=== PATIENT | female | born 1955 | race Caucasian/White ===

== ENCOUNTER 2020-08-22 15:54 | Outpatient (CLI) | payer MEDICARE, OTHER, SELFPAY ==
--- NOTE | ~2020-08-22 | XR_ITS ---
EXAMINATION: XR cervical spine 4-5V DATE: 08/22/2020 16:26 INDICATION: Cervical disc disorder, unspecified. TECHNIQUE: 4 views of cervical spine were obtained. COMPARISON: Cervical spine radiograph 01/28/14 FINDINGS: There is 5 degrees levocurvature of cervical spine. Vertebral body heights are normal. Ther e are disc replacement at C4-C5, C5-C6, and C6-C7. Intervertebral disc heights are normal. There is s evere uncovertebral joint osteoarthritis at C5-C6. There is severe facet joint osteoarthritis at C7-T 1. No central canal stenosis or prevertebral soft tissue swelling. IMPRESSION: 1. Mild cervical spondylosis. 2. Disc replacements from C4-C5 through C6-C7. Reviewed, dictated and finalized at location A. 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
--- NOTE | ~2020-08-22 | XR_ITS ---
XR chest 2V DATE: 08/22/2020 16:26 INDICATION: Right chest and back pain TECHNIQUE: PA and lateral views COMPARISON: 12/12/2015 PA and lateral chest FINDINGS: Stable left mid-upper lung calcified pulmonary granuloma. No pulmonary infiltrate or consol idation, pleural effusion or pulmonary vascular congestion or pneumothorax is evident. Borderline hea rt size with left ventricular prominence. No hilar or mediastinal enlargement. Surgical clips, right upper quadrant, consistent with cholecystectomy. Status post anterior cervical spine surgical fusion. There is mild dextroscoliosis and degenerative spurring of the thoracic spine. Diffuse osteopenia. IMPRESSION: Interval anterior cervical spine surgical fusion since 12/12/2015 Borderline heart size, left ventricular prominence No active pulmonary disease Reviewed, dictated and finalized at location A. RDS MANAGEMENT DIRECTOR
--- NOTE | ~2020-08-22 | XR_ITS ---
EXAMINATION: XR shoulder RT min 2V DATE: 08/22/2020 16:26 INDICATION: Right shoulder pain. TECHNIQUE: 4 views of right shoulder were obtained. COMPARISON: None. FINDINGS: Bone alignment is normal. No fracture. There is moderate osteoarthritis of glenohumeral jessica nt and acromioclavicular joint. There is instrumentation in cervical spine. IMPRESSION: 1. Polyarticular osteoarthritis. Reviewed, dictated and finalized at location A. TCHER TENDER
== END 2020-08-22 15:55 | disposition home or self-care (01) ==
LOC: ANHIMG 15:58
PROVIDERS: PCP Family Medicine; Visit Provider Family Medicine
DX: R07.81 Pleurodynia (principal); M50.90 Cervical disc disorder, unspecified, unspecified cervical region
CPT/HCPCS: 71046; 72050; 73030

== ENCOUNTER 2021-06-03 10:03 | Outpatient (CLI) | payer MEDICARE, OTHER, SELFPAY ==
--- NOTE | ~2021-06-03 | MM_ITS ---
EXAMINATION: MM screening radha BI w jose guadalupe HISTORY: Screening TECHNIQUE: Craniocaudal and mediolateral oblique 3-D tomosynthesis images were obtained and synthetic 2-D images were generated. CAD analysis was submitted and interpreted. COMPARISON: No prior mammogram is available for comparison at this institution. BREAST PARENCHYMAL COMPOSITION: There are scattered areas of fibroglandular density. FINDINGS: There is no evidence of suspicious mass, calcification, or architectural distortion to sugg est malignancy in either breast. There has been no suspicious interval change. IMPRESSION: 1. No mammographic evidence of malignancy. 2. Recommend routine screening mammography in one year. BI-RADS Category 1: Negative Reviewed, dictated and finalized at location A. G[employer] DAT[employer]
== END 2021-06-03 10:04 | disposition home or self-care (01) ==
LOC: ANHIMG 10:05
PROVIDERS: PCP Family Medicine; Visit Provider Family Medicine
DX: Z12.31 Encounter for screening mammogram for malignant neoplasm of breast (principal)
CPT/HCPCS: 77063; 77067

== ENCOUNTER 2021-12-09 12:46 | Outpatient (CLI) | payer MEDICARE, OTHER, SELFPAY ==
--- NOTE | ~2021-12-09 | CT_ITS ---
EXAMINATION: CT lumbar spine wo con DATE: 12/09/2021 13:08 INDICATION: Low back pain. Sciatica. TECHNIQUE: Computed tomography (CT) of the lumbar spine was performed without intravenous contrast. A utomated exposure control and iterative reconstruction technique were employed. The dose-length produ ct was 1012.96 mGy-cm. COMPARISON: None FINDINGS: There is 8 degrees levocurvature of lumbar spine. Vertebral body heights are normal. There is mildly decreased disc height at L2-L3, L3-L4, and L4-L5. The following disc levels are specificall y discussed: L1-L2: The disc is bulging. There is mild bilateral facet joint osteoarthritis. There is no neural fo raminal stenosis. There is mild central canal stenosis. L2-L3: The disc is bulging. There is moderate right and mild left facet joint osteoarthritis. There i s mild bilateral neural foraminal stenosis. There is mild central canal stenosis. L3-L4: The disc is bulging. There is severe bilateral facet joint osteoarthritis. There is mild bilat eral neural foraminal stenosis. There is mild central canal stenosis. L4-L5: The disc is bulging. There is severe bilateral facet joint osteoarthritis. There is mild right and moderate left neural foraminal stenosis. There is mild central canal stenosis. L5-S1: The disc is bulging. There is severe bilateral facet joint osteoarthritis. There is mild bilat eral neural foraminal stenosis. There is mild central canal stenosis. IMPRESSION: 1. Mild lumbar spondylosis. Reviewed, dictated and finalized at location B. IMPRESSION: 1. Mild lumbar spondylosis.
== END 2021-12-09 12:47 | disposition home or self-care (01) ==
PROVIDERS: PCP Family Medicine; Visit Provider Physician Assistant Medical
DX: M47.896 Other spondylosis, lumbar region (principal); Z98.890 Other specified postprocedural states
CPT/HCPCS: 72131

== ENCOUNTER 2022-08-19 15:11 | Outpatient (CLI) | payer MEDICARE, OTHER, SELFPAY ==
--- NOTE | ~2022-08-19 | MM_ITS ---
EXAMINATION: MM screening radha BI w jose guadalupe HISTORY: Screening mammogram TECHNIQUE: Craniocaudal and mediolateral oblique 3-D tomosynthesis images were obtained and synthetic 2-D images were generated. CAD analysis was submitted and interpreted. COMPARISON: 06/03/2021, 01/06/2010 bilateral screening mammogram examinations BREAST PARENCHYMAL COMPOSITION: There are scattered areas of fibroglandular density. FINDINGS: Chronic stable bilateral axillary tail and intramammary nodes since 2009. There is no evide nce of suspicious mass, calcification, or architectural distortion to suggest malignancy in either br east. There has been no suspicious interval change. IMPRESSION: 1. No mammographic evidence of malignancy. 2. Recommend routine screening mammography in one year. BI-RADS Category 2: Benign finding(s). Reviewed, dictated and finalized at location A. 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
== END 2022-08-19 15:12 | disposition home or self-care (01) ==
PROVIDERS: PCP Family Medicine; Visit Provider Physician Assistant
DX: Z12.31 Encounter for screening mammogram for malignant neoplasm of breast (principal)
CPT/HCPCS: 77063; 77067

== ENCOUNTER 2023-10-01 09:28 | Outpatient (CLI) | payer MEDICARE, OTHER, SELFPAY ==
--- NOTE | ~2023-10-01 | MM_ITS ---
EXAMINATION: MM screening radha BI w jose guadalupe HISTORY: Screening mammogram TECHNIQUE: Craniocaudal and mediolateral oblique 3-D tomosynthesis images were obtained and synthetic 2-D images were generated. CAD analysis was submitted and interpreted. COMPARISON: August 19, 2022, June 03, 2021 bilateral screening mammogram examinations BREAST PARENCHYMAL COMPOSITION: There are scattered areas of fibroglandular density. FINDINGS: Stable bilateral axillary tail intramammary lymph nodes. There is no evidence of suspicious mass, calcification, or architectural distortion to suggest malignancy in either breast. There has b een no suspicious interval change. IMPRESSION: 1. No mammographic evidence of malignancy. 2. Recommend routine screening mammography in one year. BI-RADS Category 2: Benign finding(s). Reviewed, dictated and finalized at location B.
== END 2023-10-01 09:29 | disposition home or self-care (01) ==
PROVIDERS: PCP Family Medicine; Visit Provider Family Medicine
DX: Z12.31 Encounter for screening mammogram for malignant neoplasm of breast (principal)
CPT/HCPCS: 77063; 77067

== ENCOUNTER 2023-12-09 08:05 | Outpatient (CLI) | payer MEDICARE, OTHER, SELFPAY ==
--- NOTE | ~2023-12-09 | CT_ITS ---
CT of the Abdomen: Indication: Disorder of adrenal gland Technique: 2.5 mm axial scans were obtained through the abdomen prior to and following intravenous a dministration of 100 cc of Omnipaque 350. Dose reduction technique was used on this scan by utilizing automated exposure control and iterative reconstruction technique. The dose-length product (DLP) was 2802.26 mGy-cm. Findings: Scans through the lung bases are unremarkable. The liver, spleen, pancreas, left adrenal gland, and kidneys are within normal limits. Cholecystectom y clips are present. No evidence of aortic aneurysm. No lymphadenopathy. 9 mm right adrenal nodule is present. There are precontrast Hounsfield units of 33, portal venous N[place]field units of 89, and 15 minute delayed Hounsfield units of 43. Visualized bowel loops are unremarkable. No ascites. Impression: 9 mm right adrenal nodule, with washout characteristics compatible with benign adenoma. Reviewed, dictated and finalized at [facility]. Impression: 9 mm right adrenal nodule, with washout characteristics compatible with benign adenoma.
[2023-12-09 08:33] LABS: Estimated Glomerular Filt Rate > 60
== END 2023-12-09 08:06 | disposition home or self-care (01) ==
PROVIDERS: PCP Family Medicine; Visit Provider Internal Medicine Endocrinology, Diabetes & Metabolism
DX: E27.9 Disorder of adrenal gland, unspecified (principal)
CPT/HCPCS: 74170; Q9967

== ENCOUNTER 2024-09-21 15:14 | Outpatient (CLI) | payer MEDICARE, OTHER, SELFPAY ==
--- NOTE | ~2024-09-21 | XR_ITS ---
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 No fracture or traumatic malalignment. There is a n ew lytic lesion of the distal ulnar metadiaphysis with cortical thinning. Impression: 1: New lytic lesion distal aspect of the ulna. Consider myeloma and metastatic disease. Reviewed, dictated and finalized at location A. Impression: 1: New lytic lesion distal aspect of the ulna. Consider myeloma and metastatic disease.
--- OUTSIDE RECORDS SUMMARY | 2024-09-21 15:19 | XMS_ITS | Clinical Summary ---
Author Organization [facility] Rajesh Augustin Address [address] [facility] [address] [place] [address] Care Team Providers Care Database Development Project Manager Name Role Phone Unavailable Primary Care Provider Unavailabl e Allergies Active Allergy Reactions Criticality Noted Date Comments Adhesive Itching Low 08/22/2024 Amoxicillin-Pot Clavulanate Unknown 08/22/19 Codeine Unknown 08/22/2024 Latex Dizziness Low 08/22/2024 Levofloxacin Unknown 08/22/2024 Morphine Dizziness Low 08/22/2024 Oxycodone-Acetaminophen Dizziness Low 08/22/2024 Medications ALBUTEROL SULFATE INHALATION Take by inhalation. Active cyclobenzaprine HCl (CYCLOBENZAPRIN E ORAL) Take by mouth. Activ e fluticasone propion-salmete roL (ADVAIR HFA) 45-21 mcg/actuation HFA Aerosol Inhaler Take 2 Puffs by inhalation every 12 hours. Active levothyroxine 100 mcg tablet Take 100 mcg by mouth daily in the morning. Active liothyronine sodium (LIOTHYRONINE ORAL) Take by mouth. Activ e metFORMIN (GLUCOPHAGE) 500 mg tablet Take 500 mg by mouth 2 times daily with meals. Active tramadol HCl (TRAMADOL ORAL) Take by mouth. Active trandolapriL (MAVIK) 2 mg Tablet Take 2 mg by mouth daily. Active ergocalciferol (VITAMIN D2) 50,000 unit capsule Take 50,000 Units by mouth twice weekly. Active Active Problems No known active problems Encounters Date Type Department Care Team Description 09/12/2024 External Device Data STL ABSTRACTION Provider, Abstract 09/07/2024 Orders Only [facility] Surgical Oncology [place] [address] [facility] [address] [place] [address] Jorge Zavala MD Palmyra's syndrome (Primary Dx) 09/06/2024 1:30 PM CDT Office Visit [facility] [place] [address] [place] [address] Jorge Zavala MD Adrenal mass (Primary Dx) 09/05/2024 External Device Data STL ABSTRACTION Provider, Abstract 09/05/2024 Telephone [facility] [place] [address] [facility] [address] [place] [address] Jorge Zavala MD Appointment Verification 09/04/2024 External Device Data STL ABSTRACTION Provider, Abstract 09/01/2024 External Device Data STL ABSTRACTION Provider, Abstract 08/31/2024 External Device Data STL ABSTRACTION Provider, Abstract 08/29/2024 External Device Data STL ABSTRACTION Provider, Abstract 08/29/2024 External Device Data STL ABSTRACTION Provider, Abstract 08/28/2024 External Device Data STL ABSTRACTION Provider, Abstract 08/27/2024 Telephone [facility] [place] [address] [facility] [address] [place] [address] Jorge Zavala MD Appointment Notification 08/22/2024 Telephone [facility] [id number] [place] [address] [place] [address] Dangelo Sandoval Medical info request 08/22/2024 Orders Only [facility] [id number] [place] [address] [address] [place] [address] Dangelo Sandoval 08/22/2024 Telephone [facility] [id number] [place] [address] [address] [place] [address] Dangelo Sandoval Imaging information 08/22/2024 Orders Only [facility] [id number] [place] [address] [place] [address] Jorge Zavala MD Adrenal adenoma, left (Primary Dx) 08/20/2024 11:40 AM DIAMOND FINISHING SUPERVISOR - 08/20/2024 11:59 PM DIAMOND FINISHING SUPERVISOR Hospital Encounter [facility] [place] [address] [place] [address] [facility], External Provider Discharge Disposition: Home or Self Care from Last 3 Months Social History Tobacco Use Types Packs/Day Years Used Date Smoking Tobacco: Never Assessed Comments Unknown Sex and Gender Information Value Date Recorded Sex Assigned at Not on file Legal Sex Female 11:51 AM DIAMOND FINISHING SUPERVISOR Gender Identity Not on file Sexual Orientation Not on file Last Filed Vital Signs Vital Sign Reading Time Taken Comments Blood Pressure 138/92 09/06/2024 1:28 PM CDT Pulse 96 09/06/2024 1:28 PM CDT Temperature 36.8 C (98.2 F) 09/06/2024 1:28 PM CDT Respiratory Rate - - Oxygen Saturation 97% 09/06/2024 1:28 PM CDT Inhaled Oxygen Concentration - - Weight 90 kg (198 lb 6.4 oz) 09/06/2024 1:28 PM CDT Height 152.4 cm (5') 09/06/2024 1:28 PM CDT Body Mass Index 38.75 09/06/2024 1:28 PM CDT Plan of Treatment Upcoming Encounters Date Type Department Care Team (Late st Contact Info) Description 11/28/2024 1:00 PM CDT Office Visit [facility] Endocrinology [address] [facility] [address] [place] [phone] Russell Rasmussen MD [address] [facility] [address] [place] [address] Health Maintenance Due Date Last Done Comments DIABETES ANNUAL RETINAL EXAM 12/03/1973 DIABETES MICROALBUMIN ANNUAL SCREEN 12/03/1973 LDL CHOLESTEROL ANNUAL 12/03/1973 DTAP/TDAP/TD VACCINES (1 - Tdap) 12/03/1974 PNEUMOCOCCAL VACCINE 50+ YEARS (1 of 2 - PCV) 12/03/18 75 Traditional Medicare (ACO) Annual Wellness Visit 12/03 BREAST CANCER SCREENING 1995 COLORECTAL SCREENING 12/03/2000 Colorectal Cancer Screening 12/03/2000 FIT-DNA Q 3 years 12/03/2000 FIT/FOBT Q 1 year 12/03/2000 Flex Sig/CT Colonography Q 5 years 12/03/2000 ZOSTER VACCINE (1 of 2) 12/03/2005 RSV VACCINE (60+ or ) (1 - Risk 60-74 years 1-dose series) 2015 DIABETES HBA1C Q 6 MONTHS 03/03/2019 08/31/2018 DIABETES ANNUAL FOOT EXAM 10/13/2019 10/12/2018 OSTEOPOROSIS SCREENING 12/03/2020 INFLUENZA VACCINE (#1) 2024 Procedures Procedure Name Priority Date/Time Associated Diagnosis Comments METANEPHRINES FRACTIONATED, PLASMA Routine 08/27/2024 1:55 PM DIAMOND FINISHING SUPERVISOR Adrenal adenoma, left CT PRIOR STUDY Routine 08/20/2024 11:40 AM DIAMOND FINISHING SUPERVISOR Encounter for administrative examinations, unspecified from Last 3 Months Results * METANEPHRINES FRACTIONATED, PLASMA (08/27/2024 1:55 PM DIAMOND FINISHING SUPERVISOR) METANEPHRINES FREE, PLASMA <25 <=57 pg/mL [facility] Comment: This test was developed and its analytical performance characteristics have been determined by [employer] [place], [place]. It has not been cleared or approved by the U.S. Food and Drug Administration. This assay has been validated pursuant to the CLIA regulations and is used for clinical purposes. NORMETANEPHRINE, FREE, PLASMA 106 <=148 pg/mL [facility] Comment: This test was developed and its analytical performance characteristics have been determined by [employer] [place], [place]. It has not been cleared or approved by the U.S. Food and Drug Administration. This assay has been validated pursuant to the CLIA regulations and is used for clinical purposes. METANEPHRINES, TOTAL, PLASMA 106 <=205 pg/mL [facility] Comment: For additional information, please refer to http://education.Constant Therapy.DataArt/faq/MetFractFree (This link is being provided for informational/educatio informational/educational purposes only.) Elevations >4-fold upper reference range: strongly suggestive of a pheochromocytoma(1). Elevations >1- 4-fold upper reference range: significant but not diagnostic, may be due to medications or stress. Suggest running 24 hr urine fractionated metanephrines and/or serum Chromagranin A for confirmation. Reference: (1)José Miguel Soler et al, Plasma Chromogranin A or Urine Fractionated Metanephrines Follow-Up Testing Improves the Diagnostic Accuracy of Plasma Fractionated Metanephrines for Pheochromocytoma. The Journal of Clinical Endocrinology # Metabolism 93(1), 91-95, 2008. This test was developed and its analytical performance characteristics have been determined by [facility] [place], [place]. It has not been cleared or approved by the U.S. Food and Drug Administration. This assay has been validated pursuant to the CLIA regulations and is used for clinical purposes. Test Performed at: [facility] [address] [facility] [place], [place] Connor Tai M.D.,PhD Blood 08/27/2024 1:55 PM DIAMOND FINISHING SUPERVISOR 08/27/2024 1:56 PM DIAMOND FINISHING SUPERVISOR Jorge Zavala MD CHEMISTRY ORDERABLES Fin al Result [facility] [phone] [facility] [address] [facility] [place], [place] * CT PRIOR STUDY (08/20/2024 11:40 AM DIAMOND FINISHING SUPERVISOR) Narrative 08/22/2024 11:40 AM DIAMOND FINISHING SUPERVISOR This exam was auto finalized to allow images to be scanned to PACS. us External Provider [facility] CT ORDERABLES Final Res ult from Last 3 Months Insurance MEDICARE PART A AND B [facility] [address]
--- OUTSIDE RECORDS SUMMARY | 2024-09-21 15:20 | XMS_ITS | CONTINUITY OF CARE DOCUMENT ---
Author Name nico walsh Address Unknown Organization [facility] Address [address] [place] [address] Phone [phone] Care Team Providers Care Wire Stitcher Machine Name Role Phone Amanda MARTINI, Marlon Unavailable BRITT FUENTES MD Unavailable [phone] BRITT FUENTES MD Unavailable PROBLEMS Condition Status Date Provider Notes Cardiology examination active Yusef Gentile i MANAGER USER INTERFACE Dizziness active Yusef Whitlockri MANAGER USER INTERFACE Hypertension active Yusef Whitlockri MANAGER USER INTERFACE Hypothyroidism active Yusef Whitlockri MANAGER USER INTERFACE Prediabetes active Vertari Avila MANAGER USER INTERFACE Anemia active Yusef Whitlockri MANAGER USER INTERFACE Sharee's syndrome active Yusef Whitlockri MANAGER USER INTERFACE Adrenal adenoma active Yusef Whitlockri MANAGER USER INTERFACE Family Hx heart disease active Vertari Whitlock ri MANAGER USER INTERFACE Cristina's thyroiditis active Vertari Whitlock ri MANAGER USER INTERFACE Hx of mitral valve prolapse active Yusef julian MANAGER USER INTERFACE ENCOUNTERS Date Type Provider Location Encounter Diag nosis - In-person encounter Office Visit Marlon Patel MD [facility] - In-person encounter Office Visit Marlon Patel MD [facility] Cardiology examinationDizzinessHyp ertensionHypothyroidism PrediabetesAnemiaCushin g's syndromeAdrenal adenomaFamily Hx heart diseaseHashimoto's thyroiditisHx of mitral valve prolapse VITAL SIGNS Date Observation Value Provider Body Mass Index (Ratio) 37.51 kg/m2 Yaron Patel MD blood pressure, cuff size large Ke mathewi Dary blood pressure, diastolic 84 mm[Hg] Ke rrkade Dary blood pressure, systolic 134 mm[Hg] Edwin lieberman Dary oxygen saturation, oximetry 98 % Odalis Dary respiratory rate E&M 14 /min Odalis schmidt pulse rate 74 /min Odalis Courtney [facility] weight E&M 254 [lb_av] Odalis Sherwin [facility] height E&M 69 [in_i] Odalis Sherwin [facility] Body Mass Index (Ratio) 37.80 kg/m2 Yaron Patel MD blood pressure, diastolic 84 mm[Hg] Carine nkLogadarsh blood pressure, systolic 144 mm[Hg] Kimberly kLogadarsh pulse rate 80 /min Amy Ann oxygen saturation, oximetry 98 % Amy Ann blood pressure, cuff size regular Luis Enrique Ann blood pressure, diastolic 84 mm[Hg] Luis Enrique Ann blood pressure, systolic 144 mm[Hg] Marcel Ann weight E&M 256 [lb_av] Amy Ann height E&M 69 [in_i] Amy Ann respiratory rate E&M 12 /min Amy Ann ALLERGIES Allergy Name Onset Date Reaction Criticality Status MORPHINE High Criticality active CODEINE High Criticality active LEVAQUIN High Criticality active AUGMENTIN High Criticality active HISTORY OF MEDICATION USE Medication Status Instructions Dates Provider Indications Com ments Ozempic 1 mg/dose (4 mg/3 mL) pen injector active Amy Ann cyanocobalamin (vitamin B-12) 1,000 mcg lozenge active TAKE 1 TABLET/LOZENGE BY MOUTH ONCE DAILY Amy Ann Linzess 72 mcg capsule active take 1 pill a day Odalis Foote escitalopram oxalate 20 mg tablet active take 1 pill a day Odalis Foote Korlym 300 mg tablet active take 600mg twice a day Odalis Foote levothyroxine 88 mcg tablet active take 1 pill a day Odalis Foote alprazolam 0.5 mg tablet active take as needed Odalis Foote metformin (Glucophage XR) 500 mg tablet extended release 24 hr active take 2 pills once a day Odalis Foote spironolactone 50 mg tablet active take 2 pill twice a day Odalis Foote gabapentin 300 mg capsule active take 1 pill a day Odalis Foote amlodipine 5 mg tablet active TAKE 1 TABLET BY MOUTH DAILY Odalis Foote SOCIAL HISTORY Date Observation Value Provider personal history of marijuana use no Marlon Patel MD drug use no Marlon Loaiza alcohol use, average drinks per day socia l Marlon Patel MD alcohol use yes Marlon Loaiza smoking status Never smoker Marlon Patel MD personal history of marijuana use no Yusef Avila NP drug use no Yusef Avila NP alcohol use, average drinks per day socia l Yusef Avila NP alcohol use yes Yusef Avila NP smoking status Never smoker Yusef Gentile i, NP FAMILY HISTORY Family Member Condition Maternal Grandmother Sudden Cardiac Deat h INSURANCE PROVIDERS Payer name Policy type / Coverage type [place] [employer] [facility] CYP Design [id number] [place] Medicare [id number] ADVANCE DIRECTIVES Name Date DISCUSSED - NO DECISION MADE TREATMENT PLAN Date Name Performer Cardiology Marlon Patel MD Cardiology Marlon Patel MD Cardiology Marlon Patel MD Cardiology Marlon Patel MD Cardiology Marlon Patel MD Cardiology: M anaged per Endocrinology. O n Spironolactone and Korlym. Yusef Avila NP Cardiology: Cande mcdowell with Endocrinology Yusef Avila NP Cardiology: M anaged per Endocrinology H er updated medication list for this problem includes: Levothyroxine 112 Mcg Tablet (Levothyroxine) Yusef Avila NP Cardiology: B P today: 144/84 S he checks her BP at home and is well controlled at home Her updated medication list for this problem includes: Spironolactone 50 Mg Tablet (Spironolactone) Amlodipine 5 Mg Tablet (Amlodipine) Yusef Avila NP Cardiology: S he had a 48 hour holter 01/09-01/12/24 that showed SR, SVEs, VEs. Max HR 203, Avg 73, Min 47. S he seems to be tachy-kenneth but no indication for a PPM at this time. W ill get an echo Yusef Avila NP Date Name Complete Echo HISTORY OF PROCEDURES Procedure Date Procedure Name Provider Procedure Notes S tatus EKG Marlon Patel MD complete d
--- OUTSIDE RECORDS SUMMARY | 2024-09-21 15:20 | XMS_ITS | Clinical Summary ---
Author Organization [facility] Address [address] [place] [address] Care Team Providers Care Calender Supervisor Name Role Phone Doreen Marte MD Primary Care Provider [phone] Efe Bhat MD Unavailable [phone] Source Comments [facility],non-owned Affiliates and Associated Physician Practices is amultiple site organization consisting of ambulatory clinics and hospital sitesin [place], [place], [place] and [place]. This disclosure is being madepursuant to the Care Everywhere program and may not contain all information available regarding this patient. Last updated 18.[facility] Allergies Active Allergy Reactions Criticality Noted Date Comments Adhesive Sensitivity 10/12/2013 Augmentin 10/12/2013 Codeine 10/12/2013 Latex 10/12/2013 Levofloxacin 06/11/2017 Morphine 10/12/2013 Oxycodone-Acetaminophen 10/12/2013 Medications * Be aware that medications may not be up to date on this document. Alwaysverify current medications with the patient. Medication Sig Dispensed Refills Start Date End Date Status vitamin D, ergocalciferol, (DRISDOL) 58008 UNITS capsule Take 1 (one) capsule by mouth Two times a week Active ALBUTEROL IN Active Ozempic, 1 MG/DOSE, 4 MG/3ML pen INJECT 1 MG (0.75 ML) SUBCUTANEOUSLY WEEKLY Active Linzess 72 MCG capsule Take 1 (one) capsule by mouth once daily Active oxyBUTYnin CR 24hr (Ditropan-XL) 5 MG tablet Take 1 (one) tablet by mouth once daily Active spironolactone (Aldactone) 50 MG tablet TAKE UP TO 2 TABLETS BY MOUTH ONCE DAILY Active amLODIPine (Norvasc) 5 MG tablet Take 1 (one) tablet by mouth once daily 03/13/2024 Active ondansetron (Zofran) 4 MG tablet 1 TAB(S) ORALLY TWICE DAILY NEEDED FOR NAUSEA 30 DAYS 06/24/2024 Active escitalopram (Lexapro) 20 MG tablet Take 1 (one) tablet by mouth once daily 03/13/2024 Active omeprazole (PriLOSEC) 20 MG capsule 1 CAPSULE 1/2 TO 1 HOUR BEFORE MORNING MEAL ORALLY ONCE A DAY 90 DAYS 05/14/2024 Active gabapentin (Neurontin) 300 MG capsule Take 1 (one) capsule by mouth 3 times daily 03/13/2024 Active ALPRAZolam (Xanax) 0.5 MG tablet Take 1 (one) tablet by mouth 2 times daily as needed 03/13/2024 Active propranolol (Inderal) 10 MG tablet TAKE 1 TABLET BY MOUTH TWICE A DAY FOR 90 DAYS 04/18/2024 Active levothyroxine (Synthroid) 112 MCG tablet Take 1 (one) tablet by mouth daily before breakfast Active Cyanocobalamin (B-12) 1000 MCG TAKE 1 TABLET/LOZENGE BY MOUTH ONCE DAILY Active dexAMETHasone (Decadron) 1 MG tablet Take 1 (one) tablet by mouth once for 1 dose Take at 11pm day prior to your cortisol test. Please obtain your lab value between 8-9am the next morning 1 tablet 07/04/2024 Active Active Problems Problem Noted Date Diagnosed Date Essential hypertension 10/12/2013 Overview (03/27/2015): Type II or unspecified type diabetes mellitus without mention of complication, not stated as uncontrolled 10/12/2013 Osteoarthrosis involving lower leg 10/12/2013 Overview (09/20/2015): 2015 IMO Updt Encounters Date Type Department Care Team Description 08/28/2024 Telephone [facility] - Urology [address] [place] [address] Pam Kyle LPN Imaging 08/20/2024 1:57 PM FINAL ARMATURE TESTER - 08/20/2024 11:59 PM FINAL ARMATURE TESTER Hospital Encounter [facility] [address] [place] [address] Blu Martinez MD Discharge Disposition: Home or Self Care 08/20/2024 Travel 08/16/2024 Travel 08/07/2024 Telephone [facility] [address] [place] [phone] Blu Martinez MD Results 08/06/2024 Orders Only [facility] - [facility] [address] [place] [id number] Blu Martinez MD 07/04/2024 4:00 PM FINAL ARMATURE TESTER Office Visit [facility] [address] [place] [phone] Blu Martinez MD Adrenal nodule (Primary Dx) 07/04/2024 Orders Only [facility] - [facility] [address] [place] [phone] Blu Martinez MD Adrenal nodule from Last 3 Months Social History Tobacco Use Types Packs/Day Years Used Date Smoking Tobacco: Never Smokeless Tobacco: Never Tobacco Cessation:Counseling Given: Not Answered Alcohol Use Standard Drinks/Week Comments Not Asked 0 (1 standard drink = 0.6 oz pur e alcohol) Sex and Gender Information Value Date Recorded Sex Assigned at Not on file Gender Identity Not on file Sexual Orientation Not on file Last Filed Vital Signs Vital Sign Reading Time Taken Comments Blood Pressure 126/87 07/04/2024 3:46 PM FINAL ARMATURE TESTER Pulse 98 07/04/2024 3:46 PM FINAL ARMATURE TESTER Temperature 36.1 C (97 F) 07/04/2024 3:46 PM FINAL ARMATURE TESTER Respiratory Rate 16 06/11/2017 10:54 AM FINAL ARMATURE TESTER Oxygen Saturation 94% 07/04/2024 3:46 PM FINAL ARMATURE TESTER Inhaled Oxygen Concentration - - Weight 93.4 kg (206 lb) 07/04/2024 3:46 PM FINAL ARMATURE TESTER Height 175.3 cm (5' 9 ) 07/04/2024 3:46 PM FINAL ARMATURE TESTER Body Mass Index 30.42 07/04/2024 3:46 PM FINAL ARMATURE TESTER Plan of Treatment Upcoming Encounters Date Type Department Care Team (Late st Contact Info) Description 11/06/2024 3:00 PM CDT Office Visit [facility] - Endocrinology [facility] [facility] [address] [facility] [place] [address] Yunier Juárez MD [facility] [facility] [address] [place] [address] Health Maintenance Due Date Last Done Comments BONE DENSITY TESTING 1955 COLOGUARD (AGES 45-75) - COL ON CA SCREENING 1955 COLON MONITORING 1955 COLONOSCOPY - COLON CA SCREENING 1955 CT COLONOGRAPHY - COLON CA SCREENING 1955 Colorectal Cancer Screening 1955 FIT - COLON CA SCREENING 1955 FLEX SIG - COLON CA SCREENING 1955 MAMMOGRAM 1955 MEDICARE AWV 12 MONTHS 1955 HEPATITIS C SCREENING 11/29/1973 DIABETES-SERUM CREATININE 12/03/1973 DTAP/TDAP/TD VACCINES (1 - Tdap) 12/03/1974 PNEUMOCOCCAL VACCINE 50+ (1 of 2 - PCV) 12/03/1974 DIABETES-STATIN 1995 ZOSTER VACCINE (1 of 2) 12/03/2005 COVID-19 VACCINE ( - 2023-2 5 season) 2024 INFLUENZA VACCINE (#1) 2024 DEPRESSION SCREENING 06/27/2024 DIABETES - URINE PROTEIN SCREENING 06/27/2024 DIABETES RETINOPATHY SCREENING 07/04/2024 DIABETES-FOOT EXAM WITH MONOFILAMENT 07/04/2024 DIABETES-HGB A1C 07/04/2024 08/31/2018 Respiratory Syncytial Virus (RSV) Vaccine Pt: or over 60 yrs (1 - 1-dose 75+ series) 12/03/2030 HEPATITIS B VACCINE Aged Out No longe r eligible based on patient's age to complete this topic HIB VACCINE Aged Out No longer eligi ble based on patient's age to complete this topic HPV VACCINE Aged Out No longer eligi ble based on patient's age to complete this topic MENINGOCOCCAL (Group B) VACC INE SHARED DECISION-MAKING Aged Out No longer eligibl e based on patient's age to complete this topic MENINGOCOCCAL GROUPS A/C/Y/W VACCINE Aged Out No longer eligible b ased on patient's age to complete this topic Procedures Procedure Name Priority Date/Time Associated Diagnosis Comments CT ABDOMEN WO CONTRAST Routine 08/20/2024 2:04 PM FINAL ARMATURE TESTER Adrenal nodule CORTISOL BLOOD AM 08/06/2024 7:4 0 AM FINAL ARMATURE TESTER from Last 3 Months Results * CT Abdomen Wo Contrast (08/20/2024 2:04 PM FINAL ARMATURE TESTER) Anatomical Region Laterality Modality Abdomen Computed Tomogra phy 08/20/2024 2:22 PM FINAL ARMATURE TESTER Impressions 08/20/2024 2:26 PM FINAL ARMATURE TESTER IMPRESSION: Nodular thickening of the left adrenal gland measuring up to 9 mm without discrete nodules. Right adrenal gland is normal. A nonobstructing 3 mm stone is noted in the upper pole calyx of the right kidney. No hydronephrosis. > Interpreting Provider: Ellie Gonzalez MD on 08/20/2024 2:26 PM Narrative 08/20/2024 2:26 PM FINAL ARMATURE TESTER PROCEDURE: CT ABDOMEN WO CONTRAST DATE/TIME OF EXAM: 08/20/2024 2:04 PM CLINICAL INFORMATION: None relevant/not provided if blank. Indication: E27.9: Adrenal nodule (HCC) Additional History: COMPARISON: None. TECHNIQUE: CT of the abdomen was performed without IV contrast. CT dose reduction technique was used, including Automated Exposure Control. FINDINGS: Lung bases: Normal. Hepatobiliary system: Normal. Gallbladder: Post cholecystectomy status. Spleen: Normal. Pancreas: Normal. Kidneys: A 3 mm nonobstructing stone in the upper pole of right kidney. No stones are seen in the left side. Small exophytic cyst noted from the left kidney. No hydronephrosis. No stones identified in the upper ureters. Adrenal Glands: Nodular thickening of the left adrenal glands without a discrete nodule, maximum thickness measures 9 mm. Right adrenal gland is unremarkable. Gastrointestinal: Stomach and visualized bowel loops are unremarkable. Peritoneal cavity: Normal. Vascular: Normal. Bones: Normal. Procedure Note Ellie Gonzalez MD - 08/20/2024 PROCEDURE: CT ABDOMEN WO CONTRAST DATE/TIME OF EXAM: 08/20/2024 2:04 PM CLINICAL INFORMATION: None relevant/not provided if blank. Indication: E27.9: Adrenal nodule (HCC) Additional History: COMPARISON: None. TECHNIQUE: CT of the abdomen was performed without IV contrast. CT dose reduction technique was used, including Automated ExposureControl. FINDINGS: Lung bases: Normal. Hepatobiliary system: Normal. Gallbladder: Post cholecystectomy status. Spleen: Normal. Pancreas: Normal. Kidneys: A 3 mm nonobstructing stone in the upper pole of right kidney.No stones are seen in the left side. Small exophytic cyst noted from theleft kidney. No hydronephrosis. No stones identified in the upper ureters. Adrenal Glands: Nodular thickening of the left adrenal glands without a discrete nodule, maximum thickness measures 9 mm. Right adrenal gland is unremarkable. Gastrointestinal: Stomach and visualized bowel loops are unremarkable. Peritoneal cavity: Normal. Vascular: Normal. Bones: Normal. IMPRESSION: Nodular thickening of the left adrenal gland measuring up to 9 mmwithout discrete nodules. Right adrenal gland is normal. A nonobstructing 3 mm stone is noted in the upper pole calyx of theright kidney. No hydronephrosis. > Interpreting Provider: Ellie Gonzalez MD on 52:26 PM Blu Martinez MD CT ORDERABLES * CORTISOL BLOOD AM (08/06/2024 7:40 AM FINAL ARMATURE TESTER) Cortisol AM 4.4 mcg/dL [facility] Comment: Reference Range 8 a.m. (7-9 a.m.) Specimen: 4.0-22.0 REPORT COMMENT: FASTING:YES Test Performed at: [facility] [address] [place] [address] LATIA TORRES MD 08/06/2024 7:40 AM FINAL ARMATURE TESTER 08/06/2024 7:40 AM FINAL ARMATURE TESTER Blu Martinez MD LAB - CHEMISTRY OR DERABLES [place] [address] [place] [address] from Last 3 Months Care Teams Calender Supervisor Relationship Specialty Start Date End Date Doreen Marte MD [address] [place] [address] PCP - General Family Medicine 10/12/13 [place] [address] [place] [id number] Orthopedic Surgery 10/12/13
--- OUTSIDE RECORDS SUMMARY | 2024-09-21 15:20 | XMS_ITS ---
Author Organization [facility] Care Team Providers Care Track Repairer Helper Name Role Phone Hussein Altman Unavailable Unavailable Care Team Name Role Address Phone Organization Dates Hussein Altman PCP [address], [place], [place], [id number], [place] (Office): [phone] [facility] 12/31/2015 - 01/01/2016 Reason for Referral No Reasons for Referral Entered Social History Social History Observation Description Start Date End Date Code Code System Current Smoking Status Tobacco smoking consumption unknown [id number] SNOMED CT Sex Assigned At Female 1955 [address] [facility]
--- OUTSIDE RECORDS SUMMARY | 2024-09-21 15:20 | XMS_ITS | Referral Summary ---
Author Organization [facility] 8 [facility] Address [address] [place] [address] Care Team Providers Care Labor Relations Or Personnel Negotiator Name Role Phone Doreen Marte MD Primary Care Provider Allergies Active Allergy Reactions Criticality Noted Date Comments Amoxicillin-Pot Clavulanate Rash Medium 01/24/20 18 Codeine Levofloxacin Hives Medium 08/14/2018 Morphine Other Rash,Blisters High 01/23/2018 TAPE/ ADHESIVE Oxycodone Oxycodone-Acetaminophen Hypotension High 09/22/2018 Medications blood glucose diagnostic (HealthHiwayTOUCH ULTRA TEST) strip Test sugars daily and as directed 100 3 8 Active trandolapril (MAVIK) 2 mg tablet take 1 tablet (2MG) by oral route every day 0 2 Active Additional Information Patient taking differently:2 mgoral Daily, Indications: hypertension, Reported on 08/31/2018 cyclobenzaprine (FLEXERIL) 10 mg tablet take 1 tablet by oral route every day 0 0 7 Active Additional Information Patient taking differently:10 mgoral 3 times daily PRN, muscle spasms, Reported on 08/31/2018 amLODIPine (NORVASC) 5 mg tabletIndication s:hypertension Take 5 mg by mouth nightly Indications: high blood pressure. 4 8 Active desonide (DESOWEN) 0.05 % creamIndications :Skin Inflammation Apply topically daily as needed Indications: Skin Inflammation. 0 8 Active ALPRAZolam (XANAX) 0.5 mg tablet TK 1 T PO TID prn anxiety 0 8 Active escitalopram (LEXAPRO) 20 mg tablet TK 1 T PO QD 3 8 Active celecoxib (CeleBREX) 100 mg capsule TAKE 2 CAPSULES BY MOUTH WITH BREAKFAST THE DAY BEFORE SURGERY, THEN 1 CAPSULE TWICE DAILY AFTER DISCHARGE 10 capsule 9 Active ergocalciferol (VITAMIN D) 50,000 unit capsule Take 1 capsule (50,000 Units total) by mouth 2 (two) times a week. 30 capsule 1 9 Active Additional Information Patient taking differently:50,000 Units oral 2 times weekly,Indications: Vitamin D Deficiency, Reported on 08/31/2018 albuterol sulfate 90 mcg/actuation aerosol powdr breath activatedIndicat ions:Acute Asthma Attack Inhale 180 mcg 2 (two) times a day as needed Indications: Asthma Attack. Active senna-docusate (PERICOLACE) 8.6-50 mgIndications:co nstipation Take 2 tablets by mouth 2 (two) times a day 60 tablet 1 9 Active aspirin 325 mg enteric coated tabletIndication s:Deep Vein Thrombosis Prevention Take 1 tablet (325 mg total) by mouth 2 (two) times a day 84 tablet 9 Active hydrOXYzine (ATARAX) 25 mg tablet Take 1 tablet (25 mg total) by mouth every 4 (four) hours as needed (2nd line pain) 30 tablet 1 9 Active cyclobenzaprine (FLEXERIL) 10 mg tablet Take 1 tablet (10 mg total) by mouth 3 (three) times a day as needed for muscle spasms 40 tablet 1 9 Active gabapentin (NEURONTIN) 300 mg capsuleIndicatio ns:Aftercare following left knee joint replacement surgery Take 1 capsule (300 mg total) by mouth 3 (three) times a day 90 capsule 2 9 Active levothyroxine (SYNTHROID) 100 mcg tablet Take 1 tablet (100 mcg total) by mouth daily 90 tablet 3 9 Active liothyronine (CYTOMEL) 5 mcg tablet Take 1 tablet (5 mcg total) by mouth 2 (two) times a day 180 tablet 3 9 Active atorvastatin (LIPITOR) 20 mg tablet TAKE 1 TABLET(20 MG) BY MOUTH DAILY 90 tablet 9 Active metFORMIN XR (GLUCOPHAGE XR) 500 mg 24 hr tablet TAKE 1 TABLET(500 MG) BY MOUTH TWICE DAILY 180 tablet 0 Active Active Problems Problem Noted Date Diagnosed Date Hyperlipidemia associated with type 2 diabetes lorraine astudillo 10/12/2018 Assessment & Plan (10/12/2018 3:49 PM CDT): Goal of treatment , LDL cholesterol less than 100 ( less than 70 in patients with history of heart attacks and / or strokes ) NonHDL cholesterol ( total cholesterol minus HDL cholesterol ) goal less than 130 ( less than 100 in patients with history of heart attacks and / or strokes ) Low cholesterol, low fat diet was discussed and advised. Daily exercise On statin therapy Asthma 09/18/2018 Anemia 09/18/2018 GERD (gastroesophageal reflux disease) 9 Primary osteoarthritis of left knee 08/14/2018 Overview (08/14/2018): Added automatically from request for surgery [id number] Chronic fatigue 04/25/2018 Hypercholesterolemia 08/23/2017 Assessment & Plan (08/23/2017 2:10 PM VP CARDIOVASCULAR): Goal of treatment , LDL cholesterol less than 100 ( less than 70 in patients with history of heart attacks and / or strokes ) NonHDL cholesterol ( total cholesterol minus HDL cholesterol ) goal less than 130 ( less than 100 in patients with history of heart attacks and / or strokes ) Low cholesterol, low fat diet was discussed and advised. Daily exercise Start Lipitor BMI 40.0-44.9, adult 08/23/2017 Morbid obesity 08/23/2017 Overview (08/23/2017): Diet and exercise were discussed. 1200 Calorie diet advised 45-60 min aerobic / resistance exercise most days of the week recommended. Bariatric surgery medically indicated Lymphocytic thyroiditis 11/10/2013 Overview (09/29/2016): CHR LYMPHOCYT THYROIDIT Hypothyroidism 11/10/2013 Overview (09/29/2016): HYPOTHYROIDISM NOS Assessment & Plan (10/12/2018 3:49 PM CDT): Will check TSH and free T4 Will adjust dose of Levothyroxine accordingly . If there is a need to make changes, will recheck levels in 2-3 months. Instructions to patient on taking medication properly : in the morning, on an empty stomach , 1 h part from food and/or other meds. If any doses are missed, can take 2-3 tab together ,to make up for the missed dose; make sure at the end to the week, 7 tabs have been taken. Assessment & Plan (04/25/2018 12:39 PM CDT): Will check TSH and free T4 Will adjust dose of Levothyroxine accordingly . If there is a need to make changes, will recheck levels in 2-3 months. Instructions to patient on taking medication properly : in the morning, on an empty stomach , 1 h part from food and/or other meds. If any doses are missed, can take 2-3 tab together ,to make up for the missed dose; make sure at the end to the week, 7 tabs have been taken. Assessment & Plan (08/23/2017 2:01 PM VP CARDIOVASCULAR): Continue current dose of Levothyroxine and Cytomel Type 2 diabetes mellitus 11/10/2013 Overview (09/29/2016): DMII WO CMP UNCNTRLD Assessment & Plan (10/12/2018 3:49 PM CDT): Hba1c was Lab Results Component Value Date HGBA1C 5.8 04/25/2018 today, indicating DM control 1800 calorie, consistent carb diet recommended 25-45 min daily aerobic and resistance exercise recommended Prevention and treatment of hyypoglcyemia discussed. Blood glucose monitoring with fingers sticks 1-2 x day . Oral medications: continue Metformin Assessment & Plan (04/25/2018 12:39 PM CDT): Hba1c was Lab Results Component Value Date HGBA1C 6.0 08/23/2017 today, indicating adequate DM control 1800 calorie, consistent carb diet recommended 30 min daily aerobic and resistance exercise recommended Prevention and treatment of hyypoglcyemia discussed. Blood glucose monitoring with fingers sticks 1-2 x day . Assessment & Plan (08/23/2017 2:00 PM VP CARDIOVASCULAR): Hba1c was 6.0 today, indicating DM control 1800 calorie, consistent carb diet recommended 30 min daily aerobic and resistance exercise recommended Prevention and treatment of hyypoglcyemia discussed. Blood glucose monitoring with fingers sticks 1-2 x day . Vitamin D deficiency 02/28/2013 Overview (09/30/2016): Vitamin D deficiency Assessment & Plan (10/12/2018 3:49 PM CDT): Check 25 OH vit D Adjust dose of Ergocalciferol accordingly Assessment & Plan (08/23/2017 2:04 PM VP CARDIOVASCULAR): [place] [address] IU twice a week Social History Tobacco Use Types Packs/Day Years Used Date Smoking Tobacco: Never Smokeless Tobacco: Never Alcohol Use Standard Drinks/Week Comments Yes 0 (1 standard drink = 0.6 oz pur e alcohol) rare PHQ-2 Answer Date Recorded PHQ-2 Score 0 02/15/2019 Comments No Sex and Gender Information Value Date Recorded Sex Assigned at Not on file Legal Sex Female 12:34 PM VP CARDIOVASCULAR Gender Identity Not on file Sexual Orientation Not on file 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 Not on file Not on file Last Filed Vital Signs Vital Sign Reading Time Taken Comments Blood Pressure 124/88 01/10/2024 10:15 AM CDT Pulse 96 01/10/2024 10:15 AM CDT Temperature 36.8 C (98.2 F) 09/22/2018 2:30 PM CDT Respiratory Rate 12 10/12/2018 3:32 PM CDT Oxygen Saturation 97% 01/10/2024 10:15 AM CDT Inhaled Oxygen Concentration - - Weight 118.8 kg (262 lb) 10/12/2018 3:32 PM CDT Height 172.7 cm (5' 7.99 ) 10/12/2018 3:32 PM CD T Body Mass Index 39.85 10/12/2018 3:32 PM CDT Plan of Treatment Not on file Medical Devices Implanted Type Area Silhouette Artist Device Identifier Shelf Expiration Date Model / Serial / Lot [employer] 3122-040 Smartset Medium Viscosity Cement 40gm Bone Sterile - [id number] Implanted:Qty: 1 on 09/22/2018 by Jordan Jones MD at [facility] [employer] 03/26/2020 [id number] / / [employer] [id number] Smartset Medium Viscosity Cement 40gm Bone Gentamicin - [id number] Implanted:Qty: 1 on 09/22/2018 by Jordan Jones MD at [facility] [employer] 08/19/2019 [id number] / / [employer] [id number] Attune Cemented Cruciate Retaining Knee Left 7 Component Femoral - [id number] Implanted:Qty: 1 on 09/22/2018 by Jordan Jones MD at [facility] [employer] [id number] 03/26/2028 [id number] / / [employer] [id number] Attune 14mm 50mm Cemented Revision Knee Stem Femoral Sterile - [id number] Implanted:Qty: 1 on 09/22/2018 by Jordan Jones MD at [facility] [employer] [id number] 01/25/2028 [id number] / / [employer] [id number] Attune Cement Revision Fix Bearing Knee 7 Baseplate Tibial - [id number] Implanted:Qty: 1 on 09/22/2018 by Jordan Jones MD at [facility] [employer] [id number] 12/25/2027 [id number] / / [employer] [id number] Attune 7mm Cruciate Retaining Fix Bearing Knee 7 Insert Tibial - [id number] Implanted:Qty: 1 on 09/22/2018 by Jordan Jones MD at [facility] [employer] [id number] 04/26/2022 [id number] / / Procedures Procedure Name Priority Date/Time Associated Diagnosis Comments POCT HEMOGLOBIN A1C Routine Gen Lab 08/31/2018 1:15 PM VP CARDIOVASCULAR LIPID PANEL Routine 08/15/2017 1:25 PM VP CARDIOVASCULAR Type 2 diabetes mellitus with hyperglycemia, without long-term current use of insulin (HCC) from Last 3 Months or Most Recently Relevant to Health Maintenance Results * POCT hemoglobin A1c (08/31/2018 1:15 PM VP CARDIOVASCULAR) Pathologist [facility] Hgb A1C, POC 6.0 4.0 - 6.0 % [facility] Est Average Gluc POC 126 mg/dL [facility] Comment: The ADA recommends reporting an estimated Average Glucose (eAG) with all Hemoglobin A1c results using the equation derived from a study of 507 normal and diabetic adults. Minority populations were underrepresented and children were not included. (Diabetes Care 31:9555-1782, 2008). The eAG is not equivalent to a fasting glucose. Blood specimen (specimen) 08/31/2018 1:15 PM VP CARDIOVASCULAR 08/31/2018 1:15 PM VP CARDIOVASCULAR Narrative [facility] - 08/31/2018 1:33 PM VP CARDIOVASCULAR us Jordan Jones MD POINT OF CARE TEST ORDERA BLES Final Result [facility] One [facility] Department [place] [address] * (ABNORMAL) Lipid panel (08/15/2017 1:25 PM VP CARDIOVASCULAR) [facility] Cholesterol 247(H) 100 - 199 mg/dL [facility] - 01 Triglycerides 188(H) 0 - 149 mg/dL [facility] - 01 HDL Cholesterol 64 >39 mg/dL [facility] - 01 VLDL 38 5 - 40 mg/dL [facility] - 01 LDL, calculated 145(H) 0 - 99 mg/dL [facility] - 01 Blood specimen (specimen) 08/15/2017 1:25 PM VP CARDIOVASCULAR 08/15/2017 Narrative [facility] - 08/16/2017 6:14 AM VP CARDIOVASCULAR Performed at: 01 - [address] [id number] Cardiovascular Technologist: David Díaz PhD, Phone: [phone] us Naty Norton NP LAB BLOOD ORDERABLES [facility] Organization Address City/State/ZIP Co de Phone Number [facility] 01 from Last 3 Months or Most Recently Relevant to Health Maintenance Insurance [facility] MEDICARE [facility] Advance Directives For more information, please contact: [phone] * Full Code (Latest Code Status on File) Date Activated Date Inactivated Comments 09/22/2018 11:29 AM 09/22/2018 10:23 PM Care Teams Labor Relations Or Personnel Negotiator Relationship Specialty Start Date End Date Doreen Marte MD PCP - General 04/29/14
--- OUTSIDE RECORDS SUMMARY | 2024-09-21 15:20 | XMS_ITS | Clinical Summary ---
Author Organization [facility] 8 [facility] Address [address] [place] [address] Care Team Providers Care [facility] Name Role Phone Doreen Marte MD Primary Care Provider [phone] Allergies Active Allergy Reactions Criticality Noted Date Comments Amoxicillin-Pot Clavulanate Rash Medium 01/24/20 18 Codeine Levofloxacin Hives Medium 08/14/2018 Morphine Other Rash,Blisters High 01/23/2018 TAPE/ ADHESIVE Oxycodone Oxycodone-Acetaminophen Hypotension High 09/22/2018 Medications blood glucose diagnostic (VoddlerTOUCH ULTRA TEST) strip Test sugars daily and [...] (08/14/2018): Added automatically from request for surgery [id number] Chronic fatigue 04/25/2018 Hypercholesterolemia 08/23/2017 Assessment & Plan (08/23/2017 2:10 PM OCCUPATIONAL THERAPY PROFESSOR): Goal of treatment , LDL cholesterol less [...] taken. Assessment & Plan (08/23/2017 2:01 PM OCCUPATIONAL THERAPY PROFESSOR): Continue current dose of Levothyroxine and Cytomel [...] . Assessment & Plan (08/23/2017 2:00 PM OCCUPATIONAL THERAPY PROFESSOR): Hba1c was 6.0 today, indicating DM control [...] accordingly Assessment & Plan (08/23/2017 2:04 PM OCCUPATIONAL THERAPY PROFESSOR): [place] [address] IU twice a week Surgical History Surgery Date Site/Laterality Comments CHOLECYSTECTOMY 06/27/2005 - 06/26/2006 Cholecystectomy POSTERIOR LAMINECTOMY / DECOMPRESSION LUMBAR SPINE 07/19/2017 L4-L5-S1 ANTERIOR FUSION CERVICAL SPINE COLONOSCOPY HYSTERECTOMY 06/27/1995 - 06/26/1996 Left salpingo-oophorectom y SALPINGOOPHORECTOMY Right Medical History Medical History Date Comments Disorder of thyroid Thyroid dise ase Diabetes mellitus (HCC) Diabetes Hx Other Medical Claustrophobic; Comments: [facility] 04/29/2014 - PONV (postoperative nausea and vomiting) Family History Medical History Relation Name Comments Heart attack Maternal Grandmother Coronary artery disease Mother Heart attack Mother Breast cancer Other 1 Family history of Cancer -breast; Diabetes type II Other 2 Family hist ory of Diabetes -Type II; Hypertension Other 3 Family history of Hypertension; Other Other 4 No family histo ry of Renal disease; Relation Name Status Comments Maternal Grandmother Mother Other 1 Other 2 Other 3 Other 4 Social History Tobacco Use Types Packs/Day Years Used Date Smoking Tobacco: Never Smokeless Tobacco: Never Alcohol Use Standard Drinks/Week Comments Yes 0 (1 standard drink = 0.6 oz pur e alcohol) rare PHQ-2 Answer Date Recorded PHQ-2 Score 0 02/15/2019 Comments No Sex and Gender Information Value Date Recorded Sex Assigned at Not on file Legal Sex Female 12:34 PM OCCUPATIONAL THERAPY PROFESSOR Gender Identity Not on file Sexual Orientation Not on file 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 on file Not on file Not on file Obstetrics History Last Filed Vital Signs Vital Sign Reading [...] 10/12/2018 3:32 PM CDT Plan of Treatment Health Maintenance Due Date Last Done Comments Albumin Creatinine Ratio, Urine 1955 Breast Cancer Screening-Mammogram 1955 Colon Cancer Screening-Colonoscopy 1955 Fall Risk Assessment 1955 Hepatitis C Screening 1955 Osteoporosis Screening-Bone Density Scan 1955 eGFR 1955 Dilated Eye Exam 1955 DTaP/Tdap/Td Vaccine (1 - Tdap) 12/03/1966 Hepatitis B Screening 12/03/1973 Pneumococcal vaccine 65+ (1 of 2 - PCV) 12/03/1974 Zoster Vaccine (1 of 2) 12/03/2005 Lipid Panel 08/15/2018 08/15/2017, 02/26, 09/13/2012 Hemoglobin A1C 03/03/2019 08/31/2018, 03/29, 08/23/2017 Depression Screening 10/13/2019 10/12/2018, 04/25/2018, 08/23/2017 Foot Exam 10/13/2019 10/12/2018, 04/25/2018 Well Visit 65+ 12/03/2020 Covid-19 Vaccine ( season) 2024 06/15/2021, 08/30/2020, 08/09/2020 Influenza Vaccine (#1) 2024 04/29/2018 Medical Devices Implanted Type Area Director Of Cardiac Rehabilitation Device Identifier Shelf Expiration Date Model / Serial / Lot [employer] 3122-040 Smartset Medium Viscosity Cement 40gm Bone Sterile - [id number] Implanted:Qty: 1 on 09/22/2018 by Jordan Jones MD at [facility] [employer] 03/26/2020 [id number] / / [employer] [id number] Smartset Medium Viscosity Cement 40gm Bone Gentamicin - [id number] Implanted:Qty: 1 on 09/22/2018 by Jordan Jones MD at [facility] [employer] 08/19/2019 [id number] / / [employer] [id number] Attune Cemented Cruciate Retaining Knee Left 7 Component Femoral - [id number] Implanted:Qty: 1 on 09/22/2018 by Jordan Jones MD at [facility] [employer] [id number] 03/26/2028 [id number] / / [employer] [id number] Attune 14mm 50mm Cemented Revision Knee Stem Femoral Sterile - [id number] Implanted:Qty: 1 on 09/22/2018 by Jordan Jones MD at [facility] [employer] [id number] 01/25/2028 [id number] / / [employer] [id number] Attune Cement Revision Fix Bearing Knee 7 Baseplate Tibial - [id number] Implanted:Qty: 1 on 09/22/2018 by Jordan Jones MD at [facility] [employer] [id number] 12/25/2027 [id number] / / [employer] [id number] Attune 7mm Cruciate Retaining Fix Bearing Knee 7 Insert Tibial - [id number] Implanted:Qty: 1 on 09/22/2018 by Jordan Jones MD at [facility] [employer] [id number] 04/26/2022 [id number] / / Procedures Procedure Name Priority Date/Time Associated Diagnosis Comments POCT HEMOGLOBIN A1C Routine Gen Lab 08/31/2018 1:15 PM OCCUPATIONAL THERAPY PROFESSOR LIPID PANEL Routine 08/15/2017 1:25 PM OCCUPATIONAL THERAPY PROFESSOR Type 2 diabetes mellitus with hyperglycemia, without long-term current use of insulin (HCC) from Last 3 Months or Most Recently Relevant to Health Maintenance Results * POCT hemoglobin A1c (08/31/2018 1:15 PM OCCUPATIONAL THERAPY PROFESSOR) Pathologist [facility] Hgb A1C, POC 6.0 4.0 - 6.0 % [facility] Est Average Gluc POC 126 mg/dL [facility] Comment: The ADA recommends reporting an estimated Average Glucose (eAG) with all Hemoglobin A1c results using the equation derived from a study of 507 normal and diabetic adults. Minority populations were underrepresented and children were not included. (Diabetes Care 31:3576-1827, 2008). The eAG is not equivalent to a fasting glucose. Blood specimen (specimen) 08/31/2018 1:15 PM OCCUPATIONAL THERAPY PROFESSOR 08/31/2018 1:15 PM OCCUPATIONAL THERAPY PROFESSOR Narrative [facility] - 08/31/2018 1:33 PM OCCUPATIONAL THERAPY PROFESSOR us Jordan Jones MD POINT OF CARE TEST ORDERA BLES Final Result [facility] [place] [address] * (ABNORMAL) Lipid panel (08/15/2017 1:25 PM OCCUPATIONAL THERAPY PROFESSOR) [facility] Cholesterol 247(H) 100 - 199 mg/dL [facility] - 01 Triglycerides 188(H) 0 - 149 mg/dL [facility] - 01 HDL Cholesterol 64 >39 mg/dL [facility] - 01 VLDL 38 5 - 40 mg/dL [facility] - 01 LDL, calculated 145(H) 0 - 99 mg/dL [facility] - 01 Blood specimen (specimen) 08/15/2017 1:25 PM OCCUPATIONAL THERAPY PROFESSOR 08/15/2017 Narrative [facility] - 08/16/2017 6:14 AM OCCUPATIONAL THERAPY PROFESSOR Performed at: 01 - [address] [id number] Scaler Packer: David Díaz PhD, Phone: [phone] us Naty Norton NP LAB BLOOD ORDERABLES [facility] Organization Address City/State/ZIP Co de Phone Number [facility] - 01 from Last 3 Months or Most Recently Relevant to Health Maintenance Insurance ON LICENSE OF [facility] MEDICARE [facility] Advance Directives For more information, please contact: [phone] * Full Code (Latest Code Status on File) Date Activated Date Inactivated Comments 09/22/2018 11:29 AM 09/22/2018 10:23 PM Care Teams [facility] Relationship Specialty Start Date End Date Doreen Marte MD PCP - General 04/29/14
== END 2024-09-21 15:15 | disposition home or self-care (01) ==
PROVIDERS: PCP Family Medicine; Visit Provider Family Medicine
DX: M25.532 Pain in left wrist (principal)
CPT/HCPCS: 73110

== ENCOUNTER 2024-09-25 12:14 | Outpatient (CLI) | payer MEDICARE, OTHER, SELFPAY ==
--- OUTSIDE RECORDS SUMMARY | 2024-09-25 13:15 | XMS_ITS ---
Author Organization [email or web address] [place] Address [address] [address] Care Team Providers Care Tailor Apprentice Name Role Phone Mamta Harper Primary Care Provider REASON FOR VISIT 2 month f/u faraz Encounters Encounter Location Date Provider Diagnosis [facility] - Mamta Harper [address] [place] [address] 08/13/2024 Mamta Harper Plan Of Treatment No Information Progress Notes * Lorraine SAUCEDODOB:1955 (68 yo F)Acc No.[id number]:08/13/2024 Progress Notes Patient: Lorraine MUKHERJEE Provider: Viktoriya Harper MD :1955 A ge:68 Y S ex:Female Date:08/13/2024 Address:[address] [place], [place] [address]KG [id number] Subjective: * Chief Complaints: * 1 . 2 month f/u faraz. * Medical History: Objective: * Vitals: Assessment: Plan: * Treatment: * Billing Information: * Visit Code: * Procedure Codes: * Electronic signature of Meño Harper MD on 09/25/2024 at 01:15 PM CDT Sign off status: Pending * Provider: Viktoriya Harper MD Date: 08/13/2024 Generated for Printi ng/Faxing/eTransmitting on: 0 09/25/2024 01:15 PM CDT
--- OUTSIDE RECORDS SUMMARY | 2024-09-25 13:15 | XMS_ITS | Data Portability ---
Author Organization [facility] Address [address] [place] [address] Care Team Providers Care Digester Capper Name Role Phone BRITT FUENTES Primary Care Provider [phone] Assessment Encounter Date Assessment Date Assessment LastModified by Organization Details LastModified Time 03/18/2023 03/18/2023 45 minutes spent on patient care, >50% face to face Not available 03/18/2023 14:56:49 Plan of Treatment Reminders Order Date Submit Date Provider Last Modified By Organization Details Last Modified Time Details Appointments None recorded. Lab None recorded. Referral None recorded. Procedures None recorded. Surgeries None recorded. Imaging None recorded. Medication Orders estradiol 0.0375 mg/24 hr weekly transdermal patch 2022 023 6 [id number], [address] , [place], [address], 14:42:55 Patient TargetsNo targets recorded. Patient InstructionsNo instructions recorded. Reason for Referral None Reported. Procedures Surgical History Date Name Laterality Status Provider Name and Address Organization Details Recorded Time 08/23/19 23 Date of Last Mammogram completed Gabriella Moscoso [facility] 03/18/2023 12:53:21 08/13/19 23 completed Gabriella Moscoso [facility] 03/18/2023 12:53:21 02/10/19 91 Caesarean Section completed Gabriella Moscoso [facility] 03/18/2023 12:53:33 04/27/19 85 Caesarean Section completed [facility] 03/18/2023 12:53:33 Orthopedic Surgery completed [facility] 03/18/2023 12:53:33 Endometrial Ablation completed [facility] 03/18/2023 12:53:33 Oophorectomy completed [facility] 03/18/2023 12:53:33 Endometrial Biopsy completed [facility] 03/18/2023 12:53:33 Total Hysterectomy completed [facility] 03/18/2023 12:53:33 Colonoscopy completed [facility] 03/18/2023 12:53:33 Imaging Results None recorded. Procedure Notes None recorded. Medical Equipment None Reported. Allergies Allergen ID Allergen Name Allergen Category Reaction Reaction Severity Criticality Documentation Date Start Date Code Code System Note Provider Name and Address Organization Details Recorded Time morphine medicatio n itching Not available Not available 03/18/2023 7052 RxNorm Gabriella Schroedte r [facility], [facility] 3 12:53:14 56593 Augmentin medicatio n hives Not available Not available 03/18/2023 68500 2 RxNorm Gabriella Schroedte r [facility], [facility] 3 12:53:14 92633 latex environme nt,medica tion hives Not available Not available 03/18/2023 74357 91 RxNorm Gabriella Schroedte r [facility], [facility] 3 12:53:14 52940 Levaquin medicatio n nausea Not available Not available 03/18/2023 61696 2 RxNorm Gabriella Schroedte r [facility], [facility] 3 12:53:14 Medications Name Sig Start Date Stop Date Status Note LastModified by Organization Details LastModified Time nitrofurant oin macrocrysta l 50 mg capsule TAKE 1 CAPSULE BY MOUTH EVERYDAY AT BEDTIME 03/18 completed Not Available Not Available Not Available cefuroxime axetil 250 mg tablet TAKE 1 TABLET BY MOUTH EVERY 12 HOURS 03/18 completed Not Available Not Available Not Available atorvastati n 10 mg tablet TAKE 1 TABLET BY MOUTH EVERY DAY active Not Available Not Available No t Available fluconazole 150 mg tablet TAKE 1 TABLET BY MOUTH ONCE EVERY 72 HOURS active Not Available Not Available No t Available ciprofloxac in 250 mg tablet TAKE 1 TABLET BY MOUTH TWICE A DAY 03/18 completed Not Available Not Available Not Available amlodipine 5 mg tablet TAKE 1 TABLET BY MOUTH EVERY DAY active Not Available Not Available No t Available sulfamethox azole 800 mg-trimetho prim 160 mg tablet TAKE 1 TABLET BY MOUTH TWICE A DAY 03/18 completed Not Available Not Available Not Available liothyronin e 5 mcg tablet TAKE 1 TABLET BY MOUTH TWICE A DAY BEFORE MEALS 03/18 completed Not Available Not Available Not Available Unithroid 112 mcg tablet TAKE 1 TABLET BY MOUTH EVERY DAY IN THE MORNING active Not Available Not Available No t Available alprazolam 0.5 mg tablet TAKE 1 TABLET BY MOUTH TWICE A DAY NEEDED FOR ANXIETY active Not Available Not Available No t Available dexamethaso ne 1 mg tablet TAKE 1 TABLET BY MOUTH AT 10PM THE NIGHT BEFORE 8AM CORTISOL 03/18 completed Not Available Not Available Not Available phenazopyri dine 100 mg tablet TAKE 1 TABLET BY MOUTH 3 TIMES DAILY NEEDED FOR PAIN 03/18 completed Not Available Not Available Not Available oxybutynin chloride ER 5 mg tablet,exte nded release 24 hr TAKE 1 TABLET BY MOUTH EVERY DAY active Not Available Not Available No t Available gabapentin 300 mg capsule TAKE 1 CAPSULE BY MOUTH 3 TIMES A DAY active Not Available Not Available No t Available montelukast 10 mg tablet TAKE 1 TABLET BY MOUTH EVERY DAY IN THE EVENING active Not Available Not Available No t Available ergocalcife rol (vitamin D2) 1,250 mcg (50,000 unit) capsule TAKE 1 CAPSULE BY MOUTH IN THE MORNING ONCE WEEKLY active Not Available Not Available No t Available estradiol 0.01% (0.1 mg/gram) vaginal cream 1 GRAM VAGINALLY DAILY FOR 14 DAYS, THEN 1 GRAM VAGINALLY 2 TIMES A WEEK. active Not Available Not Available No t Available metformin ER 500 mg tablet,exte nded release 24 hr TAKE 1 TABLET BY MOUTH TWICE A DAY WITH MEALS FOR 90 DAYS active Not Available Not Available No t Available escitalopra m 20 mg tablet TAKE 1 TABLET BY MOUTH EVERY DAY active Not Available Not Available No t Available estradiol 0.0375 mg/24 hr weekly transdermal patch APPLY 1 PATCH BY TRANSDERM AL ROUTE EVERY WEEK 2023 active Not Available Not Available Not Avai lable nitrofurant oin monohydrate /macrocryst als 100 mg capsule TAKE 1 CAPSULE BY MOUTH ONCE DAILY, TAKE WITH A MEAL/FOOD active Not Available Not Available No t Available BD Ultra-Fine Yasmine Pen Needle 32 gauge x 5/32 USE TO INJECT MEDICATIO N DAILY active Not Available Not Available No t Available BD Insulin Syringe Ultra-Fine 1 mL 31 gauge x 5/16 active Not Available Not Available Not Available Victoza 3-Glenroy 0.6 mg/0.1 mL (18 mg/3 mL) subcutaneou s pen injector INJECT 1.2 MG EVERY DAY BY SUBCUTANE OUS ROUTE AT DINNER FOR 90 DAYS. active Not Available Not Available No t Available Trulicity 0.75 mg/0.5 mL subcutaneou s pen injector INJECT 0.75 MG SUBCUTANE OUSLY ONCE WEEKLY IN THE MORNING FOR 28 DAYS active Not Available Not Available No t Available Linzess 72 mcg capsule active Not Available Not Available Not Available TechLITE Pen Needle 31 gauge x 3/16 active Not Available Not Available Not Available BinaxNOW COVID-19 Ag Self Test kit USE DIRECTED 03/18 completed Not Available Not Available Not Available Paxlovid 300 mg (150 mg x 2)-100 mg tablets in a dose pack 03/18 completed Not Available Not Available Not Available Vitals Date Recorded Body height Body mass index (BMI) Body weight Systolic blood pressure Diastolic blood pressure Provider Name and Address Organization Details Last Updated DateTime 03/18/2023 175.26 cm 37.2 kg/m2 435211.2 8 g 143 mm[Hg] 82 mm[Hg] Gabriella Moscoso [facility] 12:53:10 Social History Question Answer Notes LastModified by Organizat ion Details LastModified Time Tobacco Smoking Status Never Smoker Gabriella Moscoso [facility], [facility] 03/18/2023 12:56:57 Do You Have An Advance Directive? Yes Information not available 03/18/2023 What Is Your Level Of Alcohol Consumption? None Information not available 03/18/2023 Are You Blind Or Do You Have Difficulty Seeing? No Information not available 03/18/2023 Are You Deaf Or Do You Have Serious Difficulty Hearing? No Information not available 03/18/2023 Are There Any Guns Present In Your Home? No Information not available 03/18/2023 Do You Have Smoke And Carbon Monoxide Detectors In Your Home? Yes Information not available 03/18/2023 Do You Feel Stressed (tense, Restless, Nervous, Or Anxious, Or Unable To Sleep At Night)? [id number] Information not available 03/18/2023 Do You Use Any Illicit Or Recreational Drugs? No Information not available 03/18/2023 Sex: Unknown Functional Status Question Answer Note LastModified by Organizat ion Details LastModified Time Do you have difficulty walking or climbing stairs? No Information not available 03/18/2023 Are you able to walk? YESWOREST Information not available 03/18/2023 Are you able to care for yourself? Yes Information not available 03/18/2023 Do you have difficulty dressing or bathing? No Information not available 03/18/2023 Mental Status None recorded. Family History Relationship Description Onset Age of this Age Resolved Age Notes LastModified by Organization Details LastModified Time Mother Diabetes mellitus 49 [email or web address] Not available 02/26 12:53:18 Mother Heart disease 78 [email or web address] Not available 02/26 12:53:18 Father Anxiety disorder 25 [email or web address] Not available 02/26 12:53:18 Father Depressive disorder 25 [email or web address] Not available 02/26 12:53:18 Maternal Aunt Malignant tumor of breast 40 Not available 03/18 14:51:06 Maternal Aunt Malignant tumor of pancreas Not available 03/18 14:51:39 Maternal Uncle Malignant tumor of colon [email or web address] Not available 03/18 14:51:21 Maternal Uncle Malignant tumor of prostate [email or web address] Not available 03/18 14:51:54 Medical History Condition Response Allergies (Food, seasonal, environmental ) Y Other N Breast Cancer N Drug/Latex Allergies/Reactions N Blood Transfusion N Lung Disease N Dermatologic Disorders N Defects or Inherited Disease N Breast Problem N Gestational Diabetes N Hematologic disorders N Anesthesia Complications N History of STI N Deep Vein Thrombosis N Polycystic ovary syndrome N Anxiety Disorder Y Autoimmune disease N Arthritis N Polyps N Infertility N History of abnormal pap N Acid Reflux (GERD) N Cancer N Varicosities N Stroke N Neurologic/Epilepsy N Endometriosis N High Cholesterol Y Fibromyalgia N Headaches N Kidney Disease N Heart Problems N Kidney or Bladder Problems N Thyroid Problems Y GI Problems N Eating Disorder N Anemia N Art (IVF or FET) N Psychiatric Illness N Ovarian Cancer N Diabetes Y Pulmonary (TB, Asthma) N Hepatitis/Liver Disease N No Past Medical History N Eczema N Urinary Tract Infection N Abuse/Domestic Violence N Asthma Y Trauma/Violence N Depression/ depression Y Heart Disease N Pre-Eclampsia N Hypertension Y Osteoporosis N Thrombophilias N Gynecological History Statement/Question Response Abnormal Pap N Date of Last Mammogram 08/23/2022 On BCP's at Conception? N N Was last menstrual period normal N STIs/STDs N HPV Vaccine N 08/13/2022 14 Current Control Method Menopause Age at First Child 28 If Post Menopausal, Age at Menopause 37 Are cycles usually normal Y Sexually Active? Y Age of first menstrual cycle 15 Date of Last Pap Smear Sexual Problems? Y LMP Unknown Obstetrics History GPAL:G 2 P 0 0 0 2 Type Value Living 2 Total 2 Past Encounters Encounter ID Performer Location Encounter Start Date Encounter Closed Date Diagnosis/Indication Diagnosis SNOMED-CT Code Diagnosis ICD10 Code Diagnosis Note [id number] BABAK DAWKINS MD [place] [address] [address] 03/18/2023 12:28:21 03/18/2023 15:03:04 Menopausal syndrome 784060948 N95.9 - hot flashes, night sweats, brain fog, sleep disturbanc es, low libido and vaginal dryness- discussed HRT vs paxil + vaginal estrogen vs expectant management - patient desires HRT, no contraindi cations- f/u in 3 months to evaluate response Health Concerns Section Related Observation LastModified by Organization Detai ls LastModified Time None Recorded Concern Status LastModified by Organization Details LastModified Time None Recorded Advance Directives Directive Y: Payers Encounter Date Sequence Insurance Name Policy Number Policy Cavanaugh Covered Member ID Cavanaugh Member ID Guarantor Name 03/18/2023 1 MEDICARE-[place] (MEDICARE) Lorraine Quintana [id number] Lorraine Quintana 03/18/2023 2 [facility] Lorraine Quintana [id number] Lorraine Quintana Notes Date Note Type Note Provider Name and Address Organization Details Recorded Time 03/18/2023 text/html Presents today t o establish care and discuss concerns of postmenopausal syndrome today. Underwent surgical menopause at 37 yo 2/2 endometrial hyperplasia. She has never been on hormone replacement therapy. She reports hot flashes, night sweats, brain fog, sleep disturbances, low libido and vaginal dryness. She also reports increased frequency of UTIs in the past few years. BABAK DAWKINS MD [address], [place], [address], [facility] 03/18/2023 14:59:43 OBGyn Episode Ob Episode Information Episode Created Date Number of Fetuses Patient Bloodtype Patient rh Status Prepregnancy Weight lbs Domestic Partner Domestic Partner Phone Father Name Abrasive Grader Helper Status 03/18/20 23 1 CLOSED Fetus Data First Name Last Name Admitted to NICU Weight (g) Sex Living Outcome Pediatric Complications Fetus ID Race Codes Race Delivery Type 3175.14 4 F Full Term [id number] Repeat Emmanuel Calculation Initial Emmanuel Date Initial Exam Date Initial Exam Provider Initial Ultrasound Date Last Menstrual Period Date Ultra Sound Weeks Gestation 0 Eighteen To Twenty Week Emmanuel Update Ultra Sound Date Fundal Height At Umbil Quickening Date Ultra Sound Latest Weeks Gestation Final Emmanuel Confirmed By Final Emmanuel Confirmed Date Final Emmanuel Date Ultra Sound Latest Days Gestation 0 0 Menstrual History Last Menstrual Date Menses Monthly On Bcp Conception Prior Menses Frequency Hcg Plus Date Menarche Onset Age Delivery Information Delivery Date Delivery Type Labor Anesthesia Weeks Gestation Incision Type Labor Labor Length Hrs Delivered By Post Complications Tubal Sterilization Discharge Date Comments 1 39 Discharge Information Feeding Method Contraceptive Method Maternal HG B and HCT Levels Ob Episode Information Episode Created Date Number of Fetuses Patient Bloodtype Patient rh Status Prepregnancy Weight lbs Domestic Partner Domestic Partner Phone Father Name Abrasive Grader Helper Status 03/18/20 23 1 CLOSED Fetus Data First Name Last Name Admitted to NICU Weight (g) Sex Living Outcome Pediatric Complications Fetus ID Race Codes Race Delivery Type 3259.96 5704 M Full Term [id number] Primary Emmanuel Calculation Initial Emmanuel Date Initial Exam Date Initial Exam Provider Initial Ultrasound Date Last Menstrual Period Date Ultra Sound Weeks Gestation 0 Eighteen To Twenty Week Emmanuel Update Ultra Sound Date Fundal Height At Umbil Quickening Date Ultra Sound Latest Weeks Gestation Final Emmanuel Confirmed By Final Emmanuel Confirmed Date Final Emmanuel Date Ultra Sound Latest Days Gestation 0 0 Menstrual History Last Menstrual Date Menses Monthly On Bcp Conception Prior Menses Frequency Hcg Plus Date Menarche Onset Age Delivery Information Delivery Date Delivery Type Labor Anesthesia Weeks Gestation Incision Type Labor Labor Length Hrs Delivered By Post Complications Tubal Sterilization Discharge Date Comments 5 37 Discharge Information Feeding Method Contraceptive Method Maternal HG B and HCT Levels
--- OUTSIDE RECORDS SUMMARY | 2024-09-25 13:15 | XMS_ITS | CONTINUITY OF CARE DOCUMENT ---
Author Name nico walsh Address Unknown Organization [facility] Address [address] [place] [address] Phone [phone] Care Team Providers Care Business Line Controller Name Role Phone Amanda MARTINI, Marlon Unavailable [phone] BRITT FUENTES MD Unavailable BRITT FUENTES MD Unavailable [phone] PROBLEMS Condition Status Date Provider Notes Cardiology examination active Yusef Gentile i CERTIFIED SUBSTANCE ABUSE COUNSELOR Dizziness active Yusef Whitlockri CERTIFIED SUBSTANCE ABUSE COUNSELOR Hypertension active Yusef Whitlockri CERTIFIED SUBSTANCE ABUSE COUNSELOR Hypothyroidism active Yusef Whitlockri CERTIFIED SUBSTANCE ABUSE COUNSELOR Prediabetes active Vertari Avila CERTIFIED SUBSTANCE ABUSE COUNSELOR Anemia active Yusef Whitlockri CERTIFIED SUBSTANCE ABUSE COUNSELOR Sharee's syndrome active Yusef Whitlockri CERTIFIED SUBSTANCE ABUSE COUNSELOR Adrenal adenoma active Yusef Whitlockri CERTIFIED SUBSTANCE ABUSE COUNSELOR Family Hx heart disease active Vertari Whitlock ri CERTIFIED SUBSTANCE ABUSE COUNSELOR Cristina's thyroiditis active Vertari Whitlock ri CERTIFIED SUBSTANCE ABUSE COUNSELOR Hx of mitral valve prolapse active Yusef julian CERTIFIED SUBSTANCE ABUSE COUNSELOR ENCOUNTERS Date Type Provider Location Encounter Diag nosis - In-person encounter Office Visit Marlon Patel MD [place] [facility] - In-person encounter Office Visit Marlon Patel MD [place] [facility] Cardiology examinationDizzinessHyp ertensionHypothyroidism PrediabetesAnemiaCushin g's syndromeAdrenal adenomaFamily Hx heart diseaseHashimoto's thyroiditisHx of mitral valve prolapse VITAL SIGNS Date Observation Value Provider Body Mass Index (Ratio) 37.51 kg/m2 Yaron Patel MD blood pressure, cuff size large Ke mathewi Dary blood pressure, diastolic 84 mm[Hg] Ke rrkade Dayr blood pressure, systolic 134 mm[Hg] Edwin lieberman Dary oxygen saturation, oximetry 98 % Odalis Dary respiratory rate E&M 14 /min Odalis schmidt pulse rate 74 /min Odalis Courtney [facility] weight E&M 254 [lb_av] Odalis Shewrin [facility] height E&M 69 [in_i] Odalis Sherwin [facility] Body Mass Index (Ratio) 37.80 kg/m2 Yaron Patle MD blood pressure, diastolic 84 mm[Hg] Carine [...] Payer name Policy type / Coverage type [place] red democrat ID [employer] [facility] [employer] [id number] [place] MED[place] Medicare [id number] ADVANCE DIRECTIVES Name Date DISCUSSED - NO [...]
--- OUTSIDE RECORDS SUMMARY | 2024-09-25 13:15 | XMS_ITS | Referral Summary ---
Author Organization [facility] [address] [facility] Address [address] [place] [address] Care Team Providers Care Sustainability Executive Director Name Role Phone Doreen Marte MD Primary Care Provider [phone] Allergies Active Allergy Reactions Criticality Noted Date Comments Amoxicillin-Pot Clavulanate Rash Medium 01/24/20 18 Codeine Levofloxacin Hives Medium 08/14/2018 Morphine Other Rash,Blisters High 01/23/2018 TAPE/ ADHESIVE Oxycodone Oxycodone-Acetaminophen Hypotension High 09/22/2018 Medications blood glucose diagnostic (Knoa SoftwareTOUCH ULTRA TEST) strip Test sugars daily and [...] (08/14/2018): Added automatically from request for surgery [id number] Chronic fatigue 04/25/2018 Hypercholesterolemia 08/23/2017 Assessment & Plan (08/23/2017 2:10 PM MEDICAL INSURANCE CODING SPECIALIST): Goal of treatment , LDL cholesterol less [...] taken. Assessment & Plan (08/23/2017 2:01 PM MEDICAL INSURANCE CODING SPECIALIST): Continue current dose of Levothyroxine and Cytomel [...] . 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 Not on file Not [...] on file Medical Devices Implanted Type Area Field Crop Grower Device Identifier Shelf Expiration Date Model / Serial / Lot [employer] 3122-040 Smartset Medium Viscosity Cement 40gm Bone Sterile - [id number] Implanted:Qty: 1 on 09/22/2018 by Jordan Jones MD at [facility] [employer] 03/26/2020 3122-040 / / [employer] [id number] Smartset Medium Viscosity Cement 40gm Bone Gentamicin - [id number] Implanted:Qty: 1 on 09/22/2018 by Jordan Jones MD at [facility] [employer] 08/19/2019 [id number] / / [employer] [id number] Attune Cemented Cruciate Retaining Knee Left 7 Component Femoral - [id number] Implanted:Qty: 1 on 09/22/2018 by Jordan Jones MD at [facility] [employer] [id number] 03/26/2028 [id number] / / [employer] [id number] Attune 14mm 50mm Cemented Revision Knee Stem Femoral Sterile - [id number] Implanted:Qty: 1 on 09/22/2018 by Jordan Jones MD at [facility] [employer] [id number] 01/25/2028 [id number] / / [employer] [id number] Attune Cement Revision Fix Bearing Knee 7 Baseplate Tibial - [id number] Implanted:Qty: 1 on 09/22/2018 by Jordan Jones MD at [facility] [employer] [id number] 12/25/2027 [id number] / / [employer] [id number] Attune 7mm Cruciate Retaining Fix Bearing Knee 7 Insert Tibial - [id number] Implanted:Qty: 1 on 09/22/2018 by Jordan Jones MD at [facility] [employer] [id number] 04/26/2022 [id number] / / Procedures Procedure Name Priority Date/Time Associated Diagnosis Comments POCT HEMOGLOBIN A1C Routine Gen Lab 08/31/2018 1:15 PM MEDICAL INSURANCE CODING SPECIALIST LIPID PANEL Routine 08/15/2017 1:25 PM MEDICAL INSURANCE CODING SPECIALIST Type 2 diabetes mellitus with hyperglycemia, without long-term current use of insulin (HCC) from Last 3 Months or Most Recently Relevant to Health Maintenance Results * POCT hemoglobin A1c (08/31/2018 1:15 PM MEDICAL INSURANCE CODING SPECIALIST) Pathologist [facility] Hgb A1C, POC 6.0 4.0 - 6.0 % [facility] Est Average Gluc POC 126 mg/dL [facility] Comment: The ADA recommends reporting an estimated Average Glucose (eAG) with all Hemoglobin A1c results using the equation derived from a study of 507 normal and diabetic adults. Minority populations were underrepresented and children were not included. (Diabetes Care 31:3340-0242, 2008). The eAG is not equivalent to a fasting glucose. Blood specimen (specimen) 08/31/2018 1:15 PM MEDICAL INSURANCE CODING SPECIALIST 08/31/2018 1:15 PM MEDICAL INSURANCE CODING SPECIALIST Narrative [facility] - 08/31/2018 1:33 PM MEDICAL INSURANCE CODING SPECIALIST us Jordan Jones MD POINT OF CARE TEST ORDERA BLES Final Result [facility] [place] [address] * (ABNORMAL) Lipid panel (08/15/2017 1:25 PM MEDICAL INSURANCE CODING SPECIALIST) [facility] Cholesterol 247(H) 100 - 199 mg/dL [facility] - 01 Triglycerides 188(H) 0 - 149 mg/dL [facility] - 01 HDL Cholesterol 64 >39 mg/dL [facility] - 01 VLDL 38 5 - 40 mg/dL [facility] - 01 LDL, calculated 145(H) 0 - 99 mg/dL [facility] - 01 Blood specimen (specimen) 08/15/2017 1:25 PM MEDICAL INSURANCE CODING SPECIALIST 08/15/2017 Narrative [facility] - 08/16/2017 6:14 AM MEDICAL INSURANCE CODING SPECIALIST Performed at: 01 - [address] [id number] Easement Worker: David Díaz PhD, Phone: [phone] us Naty Norton NP LAB BLOOD ORDERABLES [facility] Organization Address City/State/ZIP Co de Phone Number [facility] - 01 from Last 3 Months or Most Recently Relevant to Health Maintenance Insurance [facility] MEDICARE [facility] Advance Directives For more information, please contact: [phone] * Full Code (Latest Code Status on File) Date Activated Date Inactivated Comments 09/22/2018 11:29 AM 09/22/2018 10:23 PM Care Teams Sustainability Executive Director Relationship Specialty Start Date End Date Doreen Marte MD PCP - General 04/29/14
--- OUTSIDE RECORDS SUMMARY | 2024-09-25 13:15 | XMS_ITS | Clinical Summary ---
Author Organization [facility] Address [address] [place] [address] Care Team Providers Care Patient Liaison Name Role Phone Doreen Marte MD Primary Care Provider [phone] Efe Bhat MD Unavailable [phone] Source Comments [facility],non-owned Affiliates and Associated Physician Practices is amultiple site organization consisting of ambulatory clinics and hospital sitesin [place], [place], [place] and [place]. This disclosure is being madepursuant to the Care Everywhere program and may not contain all information available regarding this patient. Last updated 18.[facility] Allergies Active Allergy Reactions Criticality Noted Date Comments Adhesive Sensitivity 10/12/2013 Augmentin 10/12/2013 Codeine 10/12/2013 Latex 10/12/2013 Levofloxacin 06/11/2017 Morphine 10/12/2013 Oxycodone-Acetaminophen 10/12/2013 Medications * Be aware that medications may not be up to date on this document. Alwaysverify current medications with the patient. Medication Sig Dispensed Refills Start Date End Date Status vitamin D, ergocalciferol, (DRISDOL) 94521 UNITS capsule Take 1 (one) capsule by [...] 08/28/2024 Telephone [facility] - [facility]rology [address] [place] [address] Pam Kyle LPN Imaging 08/20/2024 1:57 PM VP DATA - 08/20/2024 11:59 PM VP DATA Hospital Encounter [facility] CAT SCAN [address] [place] [address] Blu Martinez MD Discharge Disposition: Home or Self Care 08/20/2024 Travel 08/16/2024 Travel 08/07/2024 Telephone [facility] [address] [place] [address] Blu Martinez MD Results 08/06/2024 Orders Only [facility] [address] [place] [address] Blu Martinez MD 07/04/2024 4:00 PM VP DATA Office Visit [facility] [address] [place] [phone] Blu Martinez MD Adrenal nodule (Primary Dx) 07/04/2024 Orders Only [facility] [address] [place] [phone] Blu Martinez MD Adrenal nodule from Last [...] Comments Blood Pressure 126/87 07/04/2024 3:46 PM VP DATA Pulse 98 07/04/2024 3:46 PM VP DATA Temperature 36.1 C (97 F) 07/04/2024 3:46 PM VP DATA Respiratory Rate 16 06/11/2017 10:54 AM VP DATA Oxygen Saturation 94% 07/04/2024 3:46 PM VP DATA Inhaled Oxygen Concentration - - Weight 93.4 kg (206 lb) 07/04/2024 3:46 PM VP DATA Height 175.3 cm (5' 9 ) 07/04/2024 3:46 PM VP DATA Body Mass Index 30.42 07/04/2024 3:46 PM VP DATA Plan of Treatment Upcoming Encounters Date Type Department Care Team (Late st Contact Info) Description 11/06/2024 3:00 PM CDT Office Visit [facility] - Endocrinology [facility] [place] [address] Yunier Juárez MD [facility] [facility] 2L [place] [address] Health Maintenance Due Date Last Done Comments [...] ABDOMEN WO CONTRAST Routine 08/20/2024 2:04 PM VP DATA Adrenal nodule CORTISOL BLOOD AM 08/06/2024 7:4 0 AM VP DATA from Last 3 Months Results * CT Abdomen Wo Contrast (08/20/2024 2:04 PM VP DATA) Anatomical Region Laterality Modality Abdomen Computed Tomogra phy 08/20/2024 2:22 PM VP DATA Impressions 08/20/2024 2:26 PM VP DATA IMPRESSION: Nodular thickening of the left adrenal gland measuring up to 9 mm without discrete nodules. Right adrenal gland is normal. A nonobstructing 3 mm stone is noted in the upper pole calyx of the right kidney. No hydronephrosis. > Interpreting Provider: Ellie Gonzalez MD on 08/20/2024 2:26 PM Narrative 08/20/2024 2:26 PM VP DATA PROCEDURE: CT ABDOMEN WO CONTRAST DATE/TIME OF [...] * CORTISOL BLOOD AM (08/06/2024 7:40 AM VP DATA) Cortisol AM 4.4 mcg/dL [facility] Comment: Reference Range 8 a.m. (7-9 a.m.) Specimen: 4.0-22.0 REPORT COMMENT: FASTING:YES Test Performed at: [facility] [employer] [address] [place] [address] LATIA TORRES MD 08/06/2024 7:40 AM VP DATA 08/06/2024 7:40 AM VP DATA Blu Martinez MD LAB - CHEMISTRY OR DERABLES [employer] [employer] [address] [place] [address] from Last 3 Months Care Teams Patient Liaison Relationship Specialty Start Date End Date Doreen Marte MD [address] [place] [address] PCP - General Family Medicine 10/12/13 [place] [address] [place] [address] Orthopedic Surgery 10/12/13
--- OUTSIDE RECORDS SUMMARY | 2024-09-25 13:15 | XMS_ITS | Clinical Summary ---
Author Organization [facility] Rajesh Augustin Address [address] [facility] [place] [place] [address] Care Team Providers Care Frame Stripper And Crusher Name Role Phone Unavailable Primary Care Provider [...] STL ABSTRACTION Provider, Abstract 09/07/2024 Orders Only [facility] Surgical Oncology [place] [address] [place] [address] Jorge Zavala MD Sharee's syndrome (Primary Dx) 09/06/2024 1:30 PM CDT Office Visit [facility] Surgical Oncology [place] [address] [place] [address] Jorge Zavala MD Adrenal mass (Primary Dx) 09/05/2024 External Device Data STL ABSTRACTION Provider, Abstract 09/05/2024 Telephone [facility] Surgical Oncology [place] [address] [place] [address] Jorge Zavala MD Appointment Verification 09/04/2024 External Device Data STL ABSTRACTION Provider, Abstract 09/01/2024 External Device Data STL ABSTRACTION Provider, Abstract 08/31/2024 External Device Data STL ABSTRACTION Provider, Abstract 08/29/2024 External Device Data STL ABSTRACTION Provider, Abstract 08/29/2024 External Device Data STL ABSTRACTION Provider, Abstract 08/28/2024 External Device Data STL ABSTRACTION Provider, Abstract 08/27/2024 Telephone [facility] Surgical Oncology [place] [address] [place] [address] Jorge Zavala MD Appointment Notification 08/22/2024 Telephone [facility] Surgical Specialists [facility] [id number] [place] [address] [place] [address] Dangelo Sandoval Medical info request 08/22/2024 Orders Only [facility] Surgical Specialists [facility] [id number] [place] [address] [address] [place] [address] Dangelo Sandoval 08/22/2024 Telephone [facility] Surgical Specialists [facility] [id number] [place] [address] [address] [place] [address] Dangelo Sandoval Imaging information 08/22/2024 Orders Only [facility] Surgical Specialists [facility] [id number] [place] [address] [place] [address] Jorge Zavala MD Adrenal adenoma, left (Primary Dx) 08/20/2024 11:40 AM BLASTER HELPER - 08/20/2024 11:59 PM BLASTER HELPER Hospital Encounter [facility] [place] [address] [place] [address] [facility], External Provider Discharge Disposition: Home or Self Care from Last 3 Months Social History Tobacco Use Types Packs/Day Years Used Date Smoking Tobacco: Never Assessed Comments Unknown Sex and Gender Information Value Date Recorded Sex Assigned at Not on file Legal Sex Female 11:51 AM BLASTER HELPER Gender Identity Not on file Sexual Orientation [...] Description 11/28/2024 1:00 PM CDT Office Visit [facility] Endocrinology [address] [place] [phone] Russell Rasmussen MD [address] [place] [address] Health Maintenance Due Date Last [...] METANEPHRINES FRACTIONATED, PLASMA Routine 08/27/2024 1:55 PM BLASTER HELPER Adrenal adenoma, left CT PRIOR STUDY Routine 08/20/2024 11:40 AM BLASTER HELPER Encounter for administrative examinations, unspecified from Last 3 Months Results * METANEPHRINES FRACTIONATED, PLASMA (08/27/2024 1:55 PM BLASTER HELPER) METANEPHRINES FREE, PLASMA <25 <=57 pg/mL [employer] [facility] Comment: This test was developed and its analytical performance characteristics have been determined by [employer] [place], [place]. It has not been cleared or approved by the U.S. Food and Drug Administration. This assay has been validated pursuant to the CLIA regulations and is used for clinical purposes. NORMETANEPHRINE, FREE, PLASMA 106 <=148 pg/mL [facility] Comment: This test was developed and its analytical performance characteristics have been determined by [employer] [place]. It has not been cleared or approved by the U.S. Food and Drug Administration. This assay has been validated pursuant to the CLIA regulations and is used for clinical purposes. METANEPHRINES, TOTAL, PLASMA 106 <=205 pg/mL [facility] Comment: For additional information, please refer to http://education.Comply Serve.mobiliThink/faq/MetFractFree (This link is being provided for informational/educatio [...] analytical performance characteristics have been determined by [employer] [place], [place]. It has not been cleared or approved by the U.S. Food and Drug Administration. This assay has been validated pursuant to the CLIA regulations and is used for clinical purposes. Test Performed at: [employer] [address] [facility], [place] Connor Tai M.D.,PhD Blood 08/27/2024 1:55 PM BLASTER HELPER 08/27/2024 1:56 PM BLASTER HELPER Jorge Zavala MD CHEMISTRY ORDERABLES Fin al Result [facility] [phone] [facility] [address] [facility] [place], [place] * CT PRIOR STUDY (08/20/2024 11:40 AM BLASTER HELPER) Narrative 08/22/2024 11:40 AM BLASTER HELPER This exam was auto finalized to allow images to be scanned to PACS. us External Provider [facility] CT ORDERABLES Final Res ult from Last 3 Months Insurance MEDICARE PART A AND B [facility] [place] [address]
--- OUTSIDE RECORDS SUMMARY | 2024-09-25 13:15 | XMS_ITS | Clinical Summary ---
Author Organization [facility] Address [address] [place] [address] Care Team Providers Care Vocational Horticulture Instructor Name Role Phone Doreen Marte MD Primary Care Provider [phone] Allergies Active Allergy Reactions Criticality Noted Date Comments Amoxicillin-Pot Clavulanate Rash Medium 01/24/20 18 Codeine Levofloxacin Hives Medium 08/14/2018 Morphine Other Rash,Blisters High 01/23/2018 TAPE/ ADHESIVE Oxycodone Oxycodone-Acetaminophen Hypotension High 09/22/2018 Medications blood glucose diagnostic (IssuuTOUCH ULTRA TEST) strip Test sugars daily and [...] (08/14/2018): Added automatically from request for surgery [id number] Chronic fatigue 04/25/2018 Hypercholesterolemia 08/23/2017 Assessment & Plan (08/23/2017 2:10 PM ACID CONCENTRATOR): Goal of treatment , LDL cholesterol less [...] taken. Assessment & Plan (08/23/2017 2:01 PM ACID CONCENTRATOR): Continue current dose of Levothyroxine and Cytomel [...] . Assessment & Plan (08/23/2017 2:00 PM ACID CONCENTRATOR): Hba1c was 6.0 today, indicating DM control [...] accordingly Assessment & Plan (08/23/2017 2:04 PM ACID CONCENTRATOR): [place] [address] IU twice a week Surgical History Surgery Date Site/Laterality Comments CHOLECYSTECTOMY 06/27/2005 - 06/26/2006 Cholecystectomy POSTERIOR LAMINECTOMY / DECOMPRESSION LUMBAR SPINE 07/19/2017 L4-L5-S1 ANTERIOR FUSION CERVICAL SPINE COLONOSCOPY HYSTERECTOMY 06/27/1995 - 06/26/1996 Left salpingo-oophorectom y SALPINGOOPHORECTOMY Right Medical History Medical History Date Comments Disorder of thyroid Thyroid dise ase Diabetes mellitus (HCC) Diabetes Hx Other Medical Claustrophobic; Comments: [facility] 04/29/2014 - PONV (postoperative nausea [...] on file Legal Sex Female 12:34 PM ACID CONCENTRATOR Gender Identity Not on file Sexual Orientation Not on file Occupation Industry Job Start Date Job End Date [employer] Not on file Not on file Not [...] 2024 04/29/2018 Medical Devices Implanted Type Area Police Judge Device Identifier Shelf Expiration Date Model / Serial / Lot [employer] [id number] Smartset Medium Viscosity Cement 40gm Bone Sterile - [id number] Implanted:Qty: 1 on 09/22/2018 by Jordan Jones MD at [facility] [employer] 03/26/2020 [id number] / / [employer] [id number] Smartset Medium Viscosity Cement 40gm Bone Gentamicin - [id number] Implanted:Qty: 1 on 09/22/2018 by Jordan Jones MD at [facility] [employer] 08/19/2019 [id number] / / [employer] [id number] Attune Cemented Cruciate Retaining Knee Left 7 Component Femoral - [id number] Implanted:Qty: 1 on 09/22/2018 by Jordan Jones MD at [facility] [employer] [id number] 03/26/2028 [id number] / / [employer] [id number] Attune 14mm 50mm Cemented Revision Knee Stem Femoral Sterile - [id number] Implanted:Qty: 1 on 09/22/2018 by Jordan Jones MD at [facility] [employer] [id number] 01/25/2028 [id number] / / [employer] [id number] Attune Cement Revision Fix Bearing Knee 7 Baseplate Tibial - [id number] Implanted:Qty: 1 on 09/22/2018 by Jordan Jones MD at [facility] [employer] [id number] 12/25/2027 [id number] / / [employer] [id number] Attune 7mm Cruciate Retaining Fix Bearing Knee 7 Insert Tibial - [id number] Implanted:Qty: 1 on 09/22/2018 by Jordan Jones MD at [facility] [employer] [id number] 04/26/2022 [id number] / / Procedures Procedure Name Priority Date/Time Associated Diagnosis Comments POCT HEMOGLOBIN A1C Routine Gen Lab 08/31/2018 1:15 PM ACID CONCENTRATOR LIPID PANEL Routine 08/15/2017 1:25 PM ACID CONCENTRATOR Type 2 diabetes mellitus with hyperglycemia, without long-term current use of insulin (HCC) from Last 3 Months or Most Recently Relevant to Health Maintenance Results * POCT hemoglobin A1c (08/31/2018 1:15 PM ACID CONCENTRATOR) Pathologist [facility] Hgb A1C, POC 6.0 4.0 - 6.0 % [facility] Est Average Gluc POC 126 mg/dL [facility] Comment: The ADA recommends reporting an estimated Average Glucose (eAG) with all Hemoglobin A1c results using the equation derived from a study of 507 normal and diabetic adults. Minority populations were underrepresented and children were not included. (Diabetes Care 31:8661-5120, 2008). The eAG is not equivalent to a fasting glucose. Blood specimen (specimen) 08/31/2018 1:15 PM ACID CONCENTRATOR 08/31/2018 1:15 PM ACID CONCENTRATOR Narrative [facility] - 08/31/2018 1:33 PM ACID CONCENTRATOR us Jordan Jones MD POINT OF CARE TEST ORDERA BLES Final Result [facility] [place] [address] * (ABNORMAL) Lipid panel (08/15/2017 1:25 PM ACID CONCENTRATOR) [facility] Cholesterol 247(H) 100 - 199 mg/dL [facility] - 01 Triglycerides 188(H) 0 - 149 mg/dL [facility] - 01 HDL Cholesterol 64 >39 mg/dL [facility] - 01 VLDL 38 5 - 40 mg/dL [facility] - 01 LDL, calculated 145(H) 0 - 99 mg/dL [facility] - 01 Blood specimen (specimen) 08/15/2017 1:25 PM ACID CONCENTRATOR 08/15/2017 Narrative [facility] - 08/16/2017 6:14 AM ACID CONCENTRATOR Performed at: 01 - [address] [id number] Box Loader: David Díaz PhD, Phone: [phone] us Naty Norton NP LAB BLOOD ORDERABLES [facility] Organization Address City/State/ZIP Co de Phone Number [facility] - 01 from Last 3 Months or Most Recently Relevant to Health Maintenance Insurance [facility] MEDICARE [facility] Advance Directives For more information, please contact: [phone] * Full Code (Latest Code Status on File) Date Activated Date Inactivated Comments 09/22/2018 11:29 AM 09/22/2018 10:23 PM Care Teams Vocational Horticulture Instructor Relationship Specialty Start Date End Date Doreen Marte MD PCP - General 04/29/14
--- OUTSIDE RECORDS SUMMARY | 2024-09-25 13:15 | XMS_ITS ---
Author Organization [employer] FORMERLY [facility] Address [address] [address] Care Team Providers Care Journeyman Glazier Name Role Phone Mamta Harper Primary Care Provider REASON FOR VISIT follow up Medications Medication SIG (Take, Route, Frequency, Duration) Notes Start Date End Date Status OZEMPIC 2 mg/3 mL (0.25 mg or 0.5 mg dose) inject 0.5 mg subcutaneously once a week for 90 days 10/31/2023 Unknown Macrobid 100 MG 1 capsule with food Orally every 12 hrs for 7 days 06/11/2024 Active Omeprazole 20 MG 1 capsule 1/2 to 1 h our before morning meal Orally Once a day for 90 days 05/14/2024 Active ESCITALOPRAM 20 MG TAKE 1 TABLET BY MK TH EVERY DAY for 90 Days Unknown METFORMIN (EQV-GLUCOPHAGE XR) 500 mg 1 tab(s) orally twice daily with meals for 90 days 10/31/2023 Unknown PROPRANOLOL HYDROCHLORIDE 10 mg 1 tab(s) orally 2 times a day for 90 days 04/18/2024 Active POTASSIUM CHLORIDE (BYR-ZTDI-UMX M20) 20 mEq 1 tab(s) orally 2 times a day for 30 days take 40 meq twice daily x 4 days then 40 meq daily thereafter 04/18/2024 Active Lunesta 1 MG 1 tablet immediately before bedtime Orally Once a day for 90 days 05/14/2024 Active Escitalopram Oxalate 20 MG 1 tablet Oral ly Once a day for 90 days 05/14/2024 Active SPIRONOLACTONE 100 mg 1 tab(s) orally tw ice daily for 90 days 04/18/2024 Active AMLODIPINE BESYLATE 5 mg 1 tab(s) orally once a day for 30 day(s) 10/31/2023 Active METHYLCOBALAMIN B-12 1 mg 1 tab(s) subli ngually once a day for 90 days 10/31/2023 Active UNITHROID 112 mcg (0.112 mg) TAKE 1 TABLET BY MOUTH EVERY DAY IN THE MORNING for 90 Days Active ALPRAZOLAM 0.5 mg TAKE 1 TABLET BY MK TH TWICE A DAY NEEDED FOR ANXIETY for 30 Days Active ONDANSETRON 4 mg 1 tab(s) orally twic e daily as needed for nausea for 30 days 03/01/2024 Active LIOTHYRONINE SODIUM 5 mcg 1 tab(s) orall y twice a day for 90 days 10/31/2023 Active Vital Signs Blood pressure systolic 127 mm Hg 06/11/20 24 Blood pressure diastolic 81 mm Hg 024 Heart Rate 89 /min 06/11/2024 Height 69 in 06/11/2024 Weight 228.8 lbs 06/11/2024 BMI 33.78 kg/m2 06/11/2024 Encounters Encounter Location Date Provider Diagnosis [facility], [facility] - Mamta Harper [address] [place] [address] 06/11/2024 Mamta Harper Hypothyroidism, unspecified E03.9 ; Obesity, unspecified E66.9 ; Disorder of adrenal gland, unspecified E27.9 ; Sharee's syndrome, 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 ; Insulin resistance, unspecified E88.819 ; Urinary tract infection, site not specified N39.0 and Dietary counseling and surveillance Z71.3 Assessments Encounter Date Diagnosis (ICD Code) Assessment Notes Treatment Notes Treatment Clinical Notes Section Notes 06/11/2024 Hypothyroidism, unspecified (ICD-10 - E03.9) 06/11/2024 Obesity, unspecified (ICD-10 - E66.9) 06/11/2024 Disorder of adrenal gland, unspecified (ICD-10 - E27.9) 06/11/2024 [place]ies[place]'s syndrome, 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) 06/11/2024 Insulin resistance, unspecified (ICD-10 - E88.819) 06/11/2024 Urinary tract infection, site not specified (ICD-10 - N39.0) 06/11/2024 Dietary counseling and surveillance (ICD-10 - Z71.3) 06/11/2024 Other Assessment and Plan: 1. Hypothyroidism- Thyroid levels are within normal range on the current dose of 112 mcg. No changes to the medication are needed at this time. Continue monitoring thyroid levels periodically. 2. Type 2 Diabetes- A1c is well-controlled at 5.3. Continue Ozempic at the second dose. Monitor blood glucose levels and A1c periodically. 3. Hyperlipidemia- Total cholesterol is borderline at 219, and LDL is 140. Encourage a healthy diet and continue monitoring lipid levels periodically. 4. Rheumatoid Arthritis (Family history)- Patient reports muscle and bone aches. Plan to order a rheumatoid panel in June along with a CMP. Monitor symptoms and consider referral to a cloth bleaching range tender if needed. 5. Edema- Patient reports improvement in swelling but still has some residual swelling in the feet. Continue spironolactone and monitor potassium levels. Consider Lasix if needed, with close monitoring of potassium levels. 6. Tremors- Patient is taking propranolol every other day and tolerating it well. Continue the current dose and monitor the tremors. 7. Suspected Urinary Tract Infection- Patient reports symptoms consistent with a UTI. Prescribe a 7-day course of Macrobid and monitor for symptom resolution. 8. Weight management- Patient has lost 40 pounds and is currently at 262 pounds. Encourage continued weight loss with a goal of reaching 170 pounds. Monitor progress and consider alternative weight loss medications if needed, such as Mounjaro. 9. Insurance coverage for Ozempic- Patient's insurance will change to [employer] on June 27. Ensure coverage for Ozempic and coordinate with the primary care physician for any necessary prior authorizations. 10. Upcoming appointment with Dr. Martinez on July 04- Ensure all relevant records, including CT scan, recent notes, labs, and dexamethasone suppression test, are sent to Dr. Martinez at [facility] prior to the appointment. Spent 15 minutes preventative counseling patient on dietary recommendations and changes in setting of hyperglycemia- need to restrict refined sugars and processed foods and incorporate up to 150 minutes of moderate level activity weekly. Spent 25 minutes preparing to see the patient (ex review of tests/chart), obtaining and / or reviewing separately obtained history, performing a medically appropriate examination and/or evaluation, counseling and educating the patient/family/careg iver, ordering medications, tests, or procedures, referring and communicating with other health clinical care manager, documenting clinical information in the electronic or other health record, independently interpreting results and communicating results to the patient/family/careg iver and care coordinating patient plan. Patient alert and oriented x 4 and aware of discussion noted above and in agreeance to plan in management of hypothyroidism, obesity/weight management, hypercortisolism in setting of adrenal adenoma, UTI and insulin resistance secondary to hypercortisolism. Plan Of Treatment Medication Medication Name Sig Start Date Stop Date Notes Macrobid 100 MG 1 capsule with food Orally every 12 hrs for 7 days 06/11/2024 Treatment Notes Assessment Notes Other Assessment and Plan: 1. Hypothyroidism- Thyroid levels are within normal range on the current dose of 112 mcg. No changes to the medication are needed at this time. Continue monitoring thyroid levels periodically. 2. Type 2 Diabetes- A1c is well-controlled at 5.3. Continue Ozempic at the second dose. Monitor blood glucose levels and A1c periodically. 3. Hyperlipidemia- Total cholesterol is borderline at 219, and LDL is 140. Encourage a healthy diet and continue monitoring lipid levels periodically. 4. Rheumatoid Arthritis (Family history)- Patient reports muscle and bone aches. Plan to order a rheumatoid panel in June along with a CMP. Monitor symptoms and consider referral to a cloth bleaching range tender if needed. 5. Edema- Patient reports improvement in swelling but still has some residual swelling in the feet. Continue spironolactone and monitor potassium levels. Consider Lasix if needed, with close monitoring of potassium levels. 6. Tremors- Patient is taking propranolol every other day and tolerating it well. Continue the current dose and monitor the tremors. 7. Suspected Urinary Tract Infection- Patient reports symptoms consistent with a UTI. Prescribe a 7-day course of Macrobid and monitor for symptom resolution. 8. Weight management- Patient has lost 40 pounds and is currently at 262 pounds. Encourage continued weight loss with a goal of reaching 170 pounds. Monitor progress and consider alternative weight loss medications if needed, such as Mounjaro. 9. Insurance coverage for Ozempic- Patient's insurance will change to [employer] on June 27. Ensure coverage for Ozempic and coordinate with the primary care physician for any necessary prior authorizations. 10. Upcoming appointment with Dr. Martinez on July 04- Ensure all relevant records, including CT scan, recent notes, labs, and dexamethasone suppression test, are sent to Dr. Martinez at [facility] prior to the appointment. Spent 15 minutes preventative counseling patient on dietary recommendations and changes in setting of hyperglycemia- need to restrict refined sugars and processed foods and incorporate up to 150 minutes of moderate level activity weekly. Spent 25 minutes preparing to see the patient (ex review of tests/chart), obtaining and / or reviewing separately obtained history, performing a medically appropriate examination and/or evaluation, counseling and educating the patient/family/caregiver, ordering medications, tests, or procedures, referring and communicating with other health clinical care manager, documenting clinical information in the electronic or other health record, independently interpreting results and communicating results to the patient/family/caregiver and care coordinating patient plan. Patient alert and oriented x 4 and aware of discussion noted above and in agreeance to plan in management of hypothyroidism, obesity/weight management, hypercortisolism in setting of adrenal adenoma, UTI and insulin resistance secondary to hypercortisolism. Next Appt Details Follow Up: 2 Months, Reason: labwork Progress Notes * Lorraine SAUCEDODOB:1955 (68 yo F)Acc No.[id number]:06/11/2024 Progress Notes Patient: Pamela MUKHERJEEela Provider: Viktoryia Harper MD :1955 A ge:68 Y S ex:Female Date:06/11/2024 Address:[address] [place], [place] [id number] Subjective: * Chief Complaints: * 1 . Follow up. 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 At last visit in Apr we held korlym as patient cannot tolerate due to severe LE swelling. ?She had lost 30 pounds total and a1c dropped down to 5.8% now down to 5.3%. We had patient continue ozempic and metformin. we continued LT4 112 mcg daily for hypothyroidism and TFTs in ideal range. CT adrenal gland completed and she was found to have a 9 mm adenoma. S cheduled to see adrenal surgeon / Dr. Martinez on 07/04. Pamela reports ongoing muscle and bone aches, significant knee pain, and mild swelling in her feet, with a history of knee replacement and recent hospitalization for suspected UTI and water retention. Her tremors are well-controlled with propranolol, and she has experienced significant weight loss attributed to Ozempic. Current labs show well-controlled A1c, borderline cholesterol levels, and elevated dexamethasone suppression test results. She is prescribed Macrobid for UTI symptoms and will continue her current medications, with plans for further monitoring and potential adjustments. Patient reports ongoing muscle and bone aches, with improvement in fatigue. She experiences significant knee and bone pain, with muscle aches behind the knee. There were two days when she required assistance to walk. The patient has a history of knee replacement 5 years ago due to an accident. She used an ice machine nightly for pain relief. Patient reports symptoms consistent with a urinary tract infection. She had a suspected mild UTI during a recent hospitalization but was not treated at that time. Patient notes continued mild swelling in her feet. She considered taking Lasix but was hesitant due to concerns about her potassium levels. The patient reports that during her recent hospitalization, she was told she had approximately 13 pounds of water weight in her feet. Patient reports that her tremors are well-controlled with propranolol taken every other day. If she extends the interval beyond every other day, the tremors worsen. Patient notes significant weight loss, having decreased from 282 pounds to 262 pounds. She attributes this partly to Ozempic, which has reduced her food cravings. 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) - Thalassemia - Knee replacement (5 years ago due to accident) - Hypertension - Hypercholesterolemia - Insomnia - Tremors Current and Past Medications and Supplements - Ozempic (second dose) - Thyroid medication 112 mcg - Spironolactone - Propranolol (every other day) Social History - Diet: Reports not eating Dominga cookies, avoiding processed foods and limiting red meat consumption - Family history: Mentions family members with autoimmune conditions, including rheumatoid arthritis, Celiac disease, and Sjogren's syndrome - Ethnicity: Possible [place] descent (mentioned in context of thalassemia) Review of Systems - General: Fatigue (improved), muscle and bone aches - Musculoskeletal: Knee pain, backaches - Endocrine: No sugar cravings - Genitourinary: Symptoms of urinary tract infection - Neurological: Tremors (controlled) - Cardiovascular: Feet still slightly swollen - Psychiatric: Insomnia. * ROS: A LLERGY: no r unny nose. n o s cratchy throat. n o i tchy eyes. n o e ar fullness. n o s inus congestion. n o s tuffy nose. n o w atery eyes. n o s easonal allergies. n o h ay fever. n o a llergy.?no p olyps. n o s neezing. H EMATOLOGY/LYMPH: no s wollen glands. n o f atigue. n o l oss of appetite. n o e asy bruising. n o e asy bleeding. n o a nemia. ? U ROLOGY: no d ifficulty urinating. n o b lood in urine. n o u rinary urgency. n o f requent urination. n o u rinary incontinence. n o v oiding dysfunction. n o v ulvodynia. n o d ysparaunia. n o r ecurrent UTI. n o w eak flow. n o d ribbling after urination. n o f requent bladder infections. n o k idney stone. n o k idney disease. n o u rine hesitancy.?no p ainful urination. N UTRITION: greater than body requirmemts y es. L ess than body requirements y es. a ppropriate / adequate y es, y es. C ONSTITUTIONAL: no w eight gain. n o l oss of appetite. n o?fever. w eakness y es. n o w eight loss. n o n ight sweats. n o n ausea. n o v isual changes. n o c hange in sleep patterns. h +p reviewed y es, R OS form reviewed with patient see scan for detail. n o c hange in activity capacity. D ERMATOLOGY: no r yocasta. n o c hange in color of moles. n o?lumps. d ry or sensitive skin y es. n o h misael. n o o latonya skin. n o?acne. n o m oles-irregular. n o m oles-change/new. n o b oils. n o dandruff. n o e xcessive body odor. n o p soriasis. n o f ungal infections. n o n ail problems. n o r edness/inflammation. n o a thlete's foot. n o s kin cancer. n o e czema. E NDOCRINOLOGY: fatigue y es. n o e xcessive sweating. n o e xcessive thirst. n o e xcessive urination. n o w eight loss. n o s leep disturbance. n o c old intolerance. n o h eat intolerence. t hyroid disease y es. i ncreased loss of hair y es. n o h x of borderline diabetes. n o d iabetes. n o a bdormal body hair. n o r heumatism. n o c hanges in skin texture.? N EUROLOGY: no h eadache. n o t ingling numbness. n o s eizures. n o i nsomnia. n o m kayla loss. n o d izziness. n o g ait abnormality. n o c hange in sensation anywhere on body. n o l ocalized weakness or numbness. n o b lackouts or near blackouts. n o m igraine. n o t remors.?no f ainting spells. n o h ead injury. n o s troke. O PTHALMOLOGY: no d iminished vision. n o e ye irritation. n o?drainage from eyes. n o b lurring of vision. n o s easonal eye sx. n o?dander related eye sx. n o l oss of vision. n o c ataracts. n o g lasses/contacts. n o g laucoma. n o d etached retina. n o m acular degeneration.?no e ye redness. R ESPIRATORY: no s hortness of breath. n o c hest pain. n o?wheezing. n o a sthma. n o b reathlessness when lying flat. n o p rolonged cough. n o f requent infections (bronchitis). n o e mphysema. n o c hest congestion. n o s leep apnea. E NT: no c old. n o c ough. n o c oughing blood.?no n ose bleed. n o h earing loss. n o c hange in voice. n o s ore throat. n o r inging in ears. n o s noring. n o e ar pain. n o r unny nose. n o w atery eyes. n o s inus infection. n o e ar infection. n o facial pain. n o h oarseness. n o g oiter. n o g um problems. n o?postnasal drip. n o f requent nosebleeds. C ARDIOLOGY: no c hest pain. n o p alpitations. l eg swelling y es. n o d izziness. n o s hortness of breath. n o v aricose veins.?leg cramps y es. n o c old hands or feet. h igh blood pressure y es. n o ankle swelling. n o c ardiac catheterization. n o h eart attacks. n o a ngina. n o m urmurs. n o l ow blood pressure. n o l eg pain that resolves w/rest. n o p urple fingers or lips. n o i rregular heart rate. n o c ongenital heart defects. n o d izziness when standing up quickly. n o a wakening at night short of breath. G ASTROENTEROLOGY: no n ausea. n o h eartburn. n o s tool incontinence. n o r eflux. n o a bdominal pain. n o i ndigestion. n o h emorrhoids. n o h iatal hernia. n o u lcers. n o a nal fissures. n o?hepatitis. n o g allstones. n o r ed blood after bowel movements. n o v omiting. n o b loating/belching. n o d ifficulty swallowing. n o d iarrhea.?no c onstipation. n o c hange in bowel habits. n o b lood in stool. ? M USCULOSKELETAL: no j oint swelling. j oint pain y es. n o l eg cramps. n o j oint stiffness. n o a rthritis. b ack pain y es, L OWER BACK. m uscle aches y es. n o m orning stiffness. n o t endinitis. n o?neck pain. n o b ursitis. n o b one marrow biopsy. n o g out. a ctivity intolerance w eakness. n o f racture. P SYCHOLOGY: no h igh stress level. n o d epression. n o?sleep disturbances. n o r juan carlos sx worse with stress. n o s uicidal ideation. n o e ating disorder. n o m ental or physical abuse. a nxiety y es. n o h eadaches. d isease state y es. F EMALE REPRODUCTIVE: no h eavy periods. n o d ysparaunia. n o s exually active. n o p remenstrual syndrome. n o d ysmenorrhea. n o i nfertility. n o f requent yeast infections. n o v aginal itching. n o i ntermenstrual bleeding. n o p ost coital bleeding. n o p ostmenopausal bleeding. n o p elvic pain. n o m enstral cycle. n o v aginal discharge. n o v aginal dryness. n o o varian cysts. n o f ibroids. n o d ischarge from breast. n o abn. bleeding between cycles. n o p ostmenopausal symptoms. n o l oss of sexual interest. n o p ainful sexual intercourse. n o e ndometriosis. n o v aginal warts. n o a bnormal pap. n o i rregular periods. n o a bnormal vaginal discharge. n o h ot flashes. * Medical History: H ypothyroidism, Prediabetes, Cushings syndrome, Adrenal adenoma. * Family History: N o Family History documented.. * Social History: S moking: no . R ecreational drug use: no. Alcohol: no. * Medications: T aking LIOTHYRONINE SODIUM 5 mcg tablet 1 tab(s) orally twice a day , Taking METHYLCOBALAMIN B-12 1 mg tablet, disintegrating 1 tab(s) sublingually once a day , Taking AMLODIPINE BESYLATE 5 mg tablet 1 tab(s) orally once a day , Taking ALPRAZOLAM 0.5 mg tablet TAKE 1 TABLET BY MOUTH TWICE A DAY NEEDED FOR ANXIETY , Taking UNITHROID 112 mcg (0.112 mg) tablet TAKE 1 TABLET BY MOUTH EVERY DAY IN THE MORNING , Taking ONDANSETRON 4 mg tablet 1 tab(s) orally twice daily as needed for nausea , Taking SPIRONOLACTONE 100 mg tablet 1 tab(s) orally twice daily , Taking POTASSIUM CHLORIDE (IWK-XBGT-BPR M20) 20 mEq tablet, extended release 1 tab(s) orally 2 times a day take 40 meq twice daily x 4 days then 40 meq daily thereafter, Taking PROPRANOLOL HYDROCHLORIDE 10 mg tablet 1 tab(s) orally 2 times a day , Taking Escitalopram Oxalate 20 MG Tablet 1 tablet Orally Once a day , Taking Lunesta(Eszopiclone) 1 MG Tablet 1 tablet immediately before bedtime Orally Once a day , Taking Omeprazole 20 MG Capsule Delayed Release 1 capsule 1/2 to 1 hour before morning meal Orally Once a day , Unknown OZEMPIC 2 mg/3 mL (0.25 mg or 0.5 mg dose) solution inject 0.5 mg subcutaneously once a week , Unknown METFORMIN (EQV-GLUCOPHAGE XR) 500 mg tablet, extended release 1 tab(s) orally twice daily with meals , Unknown ESCITALOPRAM 20 MG TABLET TAKE 1 TABLET BY MOUTH EVERY DAY Objective: * Vitals: H R: 89, BP: 127/81, Ht: 69, Wt: 228.8, BMI: 33.78. * P ast Orders: L ab:TSH (Order Date - 06/07/2024) (Collection Date & Time - 06/07/2024 10:28 AM) Value Reference Range TSH 1.42 0.40-4.50 - mIU/L L ab:T4, FREE (Order Date - 06/07/2024) (Collection Date & Time - 06/07/2024 10:28 AM) Value Reference Range T4, FREE 1.3 0.8-1.8 - ng/dL L ab:T3, FREE (Order Date - 06/07/2024) (Collection Date & Time - 06/07/2024 10:28 AM) Value Reference Range T3, FREE 3.2 2.3-4.2 - pg/mL L ab:LIPID PANEL (Order Date - 06/07/2024) (Collection Date & Time - 06/07/2024 10:28 AM) Value Reference Range TRIGLYCERIDES 126 <150 - mg/dL CHOLESTEROL, TOTAL 219 H <200 - mg/dL HDL CHOLESTEROL 53 > OR = 50 - mg/dL LDL-CHOLESTEROL 141 H - mg/dL (calc) CHOL/HDLC RATIO 4.1 <5.0 - (calc) NON-HDL CHOLESTEROL 166 H <130 - mg/dL (calc) L ab:HEMOGLOBIN A1c (Order Date - 06/07/2024) (Collection Date & Time - 06/07/2024 10:28 AM) Value Reference Range HEMOGLOBIN A1c 5.3 <5.7 - % of total Hg b * Examination: G eneral Examination: General n ormal, NAD, well nourished and hydrated, pleasant, obese female. Neck, thyroid : s upple. Heart: B P wnl, RSR, no murmurs. Lungs: n ormal, respirations easy with conversation and ambulation. Abdomen: n ormal, round, non-distended. Neurologic exam: u nremarkable. Extremities: u nremarkable. Peripheral pulses: n ormal (2+) bilaterally . Psych: o rientation to person, place & situation, appropriate judgment noted. Assessment: * Assessment: 1. H ypothyroidism, unspecified - E03.9 (Primary) 2 . O besity, unspecified - E66.9 3 . D isorder of adrenal gland, unspecified - E27.9 4 .?[place]'s syndrome, unspecified - E24.9 5 . I nsulin resistance, unspecified - E88.819 6 . U rinary tract infection, site not specified - N39.0 7 . D ietary counseling and surveillance - Z71.3 Plan: * Treatment: 2. O thers Notes:Assessment and Plan: 1. Hypothyroidism- Thyroid levels are within normal range on the current dose of 112 mcg. No changes to the medication are needed at this time. Continue monitoring thyroid levels periodically. 2. Type 2 Diabetes- A1c is well-controlled at 5.3. Continue Ozempic at the second dose. Monitor blood glucose levels and A1c periodically. 3. Hyperlipidemia- Total cholesterol is borderline at 219, and LDL is 140. Encourage a healthy diet and continue monitoring lipid levels periodically. 4. Rheumatoid Arthritis (Family history)- Patient reports muscle and bone aches. Plan to order a rheumatoid panel in June along with a CMP. Monitor symptoms and consider referral to a cloth bleaching range tender if needed. 5. Edema- Patient reports improvement in swelling but still has some residual swelling in the feet. Continue spironolactone and monitor potassium levels. Consider Lasix if needed, with close monitoring of potassium levels. 6. Tremors- Patient is taking propranolol every other day and tolerating it well. Continue the current dose and monitor the tremors. 7. Suspected Urinary Tract Infection- Patient reports symptoms consistent with a UTI. Prescribe a 7-day course of Macrobid and monitor for symptom resolution. 8. Weight management- Patient has lost 40 pounds and is currently at 262 pounds. Encourage continued weight loss with a goal of reaching 170 pounds. Monitor progress and consider alternative weight loss medications if needed, such as Mounjaro. 9. Insurance coverage for Ozempic- Patient's insurance will change to [employer] on June 27. Ensure coverage for Ozempic and coordinate with the primary care physician for any necessary prior authorizations. 10. Upcoming appointment with Dr. Martinez on July 04- Ensure all relevant records, including CT scan, recent notes, labs, and dexamethasone suppression test, are sent to Dr. Martinez at [facility] prior to the appointment. Spent 15 minutes preventative counseling patient on dietary recommendations and changes in setting of hyperglycemia- need to restrict refined sugars and processed foods and incorporate up to 150 minutes of moderate level activity weekly. Spent 25 minutes preparing to see the patient (ex review of tests/chart), obtaining and / or reviewing separately obtained history, performing a medically appropriate examination and/or evaluation, counseling and educating the patient/family/caregiver, ordering medications, tests, or procedures, referring and communicating with other health clinical care manager, documenting clinical information in the electronic or other health record, independently interpreting results and communicating results to the patient/family/caregiver and care coordinating patient plan. Patient alert and oriented x 4 and aware of discussion noted above and in agreeance to plan in management of hypothyroidism, obesity/weight management, hypercortisolism in setting of adrenal adenoma, UTI and insulin resistance secondary to hypercortisolism. * Procedure Codes: 9 9401 P/M ENDO TECH, INDIV 15 MIN * Follow Up: 2 Months (Reason: labwork) * Billing Information: * Visit Code: 19554 Office Visit, Est Pt., Level 4. * Procedure Codes: 64863 P/M ENDO TECH, INDIV 15 MIN. 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 At last visit in Apr we held korlym as patient cannot tolerate due to severe LE swelling. She had lost 30 pounds total and a1c dropped down to 5.8% now down to 5.3%. We had patient continue ozempic and metformin. we continued LT4 112 mcg daily for hypothyroidism and TFTs in ideal range. CT adrenal gland completed and she was found to have a 9 mm adenoma. Scheduled to see adrenal surgeon / Dr. Martinez on 07/04. Pamela reports ongoing muscle and bone aches, significant knee pain, and mild swelling in her feet, with a history of knee replacement and recent hospitalization for suspected UTI and water retention. Her tremors are well-controlled with propranolol, and she has experienced significant weight loss attributed to Ozempic. Current labs show well-controlled A1c, borderline cholesterol levels, and elevated dexamethasone suppression test results. She is prescribed Macrobid for UTI symptoms and will continue her current medications, with plans for further monitoring and potential adjustments. Patient reports ongoing muscle and bone aches, with improvement in fatigue. She experiences significant knee and bone pain, with muscle aches behind the knee. There were two days when she required assistance to walk. The patient has a history of knee replacement 5 years ago due to an accident. She used an ice machine nightly for pain relief. Patient reports symptoms consistent with a urinary tract infection. She had a suspected mild UTI during a recent hospitalization but was not treated at that time. Patient notes continued mild swelling in her feet. She considered taking Lasix but was hesitant due to concerns about her potassium levels. The patient reports that during her recent hospitalization, she was told she had approximately 13 pounds of water weight in her feet. Patient reports that her tremors are well-controlled with propranolol taken every other day. If she extends the interval beyond every other day, the tremors worsen. Patient notes significant weight loss, having decreased from 282 pounds to 262 pounds. She attributes this partly to Ozempic, which has reduced her food cravings. 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) - Thalassemia - Knee replacement (5 years ago due to accident) - Hypertension - Hypercholesterolemia - Insomnia - Tremors Current and Past Medications and Supplements - Ozempic (second dose) - Thyroid medication 112 mcg - Spironolactone - Propranolol (every other day) Social History - Diet: Reports not eating [place] cookies, avoiding processed foods and limiting red meat consumption - Family history: Mentions family members with autoimmune conditions, including rheumatoid arthritis, Celiac disease, and Sjogren's syndrome - Ethnicity: Possible [place] descent (mentioned in context of thalassemia) Review of Systems - General: Fatigue (improved), muscle and bone aches - Musculoskeletal: Knee pain, backaches - Endocrine: No sugar cravings - Genitourinary: Symptoms of urinary tract infection - Neurological: Tremors (controlled) - Cardiovascular: Feet still slightly swollen - Psychiatric: Insomnia Examination Category Sub-Category Detail Notes Category Not es General Examination Neck, thyroid : supple Heart: BP wnl, RSR, no murm urs Lungs: normal, respirations easy with conversation and ambulation Abdomen: normal, round, non-d istended Extremities: unremarkable General normal, NAD, well no urished and hydrated, pleasant, obese female Neurologic exam: unremarkable Peripheral pulses: normal (2+) bilatera lly Psych: orientation to perso n, place & situation, appropriate judgment noted
--- OUTSIDE RECORDS SUMMARY | 2024-09-25 13:15 | XMS_ITS ---
Author Organization [facility] Address [address] [place] [address] Care Team Providers Care Remarketing Rep Name Role Phone Mamta Harper Primary Care Provider [phone] REASON FOR VISIT labs Encounters Encounter Location Date Provider Diagnosis [facility] [address] [place] [address] 06/04/2024 Mamta Harper Plan Of Treatment No Information Progress Notes * Lorraine SAUCEDODOB:1955 (68 yo F)Acc No.[id number]:06/04/2024 Patient: Viktoriya GREENBALDEVPamelaLorraine :1955 A ge:68 Y S ex:Female Address:[address] [place], [place] [address] [address] * true * Date: Generated for Marci ng/Faabbeyg/eTransmitting on: 0 09/25/2024 01:15 PM CDT
[2024-09-26 07:49] LABS: Protein, Total 7.4 g/dL (6.1-8.1)
[2024-09-26 20:09] LABS: Albumin 4.2 g/dL (3.8-4.8); Alpha 1 Globulin 0.4 g/dL (0.2-0.3); Alpha 2 Globulin 0.8 g/dL (0.5-0.9); Beta 1 Globulin 0.5 g/dL (0.4-0.6); Gamma Globulin 1.1 g/dL (0.8-1.7)
[2024-09-27 01:45] LABS: Creatinine, Random Urine 225 mg/dL (20-275); Total Protein/Creatinine Ratio 120 mg/g creat (24-184)
== END 2024-09-25 12:15 | disposition home or self-care (01) ==
PROVIDERS: PCP Family Medicine; Visit Provider Family Medicine
DX: M89.8X9 Other specified disorders of bone, unspecified site (principal)
CPT/HCPCS: 36415; 82570; 84155; 84156; 84165; 84166

== ENCOUNTER 2024-10-10 15:39 | Outpatient (CLI) | payer MEDICARE, OTHER, SELFPAY ==
[2024-10-10 15:58] LABS: Basophils Percent Auto 0.1 % (0.2-1.2); Eosinophils Absolute Auto 0.3 K/mm3 (0-0.3); Hematocrit 41.8 % (37.0-47.0); Hemoglobin 13.4 g/dL (12.0-15.0); Immature Granulocyte Absolute 0.03 K/mm3 (0.00-0.031); Immature Granulocyte Percent A 0.4 % (0-0.5); Lymphocytes Absolute Auto 2.08 K/mm3 (0.9-3.2); Lymphocytes Percent Auto 25.1 % (18.3-44.2); Mean Corpuscular HGB Conc 32.1 g/dl (32-36); Mean Corpuscular Hemoglobin 26.4 pg (26-34); Mean Corpuscular Volume 82.3 fl (80-100); Mean Platelet Volume 9.7 fl (7.4-10.4); Monocytes Absolute Auto 0.8 K/mm3 (0.1-0.6); Monocytes Percent Auto 9.2 % (2.6-8.5); Neutrophils Absolute Auto 5.1 K/mm3 (1.3-6.7); Neutrophils Percent Auto 61.2 % (45.5-73.1); Platelet Count Result 279 k/mm3 (150-375); Red Blood Count 5.08 M/mm3 (4.2-5.4); Red Cell Distribution Width 15.3 % (11.5-14.5); White Blood Count 8.3 K/mm3 (4.5-10.0)
[2024-10-10 16:31] LABS: Alanine Aminotransferase 18 U/L (6-35); Albumin Level 4.3 g/dL (3.5-5.1); Alkaline Phosphatase 76 U/L (38-126); Anion Gap 10 mmol/L (4-12); Aspartate Amino Transferase 48 U/L (14-36); Bilirubin,Total 0.6 mg/dL (0.2-1.3); Blood Urea Nitrogen 25 mg/dL (7-17); Calcium 9.9 mg/dL (8.4-10.2); Carbon Dioxide 27 mmol/L (22-30); Chloride 100 mmol/L (98-107); Estimated Glomerular Filt Rate > 60; Glucose 108 mg/dL (65-110); Potassium 4.2 mmol/L (3.4-5.0); Sodium 137 mmol/L (137-145)
--- OUTSIDE RECORDS SUMMARY | 2024-10-10 16:44 | XMS_ITS | Encounter Summary ---
Author Organization [facility] CEASAR Orozco [facility] Address [address] [place] [address] Care Team Providers Care Watch Case Polisher Name Role Phone Unavailable Primary Care Provider Unavailabl e Reason for Referral * PET Scan (Routine) - Open Specialty Diagnoses / Procedures Referred By Contac t Referred To Contact Diagnoses Multiple myeloma, remission status unspecified (CMS/HCC) Procedures PET TUMOR OR INFECTION IMG W CT SKB Vicente Gifford MD [address] [place] [address] Phone: tel: fax: [place] [phone] Referral ID Status Reason Start Date Expiration Date V isits Requested Visits Authorized [id number] Open [facility] CTS 10/10/2024 11/10/2025 1 1 Encounter Details Date Type Department Care Team (Late st Contact Info) Description 10/10/2024 3:00 PM CDT Office Visit [facility] Oncology and Hematology [address] [place] [address] Vicente Conklin MD [address] [place] [address] Multiple myeloma, remission status unspecified (CMS/HCC) (Primary Dx) Social History Tobacco Use Types Packs/Day Years Used Date Smoking Tobacco: Never Smokeless Tobacco: Never Tobacco Cessation:Counseling Given: Not Answered Alcohol Use Standard Drinks/Week Comments Yes 0 (1 standard drink = 0.6 oz pur e alcohol) Socially Comments Unknown Sex and Gender Information Value Date Recorded Sex Assigned at Not on file Legal Sex Female 11:51 AM [facility] Gender Identity Not on file Sexual Orientation Not on file documented as of this encounter Last Filed Vital Signs Vital Sign Reading Time Taken Comments Blood Pressure 114/77 10/10/2024 2:37 PM CDT Pulse 70 10/10/2024 2:37 PM CDT Temperature 36.7 C (98 F) 10/10/2024 2:37 PM CDT Respiratory Rate 16 10/10/2024 2:37 PM CDT Oxygen Saturation 96% 10/10/2024 2:37 PM CDT Inhaled Oxygen Concentration - - Weight 88.2 kg (194 lb 6.4 oz) 10/10/2024 2:37 P M CDT Height 175.3 cm (5' 9 ) 10/10/2024 2:37 PM CDT Body Mass Index 28.71 10/10/2024 2:37 PM CDT documented in this encounter Plan of Treatment Upcoming Encounters Date Type Department Care Team (Late st Contact Info) Description 10/31/2024 2:30 PM CDT Office Visit [facility] Oncology and Hematology - [place] [address] [facility] [address] [place] [id number] Vicente Conklin MD [address] [place] [address] 11/28/2024 1:00 PM CDT Office Visit [facility] Endocrinology [address] [place] [address] Russell Rasmussen MD [address] [place] [address] Scheduled Orders Name Type Priority Associated Diagnoses Orde r Schedule CBC WITH DIFFERENTIAL Lab Stat Multiple myeloma, remission status unspecified (CMS/HCC) Expected: 10/10/2024, Expires: 10/10/2025 COMPREHENSIVE METABOLIC PANEL Lab Stat Multiple myeloma, remission status unspecified (CMS/HCC) Expected: 10/10/2024, Expires: 10/10/2025 IMMUNOGLOBULINS IGG IGA IGM Lab Routine Multiple myeloma, remission status unspecified (CMS/HCC) Expected: 10/10/2024, Expires: 10/10/2025 KAPPA/LAMBDA, FREE LIGHT CHAINS Lab Routine Multiple myeloma, remission status unspecified (CMS/HCC) Expected: 10/10/2024, Expires: 10/10/2025 PROTEIN ELECTROPHORESIS W/REFLEX,SERUM Lab Routine Multiple myeloma, remission status unspecified (CMS/HCC) Expected: 10/10/2024, Expires: 10/10/2025 PET TUMOR OR INFECTION IMG W CT SKB [facility] Imaging Routine Multiple myeloma, remission status unspecified (CMS/HCC) Expected: 10/11/2024, Expires: 10/10/2025 documented as of this encounter Visit Diagnoses Diagnosis Multiple myeloma, remission status unspecified (CMS/HCC)- Primary documented in this encounter
--- OUTSIDE RECORDS SUMMARY | 2024-10-10 16:44 | XMS_ITS | Patient Health Record ---
Author Organization [facility] Address [address] [address] Care Team Providers Care Glove Cleaner Name Role Phone Mamta Harper Primary Care Provider [phone] Migration, Provider Unavailable Unavailable Allergies No Known Allergies Results Component Value Reference Range Notes COMPREHENSIVE METABOLIC PANE L Reviewed date:11/04/2023 03:43:12 PM Interpretation: Performing Lab:[facility], [address], [place], [address] Karey Zamora Notes/Report: FASTING:YES FASTING: YES CYCLIC CITRULLINATED PEPTIDE (CCP) AB (IGG) Reviewed date:11/07/2023 09:16:59 AM Interpretation: Performing Lab:[facility], [address] [place], [address] Karey Zamora MD Notes/Report: FASTING:YES FASTING: YES VITAMIN D, 25-HYDROXY, LC/MS /MS Reviewed date:11/14/2023 06:52:12 PM Interpretation: Performing Lab:[facility], [address] [place], [address] Karey Zamora MD Notes/Report: FASTING:YES FASTING: YES ACTH, PLASMA Reviewed date:11/14/2023 11:38:41 AM Interpretation: Performing Lab:[facility], [address], [place], [address] Connor Tai M.D.,PhD Notes/Report: FASTING:YES FASTING: YES BROOK IFA SCREEN W/REFL TO TIT ER AND PATTERN, IFA Reviewed date:11/04/2023 03:44:13 PM Interpretation: Performing Lab:[facility], [address], [place], [place], [address] Karey Zamora MD Notes/Report: FASTING:YES FASTING: YES T3, FREE Reviewed date:11/09/2023 12:13:25 PM Interpretation: Performing Lab:[facility], [address], [place], [place], [address] Karey Zamora MD Notes/Report: FASTING:YES FASTING: YES CORTISOL, TOTAL Reviewed date:11/07/2023 09:16:47 AM Interpretation: Performing Lab:[facility], [address], [place], [address] Karey Zamora MD Notes/Report: FASTING:YES FASTING: YES DHEA SULFATE Reviewed date:11/07/2023 09:16:39 AM Interpretation: Performing Lab:[facility], [address], [place], [address] Karey Zamora MD Notes/Report: FASTING:YES FASTING: YES RHEUMATOID FACTOR Reviewed date:11/07/2023 09:17:21 AM Interpretation: Performing Lab:[facility], [address], [place], [address] Karey Zamora MD Notes/Report: FASTING:YES FASTING: YES C-REACTIVE PROTEIN Reviewed date:11/07/2023 09:17:13 AM Interpretation: Performing Lab:[facility], [address], [place], [address] Karey Zamora MD Notes/Report: FASTING:YES FASTING: YES FERRITIN Reviewed date:11/07/2023 09:16:32 AM Interpretation: Performing Lab:[facility], [address], [place], [address] Karey Zamora MD Notes/Report: FASTING:YES FASTING: YES HEMOGLOBIN A1c Reviewed date:11/04/2023 03:42:19 PM Interpretation: Performing Lab:SL, [facility], [address] [place], [address] Karey Zamora Notes/Report: FASTING:YES FASTING: YES INSULIN Reviewed date:11/07/2023 09:16:25 AM Interpretation: Performing Lab:[facility], [address], [place], [address] Karey Zamora MD Notes/Report: FASTING:YES FASTING: YES CBC (INCLUDES DIFF/PLT) Reviewed date:11/04/2023 03:44:06 PM Interpretation: Performing Lab:DAMARIS [facility], [address] , [place], [address] Karey Zamora Notes/Report: FASTING:YES FASTING: YES IRON AND TOTAL IRON BINDING CAPACITY Reviewed date:11/04/2023 03:42:58 PM Interpretation: Performing Lab:[facility], [address], [place], [place], [address] Karey Zamora MD Notes/Report: FASTING:YES FASTING: YES LIPID PANEL Reviewed date:11/04/2023 03:42:51 PM Interpretation: Performing Lab:[facility], [address] [place], [address] Karey Zamora Notes/Report: FASTING:YES FASTING: YES SED RATE BY MODIFIED WESTERG JERMAINE Reviewed date:11/04/2023 03:43:31 PM Interpretation: Performing Lab:[facility], [address] [place], [address] Karey Zamora Notes/Report: FASTING:YES FASTING: YES T4, FREE Reviewed date:11/09/2023 12:13:39 PM Interpretation: Performing Lab:[facility], [address], [place], [address] Karey Zamora MD Notes/Report: FASTING:YES FASTING: YES TSH Reviewed date:11/09/2023 12:13:13 PM Interpretation: Performing Lab:DAMARIS [facility], [address] [place], [address] Karey Zamora Notes/Report: FASTING:YES FASTING: YES VITAMIN B12 Reviewed date:11/09/2023 12:13:33 PM Interpretation: Performing Lab:[facility], [address] [place], [address] Karey Zamora MD Notes/Report: FASTING:YES FASTING: YES THYROID PEROXIDASE ANTIBODIE S Reviewed date:11/09/2023 12:13:46 PM Interpretation: Performing Lab:CB, [facility], [address] [place], [address] Prosper Harden Notes/Report: FASTING:YES FASTING: YES THYROID PEROXIDASE ANTIBODIES 96 <9 IU/mL MAGNESIUM, RBC Reviewed date:11/14/2023 06:52:24 PM Interpretation: Performing Lab:ALISON [facility], [address] , [place], [address] Dereck Strong M.D. Notes/Report: FASTING:YES FASTING: YES MAGNESIUM, RBC 4.2 4.0-6.4 mg/dL This test was developed and its analytical performance characteristics have been determined by [facility]. It has not been cleared or approved by the FDA. This assay has been validated pursuant to the CLIA regulations and is used for clinical purposes. CORTISOL, TOTAL Reviewed date:12/02/2023 01:06:14 PM Interpretation: Performing Lab:[place] [facility], [address], [address] aKrey Zamora MD Notes/Report: FASTING:YES FASTING: YES COMPREHENSIVE METABOLIC PANE L Reviewed date:02/27/2024 01:05:21 PM Interpretation: Performing Lab:DAMARIS [facility], [address] [place], [address] Karey Zamora Notes/Report: T3, FREE Reviewed date:02/27/2024 01:05:44 PM Interpretation: Performing Lab:[place] [facility], [address] [place], [address] Karey Zamora MD Notes/Report: HEMOGLOBIN A1c Reviewed date:02/27/2024 01:06:07 PM Interpretation: Performing Lab:[facility], [address] [place], [address] ClairRebekah Tara Zamora Notes/Report: VITAMIN B12/FOLATE, SERUM PA ENRIQUE Reviewed date:02/27/2024 01:05:28 PM Interpretation: Performing Lab:[place], [facility], [address], [place], [address] Karey Zamora MD Notes/Report: IRON AND TOTAL IRON BINDING CAPACITY Reviewed date:02/27/2024 01:05:35 PM Interpretation: Performing Lab:[place], [facility], [address], [place], [address] Karey Zamora MD Notes/Report: T4, FREE Reviewed date:02/27/2024 01:05:51 PM Interpretation: Performing Lab:[facility], [facility] [place], [address] Clair-Mariana Zamora Notes/Report: TSH Reviewed date:02/27/2024 01:05:58 PM Interpretation: Performing Lab:[facility], [address] [place], [address] ClairMariana Zamora Notes/Report: COMPREHENSIVE METABOLIC PANE L Reviewed date:03/29/2024 08:12:02 PM Interpretation: Performing Lab:[facility], [address] [place], [address] [facility] Zamora Notes/Report: FASTING:YES FASTING: YES T3, FREE Reviewed date:03/29/2024 08:13:29 PM Interpretation: Performing Lab:[place], [facility], [address], [place], [address] Karey Zamora MD Notes/Report: FASTING:YES FASTING: YES HEMOGLOBIN A1c Reviewed date:03/29/2024 08:10:47 PM Interpretation: Performing Lab:DAMARIS, [facility], [address] [place], [address] Karey Zamora Notes/Report: FASTING:YES FASTING: YES INSULIN Reviewed date:03/29/2024 08:11:03 PM Interpretation: Performing Lab:[place], [facility], [address], [place], [address] Karey Zamora MD Notes/Report: FASTING:YES FASTING: YES CBC (INCLUDES DIFF/PLT) Reviewed date:03/29/2024 08:13:18 PM Interpretation: Performing Lab:DAMARIS [facility], [address] [place], [address] Karey Zamora Notes/Report: FASTING:YES FASTING: YES VITAMIN B12/FOLATE, SERUM PA ENRIQUE Reviewed date:03/29/2024 08:11:13 PM Interpretation: Performing Lab:[place] [facility], [address], [place], [address] Karey Zamora MD Notes/Report: FASTING:YES FASTING: YES IRON AND TOTAL IRON BINDING CAPACITY Reviewed date:03/29/2024 08:13:00 PM Interpretation: Performing Lab:[facility], [address], [place], [address] Karey Zamora MD Notes/Report: FASTING:YES FASTING: YES LIPID PANEL Reviewed date:03/29/2024 08:12:32 PM Interpretation: Performing Lab:DAMARIS [facility], [address] [place], [address] Karey Zamora Notes/Report: FASTING:YES FASTING: YES T4, FREE Reviewed date:04/03/2024 10:47:57 PM Interpretation: Performing Lab:DAMARIS [facility], [address] [place], [address] Karey Zamora Notes/Report: FASTING:YES FASTING: YES TSH Reviewed date:03/29/2024 08:12:14 PM Interpretation: Performing Lab:DAMARIS [facility], [address] [place], [address] Karey Zamora Notes/Report: FASTING:YES FASTING: YES COMPREHENSIVE METABOLIC PANE L Reviewed date:04/19/2024 02:01:27 PM Interpretation: Performing Lab:[facility], [address], [place], [address] Karey Zamora MD Notes/Report: FASTING: YES T3, FREE Reviewed date:04/18/2024 07:54:56 PM Interpretation: Performing Lab:[facility], [address], [place], [place], [address] Karey Zamora MD Notes/Report: FASTING: YES HEMOGLOBIN A1c Reviewed date:04/18/2024 08:01:56 PM Interpretation: Performing Lab:[facility], [address], [place], [place], [address] Karey Zamora MD Notes/Report: FASTING: YES CBC (INCLUDES DIFF/PLT) Reviewed date:04/18/2024 08:01:38 PM Interpretation: Performing Lab:[facility], [address], [place], [address] Karey Zamora MD Notes/Report: FASTING: YES VITAMIN B12/FOLATE, SERUM PA ENRIQUE Reviewed date:04/18/2024 08:02:42 PM Interpretation: Performing Lab:[facility], [address], [place], [place], [address] Karey Zamora MD Notes/Report: FASTING: YES IRON AND TOTAL IRON BINDING CAPACITY Reviewed date:04/18/2024 08:02:16 PM Interpretation: Performing Lab:[facility], [address], [place], [address] Karey Zamora MD Notes/Report: FASTING: YES LIPID PANEL Reviewed date:04/18/2024 08:02:07 PM Interpretation: Performing Lab:[facility], [address], [place], [address] Karey Zamora MD Notes/Report: FASTING: YES T4, FREE Reviewed date:04/18/2024 08:02:25 PM Interpretation: Performing Lab:[facility], [address], [place], [address] Karey Zamora MD Notes/Report: FASTING: YES TSH Reviewed date:04/18/2024 08:01:48 PM Interpretation: Performing Lab:[place], [facility], [address], [place], [place], [address] Karey Zamora MD Notes/Report: FASTING: YES COMPREHENSIVE METABOLIC PANE L Reviewed date:04/29/2024 10:46:30 AM Interpretation: Performing Lab:DAMARIS, [facility], [address] [place], [address] Clair-Lieu Tara Zamora Notes/Report: COMPREHENSIVE METABOLIC PANE L Reviewed date:05/11/2024 08:25:38 AM Interpretation: Performing Lab:SL, [facility], [address] [place], [address] Clair-Lieu Thi Vo Notes/Report: T4, FREE Reviewed date:05/06/2024 09:18:11 AM Interpretation: Performing Lab:DAMARIS, [facility], [address] [place], [address] Clair-[place]ieu Tara Zamora Notes/Report: TSH Reviewed date:05/06/2024 09:17:52 AM Interpretation: Performing Lab:DAMARIS, [facility], [address] [place], [address] Clair-Lieu Tara Vo Notes/Report: T3, FREE Reviewed date:06/09/2024 10:39:13 AM Interpretation: Performing Lab:[place], [facility], [address], [place], [place], [address] Karey Zamora MD Notes/Report: HEMOGLOBIN A1c Reviewed date:06/09/2024 10:39:13 AM Interpretation: Performing Lab:DAMARIS, [facility], [address] [place], [address] Clair-Lieu Thi Vo Notes/Report: LIPID PANEL Reviewed date:06/09/2024 10:39:13 AM Interpretation: Performing Lab:DAMARIS, [facility], [address] [place], [address] Clair-Lieu Thi Vo Notes/Report: T4, FREE Reviewed date:06/09/2024 10:39:13 AM Interpretation: Performing Lab:DAMARIS, [facility], [address] [place], [address] ClairRandal Zamora Notes/Report: TSH Reviewed date:06/09/2024 10:39:13 AM Interpretation: Performing Lab:DAMARIS [facility], [address] [place], [address] [facility] Notes/Report: COMPREHENSIVE METABOLIC PANE L (Not yet reviewed by provider) Interpretation: Performing Lab:DAMARIS [facility], [address] [place], [address] [facility] Hospital[facility]ay Zamora Notes/Report: FASTING:YES FASTING: YES CYCLIC CITRULLINATED PEPTIDE (CCP) AB (IGG) (Not yet reviewed by provider) Interpretation: Performing Lab:[place] [facility], [address], [place], [address] Karey Zamora MD Notes/Report: FASTING:YES FASTING: YES T3, FREE (Not yet reviewed b y provider) Interpretation: Performing Lab:[facility], [address], [place], [address] Karey Zamora MD Notes/Report: FASTING:YES FASTING: YES RHEUMATOID FACTOR (Not yet r eviewed by provider) Interpretation: Performing Lab:[place] [facility], [address], [place], [address] Karey Zamora MD Notes/Report: FASTING:YES FASTING: YES C-REACTIVE PROTEIN (Not yet reviewed by provider) Interpretation: Performing Lab:DAMARIS [facility], [address] [place], [address] [facility] Zam[facility] Notes/Report: FASTING:YES FASTING: YES HEMOGLOBIN A1c (Not yet revi ewed by provider) Interpretation: Performing Lab:DAMARIS [facility], [address] [place], [address] [facility] Zam[facility] Notes/Report: FASTING:YES FASTING: YES CBC (INCLUDES DIFF/PLT) (Not yet reviewed by provider) Interpretation: Performing Lab:[facility], [address] [place], [address] [facility] Tara Zamora Notes/Report: FASTING:YES FASTING: YES SED RATE BY MODIFIED WESTERG JERMAINE (Not yet reviewed by provider) Interpretation: Performing Lab:[facility]IS [facility], [address] [place], [address] [facility] Notes/Report: FASTING:YES FASTING: YES T4, FREE (Not yet reviewed b y provider) Interpretation: Performing Lab:, [facility], [address] [place], [address] [facility] Notes/Report: FASTING:YES FASTING: YES TSH (Not yet reviewed by pro vider) Interpretation: Performing Lab:, [facility], [address] [place], [address] [facility] Notes/Report: FASTING:YES FASTING: YES Reason For Referral Reason essential tremor and vertigo Referral Organization [facility] Mamta Green[employer] Referring Provider First Name Mamta Referring Provider Last Name Leroy Referring Provider [facility] Referred Provider Specialty Neurology Referral Priority Routine Reason 9 mm right adrenal a denoma, 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, off korlym could not tolerate, chronic hypokalemia even on highest dose spironolactone Referral Organization [facility] Mamta Green[place] [employer] Referring Provider First Name Mamta Referring Provider Last Name Leroy [facility]erred Provider Specialty Urology Referral Priority Routine Medications Medication SIG (Take, Route, Frequency, Duration) Notes Start Date End Date Status PROPRANOLOL HYDROCHLORIDE 10 mg 1 tab(s) orally 2 times a day for 90 days 04/18/2024 Active POTASSIUM CHLORIDE (BKU-WEAZ-SPQ M20) 20 mEq 1 tab(s) orally 2 times a day for 30 days take 40 meq twice daily x 4 days then 40 meq daily thereafter 04/18/2024 Active Lunesta 1 MG 1 tablet immediately before bedtime Orally Once a day for 90 days 05/14/2024 Active Escitalopram Oxalate 20 MG 1 tablet Oral ly Once a day for 90 days 05/14/2024 Active OZEMPIC 2 mg/3 mL (0.25 mg or [...] with meals for 90 days 10/31/2023 Unknown LIOTHYRONINE SODIUM 5 mcg 1 tab(s) orall y twice a day for 90 days 10/31/2023 Active AMLODIPINE BESYLATE 5 mg 1 tab(s) [...] NEEDED FOR ANXIETY for 30 Days Active SPIRONOLACTONE 100 mg 1 tab(s) orally tw ice daily for 90 days 04/18/2024 Active ONDANSETRON 4 mg 1 tab(s) orally twic e daily as needed for nausea for 30 days 03/01/2024 Active Problems Problem Type SNOMED Code ICD Code Onset Dates Problem Status W/U Status Risk Notes Problem Hypothyroidism (76568842) Hypothyroidism, unspecified (E03.9) Active confirmed Problem Essential tremor (510400694) Essential tremor (G25.0) Active confirmed Problem Obesity (184614566) Obesity, unspecified (E66.9) Active confirmed Problem [place]'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) Sharee's syndrome, 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 Problem Disorder of adrenal gland (42706785) Disorder of adrenal gland, unspecified (E27.9) Active confirmed Problem Generalized anxiety disorder (73255482) Generalized anxiety disorder (F41.1) Active confirmed Problem SI - Stress incontinence (82329665) Stress incontinence (female) (male) (N39.3) Active confirmed Problem Menopause (369077685) Menopausal and female climacteric states (N95.1) Active confirmed Problem Functional urinary incontinence (747180922) 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) Active confirmed Vital Signs Heart Rate 89 /min 06/11/2024 Blood pressure diastolic 81 mm Hg 06/11/2024 Height 69 in 06/11/2024 Blood pressure systolic 127 mm Hg 06/11/2024 Weight 228.8 lbs 06/11/2024 BMI 33.78 kg/m2 06/11/2024 Encounters Encounter Location Date Provider Diagnosis [facility] [address] [address] 05/12/2024 Provider Migration Essential tremor G25.0 and Hypokalemia E87.6 [facility] [address] [place] [address] 08/13/2024 Mamta Wood [facility] [address] [place] [address] 10/31/2023 Mamta Wood Hypothyroidism, unspecified E03.9 ; Menopausal and female climacteric states N95.1 ; Prediabetes R73.03 ; Abnormal weight gain R63.5 ; Vitamin B12 deficiency anemia, unspecified D51.9 ; Other fatigue R53.83 and Dietary counseling and surveillance Z71.3 [facility] [address] [place] [address] 11/14/2023 Mamta Wood Hypothyroidism, unspecified E03.9 ; Prediabetes R73.03 ; Obesity, unspecified E66.9 and Dietary counseling and surveillance Z71.3 [facility] [address] [place] [address] 12/19/2023 Mamta Wood Hypothyroidism, unspecified E03.9 ; Disorder of adrenal gland, unspecified E27.9 ; Essential tremor G25.0 ; [place]'s syndrome, 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 ; Prediabetes R73.03 and Dietary counseling and surveillance Z71.3 [facility] [address] [place] [address] 03/05/2024 Mamta Wood Hypothyroidism, unspecified E03.9 ; [place]'s syndrome, 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 ; Obesity, unspecified E66.9 ; Disorder of adrenal gland, unspecified E27.9 and Prediabetes R73.03 [facility] [address] [place] [address] 04/16/2024 Mamta Harper Sharee's syndrome, 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 ; Hypothyroidism, unspecified E03.9 ; Essential tremor G25.0 and Obesity, unspecified E66.9 [facility] Mamta Harper [address] [place] [address] 05/14/2024 Mamta Harper Hypothyroidism, unspecified E03.9 ; Sharee's syndrome, 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 ; Generalized anxiety disorder F41.1 ; Benign neoplasm of right adrenal gland D35.01 and Heartburn R12 [facility] Mamta Greenland [employer] [address] [place] [address] 06/11/2024 Mamta Harper Hypothyroidism, unspecified E03.9 ; Obesity, unspecified E66.9 ; Disorder of adrenal gland, unspecified E27.9 ; [place]'s syndrome, 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 ; Insulin resistance, unspecified E88.819 ; Urinary tract infection, site not specified N39.0 and Dietary counseling and surveillance Z71.3 [facility] Mamta Harper [address] [place] [address] 11/25/2023 Mamta Harper Disorder of adrenal gland, unspecified E27.9 [facility] [address] [place] [address] 11/28/2023 Mamta Harper [facility] [id number] [place] [address] 11/30/2023 Mamta Harper Disorder of adrenal gland, unspecified E27.9 [facility] [address] [place] [address] 12/05/2023 Mamta Harper Stress incontinence (female) (male) N39.3 [facility] - Mamta Green[place] [employer] [address] [place] [address] 01/02/2024 Mamta Harper [facility] Mamta Harper [address] [place] [address] 01/02/2024 Mamta Harper [facility] Mamta Harper [address] [place] [address] 01/19/2024 Mamta Harper [facility] [address] [address] 03/01/2024 Mamta Harper Nausea R11.0 [facility] [address] [address] 03/01/2024 Mamta Harper [facility] [address] [address] 03/12/2024 Mamta Harper Hypothyroidism, unspecified E03.9 and Functional urinary incontinence R39.81 [facility] - aMmta Harper [address] [place] [address] 03/27/2024 Mamta Harper [facility] - Mamta Harper [address] [place] [address] 04/05/2024 Mamta Harper Edema, unspecified R60.9 [facility] [address] [address] 04/18/2024 Mamta Harper Hypokalemia E87.6 an d Essential tremor G25.0 [facility] - Mamta Harper [id number] [place] [address] 04/23/2024 Mamta Harper [facility] - Mamta Harper [id number] [place] [address] 04/27/2024 Mamta Harper [facility] - Mamta Harper [id number] [place] [address] 05/03/2024 Mamta Harper [facility] [address] [address] 05/16/2024 Mamta Harper [facility] [address] [address] 05/25/2024 Mamta Harper [facility] [address] [address] 06/04/2024 Mamta Harper Assessments Encounter Date Diagnosis (ICD Code) Assessment Notes Treatment Notes Treatment Clinical Notes Section Notes 05/12/2024 Essential tremor (ICD-10 - G25.0) 05/12/2024 Hypokalemia (ICD-10 - E87.6) 10/31/2023 Hypothyroidism, unspecified (ICD-10 - E03.9) Continue on unithroid 112 mcg daily along with T3 5 mcg twice daily- send for thyroid panel to assess need to modify therapy further. 10/31/2023 Menopausal and female climacteric states (ICD-10 - N95.1) Send for bone density scan-scan performed in clinic today and reviewed- normal T score of spine and mild osteopenia of right hip with T score of -1.3. Advised to take 1200 mg of calcium daily along with vitamin D 3 800 to 2000 IU daily for bone and immune health. Advised daily weight bearing exercise up to 150 minutes weekly. 11/14/2023 Hypothyroidism, unspecified (ICD-10 - E03.9) FT3 low range with cold intolerance- will uptitrate T3 to 10 mcg twice daily and send in unithroid 112 mcg daily as pharmacy provided generic/ patient doesn't feel well on generic options. She is aware to repeat levels in 2 months to continue to monitor therapy. Most of her fatigue appears covid related- she had a recent viral prodrome and her O2 sats have improved from 92% range up to 96% range- she is aware we can refer her to pulmonology if she doesn't continue to improve over time. 11/14/2023 Prediabetes (ICD-10 - R73.03) Discussed carb counting and how to read food labels. Recommended patient to utilize the diabetesVivorteb.com from the ADA website to help with food preparation as this presents ideal carb content per meal and will make carb counting easier for patient. Recommended she incorporate natural insulin sensitizers such as pears, apples, cinnamon, darnell and sweet potatoes to help mobilize her endogenous insulin. Recommended up to 150 minutes of moderate level activity /exercise per week. Continue metformin for insulin sensitization. a1c of 6%- she is tolerating ozempic well- she cannot take trulicity as she had significant nausea on this in past and did not tolerate victoza in past either- next step is ozempic and she is doing well overall- she has lost close to 5 pounds since one injection. continue on high protein/low carb diet. 12/19/2023 Hypothyroidism, unspecified (ICD-10 - E03.9) Continue euthyrox 112 mcg daily along with liothyronine 10 mcg twice daily as patient tolerating well. 12/19/2023 Disorder of adrenal gland, unspecified (ICD-10 - E27.9) Found to have adrenal adenoma, likely bilateral disease. 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 03/05/2024 Hypothyroidism, unspecified (ICD-10 - E03.9) drop unithroid down to 88 cg daily as FT4 up to 1.8 ng/dL due to 15 pound weight loss- patient has lost over 30 pounds since October with combination of ozempic and korlym (found to have adrenal adenoma and high DST/abnormal). 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 She is aware to obtain CMP prior to her return visit- repeat K on twice daily korlym at 3.9 mmol/L- patient tolerating therapy overall well- having nausea (has zofran to combat this)-encourgaged patient she is experiencing normal glucocorticoid withdrawal symptoms with nausea, headaches and dizziness- her BP is not low and she has no evidence of adrenal insufficiency/seconda ry to treatment at this time. She has hx of hysterectomy so will not have endometrial hyperplasia concerns as SE. 04/16/2024 [place]'s syndrome, 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) 05/14/2024 Hypothyroidism, unspecified (ICD-10 - E03.9) 05/14/2024 [place]'s syndrome, 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) 06/11/2024 Hypothyroidism, unspecified (ICD-10 - E03.9) 06/11/2024 Obesity, unspecified (ICD-10 - E66.9) 11/25/2023 Disorder of adrenal gland, unspecified (ICD-10 - E27.9) 11/30/2023 Disorder of adrenal gland, unspecified (ICD-10 - E27.9) 12/05/2023 Stress incontinence (female) (male) (ICD-10 - N39.3) 03/01/2024 Nausea (ICD-10 - R11.0) 03/12/2024 Hypothyroidism, unspecified (ICD-10 - E03.9) 03/12/2024 Functional urinary incontinence (ICD-10 - R39.81) 04/05/2024 Edema, unspecified (ICD-10 - R60.9) 04/18/2024 Essential tremor (ICD-10 - G25.0) 04/18/2024 Hypokalemia (ICD-10 - E87.6) 10/31/2023 Prediabetes (ICD-10 - R73.03) Continue on metformin for insulin sensitization. Recommended GLP1 agonist therapy as she/he is having trouble at times with cravings of sweets and portion control. 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 She has no history of pancreatitis or medullary thyroid cancer and is willing to trial on a GLP1 agonist therapy. She was advised to contact clinic if she experiences any nausea, vomiting or significant thyroid pain/swelling or abdominal pain so we can discuss and discontinue and potentiually look into other therapy. Discussed carb counting and how to read food labels. Recommended patient to utilize the diabetesVivorteb.com from the ADA website to help with food preparation as this presents ideal carb content per meal and will make carb counting easier for patient. Recommended she incorporate natural insulin sensitizers such as pears, apples, cinnamon, darnell and sweet potatoes to help mobilize her endogenous insulin. Recommended up to 150 minutes of moderate level activity /exercise per week. 11/14/2023 Obesity, unspecified (ICD-10 - E66.9) Continue with cornerstone low calorie diet/ high protein/low carb in conjunction with GLP1 agonist therapy. Advised to walk, cycle or swim at least 40 minutes 4-5 days a week to optimize weight loss goals. 12/19/2023 Essential tremor (ICD-10 - G25.0) refer to neurology for essential tremors and vertigo. 03/05/2024 Obesity, unspecified (ICD-10 - E66.9) Continue on ozempic 1 mg weekly and metformin once daily- a1c down to 5.9% improvement due to cortisol blockade therapy as this is her main trigger for insulin resistance and reduction of GLUT4 transport for insulin resistance. She is doing overall well on therapy and aware to reach out if she has any low blood pressure, vomiting diarrhea or significant decline in health as there are rare occasions that patients on korlym would require IV fluids and dexa treatment. She voiced understanding. 04/16/2024 Hypothyroidism, unspecified (ICD-10 - E03.9) 05/14/2024 Generalized anxiety disorder (ICD-10 - F41.1) 06/11/2024 Disorder of adrenal gland, unspecified (ICD-10 - E27.9) 10/31/2023 Abnormal weight gain (ICD-10 - R63.5) Send for DST to screen for hypercortisolism. 11/14/2023 Dietary counseling and surveillance (ICD-10 - Z71.3) discussed dietary measures in regards to weight loss- importance to restrict calories to 1200 per day if sedentary vs 9551-3245 calories depending on caloric expenditure. She was provided information on [facility] as this program manages metabolic syndrome and products include insulin sensitizers along with thyroid support/supplementati on to help tailor weight loss in individuals who struggle with underlying autoimmune thyroid conditions and hyperglycemia (fasting glucose of 97 mg/dL). Spent up to 20 minutes discussing alternative weight loss options. 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 She is aware to obtain CMP 10 days following start of therapy and we will need to use adjunctive spironolactone therapy to help with hypokalemia and blood pressure control. She is aware we will need to monitor and adjust therapy as needed. She has hx of hysterectomy so will not have endometrial hyperplasia concerns as SE. 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 12/19/2023 Prediabetes (ICD-10 - R73.03) Continue ozempic 0.5 mg weekly as patient has lost 13 pounds and tolerating well overall. WIll continue lower dose due to mild nausea noted on day 2-3 post injection. She is aware to reach out if significant nausea or vomiting and to hold medication at that point. Discussed carb counting and how to read food labels. Recommended patient to utilize the [employer] from the [employer] website to help with food preparation as this presents ideal carb content per meal and will make carb counting easier for patient. Recommended she incorporate natural insulin sensitizers such as pears, apples, cinnamon, darnell and sweet potatoes to help mobilize her endogenous insulin. Recommended up to 150 minutes of moderate level activity /exercise per week. 03/05/2024 Prediabetes (ICD-10 - R73.03) Discussed carb counting and how to read food labels. Recommended patient to utilize the [employer] from the [employer] website to help with food preparation as this presents ideal carb content per meal and will make carb counting easier for patient. Recommended he/she incorporate natural insulin sensitizers such as pears, apples, cinnamon, darnell and sweet potatoes to help mobilize his/her endogenous insulin. Recommended up to 150 minutes of moderate level activity /exercise per week. Continue metformin and ozempic 1 mg weekly. 04/16/2024 Obesity, unspecified (ICD-10 - E66.9) 05/14/2024 Heartburn (ICD-10 - R12) 06/11/2024 Insulin resistance, unspecified (ICD-10 - E88.819) 10/31/2023 Other fatigue (ICD-10 - R53.83) Send for BROOK/RF/CCP to screen for secondary causes of fatigue. 12/19/2023 Dietary counseling and surveillance (ICD-10 - Z71.3) discussed dietary measures in regards to weight loss- importance to restrict calories to 1200 per day if sedentary vs 6786-7870 calories depending on caloric expenditure. She was provided information on [facility] as this program manages metabolic syndrome and products include insulin sensitizers along with thyroid support/supplementati on to help tailor weight loss in individuals who struggle with underlying autoimmune thyroid conditions and hyperglycemia (fasting glucose of 97 mg/dL). Spent up to 20 minutes discussing alternative weight loss options. 06/11/2024 Urinary tract infection, site not specified (ICD-10 - N39.0) 10/31/2023 Dietary counseling and surveillance (ICD-10 - Z71.3) discussed dietary measures in regards to weight loss- importance to restrict calories to 1200 per day if sedentary vs 4675-3272 calories depending on caloric expenditure. She was provided information on [facility] as this program manages metabolic syndrome and products include insulin sensitizers along with thyroid support/supplementati on to help tailor weight loss in individuals who struggle with underlying autoimmune thyroid conditions and hyperglycemia (fasting glucose of 101 mg/dL). Spent up to 20 minutes discussing alternative weight loss options. 06/11/2024 Dietary counseling and surveillance (ICD-10 - Z71.3) 10/31/2023 Other Spent 45 minutes preparing to see the patient (ex review of tests/chart), obtaining and / or reviewing separately obtained history, performing a medically appropriate examination and/or evaluation, counseling and educating the patient/family/caregi laura, ordering medications, tests, or procedures, referring and communicating with other health animal care technician, documenting clinical information in the electronic or other health record, independently interpreting results and communicating results to the patient/family/caregi laura and care coordinating patient plan. Patient alert and oriented x 4 and aware of discussion noted above and in agreeance to plan in management of prediabetes, weight gain, hypothyroidism and fatigue. 11/14/2023 Other Spent 25 minute s preparing to see the patient (ex review of tests/chart), obtaining and / or reviewing separately obtained history, performing a medically appropriate examination and/or evaluation, counseling and educating the patient/family/caregi laura, ordering medications, tests, or procedures, referring and communicating with other health animal care technician, documenting clinical information in the electronic or other health record, independently interpreting results and communicating results to the patient/family/caregi laura and care coordinating patient plan. Patient alert and oriented x 4 and aware of discussion noted above and in agreeance to plan in management of hypothyroidism, weight management, prediabetes. 12/19/2023 Other Spent 25 minute s preparing to see the patient (ex review of tests/chart), obtaining and / or reviewing separately obtained history, performing a medically appropriate examination and/or evaluation, counseling and educating the patient/family/caregi laura, ordering medications, tests, or procedures, referring and communicating with other health animal care technician, documenting clinical information in the electronic or other health record, independently interpreting results and communicating results to the patient/family/caregi laura and care coordinating patient plan. Patient alert and oriented x 4 and aware of discussion noted above and in agreeance to plan in management of prediabetes, hypothyroidism, obesity and new finding of hypercortisolism in setting of adrenal ds. 03/05/2024 Other Spent 45 minute s preparing to see the patient (ex review of tests/chart), obtaining and / or reviewing separately obtained history, performing a medically appropriate examination and/or evaluation, counseling and educating the patient/family/caregi laura, ordering medications, tests, or procedures, referring and communicating with other health animal care technician, documenting clinical information in the electronic or other health record, independently interpreting results and communicating results to the patient/family/caregi laura and care coordinating patient plan. Patient alert and oriented x 4 and aware of discussion noted above and in agreeance to plan in management of cushings syndrome, hypothyroidism, prediabetes, weight management and nausea/headche management. 04/16/2024 Other Assessment and Plan: 1. Sharee's syndrome:- Continue Korlym 300 mg twice a day- Monitor for cortisol withdrawal symptoms- Reevaluate treatment in 6 to [address] scan to assess for possible adrenalectomy 2. Hypothyroidism:- Continue Levothyroxine 112 mcg daily- Obtain thyroid function tests (TSH, T4) to assess current dose- Adjust dose if T4 is not within 1.2 to 1.4 range 3. Edema:- Continue Lasix as prescribed- Continue Spironolactone 150 mg daily (100 mg three times a day)- Monitor potassium levels with CMP next week 4. Insomnia:- Continue Xanax 0.5 mg at bedtime as needed- Monitor sleep patterns and adjust treatment if necessary 5. Essential tremors:- Consider starting low-dose propranolol after consulting with [facility] and assistant golf professional- Monitor tremor severity and adjust treatment if necessary 6. Weight gain:- Encourage continued weight loss efforts- Reassess weight status in 4 weeks 7. Follow-up:- Schedule follow-up appointment in 4 weeks- Obtain labs today, including thyroid function tests and CMP- Keep patient on a 4 to 8-week follow-up schedule Spent 25 minutes preparing to see the patient (ex review of tests/chart), obtaining and / or reviewing separately obtained history, performing a medically appropriate examination and/or evaluation, counseling and educating the patient/family/caregi laura, ordering medications, tests, or procedures, referring and communicating with other health animal care technician, documenting clinical information in the electronic or other health record, independently interpreting results and communicating results to the patient/family/caregi laura and care coordinating patient plan. Patient alert and oriented x 4 and aware of discussion noted above and in agreeance to plan in management of cushings syndrome, hypothyroidism, prediabetes, essential tremor and obesity. 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 Martinez at [facility] for evaluation of adrenal adenoma and potential surgical intervention. Perform 24-hour urine cortisol and salivary cortisol tests after Thanksgiving. 2. Hypokalemia:- Patient is currently taking potassium chloride 40 mg twice daily.- Plan: Check potassium levels today with a CMP. Monitor and adjust potassium supplementation as needed. 3. Gastrointestinal issues (heartburn, nausea, vomiting):- Patient reports severe heartburn and difficulty keeping food down.- Plan: Prescribe omeprazole for heartburn. Continue Zofran for nausea and vomiting. Consider referral to a package delivery room service runner if symptoms persist. 4. Insomnia:- Patient reports difficulty sleeping due to high cortisol levels.- Plan: Prescribe Lunesta for sleep. 5. Anxiety:- Patient reports high anxiety levels.- Plan: Restart Lexapro (escitalopram) now that the patient is off Korlym. 6. Hypertension:- Patient is currently taking amlodipine 5 mg and spironolactone 100 mg twice daily.- Plan: Continue current medications and monitor blood pressure. 7. Pain management:- Patient reports severe back and leg pain.- Plan: Encourage the use of Tylenol for pain relief. Avoid long-term use of pain medications. Consider referral to physical therapy if pain persists. 8. Referral to surgeon:- Plan: Refer the patient to Dr. Candelario at [place] or Dr. Martinez at [facility] for evaluation of adrenal adenoma and potential surgical intervention. 9. Follow-up:- Schedule a follow-up appointment after the patient has seen the surgeon and completed the cortisol tests. Monitor the patient's symptoms and adjust the treatment plan as needed. Spent 45 minutes preparing to see the patient (ex review of tests/chart), obtaining and / or reviewing separately obtained history, performing a medically appropriate examination and/or evaluation, counseling and educating the patient/family/caregi laura, ordering medications, tests, or procedures, referring and communicating with other health animal care technician, documenting clinical information in the electronic or other health record, independently interpreting results and communicating results to the patient/family/caregi laura and care coordinating patient plan. Patient alert and oriented x 4 and aware of discussion noted above and in agreeance to plan in management of cushings syndrome, hypothyroidism, prediabetes, obesity/weight management, insomnia, anxiety all likely related to high cortisol but patient unable to tolerate medical management. 06/11/2024 Other Assessment and Plan: 1. Hypothyroidism- [...] Monitor symptoms and consider referral to a tire center supervisor if needed. 5. Edema- Patient reports improvement [...] for Ozempic- Patient's insurance will change to [employer] on June 27. Ensure coverage for Ozempic and coordinate with the primary care physician for any necessary prior authorizations. 10. Upcoming appointment with Dr. Martinez on July 04- Ensure all relevant records, including CT scan, recent notes, labs, and dexamethasone suppression test, are sent to Dr. Martinez at [facility] prior to the appointment. Spent 15 minutes [...] examination and/or evaluation, counseling and educating the patient/family/caregi laura, ordering medications, tests, or procedures, referring and communicating with other health animal care technician, documenting clinical information in the electronic or other health record, independently interpreting results and communicating results to the patient/family/caregi laura and care coordinating patient plan. Patient alert and oriented x 4 and aware of discussion noted above and in agreeance to plan in management of hypothyroidism, obesity/weight management, hypercortisolism in setting of adrenal adenoma, UTI and insulin resistance secondary to hypercortisolism. Plan Of Treatment Pending Test Test Name Order Date COMPREHENSIVE METABOLIC PANEL 08/06/2024 CYCLIC CITRULLINATED PEPTIDE (CCP) AB (I GG) 08/06/2024 T3, FREE 08/06/2024 RHEUMATOID FACTOR 08/06/2024 C-REACTIVE PROTEIN 08/06/2024 HEMOGLOBIN A1c 08/06/2024 CBC (INCLUDES DIFF/PLT) 08/06/2024 SED RATE BY MODIFIED WESTERGREN 08/06/19 25 T4, FREE 08/06/2024 TSH 08/06/2024 CT adrenal gland W/WO 11/25/2023 CT adrenal gland W/WO 11/30/2023 Insurance Providers Payer Name Payer Address Payer Phone Subscriber Number Group Number Insured Name Patient Relationship to Insured Coverage Start Date Coverage End Date Medicare [address] [address] [place] [phone] [id number] Lorraine Boateng Self - patient is the insured [employer] [address] [place] [phone] [id number] Lorraine Boateng Self - patient is the insured Medical (General) History Medical History History ICD Code hypothyroidism prediabetes cushings syndrome adrenal adenoma
--- OUTSIDE RECORDS SUMMARY | 2024-10-10 16:45 | XMS_ITS | Data Portability ---
Author Organization [facility] Address [address] [place] [address] Care Team Providers Care Heavy Line Technician Name Role Phone BRITT FUENTES Primary Care Provider [phone] Assessment Encounter Date Assessment Date Assessment LastModified by Organization Details LastModified Time 03/18/2023 03/18/2023 45 minutes spent on patient care, >50% face to face [email or web address] Not available 03/18/2023 14:56:49 Plan of Treatment Reminders Order Date Submit Date Provider Last Modified By Organization Details Last Modified Time Details Appointments None recorded. Lab None recorded. Referral None recorded. Procedures None recorded. Surgeries None recorded. Imaging None recorded. Medication Orders estradiol 0.0375 mg/24 hr weekly transdermal patch 2022 023 [id number] [facility]/Pharmacy #[id number], [address] , [place], [address], 14:42:55 Patient TargetsNo targets recorded. Patient InstructionsNo instructions recorded. Reason for Referral None Reported. Procedures Surgical History Date Name Laterality Status Provider Name and Address Organization Details Recorded Time 08/23/19 23 Date of Last Mammogram completed Gabriella Moscoso [facility] 03/18/2023 12:53:21 08/13/19 23 completed Gabriella Moscoso [facility] 03/18/2023 12:53:21 02/10/19 91 Caesarean Section completed Gabriella Moscoso [facility] 03/18/2023 12:53:33 04/27/19 85 Caesarean Section completed [facility] 03/18/2023 12:53:33 Orthopedic Surgery completed [facility] 03/18/2023 12:53:33 Endometrial Ablation completed [facility] 03/18/2023 12:53:33 Oophorectomy completed [facility] 03/18/2023 12:53:33 Endometrial Biopsy completed [facility] 03/18/2023 12:53:33 Total Hysterectomy completed [facility] 03/18/2023 12:53:33 Colonoscopy completed [facility] 03/18/2023 12:53:33 Imaging Results None recorded. Procedure Notes None recorded. Medical Equipment None Reported. Allergies Allergen ID Allergen Name Allergen Category Reaction Reaction Severity Criticality Documentation Date Start Date Code Code System Note Provider Name and Address Organization Details Recorded Time morphine medicatio n itching Not available Not available 03/18/2023 7052 RxNorm Gabriella Schroedte r [facility], [facility] 3 12:53:14 80648 Augmentin medicatio n hives Not available Not available 03/18/2023 46569 2 RxNorm Gabriella Schroedte r [facility], [facility] 3 12:53:14 18353 latex environme nt,medica tion hives Not available Not available 03/18/2023 89815 91 RxNorm Gabriella Schroedte r [facility], [facility] 3 12:53:14 26108 Levaquin medicatio n nausea Not available Not available 03/18/2023 02509 2 RxNorm Gabriella Schroedte r [facility], [facility] 3 12:53:14 Medications Name Sig Start [...] Updated DateTime 03/18/2023 175.26 cm 37.2 kg/m2 705460.2 8 g 143 mm[Hg] 82 mm[Hg] Gabriella Moscoso [facility] 12:53:10 Social History Question Answer Notes LastModified by Organizat ion Details LastModified Time Tobacco Smoking Status Never Smoker Gabriella Moscoso [facility], [facility] 03/18/2023 12:56:57 Do You Have An [...] Anxious, Or Unable To Sleep At Night)? [id number] Information not available 03/18/2023 Do You Use [...] Maternal Aunt Malignant tumor of breast 40 [id number] Not available 03/18 14:51:06 Maternal Aunt Malignant tumor of pancreas [id number] Not available 03/18 14:51:39 Maternal Uncle Malignant tumor of colon [id number] Not available 03/18 14:51:21 Maternal Uncle Malignant tumor of prostate [id number] Not available 03/18 14:51:54 Medical History Condition Response Allergies (Food, seasonal, environmental ) Y Other N Breast Cancer N Drug/Latex Allergies/Reactions N Blood Transfusion N Dermatologic Disorders N Lung Disease N Defects or Inherited Disease N Breast Problem N Gestational Diabetes N Hematologic disorders N Anesthesia Complications N History of STI N Deep Vein Thrombosis N Polycystic ovary syndrome N Anxiety Disorder Y Autoimmune disease N Arthritis N Infertility N Polyps N Acid Reflux (GERD) N History of abnormal pap N Cancer N Stroke N Varicosities N Neurologic/Epilepsy N Endometriosis N High Cholesterol Y Headaches N Fibromyalgia N Kidney Disease N Heart Problems N [...] SNOMED-CT Code Diagnosis ICD10 Code Diagnosis Note [id number] BABAK DAWKINS MD [facility] [address] [address] 03/18/2023 12:28:21 03/18/2023 15:03:04 Menopausal syndrome 538162099 N95.9 - hot flashes, night sweats, brain [...] Cavanaugh Member ID Guarantor Name 03/18/2023 1 [place] Lorraine Quintana [id number] Lorraine Quintana 03/18/2023 2 [facility] Lorraine Quintana [id number] Lorraine Quintana Notes Date Note Type Note [...] years. BABAK DAWKINS MD [address], [place], [address], [facility] 03/18/2023 14:59:43 OBGyn Episode Ob Episode Information Episode Created Date Number of Fetuses Patient Bloodtype Patient rh Status Prepregnancy Weight lbs Domestic Partner Domestic Partner Phone Father Name Patrol Commander Status 03/18/20 23 1 CLOSED Fetus Data First Name Last Name Admitted to NICU Weight (g) Sex Living Outcome Pediatric Complications Fetus ID Race Codes Race Delivery Type 3175.14 4 F Full Term [id number] Repeat Emmanuel Calculation Initial Emmanuel Date Initial [...] Domestic Partner Domestic Partner Phone Father Name Patrol Commander Status 03/18/20 23 1 CLOSED Fetus Data First Name Last Name Admitted to NICU Weight (g) Sex Living Outcome Pediatric Complications Fetus ID Race Codes Race Delivery Type 3259.96 5704 M Full Term [id number] Primary Emmanuel Calculation Initial Emmanuel Date Initial [...]
--- OUTSIDE RECORDS SUMMARY | 2024-10-10 16:45 | XMS_ITS | Referral Summary ---
Author Organization [facility] Address [address] [place] [address] Care Team Providers Care Channel Development Director Name Role Phone Doreen Marte MD Primary Care Provider [phone] Allergies Active Allergy Reactions Criticality Noted Date Comments Amoxicillin-Pot Clavulanate Rash Medium 01/24/20 18 Codeine Levofloxacin Hives Medium 08/14/2018 Morphine Other Rash,Blisters High 01/23/2018 TAPE/ ADHESIVE Oxycodone Oxycodone-Acetaminophen Hypotension High 09/22/2018 Medications blood glucose diagnostic (Mission ResearchTOUCH ULTRA TEST) strip Test sugars daily and [...] (08/14/2018): Added automatically from request for surgery [id number] Chronic fatigue 04/25/2018 Hypercholesterolemia 08/23/2017 Assessment & Plan (08/23/2017 2:10 PM TANK INSULATOR RUBBER): Goal of treatment , LDL cholesterol less [...] taken. Assessment & Plan (08/23/2017 2:01 PM TANK INSULATOR RUBBER): Continue current dose of Levothyroxine and Cytomel [...] . 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 Device Identifier Shelf Expiration Date Model / Serial / Lot [employer] 3122-040 Smartset Medium Viscosity Cement 40gm Bone Sterile - [id number] Implanted:Qty: 1 on 09/22/2018 by Jordan Jones MD at [facility] [employer] 03/26/2020 [id number] / / [employer] [id number] Smartset Medium Viscosity Cement 40gm Bone Gentamicin - [id number] Implanted:Qty: 1 on 09/22/2018 by Jordan Jones MD at [facility] [employer] 08/19/2019 [id number] / / [employer] [id number] Attune Cemented Cruciate Retaining Knee Left 7 Component Femoral - [id number] Implanted:Qty: 1 on 09/22/2018 by Jordan Jones MD at [facility] [employer] [id number] 03/26/2028 [id number] / / [employer] [id number] Attune 14mm 50mm Cemented Revision Knee Stem Femoral Sterile - [id number] Implanted:Qty: 1 on 09/22/2018 by Jordan Jones MD at [facility] [employer] [id number] 01/25/2028 [id number] / / [employer] [id number] Attune Cement Revision Fix Bearing Knee 7 Baseplate Tibial - [id number] Implanted:Qty: 1 on 09/22/2018 by Jordan Jones MD at [facility] [employer] [id number] 12/25/2027 [id number] / / [employer] [id number] Attune 7mm Cruciate Retaining Fix Bearing Knee 7 Insert Tibial - [id number] Implanted:Qty: 1 on 09/22/2018 by Jordan Jones MD at [facility] [employer] [id number] 04/26/2022 [id number] / / Procedures Procedure Name Priority Date/Time Associated Diagnosis Comments POCT HEMOGLOBIN A1C Routine Gen Lab 08/31/2018 1:15 PM TANK INSULATOR RUBBER LIPID PANEL Routine 08/15/2017 1:25 PM TANK INSULATOR RUBBER Type 2 diabetes mellitus with hyperglycemia, without long-term current use of insulin (HCC) from Last 3 Months or Most Recently Relevant to Health Maintenance Results * POCT hemoglobin A1c (08/31/2018 1:15 PM TANK INSULATOR RUBBER) Pathologist [facility] Hgb A1C, POC 6.0 4.0 - 6.0 % [facility] Est Average Gluc POC 126 mg/dL [facility] Comment: The ADA recommends reporting an estimated Average Glucose (eAG) with all Hemoglobin A1c results using the equation derived from a study of 507 normal and diabetic adults. Minority populations were underrepresented and children were not included. (Diabetes Care 31:2429-6726, 2008). The eAG is not equivalent to a fasting glucose. Blood specimen (specimen) 08/31/2018 1:15 PM TANK INSULATOR RUBBER 08/31/2018 1:15 PM TANK INSULATOR RUBBER Narrative [facility] - 08/31/2018 1:33 PM TANK INSULATOR RUBBER us Jordan Jones MD POINT OF CARE TEST ORDERA BLES Final Result [facility] [place] [address] * (ABNORMAL) Lipid panel (08/15/2017 1:25 PM TANK INSULATOR RUBBER) [facility] Cholesterol 247(H) 100 - 199 mg/dL [facility] - 01 Triglycerides 188(H) 0 - 149 mg/dL [facility] - 01 HDL Cholesterol 64 >39 mg/dL [facility] - 01 VLDL 38 5 - 40 mg/dL [facility] - 01 LDL, calculated 145(H) 0 - 99 mg/dL [facility] - 01 Blood specimen (specimen) 08/15/2017 1:25 PM TANK INSULATOR RUBBER 08/15/2017 Narrative [facility] - 08/16/2017 6:14 AM TANK INSULATOR RUBBER Performed at: 01 - [facility] [id number] Bulb Inspector: David Díaz PhD, Phone: [phone] us Naty Norton NP LAB BLOOD ORDERABLES [facility] Organization Address City/State/ZIP Co de Phone Number [facility] - [facility] from Last 3 Months or Most Recently Relevant to Health Maintenance Insurance [facility] MEDICARE [facility] Advance Directives For more information, please contact: [phone] * Full Code (Latest Code Status on File) Date Activated Date Inactivated Comments 09/22/2018 11:29 AM 09/22/2018 10:23 PM Care Teams Channel Development Director Relationship Specialty Start Date End Date Doreen Marte MD PCP - General 04/29/14
--- OUTSIDE RECORDS SUMMARY | 2024-10-10 16:45 | XMS_ITS | Data Portability ---
Author Organization [facility], Main Office Address [address] [place] [address] Assessment No assessment recorded. Plan of Treatment Reminders Order Date Submit Date Provider Last Modified By Organization Details Last Modified Time Details Appointments None recorded. Lab cortisol, am, serum 2022 023 [facility], [address] [facility] [address], [place], [address], 11:16:46 dexamethaso ne, serum 2022 023 [facility], [address] [place] [address] 2, [place], [address], 3 11:16:46 rf (rheumatoid factor), serum 2022 023 [facility], [address] [place] [address], [facility] 2, [place], [address], 3 11:31:13 C reactive protein, QN, serum or plasma 2022 023 [facility], [address] [facility] 2, [place], [address], 3 11:31:14 ESR (erythrocyt e sedimentati on rate), blood 2022 023 [facility], [address] [facility], [facility] 2, [place], [address], 3 11:31:13 BROOK (antinuclea r antibodies) screen, serum 2022 023 [facility], [address], [place], [address], 11:31:13 lipid panel, serum 2022 023 [facility], [address], [place], [address], 12:45:30 HbA1c (hemoglobin A1c), blood 2022 023 [facility], [address], [place], [address], 11:16:46 CMP, serum or plasma 2022 023 [facility], [address], [place], [address], 08:38:56 TSH + free T4, serum 2022 023 [facility], [address], [place], [address], 08:38:55 T3, free, serum or plasma 2022 023 [facility], [address], [place], [address], 11:20:03 Referral None recorded. Procedures None recorded. Surgeries None recorded. Imaging None recorded. Medication Orders cyanocobala min (vit B-12) 1,000 mcg/mL injection solution 2022 023 [id number], [address] , [place], [address], 11:23:01 Victoza 3-Glenroy 0.6 mg/0.1 mL (18 mg/3 mL) subcutaneou s pen injector 2022 023 [email or web address] [facility] #[id number], [address], [place], [address], 3 11:27:46 metformin ER 500 mg tablet,exte nded release 24 hr 2022 023 [id number], [address], [place], [address], 3 11:21:14 Unithroid 112 mcg tablet 2022 023 [id number], [address], [place], [address], 3 11:20:21 liothyronin e 5 mcg tablet 2022 023 [id number] [address] [place], [address], 3 08:13:22 dexamethaso ne 1 mg tablet 2022 023 [id number], [address], [place], [address], 3 11:16:38 Victoza 3-Glenroy 0.6 mg/0.1 mL (18 mg/3 mL) subcutaneou s pen injector 2022 023 [id number], [address], [place], [address], 3 11:19:53 Unithroid 112 mcg tablet 2022 023 [id number] [address] [place], [address], 3 11:19:53 liothyronin e 5 mcg tablet 2022 023 [id number] [address] [place], [address], 3 11:20:18 Patient TargetsNo targets recorded. Patient InstructionsNo instructions recorded. Reason for Referral None Reported. 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 FINDIN GS: Right thyroi d lobe: The right lobe of the thyroi d gland measur es 4.9 x 1.4 x 1.7 cm. The thyroi d parenc hyma is hetero geneou s demons tratin g no eviden ce of a solid or cystic mass. No abnorm al color Dopple r blood flow or suspic ious calcif icatio ns. 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 The thyroi d parenc hyma is hetero geneou s demons tratin g a 1.8 x 1.0 x 1.8 cm solid hypoec hoic nodule stable in size dating back 2018. This patien t hand this nodule biopsi ed on 2019 with report ed benign result s. No abnorm al color Dopple r blood flow or suspic ious calcif icatio ns. Isthmu s: The thyroi d isthmu s measur es mm in width. The thyroi d parenc hyma is homoge neous withou t solid nodule s or cystic lesion s. No abnorm al color Dopple r blood flow or suspic ious calcif icatio ns. IMPRES KARLIE: Stable left thyroi d lobe nodule , previo usly biopsi ed with benign result s. Create d and electr onical ly signed by: Tani ramirez MD Signed Date: 2020 1:07 PM (CT) Dictat ed by: Tani ramirez MD DD: 2020 1:07 PM (CT) DT: 2020 1:07 PM (CT) Page 2 of 2 [id number] [facility] (Imaging) [address] [place], [address], 08/25/2022 06:09:49 04/16/20 21 04/16/2021 US, thyro id No observ ation record ed. [id number] [facility] [address] [place], [address], 08/25/2022 06:09:49 12/09/19 24 12/09/2023 CT, abdom en, w/wo contr ast No observ ation record ed. [email or web address] [address], [place], [address], 12/26/2023 09:52:11 Result Notes None recorded. Problems Name Problem SNOMED Code Status Onset Date Resolution Date Notes Provider Name and Address Organization Details Recorded Time Prediabetes 672129204 Active 2021 Not Available [facility] 3 06:02:54 Fatigue 89840251 Active 2018 Not Available [facility] 3 06:02:54 Weight gain 5891134 Active 2022 Toña Dinh MD [address], [address], [place], [address] , [facility] 3 11:15:29 Dyslipidemia 623884801 Active 2022 Toña Dinh MD [address], [address], [place], [address] , [facility] 3 11:15:52 Obesity 660012771 Active 2022 Toña Dinh MD [address], [address], [place], [address] , [facility] 3 11:16:49 Hypothyroidis m 41058540 Active 2022 Toña Dinh MD [address], [address], [place], [address] , [facility] 3 11:19:05 Arthritis 5988902 Active 2022 Toña Dinh MD [address], [address], [place], [address] , [facility] 3 11:25:36 Vitamin B12 deficiency (non anemic) 39959366 Active 2022 Toña Dinh MD [address], [place] [address], [place], [address] , [facility] 3 11:22:21 Problem Notes None recorded. Procedures Surgical History Date Name Laterality Status Provider Name and Address Organization Details Recorded Time 02/10/19 91 delivery completed Not Available [facility] 08/25/2022 05:56:33 10/21/18 85 delivery completed Not Available [facility] 08/25/2022 05:56:33 Neck completed Not Available [facility] 08/25/2022 05:56:33 fallopian tube excision completed Not Available [facility] 08/25/2022 05:56:33 Lumbar Spine Surgery completed Not Available [facility] 08/25/2022 05:56:33 laparoscopy completed Not Available [facility] 08/25/2022 05:56:33 Removal of ovary(s) completed Not Available [facility] 08/25/2022 05:56:33 cholecystectomy completed Not Available [facility] 08/25/2022 05:56:33 Imaging Results Imaging Date Name Status LastModified by Organiz ation Details LastModified Time 04/16/2021 US, head + neck, soft tissue completed [id number] [facility] (Im[facility]) [address] [place], [address], 08/25/2022 06:09:49 04/16/2021 US, thyroid completed [id number] [facility] [address] [place], [address], 08/25/2022 06:09:49 12/09/2023 CT, abdomen, w/wo contrast completed [email or web address], [place], [address], 12/26/2023 09:52:11 Procedure Notes None recorded. Medical Equipment None Reported. Allergies Allergen ID Allergen Name Allergen Category Reaction Reaction Severity Criticality Documentation Date Start Date Code Code System Note Provider Name and Address Organization Details Recorded Time 28782 acetamino phen / oxycodone medicatio n decreased blood pressure severe Not available 08/25/2022 24114 3 RxNorm Not Available [facility] 3 06:09:32 18017 morphine medicatio n itching moderate Not available 08/25/2022 7052 RxNorm Not Available [facility] 3 06:09:32 73654 Levaquin medicatio n headache severe Not available 08/25/2022 96523 2 RxNorm Not Available [facility] 3 06:09:32 41678 latex environme nt,medica tion other severe Not available 08/25/2022 41614 91 RxNorm cause s blist ers Not Available [facility] 3 06:09:32 77040 Demerol medicatio n nausea severe Not available 08/25/2022 82452 1 RxNorm Not Available [facility] 3 06:09:32 29181 codeine medicatio n nausea moderate Not available 08/25/2022 2670 RxNorm Not Available [facility] 3 06:09:32 03534 Augmentin medicatio n rash mild Not available 08/25/2022 00482 2 RxNorm Not Available [facility] 3 06:09:32 Medications Name Sig Start Date Stop Date Status Note LastModified by Organization Details LastModified Time cyclobenzap rine 10 mg tablet TAKE 1 TABLET BY MOUTH THREE TIMES A DAY NEEDED FOR MUSCLE SPASMS active Not Available Not Available No t Available desonide 0.05 % topical cream 09/28 completed Not Available Not Available Not Available prednisone 10 mg tablet TAKE 5 TABS DAILY X 2 DAYS, 4 DAILY X 2 DAYS, 3 DAILY X 2 DAYS 2 DAILY X 2 DAYS, 1 DAILY X 2 DAYS 03/23 completed Not Available Not Available Not Available nitrofurant oin macrocrysta l 50 mg capsule TAKE 1 CAPSULE BY MOUTH EVERYDAY AT BEDTIME active Not Available Not Available No t Available doxycycline hyclate 100 mg capsule 12/06 completed Not Available Not Available Not Available cefuroxime axetil 250 mg tablet TAKE 1 TABLET BY MOUTH EVERY 12 HOURS active Not Available Not Available No t Available atorvastati n 20 mg tablet 07/11 completed Not Available Not Available Not Available trandolapri l 2 mg tablet TK 1 T PO QD 07/11 completed Not Available Not Available Not Available atorvastati n 10 mg tablet TAKE 1 TABLET BY MOUTH EVERY DAY active Not Available Not Available No t Available fluconazole 150 mg tablet TAKE 1 TABLET BY MOUTH ONCE EVERY 72 HOURS active Not Available Not Available No t Available hydrocodone 5 mg-acetamin ophen 325 mg tablet 12/06 completed Not Available Not Available Not Available meloxicam 15 mg tablet TAKE 1 TABLET BY MOUTH EVERY DAY 09/28 completed Not Available Not Available Not Available ciprofloxac in 250 mg tablet TAKE 1 TABLET BY MOUTH TWICE A DAY active Not Available Not Available No t Available amlodipine 5 mg tablet TAKE 1 TABLET BY MOUTH EVERY DAY active Not Available Not Available No t Available sulfamethox azole 800 mg-trimetho prim 160 mg tablet TAKE 1 TABLET BY MOUTH TWICE A DAY active Not Available Not Available No t Available liothyronin e 5 mcg tablet TAKE 2 TABLET BY MOUTH TWICE A DAY BEFORE MEALS 2022 active Not Available Not Available Not Avai lable Unithroid 112 mcg tablet TAKE 1 TABLET BY MOUTH EVERY DAY IN THE MORNING active Not Available Not Available No t Available levothyroxi ne 100 mcg tablet 09/05 completed Not Available Not Available Not Available levothyroxi ne 88 mcg tablet 09/05 completed Not Available Not Available Not Available alprazolam 0.5 mg tablet TAKE 1 TABLET BY MOUTH TWICE A DAY NEEDED FOR ANXIETY active Not Available Not Available No t Available dexamethaso ne 1 mg tablet TAKE 1 TABLET BY MOUTH AT 10PM THE NIGHT BEFORE 8AM CORTISOL active Not Available Not Available No t Available phenazopyri dine 100 mg tablet TAKE 1 TABLET BY MOUTH 3 TIMES DAILY NEEDED FOR PAIN active Not Available Not Available No t Available cyanocobala min (vit B-12) 1,000 mcg/mL injection solution INJECT 1 ML ONCE WEEKLY BY SUBCUTANE OUS ROUTE IN THE MORNING 2022 active Not Available Not Available Not Avai lable levothyroxi ne 125 mcg tablet Take 1 tablet every day by oral route in the morning for 30 days. 12/06 completed Not Available Not Available Not Available nitrofurant oin macrocrysta l 100 mg capsule TAKE 1 CAPSULE BY MOUTH EVERY 12 HOURS WITH A MEAL/FOOD active Not Available Not Available No t Available BD Luer-Reji Syringe 3 mL 25 gauge x 1 USE DIRECTED. INJECT B12 ONCE WEEKLY X 4 WEEKS THEN INCREASE TO EVERY OTHER WEEK THEREAFTE R active Not Available Not Available No t Available oxybutynin chloride ER 5 mg tablet,exte nded release 24 hr TAKE 1 TABLET BY MOUTH EVERY DAY active Not Available Not Available No t Available gabapentin 300 mg capsule TAKE 1 CAPSULE BY MOUTH 3 TIMES A DAY active Not Available Not Available No t Available folic acid 1 mg tablet TAKE 1 TABLET BY MOUTH EVERY DAY IN THE MORNING 09/28 completed Not Available Not Available Not Available montelukast 10 mg tablet TAKE 1 TABLET BY MOUTH EVERY DAY IN THE EVENING active Not Available Not Available No t Available hydroxyzine HCl 25 mg tablet 12/06 completed Not Available Not Available Not Available mupirocin 2 % topical ointment 03/23 completed Not Available Not Available Not Available ergocalcife rol (vitamin D2) 1,250 mcg (50,000 unit) capsule TAKE 1 CAPSULE BY MOUTH IN THE MORNING ONCE WEEKLY active Not Available Not Available No t Available estradiol 0.01% (0.1 mg/gram) vaginal cream 1 GRAM VAGINALLY DAILY FOR 14 DAYS, THEN 1 GRAM VAGINALLY 2 TIMES A WEEK. active Not Available Not Available No t Available celecoxib 100 mg capsule 03/23 completed Not Available Not Available Not Available metformin ER 500 mg tablet,exte nded release 24 hr TAKE 1 TABLET BY MOUTH TWICE A DAY WITH MEALS FOR 90 DAYS 2022 active Not Available Not Available Not Avai lable escitalopra m 10 mg tablet 12/06 completed Not Available Not Available Not Available escitalopra m 20 mg tablet TAKE 1 TABLET BY MOUTH EVERY DAY active Not Available Not Available No t Available nitrofurant oin monohydrate /macrocryst als 100 mg capsule TAKE 1 CAPSULE BY MOUTH ONCE DAILY, TAKE WITH A MEAL/FOOD active Not Available Not Available No t Available solifenacin 5 mg tablet TAKE 1 TABLET BY MOUTH EVERY DAY active Not Available Not Available No t Available ProAir HFA 90 mcg/actuati on aerosol inhaler active Not Available Not Available Not Available hydrochloro thiazide 12.5 mg tablet TAKE 1 TABLET BY MOUTH EVERY DAY 09/28 completed Not Available Not Available Not Available Tirosint 125 mcg capsule Take 1 capsule(s ) every day by oral route in the morning for 30 days. active Not Available Not Available No t Available Tirosint 112 mcg capsule TK 1 C PO QD IN THE MORNING 03/23 completed Not Available Not Available Not Available BD Ultra-Fine Yasmine Pen Needle 32 gauge x 5/32 USE TO INJECT MEDICATIO N DAILY active Not Available Not Available No t Available BD Insulin Syringe Ultra-Fine 1 mL 31 gauge x 5/16 USE TO INJECT B-12 UNDER THE SKIN ONCE WEEKLY active Not Available Not Available No t Available Victoza 3-Glenroy 0.6 mg/0.1 mL (18 mg/3 mL) subcutaneou s pen injector INJECT 1.8 MG UNDER THE SKIN ONCE DAILY AT DINNER 2022 active Not Available Not Available Not Avai lable Trulicity 0.75 mg/0.5 mL subcutaneou s pen injector Inject 0.75 mg every week by subcutane ous route in the morning for 28 days. 09/28 completed Not Available Not Available Not Available TechLITE Pen Needle 31 gauge x 3/16 active Not Available Not Available Not Available Bysumanth BCise 2 mg/0.85 mL subcutaneou s auto-inject or Inject 2 mg every week by subcutane ous route in the morning for 30 days. 07/11 completed Not Available Not Available Not Available Ozempic 0.25 mg or 0.5 mg (2 mg/1.5 mL) subcutaneou s pen injector Inject 0.5 mg every week by subcutane ous route at dinner for 90 days. 09/28 completed Not Available Not Available Not Available Rybelsus 7 mg tablet TK 1 T PO QD B MEALS 12/06 completed Not Available Not Available Not Available BinaxNOW COVID-19 Ag Self Test kit USE DIRECTED active Not Available Not Available No t Available Paxlovid 300 mg (150 mg x 2)-100 mg tablets in a dose pack active Not Available Not Available Not Available Vitals Date Recorded Body mass index (BMI) Body height Oxygen saturation Oxygen saturation in Arterial blood by Pulse oximetry Heart rate Body temperature Body weight Systolic blood pressure Diastolic blood pressure Provider Name and Address Organization Details Last Updated DateTime 1 31.3 kg/m2 175.26 cm 96 % 96 % 75 /min 98 [degF] 82526.5 8 g 118 mm[Hg] 74 mm[Hg] Not Available [facility] 3 05:59:28 Date Recorded Body mass index (BMI) Body height Oxygen saturation Oxygen saturation in Arterial blood by Pulse oximetry Heart rate Body temperature Body weight Systolic blood pressure Diastolic blood pressure Provider Name and Address Organization Details Last Updated DateTime 2 31.7 kg/m2 175.26 cm 95 % 95 % 81 /min 98 [degF] 60441.9 2 g 105 mm[Hg] 75 mm[Hg] Not Available [facility] 3 05:59:28 Date Recorded Body height Body mass index (BMI) Body weight Body temperature Heart rate Systolic blood pressure Diastolic blood pressure Provider Name and Address Organization Details Last Updated DateTime 3 175.26 cm 37.4 kg/m2 780007. 87 g 97.3 [degF] 74 /min 142 mm[Hg] 85 mm[Hg] RONNA Gregorio RI Nykaa [facility] 3 10:55:11 Date Recorded Body height Body mass index (BMI) Body weight Heart rate Body temperature Systolic blood pressure Diastolic blood pressure Provider Name and Address Organization Details Last Updated DateTime 3 175.26 cm 37.2 kg/m2 895450. 28 g 86 /min 96.5 [degF] 159 mm[Hg] 93 mm[Hg] Tamica Moore MA [facility] 3 10:51:20 Social History Question Answer Notes LastModified by Organizat ion Details LastModified Time Tobacco Smoking Status Never Smoker Cuca nunes, [place] Nykaa [facility] 02/21/2023 10:43:52 What Is Your Level Of Alcohol Consumption? Occasional [id number] Information not available 08/25/2022 What Is Your Level Of Caffeine Consumption? Heavy [id number] Information not available 08/25/2022 What Is Your Relationship Status? [id number] Information not available 08/25/2022 Do You Use Your Seat Belt Or Car Seat Routinely? Yes Information not available 02/21/2023 Do You Feel Stressed (tense, Restless, Nervous, Or Anxious, Or Unable To Sleep At Night)? [id number] Stress With Family Member Information not available 02/21/2023 Do You Use Any Illicit Or Recreational Drugs? No Information not available 02/21/2023 Has Tobacco Cessation Counseling Been Provided? No Information not available 02/21/2023 Do You Or Have You Ever Used Any Other Forms Of Tobacco Or Nicotine? No Information not available 02/21/2023 Sex: Unknown Functional Status None recorded. Mental Status None recorded. Family History Relationship Description Onset Age of this Age Resolved Age Notes LastModified by Organization Details LastModified Time Mother Diabetes mellitus [id number] Not available 08/25/2022 05:56:37 Mother Thalassemia akovach Not availab le 02/21/2023 10:43:52 Maternal Aunt Diabetes mellitus [id number] Not available 08/25/2022 05:56:37 Maternal Aunt Malignant tumor of breast akovach Not available 2022 10:43:52 Medical History Condition Response OBESITY Y HYPOTHYROIDISM Y SKIN PROBLEMS Y DIABETES, TYPE HYPERTENSION Y HIGH CHOLESTEROL / HYPERLIPIDEMIA Y Gynecological HistoryNo gynecological history recorded. Obstetrics History GPAL:G 0 P 0 0 0 0 Past Encounters Encounter ID Performer Location Encounter Start Date Encounter Closed Date Diagnosis/Indication Diagnosis SNOMED-CT Code Diagnosis ICD10 Code Diagnosis Note [id number] [facility] [address] [place] [address] 03/23/2021 00:00:00 03/23/2021 18:42:31 [id number] [facility] [address] [place] [address] 01/11/2022 00:00:00 01/11/2022 14:05:28 [id number] Toña Dinh MD [facility] [address] [place] [address] 09/30/2022 10:44:20 09/30/2022 11:35:39 Weight gain 7857979 R63.5 Will send for low dose dexa suppressio n testing to screen for hypercorti solic state. Prediabetes 803842003 R7 3.03 A1C 5.9%- continue metformin for insulin sensitizat ion. Discussed carb counting and how to read food labels. Recommende d patient to utilize the diabetesfo SIZESEEKER.Capricor from the ADA website to help with food preparatio n as this presents ideal carb content per meal so this will make carb counting much easier for patient. Recommende d she incorporat e natural insulin typing bookkeeper s such as pears, apples, cinnamon, darnell and sweet potatoes to help mobilize her endogenous insulin. Recommende d up to 150 minutes of moderate level activity/e xercise weekly. Dyslipidemia 828019798 E 78.5 Continue atorvastat in as LDL in range. Obesity 114943776 E66.9 Recommende d GLP1 agonist therapy as she is having trouble at times with cravings of sweets and portion control. 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 She has no hx of pancreatit is or medullary thyroid cancer and is willing to trial on a GLP1 agonist therapy. She was advised to contact clinic if she experience s any nausea, vomiting or significan t thyroid pain / swelling or abdominal pain so we can discuss and discontinu e and potentiall y look to other therapy. Will trial on victoza 0.6 mg SQ once daily x 1 week with large meal then increase to 1.2 mg SQ once daily with largest meal of that day as tolerated. Hypothyroidism 84078249 E03.9 She has fatigue on generic LT4 - would recommend we get patient either on synthroid or unithroid for better consistenc y- transition to unithroid 112 mcg daily along with LT3 5 mcg twice daily. She was reminded to take her unithroid on empty stomach with glass of water and wait one hour to eat or have her coffee in morning and up to 4 hours if ever taking any heartburn or reflux medication s to help optimize absorption . Discussed paleo like diet with restrictio n of GMOs to help with energy and to optimize absorption of vitamins and minerals and reduce inflammati on. Arthritis 5999356 M19.90 Will send for repeat BROOK with specific antibodies along with rheumatoid screening to assess for any evidence of autoimmune disease. Spent up to 28 minutes preparing to see the patient (eg, review of tests), obtaining and/or reviewing separately obtained history, performing a medically appropriat e examinatio n and evaluation , counseling and educating the patient, ordering medication s, tests, along with documentin g clinical informatio n in the electronic health record, independen tly interpreti ng results and communicat ing results to the patient. RTC in 5-6 months. Patient was provided a handwritte n lab order which contains our fax number. If she chooses to go outside of the [facility] system to obtain labwork she was advised to provide our fax number and my informatio n to the lab she will be obtaining labwork from in order to have her labs properly forwarded over for me to review so there is no loss of follow up due to use of outside network. She was also advised to contact our clinic informing us that she has completed her labwork so we are aware we will need to reach out to the appropriat e laboratory to request her results be forwarded to us so I might have the ability to review and make further medical decision making in her case. She voiced understand ing. [id number] Toña Dinh MD [facility] Sanchez [address] [place] [address] 02/21/2023 10:42:56 02/21/2023 11:40:44 Hypothyroidism [id number] E03.9 FT4 in ideal range - continue on unithroid 112 mcg daily along with uptitratio n of LT3 to 10 mcg twice daily as her levels are low and she does have afternoon fatigue. She was reminded to take her unithroid on empty stomach with glass of water and wait one hour to eat or have her coffee in morning and up to 4 hours if ever taking any heartburn or reflux medication s to help optimize absorption . Discussed paleo like diet with restrictio n of GMOs to help with energy and to optimize absorption of vitamins and minerals and reduce inflammati on. Prediabetes [id number] R7 3.03 A1C 5.6% down from 5.9%- continue metformin for insulin sensitizat ion. Recommende d she incorporat e natural insulin typing bookkeeper s such as pears, apples, cinnamon, darnell and sweet potatoes to help mobilize her endogenous insulin. Recommende d up to 150 minutes of moderate level activity/e xercise weekly. Obesity [id number] E66.9 She just started victoza one month ago so patient encouraged to continue on slow titration up to 1.8 mg daily of victoza but focus on increasing her protein intake daily and restrictin g to nonstarchy carbs to fulfill her caloric demands. She has no hx of pancreatit is or medullary thyroid cancer and is willing to trial on a GLP1 agonist therapy. She was advised to contact clinic if she experience s any nausea, vomiting or significan t thyroid pain / swelling or abdominal pain so we can discuss and discontinu e and potentiall y look to other therapy. Vitamin B1 2 deficiency (non anemic) [id number] E53.8 Continue on B12 injections weekly for energy and focus. Spent up to 25 minutes preparing to see the patient (eg, review of tests), obtaining and/or reviewing separately obtained history, performing a medically appropriat e examinatio n and evaluation , counseling and educating the patient, ordering medication s, tests, along with documentin g clinical informatio n in the electronic health record, independen tly interpreti ng results and communicat ing results to the patient. Patient can be followed by PCP - she/he is aware of my resignatio n and last day of April 08. If needed his/her PCP can refer patient to another endocrinol ogist in the area. All questions /concerns answered and refills necessary at visit today. Health Concerns Section Related Observation LastModified by Organization Detai ls LastModified Time None Recorded Concern Status LastModified by Organization Details LastModified Time None Recorded Advance Directives Directive None Recorded Payers Encounter Date Sequence Insurance Name Policy Number Policy Cavanaugh Covered Member ID Cavanaugh Member ID Guarantor Name 09/30/2022 1 [place] Lorraine Quintana [id number] Lorraine Quintana 09/30/2022 2 [employer] (MEDICARE SUPPLEMENT) Lorraine Quintana [id number] Lorraine Quintana 02/21/2023 1 [place] Lorraine Quintana [id number] Lorraine Quintana 02/21/2023 2 [employer] (MEDICARE SUPPLEMENT) Lorraine Quintana [id number] Lorraine Quintana Notes Date Note Type Note Provider Name and Address Organization Details Recorded Time 09/30/2022 text/html 66 yo female com es in for follow up in management of prediabetes (A1C of 5.9%), hypothyroidism, dyslipidemia. last seen in December at that time we continued ozempic 0.5 mg once weekly. She did the ozempic and this caused nausea- then switched to trulicity and the pharmacy was on backorder multiple times. We continued LT4 112 mcg daily along with liothyronine 5 mcg twice daily. we continued atorvastatin 10 mg daily at bedtime. She has gained over 35 pounds since summer 2021. She has had so many stressors and losses of loved ones. she is really working on caloric restriction- eats yogurt, salads and chicken, and veggies. She had covid and E coli in her urine from Apr until recently. She was on 6 antibiotics and now on macrobid for 3 months. She is on a lot of probiotics now and has had more fatigue. She is tired by 3 in the afternoon. labs from 07/20/22:216/61/92/ 113a1c of 5.9%TSH of 0.179 uIU/mlFT4 of 1.23 ng/dLglucose 90 mg/dLvit D 35.7 ng/mlLFT normalCr normal Toña Dinh MD [address], [place] [address], [place], [address], [facility] 09/30/2022 11:39:48 02/21/2023 text/html 67 yo female com es in for follow up in management of hypothyroidism, prediabetes, dyslipidemia and weight management. last seen in September at that time we continued unithroid 112 mcg daily along with LT3 5 mcg twice daily. we added victoza for weight management and sent for DST. She has struggled for the past few months- she has to take melatonin to go to sleep and she wakes up tired. She feels her stress level is high. Some days she will wake up at 11 and by 3 pm she is taking a nap. She hasn't been taking the B12 shots as frequent as she should. She has been on victoza for the past month. She stopped taking gluten for the past month and this has helped with the achiness. She has only lost 4 pounds but just started this a week ago. labs from 02/11/23:TSH of 0.125 uIU/mlFT4 of 1.22 ng/dLglucose 88 mg/dLCr normalLFT /84/67/10 1a1c 5.6%FT3 of 2.5 pg/mL DST normal from October- cortisol of 1.0 ug/mL Toña Dinh MD [address], [facility] [address], [place], [address], [facility] 02/21/2023 13:55:39 OBGyn Episode No OBEpisode recorded.
--- OUTSIDE RECORDS SUMMARY | 2024-10-10 16:45 | XMS_ITS ---
Author Organization [employer] Address [address] [address] Care Team Providers Care Engineering Aide Name Role Phone Mamta Harper Primary Care Provider [phone] REASON FOR VISIT 2 month f/u faraz Encounters Encounter Location Date Provider Diagnosis [facility] - Mamta Harper [address] [place] [address] 08/13/2024 Mamta Harper Plan Of Treatment No Information Progress Notes * Lorraine SAUECDODOB:1955 (68 yo F)Acc No.[id number]:08/13/2024 Progress Notes Patient: Lorraine MUKHERJEE Provider: Viktoriya Harper MD :1955 A ge:68 Y S ex:Female Date:08/13/2024 Address:[facility] Subjective: * Chief Complaints: * 1 . 2 month f/u faraz. * Medical History: Objective: * Vitals: Assessment: Plan: * Treatment: * Billing Information: * Visit Code: * Procedure Codes: * Electronic signature of Meño Harper MD on 10/10/2024 at 09:09 AM CDT Sign off status: Pending * Provider: Viktoriya Harper MD Date: 08/13/2024 Generated for Printi ng/Faxing/eTransmitting on: 0 10/10/2024 09:09 AM CDT
--- OUTSIDE RECORDS SUMMARY | 2024-10-10 16:45 | XMS_ITS ---
Author Organization [employer] [facility] Address [address] [address] Care Team Providers Care Director Digital Marketing Name Role Phone Mamta Harper Primary Care Provider [phone] REASON FOR VISIT follow up Medications Medication [...] for 90 days 04/18/2024 Active POTASSIUM CHLORIDE (KSY-DIOJ-NUI M20) 20 mEq 1 tab(s) orally 2 [...] 06/11/2024 Encounters Encounter Location Date Provider Diagnosis [facility], [facility] - Mamta Harper [address] [place] [address] 06/11/2024 Mamta Harper Hypothyroidism, unspecified E03.9 ; [...] adrenal gland, unspecified (ICD-10 - E27.9) 06/11/2024 Sharee's syndrome, 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 5. Edema- Patient reports improvement [...] for Ozempic- Patient's insurance will change to [employer] on June 27. Ensure coverage for Ozempic and coordinate with the primary care physician for any necessary prior authorizations. 10. Upcoming appointment with Dr. Martinez on July 04- Ensure all relevant records, including CT scan, recent notes, labs, and dexamethasone suppression test, are sent to Dr. Martinez at [facility] prior to the appointment. Spent 15 minutes [...] procedures, referring and communicating with other health complex care nurse practitioner, documenting clinical information in the electronic or [...] Monitor symptoms and consider referral to a veneer sheet repairer if needed. 5. Edema- Patient reports improvement [...] for Ozempic- Patient's insurance will change to [employer] on June 27. Ensure coverage for Ozempic and coordinate with the primary care physician for any necessary prior authorizations. 10. Upcoming appointment with Dr. Martinez on July 04- Ensure all relevant records, including CT scan, recent notes, labs, and dexamethasone suppression test, are sent to Dr. Martinez at [facility] prior to the appointment. Spent 15 minutes [...] procedures, referring and communicating with other health complex care nurse practitioner, documenting clinical information in the electronic or [...] Notes * Lorraine SAUCEDODOB:1955 (68 yo F)Acc No.[id number]:06/11/2024 Progress Notes Patient: Pamela MUKHERJEEela Provider: Viktoriya Harper MD :1955 A ge:68 Y S ex:Female Date:06/11/2024 Address:[address] [place], [place] [id number] Subjective: * Chief Complaints: * 1 . [...] Social History - Diet: Reports not eating Mayo cookies, avoiding processed foods and limiting red [...] orally twice daily , Taking POTASSIUM CHLORIDE (TID-SXAK-ILN M20) 20 mEq tablet, extended release 1 [...] of adrenal gland, unspecified - E27.9 4 .?[place]'s syndrome, unspecified - E24.9 5 . I [...] Monitor symptoms and consider referral to a veneer sheet repairer if needed. 5. Edema- Patient reports improvement [...] for Ozempic- Patient's insurance will change to [employer] on June 27. Ensure coverage for Ozempic and coordinate with the primary care physician for any necessary prior authorizations. 10. Upcoming appointment with Dr. Martinez on July 04- Ensure all relevant records, including CT scan, recent notes, labs, and dexamethasone suppression test, are sent to Dr. Martinez at [facility] prior to the appointment. Spent 15 minutes [...] procedures, referring and communicating with other health complex care nurse practitioner, documenting clinical information in the electronic or [...] hypercortisolism. * Procedure Codes: 9 9401 P/M THUMB SEWER, INDIV 15 MIN * Follow Up: 2 Months (Reason: labwork) * Billing Information: * Visit Code: 52940 Office Visit, Est Pt., Level 4. * Procedure Codes: 53532 P/M THUMB SEWER, INDIV 15 MIN. * INE PLUG SHAPER Sign off status: Completed true * Provider: Viktoriya Harper MD Date: 08/12/2023 Generated for Gisselle renner/Amanda/Santiago on: 0 10/10/2024 04:44 PM CDT History and Physical Notes * [...] reduced her food cravings. 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
--- OUTSIDE RECORDS SUMMARY | 2024-10-10 16:45 | XMS_ITS | Clinical Summary ---
Author Organization [facility] Address [address] [place] [address] Care Team Providers Care Pharmacy Picking Technician Name Role Phone Doreen Marte MD Primary Care Provider [phone] Allergies Active Allergy Reactions Criticality Noted Date Comments Amoxicillin-Pot Clavulanate Rash Medium 01/24/20 18 Codeine Levofloxacin Hives Medium 08/14/2018 Morphine Other Rash,Blisters High 01/23/2018 TAPE/ ADHESIVE Oxycodone Oxycodone-Acetaminophen Hypotension High 09/22/2018 Medications blood glucose diagnostic (ZebitTOUCH ULTRA TEST) strip Test sugars daily and [...] (08/14/2018): Added automatically from request for surgery [id number] Chronic fatigue 04/25/2018 Hypercholesterolemia 08/23/2017 Assessment & Plan (08/23/2017 2:10 PM CHIEF PRIVACY OFFICER): Goal of treatment , LDL cholesterol less [...] taken. Assessment & Plan (08/23/2017 2:01 PM CHIEF PRIVACY OFFICER): Continue current dose of Levothyroxine and Cytomel [...] . Assessment & Plan (08/23/2017 2:00 PM CHIEF PRIVACY OFFICER): Hba1c was 6.0 today, indicating DM control [...] accordingly Assessment & Plan (08/23/2017 2:04 PM CHIEF PRIVACY OFFICER): [place] [address] IU twice a week Surgical History Surgery Date Site/Laterality Comments CHOLECYSTECTOMY 06/27/2005 - 06/26/2006 Cholecystectomy POSTERIOR LAMINECTOMY / DECOMPRESSION LUMBAR SPINE 07/19/2017 L4-L5-S1 ANTERIOR FUSION CERVICAL SPINE COLONOSCOPY HYSTERECTOMY 06/27/1995 - 06/26/1996 Left salpingo-oophorectom y SALPINGOOPHORECTOMY Right Medical History Medical History Date Comments Disorder of thyroid Thyroid dise ase Diabetes mellitus (HCC) Diabetes Hx Other Medical Claustrophobic; Comments: [facility] 04/29/2014 - PONV (postoperative nausea [...] on file Legal Sex Female 12:34 PM CHIEF PRIVACY OFFICER Gender Identity Not on file Sexual Orientation Not on file 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 Not on file Not on file Not [...] season) 2024 06/15/2021, 08/30/2020, 08/09/2020 Influenza Vaccine (Season Ended) 2025 04/29/20 Medical Devices Implanted Type Area Flight Service Specialist Device Identifier Shelf Expiration Date Model / Serial / Lot [employer] 3122-040 Smartset Medium Viscosity Cement 40gm Bone Sterile - [id number] Implanted:Qty: 1 on 09/22/2018 by Jordan Jones MD at [facility] [employer] 03/26/2020 [id number] / / [employer] [id number] Smartset Medium Viscosity Cement 40gm Bone Gentamicin - [id number] Implanted:Qty: 1 on 09/22/2018 by Jordan Jones MD at [facility] [employer] 08/19/2019 [id number] / / [employer] [id number] Attune Cemented Cruciate Retaining Knee Left 7 Component Femoral - [id number] Implanted:Qty: 1 on 09/22/2018 by Jordan Jones MD at [facility] [employer] [id number] 03/26/2028 [id number] / / [employer] [id number] Attune 14mm 50mm Cemented Revision Knee Stem Femoral Sterile - [id number] Implanted:Qty: 1 on 09/22/2018 by Jordan Jones MD at [facility] [employer] [id number] 01/25/2028 [id number] / / [employer] [id number] Attune Cement Revision Fix Bearing Knee 7 Baseplate Tibial - [id number] Implanted:Qty: 1 on 09/22/2018 by Jordan Jones MD at [facility] [employer] [id number] 12/25/2027 [id number] / / [employer] [id number] Attune 7mm Cruciate Retaining Fix Bearing Knee 7 Insert Tibial - [id number] Implanted:Qty: 1 on 09/22/2018 by Jordan Jones MD at [facility] [employer] [id number] 04/26/2022 [id number] / / Procedures Procedure Name Priority Date/Time Associated Diagnosis Comments POCT HEMOGLOBIN A1C Routine Gen Lab 08/31/2018 1:15 PM CHIEF PRIVACY OFFICER LIPID PANEL Routine 08/15/2017 1:25 PM CHIEF PRIVACY OFFICER Type 2 diabetes mellitus with hyperglycemia, without long-term current use of insulin (HCC) from Last 3 Months or Most Recently Relevant to Health Maintenance Results * POCT hemoglobin A1c (08/31/2018 1:15 PM CHIEF PRIVACY OFFICER) Hgb A1C, POC 6.0 4.0 - 6.0 % [facility] Est Average Gluc POC 126 mg/dL [facility] Comment: The ADA recommends reporting an estimated Average Glucose (eAG) with all Hemoglobin A1c results using the equation derived from a study of 507 normal and diabetic adults. Minority populations were underrepresented and children were not included. (Diabetes Care 31:1997-6152, 2008). The eAG is not equivalent to a fasting glucose. Blood specimen (specimen) 08/31/2018 1:15 PM CHIEF PRIVACY OFFICER 08/31/2018 1:15 PM CHIEF PRIVACY OFFICER Narrative [facility] - 08/31/2018 1:33 PM CHIEF PRIVACY OFFICER us Jordan Jones MD POINT OF CARE TEST ORDERA BLES Final Result [facility] Department [place] [address] * (ABNORMAL) Lipid panel (08/15/2017 1:25 PM CHIEF PRIVACY OFFICER) Pathologist [facility] Cholesterol 247(H) 100 - 199 mg/dL [facility] - 01 Triglycerides 188(H) 0 - 149 mg/dL [facility] - 01 HDL Cholesterol 64 >39 mg/dL [facility] - 01 VLDL 38 5 - 40 mg/dL [facility] - 01 LDL, calculated 145(H) 0 - 99 mg/dL [facility] - 01 Blood specimen (specimen) 08/15/2017 1:25 PM CHIEF PRIVACY OFFICER 08/15/2017 Narrative [facility] - 08/16/2017 6:14 AM CHIEF PRIVACY OFFICER Performed at: 01 - [address] [id number] International First Officer: David Díaz PhD, Phone: [phone] us Naty Norton DIVISION SUPERINTENDENT LAB BLOOD ORDERABLES Final R esult [facility] Organization Address City/State/ZIP Co de Phone Number [facility] - 01 from Last 3 Months or Most Recently Relevant to Health Maintenance Insurance [facility] MEDICARE [facility] Advance Directives For more information, please contact: [phone] * Full Code (Latest Code Status on File) Date Activated Date Inactivated Comments 09/22/2018 11:29 AM 09/22/2018 10:23 PM Care Teams Pharmacy Picking Technician Relationship Specialty Start Date End Date Doreen Marte MD PCP - General 04/29/14
--- OUTSIDE RECORDS SUMMARY | 2024-10-10 16:45 | XMS_ITS | Clinical Summary ---
Author Organization [facility] Address [address] [place] [address] Care Team Providers Care Punch Machine Operator Name Role Phone Doreen Marte MD Primary Care Provider [phone] Efe Bhat MD Unavailable [phone] Source Comments [facility],non-owned Affiliates and Associated Physician Practices is amultiple site organization consisting of ambulatory clinics and hospital sitesin [place], [place], [place] and [place]. This disclosure is being madepursuant to the Care Everywhere program and may not contain all information available regarding this patient. Last updated 18.[facility] Allergies Active Allergy Reactions Criticality Noted Date Comments Adhesive Sensitivity 10/12/2013 Augmentin 10/12/2013 Codeine 10/12/2013 Latex 10/12/2013 Levofloxacin 06/11/2017 Morphine 10/12/2013 Oxycodone-Acetaminophen 10/12/2013 Medications * Be aware that medications may not be up to date on this document. Alwaysverify current medications with the patient. vitamin D, ergocalciferol , (DRISDOL) 04069 UNITS capsule Take 1 (one) capsule by [...] 1 (one) tablet by mouth once daily 4 Active ondansetron (Zofran) 4 MG tablet 1 TAB(S) ORALLY TWICE DAILY NEEDED FOR NAUSEA 30 DAYS 4 Active escitalopram (Lexapro) 20 MG tablet Take 1 (one) tablet by mouth once daily 4 Active omeprazole (PriLOSEC) 20 MG capsule 1 CAPSULE 1/2 TO 1 HOUR BEFORE MORNING MEAL ORALLY ONCE A DAY 90 DAYS 4 Active gabapentin (Neurontin) 300 MG capsule Take 1 (one) capsule by mouth 3 times daily 4 Active ALPRAZolam (Xanax) 0.5 MG tablet Take 1 (one) tablet by mouth 2 times daily as needed 4 Active propranolol (Inderal) 10 MG tablet TAKE 1 TABLET BY MOUTH TWICE A DAY FOR 90 DAYS 4 Active levothyroxine (Synthroid) 112 MCG tablet Take [...] between 8-9am the next morning 1 tablet 5 Active Active Problems Problem Noted Date Diagnosed Date Essential hypertension 10/12/2013 Overview (03/27/2015): Type II or unspecified type diabetes mellitus without mention of complication, not stated as uncontrolled 10/12/2013 Osteoarthrosis involving lower leg 10/12/2013 Overview (09/20/2015): 2015 IMO Updt Encounters Date Type Department Care Team Description 08/28/2024 Telephone [facility] - Urology [address] [facility] [place] [address] Pam Kyle LPN Imaging 08/20/2024 1:57 PM DRY DRUG WORKER - 08/20/2024 11:59 PM DRY DRUG WORKER Hospital Encounter [facility] CAT SCAN [address] [place] [address] Blu Martinez MD Discharge Disposition: Home or Self Care 08/20/2024 Travel 08/16/2024 Travel 08/07/2024 Telephone [facility] - Urology [address] [place] [address] Blu Martinez MD Results 08/06/2024 Orders Only [facility] - Urology [address] [place] [address] Blu Martinez MD from Last 3 Months Social History Tobacco Use Types Packs/Day Years Used Date Smoking Tobacco: Never Smokeless Tobacco: Never Tobacco Cessation:Counseling Given: Not Answered Alcohol Use Standard Drinks/Week Comments Not Asked 0 (1 standard drink = 0.6 oz pur e alcohol) Comments No Sex and Gender Information Value Date Recorded Sex Assigned at Not on file Legal Sex Female 2:08 PM CDT Gender Identity Not on file Sexual Orientation Not on file Last Filed Vital Signs Vital Sign Reading Time Taken Comments Blood Pressure 126/87 07/04/2024 3:46 PM DRY DRUG WORKER Pulse 98 07/04/2024 3:46 PM DRY DRUG WORKER Temperature 36.1 C (97 F) 07/04/2024 3:46 PM DRY DRUG WORKER Respiratory Rate 16 06/11/2017 10:54 AM DRY DRUG WORKER Oxygen Saturation 94% 07/04/2024 3:46 PM DRY DRUG WORKER Inhaled Oxygen Concentration - - Weight 93.4 kg (206 lb) 07/04/2024 3:46 PM DRY DRUG WORKER Height 175.3 cm (5' 9 ) 07/04/2024 3:46 PM DRY DRUG WORKER Body Mass Index 30.42 07/04/2024 3:46 PM DRY DRUG WORKER Plan of Treatment Upcoming Encounters Date Type Department Care Team (Late st Contact Info) Description 11/06/2024 3:00 PM CDT Office Visit [facility] - Endocrinology [address] [place] [address], [place] [address] Yunier Juárez MD [address] [place] [address] 2L [place] [address] Health Maintenance Due Date Last Done Comments [...] VACCINE (1 of 2) 12/03/2005 COVID-19 VACCINE (1 - 2023-2 5 season) 2024 DEPRESSION SCREENING 06/27/2024 DIABETES - URINE PROTEIN SCREENING 06/27/2024 DIABETES RETINOPATHY SCREENING 07/04/2024 DIABETES-FOOT EXAM WITH MONOFILAMENT 07/04/2024 DIABETES-HGB A1C 07/04/2024 08/31/2018 INFLUENZA VACCINE (Season Ended) 2025 Respiratory Syncytial Virus (RSV) Vaccine Pt: or [...] ABDOMEN WO CONTRAST Routine 08/20/2024 2:04 PM DRY DRUG WORKER Adrenal nodule CORTISOL BLOOD AM 08/06/2024 7: 40 AM DRY DRUG WORKER from Last 3 Months Results * CT Abdomen Wo Contrast (08/20/2024 2:04 PM DRY DRUG WORKER) Anatomical Region Laterality Modality Abdomen Computed Tomogra phy 08/20/2024 2:22 PM DRY DRUG WORKER Impressions 08/20/2024 2:26 PM DRY DRUG WORKER IMPRESSION: Nodular thickening of the left adrenal gland measuring up to 9 mm without discrete nodules. Right adrenal gland is normal. A nonobstructing 3 mm stone is noted in the upper pole calyx of the right kidney. No hydronephrosis. > Interpreting Provider: Ellie Gonzalez MD on 08/20/2024 2:26 PM Narrative 08/20/2024 2:26 PM DRY DRUG WORKER PROCEDURE: CT ABDOMEN WO CONTRAST DATE/TIME OF [...] 52:26 PM Blu [address] MD [address] ORDERABLES Final Resu lt * CORTISOL BLOOD AM (08/06/2024 7:40 AM DRY DRUG WORKER) [facility] Cortisol AM 4.4 mcg/dL [facility] Comment: Reference Range 8 a.m. (7-9 a.m.) Specimen: 4.0-22.0 REPORT COMMENT: FASTING:YES Test Performed at: [email or web address] [address] [place] [address] LATIA TORRES MD 08/06/2024 7:40 AM DRY DRUG WORKER 08/06/2024 7:40 AM DRY DRUG WORKER lBu Martinez MD LAB - CHEMISTRY ORDERABLES Final Result [facility] [id number] [place] [address] from Last 3 Months Insurance MEDICARE [facility] Care Teams Punch Machine Operator Relationship Specialty Start Date End Date Doreen Marte MD [address] [place] [address] PCP - General Family Medicine 10/12/13 [place] [address] [place] [id number] Orthopedic Surgery 10/12/13
--- OUTSIDE RECORDS SUMMARY | 2024-10-10 16:45 | XMS_ITS | Clinical Summary ---
Author Organization [facility] Physici carlene Augustin Address [address] [facility] [place] [address] Care Team Providers Care Field Artillery Basic Name Role Phone Unavailable Primary Care Provider [...] Encounters Date Type Department Care Team Description 10/10/2024 3:00 PM CDT Office Visit [facility] Oncology and Hematology - Kevin [address] Vonda Alcantara [address] [place] [phone] Vicente Conklin MD Multiple myeloma, remission status unspecified (CMS/HCC) (Primary Dx) 09/12/2024 External Device Data STL ABSTRACTION Provider, Abstract 09/07/2024 Orders Only [facility] Surgical Oncology [place] [address] [place] [address] Jorge Zavala MD Sharee's syndrome (Primary Dx) 09/06/2024 1:30 PM CDT Office Visit [facility] Surgical Oncology [place] [address] [place] [address] Jorge Zavala MD Adrenal mass (Primary Dx) 09/05/2024 External Device Data STL ABSTRACTION Provider, Abstract 09/05/2024 Telephone [facility] Surgical Oncology [place] [address] [facility] [address] [place] [address] Jorge Zavala MD Appointment Verification 09/04/2024 External Device Data STL ABSTRACTION Provider, Abstract 09/01/2024 External Device Data STL ABSTRACTION Provider, Abstract 08/31/2024 External Device Data STL ABSTRACTION Provider, Abstract 08/29/2024 External Device Data STL ABSTRACTION Provider, Abstract 08/29/2024 External Device Data STL ABSTRACTION Provider, Abstract 08/28/2024 External Device Data STL ABSTRACTION Provider, Abstract 08/27/2024 Telephone [facility] Surgical Oncology [place] [address] [place] [address] Jorge Zavala MD Appointment Notification 08/22/2024 Telephone [facility] Surgical Specialists [address] [place] [phone] Dangelo Sandoval Medical info request 08/22/2024 Orders Only [facility] [address] [place] [phone] Dangelo Sandoval 08/22/2024 Telephone [facility] [address] [place] [phone] Dangelo Sandoval Imaging information 08/22/2024 Orders Only [facility] Surgical Specialists [facility] [address] [facility] [address] [place] [address] Jorge Zavala MD Adrenal adenoma, left (Primary Dx) 08/20/2024 11:40 AM IGNITION MECHANIC - 08/20/2024 11:59 PM IGNITION MECHANIC Hospital En[facility] [place] [address] [place] [address] [facility], External Provider Discharge Disposition: Home or Self Care from Last 3 Months Family History Medical History Relation Name Comments No Known Problems Brother No Known Problems Child 1 No Known Problems Child 2 No Known Problems Father Diabetes Mother Heart Disease Mother Relation Name Status Comments Brother Alive Child 1 Alive Child 2 Alive Father Mother Social History Tobacco Use Types Packs/Day Years Used Date Smoking Tobacco: Never Smokeless Tobacco: Never Tobacco Cessation:Counseling Given: Not Answered Alcohol Use Standard Drinks/Week Comments Yes 0 (1 standard drink = 0.6 oz pur e alcohol) Socially Comments Unknown Sex and Gender Information Value Date Recorded Sex Assigned at Not on file Legal Sex Female 11:51 AM IGNITION MECHANIC Gender Identity Not on file Sexual Orientation [...] Mass Index 28.71 10/10/2024 2:37 PM CDT Plan of Treatment Upcoming Encounters Date Type Department Care Team (Late st Contact Info) Description 10/31/2024 2:30 PM CDT Office Visit [facility] Oncology and Hematology - Kevin 6 Vonda Alcantara [address] [place] [phone] Vicente Conklin MD [address] [facility] [address] [place] [address] 11/28/2024 1:00 PM CDT Office Visit [facility] Endocrinology [address] [place] [address] Russell Rasmussen MD [address] [place] [address] Health Maintenance Due Date Last [...] METANEPHRINES FRACTIONATED, PLASMA Routine 08/27/2024 1:55 PM IGNITION MECHANIC Adrenal adenoma, left CT PRIOR STUDY Routine 08/20/2024 11:40 AM IGNITION MECHANIC Encounter for administrative examinations, unspecified from Last 3 Months Results * METANEPHRINES FRACTIONATED, PLASMA (08/27/2024 1:55 PM IGNITION MECHANIC) METANEPHRINES FREE, PLASMA <25 <=57 pg/mL [facility] Comment: This test was developed and its analytical performance characteristics have been determined by [facility] [place] [place]. It has not been cleared or approved by the U.S. Food and Drug Administration. This assay has been validated pursuant to the CLIA regulations and is used for clinical purposes. NORMETANEPHRINE, FREE, PLASMA 106 <=148 pg/mL [facility] Comment: This test was developed and its analytical performance characteristics have been determined by [facility] [place] [place]. It has not been cleared or approved by the U.S. Food and Drug Administration. This assay has been validated pursuant to the CLIA regulations and is used for clinical purposes. METANEPHRINES, TOTAL, PLASMA 106 <=205 pg/mL [facility] Comment: For additional information, please refer to http://education.Kamicat/faq/MetFractFree (This link is being provided for informational/educatio [...] analytical performance characteristics have been determined by [facility] [place] [place]. It has not been cleared or approved by the U.S. Food and Drug Administration. This assay has been validated pursuant to the CLIA regulations and is used for clinical purposes. Test Performed at: [facility] [address] [place] [address] Connor Tai M.D.,PhD Blood 08/27/2024 1:55 PM IGNITION MECHANIC 08/27/2024 1:56 PM IGNITION MECHANIC us Jorge Zavala MD CHEMISTRY ORDERABLES Fin al Result [facility] [phone] [facility] [address] [address] * CT PRIOR STUDY (08/20/2024 11:40 AM IGNITION MECHANIC) Narrative 08/22/2024 11:40 AM IGNITION MECHANIC This exam was auto finalized to allow images to be scanned to PACS. us External Provider [facility] CT ORDERABLES Final Res ult from Last 3 Months Insurance MEDICARE PART [facility] AND B [facility] MEDICARE PART A AND B [facility]
--- OUTSIDE RECORDS SUMMARY | 2024-10-10 16:45 | XMS_ITS | CONTINUITY OF CARE DOCUMENT ---
Author Name nico walsh Address Unknown Organization [facility] Address [address] [place] [address] Phone [phone] Care Team Providers Care Plate Slitter And Inspector Name Role Phone Amanda MARTINI, Marlon Unavailable BRITT FUENTES MD Unavailable [phone] BRITT FUENTES MD Unavailable PROBLEMS Condition Status Date Provider Notes Hx of mitral valve prolapse active Yusef julian RESEARCH LABORATORY MANAGER Cristina's thyroiditis active Yusef Whitlock ri RESEARCH LABORATORY MANAGER Family Hx heart disease active Yusef Whitlock ri RESEARCH LABORATORY MANAGER Adrenal adenoma active Yusef Avila RESEARCH LABORATORY MANAGER Sharee's syndrome active Yusef Avila RESEARCH LABORATORY MANAGER Anemia active Yusef Avila RESEARCH LABORATORY MANAGER Prediabetes active Yusef Avila RESEARCH LABORATORY MANAGER Hypothyroidism active Yusef Avila RESEARCH LABORATORY MANAGER Hypertension active Yusef Whitlockri RESEARCH LABORATORY MANAGER Dizziness active Yusef Avila RESEARCH LABORATORY MANAGER Cardiology examination active Yusef Gentile i RESEARCH LABORATORY MANAGER ENCOUNTERS Date Type Provider Location Encounter Diag nosis - In-person encounter Office Visit Marlon Patel MD [facility] - In-person encounter Office Visit Marlon Patel MD [facility] Cardiology examinationDizzinessHyp ertensionHypothyroidism PrediabetesAnemiaCushin g's syndromeAdrenal [...] schmidt pulse rate 74 /min Odalis Court[facility] weight E&M 254 [lb_av] Odalis Sherwin [facility] height E&M 69 [in_i] Odalis Sher[facility] Body Mass Index (Ratio) 37.80 [...] Payer name Policy type / Coverage type [place] [email or web address] Commercial [facility] [employer] [id number] [place] MEDIC[place] Medicare [id number] ADVANCE DIRECTIVES Name Date DISCUSSED - NO [...]
--- OUTSIDE RECORDS SUMMARY | 2024-10-10 16:45 | XMS_ITS ---
Author Organization [employer] [facility] Address [address] [place] [address] Care Team Providers Care Carbide Powder Processor Name Role Phone Mamta Harper Primary Care Provider REASON FOR VISIT labs Encounters Encounter Location Date Provider Diagnosis [facility] [address] [place] [address] 06/04/2024 Mamta Harper Plan Of Treatment No Information Progress Notes * Lorraine SAUCEDODOB:1955 (68 yo F)Acc No.[id number]:06/04/2024 Patient: Viktoriya GREENBALDEVPamelaLorraine :1955 A ge:68 Y S ex:Female Address:[address] [place], [place] [address] [address] * true * Date: Generated for Printi ng/Faabbeyg/eTransmitting on: 0 10/10/2024 09:09 AM CDT
[2024-10-10 17:25] LABS: Immunoglobulin A 150 mg/dL (70-400); Immunoglobulin G 1122 mg/dL (700-1600); Immunoglobulin M 112 mg/dL (40-230)
[2024-10-11 10:14] LABS: Protein, Total 6.7 g/dL (6.1-8.1)
[2024-10-11 21:24] LABS: Albumin 3.9 g/dL (3.8-4.8); Alpha 1 Globulin 0.3 g/dL (0.2-0.3); Alpha 2 Globulin 0.8 g/dL (0.5-0.9); Beta 1 Globulin 0.4 g/dL (0.4-0.6)
[2024-10-12 11:28] LABS: Kappa\\Lambda Light Chains 1.37 (0.26-1.65); Lambda Light Chain 16.3 mg/L (5.7-26.3)
== END 2024-10-10 15:40 | disposition home or self-care (01) ==
LOC: ANHLAB 15:41
PROVIDERS: PCP Family Medicine; Visit Provider Internal Medicine Hematology & Oncology
DX: C90.00 Multiple myeloma not having achieved remission (principal)
CPT/HCPCS: 36415; 80053; 82784; 83883; 84155; 84165; 85025

== ENCOUNTER 2024-10-25 12:14 | Outpatient (CLI) | payer MEDICARE, OTHER, SELFPAY ==
--- NOTE | ~2024-10-25 | PE_ITS ---
EXAMINATION: PET skull to mid thigh DATE: 10/25/2024 14:23 INDICATION: Multiple myeloma. TECHNIQUE: Blood glucose level was 94 mg/dL. 9.293 mCi of 18-fluorodeoxyglucose (18-FDG) was administ ered i.v. Low dose computed tomography (CT) images were acquired from the base of the brain to the pr oximal thighs for attenuation correction and anatomic localization. Positron emission tomography (PET ) images were acquired in the same distribution beginning 50 minutes after injection. Images includin g fused PET/CT images were reconstructed in axial, coronal, and sagittal planes. Automated exposure c ontrol technique was employed. The dose-length product was 1149.51mGy-cm. COMPARISON: CT abdomen dated 12/09/2023 FINDINGS: Head/neck: There is symmetric increased activity in the oral cavity, palatine tonsils, laryngeal muscles and ocu lar muscles without CT correlate, likely physiologic. There is increased FDG uptake with maximal SUV of 7.8 associated with a 7 mm soft tissue density nodule within the left parotid. There is suggestion of an approximately 1.6 cm nodule at the deep left thyroid lobe with increased FDG uptake with maxim al SUV of 7.5. No pathologically enlarged cervical lymphadenopathy or suspicious foci of increased FD G uptake in the visualized head or neck. Chest: No suspicious pulmonary nodules, pneumonia, pulmonary edema or pleural effusion. Cardiomegaly. Athero sclerotic coronary artery calcification. No pericardial effusion. Thoracic aorta is normal in caliber . No pathologically enlarged or FDG avid thoracic lymphadenopathy. Abdomen/pelvis/proximal thighs: Physiologic renal accumulation and excretion of FDG activity in the kidneys, bladder and along portio ns of ureters. Cholecystectomy clips the gallbladder fossa. Normal degree and heterogenous pattern of increased uptake throughout the liver without radiologic correlate or dominant FDG avid lesion. The pancreas, spleen and bilateral adrenal glands are normal. Mild uptake scattered throughout the bowels without radiologic correlate, also likely physiologic. Normal appendix. No other abnormal foci of in creased FDG uptake or pathologically enlarged lymphadenopathy in the abdomen, pelvis or proximal thig hs. Musculoskeletal: Instrumented C4-C5, C5-C6 and C6-C7 anterior spinal fusion. There is symmetric diffuse mild likely ph ysiologic muscular uptake without radiologic correlate throughout the bilateral upper arms and should ers. Additional mild likely physiologic uptake without radiologic correlate at the right subscapulari s muscle. There is mild uptake associated with severe facet osteoarthritis at L5-S1, left greater ambrosio n right. IMPRESSION: 1. No suspicious lytic, blastic or abnormally FDG avid bone lesions to suggest multiple myeloma. Of n ote the region of the lytic lesion at the distal left ulna seen on the prior radiographs is not inclu ded within the field of view of the CT imaging. 2. Mild uptake associated with a 7 mm left parotid nodule which could represent reactive versus metas tatic lymph node or parotid neoplasm either benign or malignant. Consider ultrasound-guided fine-need le aspiration. 3. Increased uptake associated with approximately 1.5 cm nodule at the deep left thyroid lobe. Recomm end thyroid ultrasound for risk stratification. Reviewed, dictated and finalized at location A. IMPRESSION: 1. No suspicious lytic, blastic or abnormally FDG avid bone lesions to suggest multiple myeloma. Of note the region of the lytic lesion at the distal left uln a seen on the prior radiographs is not included within the field of view of the CT imaging. 2. Mild uptake associated with a 7 mm left parotid nodule which could represent reactive versus metastatic lymph node or parotid neoplasm either benign or mal ignant. Consider ultrasound-guided fine-needle aspiration. 3. Increased uptake associated with approximately 1.5 cm nodule at the deep lef t thyroid lobe. Recommend thyroid ultrasound for risk stratification.
[2024-10-25 12:47] LABS: Glucose Point of Care 94 mg/dl (65-105)
== END 2024-10-25 12:15 | disposition home or self-care (01) ==
PROVIDERS: PCP Family Medicine; Visit Provider Internal Medicine Hematology & Oncology
DX: C90.00 Multiple myeloma not having achieved remission (principal)
CPT/HCPCS: 78815; A9552

== ENCOUNTER 2024-12-20 14:17 | Outpatient (CLI) | payer MEDICARE, OTHER, SELFPAY ==
--- NOTE | ~2024-12-20 | XR_ITS ---
EXAM/ PROCEDURE: XR ankle LT 2V - 12/20/2024 15:00 CDT HISTORY: 69 years old Female with MULTIPLE JOINT PAIN COMPARISON: None available TECHNIQUE: Two view(s) FINDINGS/ IMPRESSION: There are no fractures or dislocations.Joint space narrowing, subchondral sclerosis, subchondral cyst formation and osteophyte formation, compatible with mild osteoarthritis. Calcaneal enthesopathy. Reviewed, dictated and finalized at location A.
--- NOTE | ~2024-12-20 | XR_ITS ---
EXAM/ PROCEDURE: XR ankle RT 2V - 12/20/2024 15:00 CDT HISTORY: 69 years old Female with MULTIPLE JOINT PAIN COMPARISON: None available TECHNIQUE: Two view(s) FINDINGS/ IMPRESSION: There are no fractures or dislocations.Joint space narrowing, subchondral sclerosis, subchondral cyst formation and osteophyte formation, compatible with mild osteoarthritis. Calcaneal enthesopathy. Reviewed, dictated and finalized at location A.
--- NOTE | ~2024-12-20 | XR_ITS ---
EXAM/ PROCEDURE: XR wrist RT 2V - 12/20/2024 15:00 CDT HISTORY: 69 years old Female with MULTIPLE JOINT PAIN COMPARISON: None available TECHNIQUE: Three view(s) FINDINGS/ IMPRESSION: There are no fractures or dislocations.Joint spaces are within normal limits. Reviewed, dictated and finalized at location A.
--- NOTE | ~2024-12-20 | XR_ITS ---
EXAM/ PROCEDURE: XR sacroiliac joints min 3V - 12/20/2024 15:00 CDT HISTORY: 69 years old Female with MULTIPLE JOINT PAIN COMPARISON: None available TECHNIQUE: Three view(s) FINDINGS/ IMPRESSION: There are no fractures or dislocations.Joint space narrowing, subchondral sclerosis, subchondral cyst formation and osteophyte formation, compatible with mild osteoarthritis. Reviewed, dictated and finalized at location A.
--- NOTE | ~2024-12-20 | XR_ITS ---
EXAM/ PROCEDURE: XR hand BI arthritis min 3V - 12/20/2024 15:00 CDT HISTORY: 69 years old Female with MULTIPLE JOINT PAIN COMPARISON: None available TECHNIQUE: 7 view(s) FINDINGS/ IMPRESSION: There are no fractures or dislocations.Joint space narrowing, subchondral sclerosis, subchondral cyst formation and osteophyte formation, compatible with mild osteoarthritis. Reviewed, dictated and finalized at location A.
--- NOTE | ~2024-12-20 | XR_ITS ---
EXAM/ PROCEDURE: XR foot RT 2V - 12/20/2024 15:00 CDT HISTORY: 69 years old Female with MULTIPLE JOINT PAIN COMPARISON: None available TECHNIQUE: Three view(s) FINDINGS/ IMPRESSION: There are no fractures or dislocations.Joint space narrowing, subchondral sclerosis, subchondral cyst formation and osteophyte formation, compatible with mild osteoarthritis. Reviewed, dictated and finalized at location A.
--- NOTE | ~2024-12-20 | XR_ITS ---
EXAM/ PROCEDURE: XR foot LT 2V - 12/20/2024 15:00 CDT HISTORY: 69 years old Female with MULTIPLE JOINT PAIN COMPARISON: None available TECHNIQUE: Two view(s) FINDINGS/ IMPRESSION: There are no fractures or dislocations.Joint space narrowing, subchondral sclerosis, subchondral cyst formation and osteophyte formation, compatible with mild osteoarthritis. Calcaneal enthesopathy. Reviewed, dictated and finalized at location A.
--- NOTE | ~2024-12-20 | XR_ITS ---
EXAM/ PROCEDURE: XR wrist LT 2V - 12/20/2024 15:00 CDT HISTORY: 69 years old Female with MULTIPLE JOINT PAIN COMPARISON: None available TECHNIQUE: Three view(s) FINDINGS/ IMPRESSION: There are no fractures or dislocations.Joint space narrowing, subchondral sclerosis, subchondral cyst formation and osteophyte formation, compatible with mild osteoarthritis. Reviewed, dictated and finalized at location A.
== END 2024-12-20 14:18 | disposition home or self-care (01) ==
PROVIDERS: PCP Family Medicine; Visit Provider Nurse Practitioner
DX: M25.50 Pain in unspecified joint (principal); M79.10 Myalgia, unspecified site; R53.81 Other malaise
CPT/HCPCS: 72202; 73100; 73130; 73600; 73620

== ENCOUNTER 2025-01-17 15:49 | Outpatient (CLI) | payer MEDICARE, OTHER, SELFPAY ==
--- NOTE | ~2025-01-17 | MM_ITS ---
EXAMINATION: screening [facility] BI w jose guadalupe INDICATION: Asymptomatic, referred for screening mammogram COMPARISON: 10/01/2023 through 09/22/2007 TECHNIQUE: Digital Breast Tomosynthesis CC, MLO views of Both breasts were obtained with computer-ai ded detection to assist in interpretation of the study. FINDINGS: There are scattered areas of fibroglandular density. There is an asymmetry seen on the cc view in the Medial right breast at anterior to middle depth. Elsewhere, there are no mammographic features of malignancy. IMPRESSION: 1. Right breast Asymmetry. 2. No evidence of malignancy in the Left breast. RECOMMENDATION: Right breast Diagnostic mammogram with true lateral, appropriate spot compression views and an ultras ound if needed. BI-RADS Category 0: Incomplete: Needs additional imaging evaluation. Reviewed, dictated and finalized at location B. IMPRESSION: 1. Right breast Asymmetry. 2. No evidence of malignancy in the Left breast. RECOMMENDATION: Right breast Diagnostic mammogram with true lateral, appropriate spot compressi on views and an ultrasound if needed. BI-RADS Category 0: Incomplete: Needs additional imaging evaluation.
--- OUTSIDE RECORDS SUMMARY | 2025-01-17 15:54 | XMS_ITS | Data Portability ---
Author Organization [place] [facility] [employer], Main Office Address [address] [place] [address] Assessment No assessment recorded. Plan of Treatment Reminders Order Date Submit Date Provider Last Modified By Organization Details Last Modified Time Details Appointments None recorded. Lab cortisol, am, serum 2022 023 [facility], [address] [facility] [address], [place], [address], 3 11:16:46 dexamethaso ne, serum 2022 023 [facility], [address] [facility], [facility] [address], [place], [address], 3 11:16:46 rf (rheumatoid factor), serum 2022 023 [facility], [address] [facility] [address], [place], [address], 3 11:31:13 C reactive protein, QN, serum or plasma 2022 023 [facility], [address] [facility] [address], [place], [address], 3 11:31:14 ESR (erythrocyt e sedimentati on rate), blood 2022 023 [facility], [address] [facility], [address], [place], [address], 3 11:31:13 BROOK (antinuclea r antibodies) screen, serum 2022 023 [facility], [address] [place], [place], [address], 11:31:13 lipid panel, serum 2022 023 [facility], [address], [place], [address], 12:45:30 HbA1c (hemoglobin A1c), blood 2022 023 [facility], [address], [place], [address], 11:16:46 CMP, serum or plasma 2022 023 [facility], [address] [facility], [address], [place], [address], 08:38:56 TSH + free T4, serum 2022 023 [facility], [address] [facility], [address], [place], [address], 08:38:55 T3, free, serum or plasma 2022 023 [facility], [address] [facility], [address], [place], [address], 11:20:03 Referral None recorded. Procedures None recorded. Surgeries None recorded. Imaging None recorded. Medication Orders cyanocobala min (vit B-12) 1,000 mcg/mL injection solution 2022 023 [facility]/Pharmacy #[id number], [address] [place], [address], 11:23:01 Victoza 3-Glenroy 0.6 mg/0.1 mL (18 mg/3 mL) subcutaneou s pen injector 2022 023 [email or web address] [facility]/Pharmacy #[id number], [address], [place], [address], 3 11:27:46 metformin ER 500 mg tablet,exte nded release [address] [id number], [address], [place], [address], 3 11:21:14 Unithroid 112 [address] [id number], [address] [place], [address], 3 11:20:21 liothyronin e 5 mcg tablet 2022 023 [id number] [address] [place], [address], 3 08:13:22 dexamethaso ne [address] [id number] [address] [place], [address], 3 11:16:38 Victoza 3-Glenroy 0.6 mg/0.1 mL (18 mg/3 mL) subcutaneou s pen injector [address] [id number] [address] [place], [address], 3 11:19:53 Unithroid 112 mcg tablet [address] [id number] [address] [place], [address], 3 11:19:53 liothyronin e 5 mcg tablet [address] [id number] [address] [place], [address], 3 11:20:18 Patient TargetsNo targets recorded. Patient InstructionsNo instructions recorded. Reason for Referral None Reported. Results Created Date Observation Date Name Description Value Unit Range Abnormal Flag Note LastModifiedBy Organization Detail LastModifiedTime 04/16/2004/16/2021 US, head + neck, soft tissu e [facility] [address], [place] [address] Pati t Name: LORRAINE CARTER Access ion #: [id number] Sex: F : 1955 7 Locati [...] 2 x 1.6 Page 1 of 2 [facility] Name[facility] LORRAINE CARTER Access ion #: [id number] Sex: F : 1955 7 Exam Date: 2020 12:37 PM Exam Name: US NECK HEAD SOFT TISSUE Admitt ing Diagno sis(es ): cm. The thyroi d parenc hyma is hetero geneou s demons faith g a 1.8 x 1.0 x 1.8 [...] 1:07 PM (CT) Page 2 of 2 [id number] [facility] (Imaging) [address] [place], [address], 08/25/2022 06:09:49 04/16/20 21 04/16/2021 US, thyro id No observ ation record ed. [id number] [facility]- [facility] [address] [place], [address], 08/25/2022 06:09:49 12/09/19 24 12/09/2023 CT, abdom en, w/wo contr ast No observ ation record ed. [email or web address], [place], [address], 12/26/2023 09:52:11 Result Notes None recorded. Problems Name Problem SNOMED Code Status Onset Date Resolution Date Notes Provider Name and Address Organization Details Recorded Time Fatigue 69683643 Active 2018 Not Available [employer] 06:02:54 Prediabetes 489990944 Active 2021 Not Available [facility] 3 06:02:54 Weight gain 7570104 Active 2022 Toña Dinh MD [address], [place], [address] , [employer] 3 11:15:29 Dyslipidemia 450167046 Active 2022 Toña Dinh MD [address], [address], [place], [address] , [employer] 3 11:15:52 Obesity 203875743 Active 2022 Toña Dinh MD [address], [address], [place], [address] , [employer] 3 11:16:49 Hypothyroidis m 67620054 Active 2022 Toña Dinh MD [address], [place] [address], [place], [address] , [employer] 3 11:19:05 Arthritis 9892423 Active 2022 Toña Dinh MD [address], [address], [place], [address] , [employer] 3 11:25:36 Vitamin B12 deficiency (non anemic) 98181599 Active 2022 Toña Dinh MD [address], [place] [address], [place], [address] , [employer] 3 11:22:21 Problem Notes None recorded. Procedures Surgical History Date Name Laterality Status Provider Name and Address Organization Details Recorded Time 02/10/19 91 delivery completed Not Available [facility] 08/25/2022 05:56:33 10/21/18 85 delivery completed Not Available [facility] 08/25/2022 05:56:33 Neck completed Not Available [facility] 08/25/2022 05:56:33 fallopian tube excision completed Not Available [facility] 08/25/2022 05:56:33 Lumbar Spine Surgery completed Not Available [facility] 08/25/2022 05:56:33 laparoscopy completed Not Available [employer] 08/25/2022 05:56:33 Removal of ovary(s) completed Not Available [facility] includes the [facility] 08/25/2022 05:56:33 cholecystectomy completed Not Available [facility] includes the [facility] 08/25/2022 05:56:33 Imaging Results None recorded. Procedure Notes None recorded. Medical Equipment None Reported. Allergies Allergen ID Allergen Name Allergen Category Reaction Reaction Severity Criticality Documentation Date Start Date Code Code System Note Provider Name and Address Organization Details Recorded Time 25550 acetamino phen / oxycodone medicatio n decreased blood pressure severe Not available 08/25/2022 94854 3 RxNorm Not Available [facility] includes the [facility] 3 06:09:32 87590 morphine medicatio n itching moderate Not available 08/25/2022 7052 RxNorm Not Available Count includes the [facility] 3 06:09:32 53298 Levaquin medicatio n headache severe Not available 08/25/2022 25624 2 RxNorm Not Available Count includes the [facility] 3 06:09:32 36362 latex environme nt,medica tion other severe Not available 08/25/2022 03610 91 RxNorm cause s blist ers Not Available Count includes the [facility] 3 06:09:32 82937 Demerol medicatio n nausea severe Not available 08/25/2022 92589 1 RxNorm Not Available Count includes the [facility] 3 06:09:32 53715 codeine medicatio n nausea moderate Not available 08/25/2022 2670 RxNorm Not Available Count includes the [facility] 3 06:09:32 78476 Augmentin medicatio n rash mild Not available 08/25/2022 71625 2 RxNorm Not Available Count includes the [facility] 3 06:09:32 Medications Name Sig Start Date [...] active Not Available Not Available Not Available Bydureon BCise 2 mg/0.85 mL subcutaneou s auto-inject [...] Body weight Body temperature Heart rate Systolic And Diastolic Provider Name and Address Organization Details Last Updated DateTime 3 175.26 cm 37.4 kg/m2 422264. 87 g 97.3 [degF] 74 /min 142/85 mm[Hg] RONNA Gregorio [facility] [employer] [facility] 3 10:55:11 Date Recorded Body mass index (BMI) Body height Oxygen saturation Oxygen saturation in Arterial blood by Pulse oximetry Heart rate Body temperature Body weight Systolic And Diastolic Provider Name and Address Organization Details Last Updated DateTime 2 31.7 kg/m2 175.26 cm 95 % 95 % 81 /min 98 [degF] 05405.9 2 g 105/75 mm[Hg] Not Available [facility] 3 05:59:28 Date Recorded Body height Body mass index (BMI) Body weight Heart rate Body temperature Systolic And Diastolic Provider Name and Address Organization Details Last Updated DateTime 3 175.26 cm 37.2 kg/m2 103300. 28 g 86 /min 96.5 [degF] 159/93 mm[Hg] Tamica Moore MA [facility] [employer] [facility] 3 10:51:20 Date Recorded Body mass index (BMI) Body height Oxygen saturation Oxygen saturation in Arterial blood by Pulse oximetry Heart rate Body temperature Body weight Systolic And Diastolic Provider Name and Address Organization Details Last Updated DateTime 1 31.3 kg/m2 175.26 cm 96 % 96 % 75 /min 98 [degF] 17104.5 8 g 118/74 mm[Hg] Not Available [facility] 3 05:59:28 Social History Question Answer Notes LastModified by Organizat ion Details LastModified Time Tobacco Smoking Status Never Smoker Cuca nunes, [facility] [employer] [facility] 02/21/2023 10:43:52 What Is Your Level Of Caffeine Consumption? Heavy [id number] Information not available 08/25/2022 What Is Your Relationship Status? [id number] Information not available 08/25/2022 Do You Use Your Seat Belt Or Car Seat Routinely? Yes Information not available 02/21/2023 Has Tobacco Cessation Counseling Been Provided? No Information not available 02/21/2023 Sex: Unknown Functional Status Question Answer Note LastModified by Organizat [employer] Details LastModified Time Do you use any illicit or recreational drugs? No Information not available 02/21/2023 Do you or have you ever used any other forms of tobacco or nicotine? No Information not available 02/21/2023 What is your level of alcohol consumption? Occasional [id number] Information not available 08/25/2022 Mental Status Question Answer Note LastModified by Organizat ion Details LastModified Time Do you feel stressed (tense, restless, nervous, or anxious, or unable to sleep at night)? [id number] stress with family member Information not available 02/21/2023 Family History Relationship Description Onset Age of this Age Resolved Age Notes LastModified by Organization Details LastModified Time Mother Diabetes mellitus [id number] Not available 08/25/2022 05:56:37 Mother Thalassemia akovach Not availab le 02/21/2023 10:43:52 Maternal Aunt Diabetes mellitus [id number] Not available 08/25/2022 05:56:37 Maternal Aunt Malignant [...] SNOMED-CT Code Diagnosis ICD10 Code Diagnosis Note [id number] Toña Dinh MD [facility] [place] [address] [place] [address] 03/23/2021 00:00:00 03/23/2021 18:42:31 [id number] Toña Dinh MD [facility] [place] [address] [place] [address] 01/11/2022 00:00:00 01/11/2022 14:05:28 [id number] Toña Dinh MD [facility] [address] [place] [address] 09/30/2022 10:44:20 09/30/2022 11:35:39 Weight gain 4087638 R63.5 Will send for low dose dexa suppressio n testing to screen for hypercorti solic state. Prediabetes 115118009 R7 3.03 A1C 5.9%- continue metformin for insulin sensitizat ion. Discussed carb counting and how to read food labels. Recommende d patient to utilize the diabetesfo [employer]Plasmon from the ADA website to help with food preparatio n as this presents ideal carb content per meal so this will make carb counting much easier for patient. Recommende d she incorporat e natural insulin territory account executive s such as pears, apples, cinnamon, darnell and sweet potatoes to help mobilize her endogenous insulin. Recommende d up to 150 minutes of moderate level activity/e xercise weekly. Dyslipidemia 849868219 E 78.5 Continue atorvastat in as LDL in range. Obesity 080140914 E66.9 Recommende d GLP1 agonist therapy as she is having trouble at times with cravings of sweets and portion control. 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 She has no hx of [...] meal of that day as tolerated. Hypothyroidism 10018651 E03.9 She has fatigue on generic LT4 [...] and minerals and reduce inflammati on. Arthritis 6278770 M19.90 Will send for repeat BROOK with [...] she chooses to go outside of the [facility] system to obtain labwork she was [...] in her case. She voiced understand ing. [id number] Toña Dinh MD [facility] [address] [place] [address] 02/21/2023 10:42:56 02/21/2023 11:40:44 Hypothyroidism 08571053 E03.9 FT4 in ideal range - continue [...] and minerals and reduce inflammati on. Prediabetes 860985611 R7 3.03 A1C 5.6% down from 5.9%- continue metformin for insulin sensitizat ion. Recommende d she incorporat e natural insulin territory account executive s such as pears, apples, cinnamon, darnell and sweet potatoes to help mobilize her endogenous insulin. Recommende d up to 150 minutes of moderate level activity/e xercise weekly. Obesity 758326272 E66.9 She just started victoza one month [...] therapy. Vitamin B1 2 deficiency (non anemic) 59143167 E53.8 Continue on B12 injections weekly for [...] Recorded Advance Directives Directive None Recorded Payers Insurance Date Sequence Insurance Name Policy Number Policy Cavanaugh Covered Member ID Cavanaugh Member ID Guarantor Name 07/25/2024 1 [place] Lorraine Quintana [id number] Lorraine Quintana 08/01/2024 2 [employer] (MEDICARE SUPPLEMENT) Lorraine Quintana [id number] Lorraine Quintana 08/01/2024 2 [facility] (MEDICARE SUPPLEMENT) Lorraine Quintana [id number] Lorraine Quintana Notes Date Note Type Note [...] ng/mlLFT normalCr normal Toña Dinh MD [address] [facility], [facility] [address], [place], [address], [facility] [employer] 09/30/2022 11:39:48 02/21/2023 text/html 67 yo female [...] uIU/mlFT4 of 1.22 ng/dLglucose 88 mg/dLCr normalLFT [id number]/84/67/10 1a1c 5.6%FT3 of 2.5 pg/mL DST normal from October- cortisol of 1.0 ug/mL Toña Dinh MD [address] [facility], [facility] [address], [place], [address], [place] [facility] 02/21/2023 13:55:39 OBGyn Episode No OBEpisode recorded.
--- OUTSIDE RECORDS SUMMARY | 2025-01-17 15:54 | XMS_ITS | Patient Health Record ---
Author Organization [facility] Address [address] [place] [address] Care Team Providers Care Custodian Blood Bank Name Role Phone Mamta Harper Unavailable [phone] Migration, Provider Unavailable Unavailable Allergies No Known Allergies Results Component Value Reference Range Flag Notes COMPREHENSIVE METABOLIC PANE L Reviewed date:02/27/2024 01:05:21 PM Interpretation: Performing Lab:, [facility], [facility] [address], [place], [address] [facility] Notes/Report: Fasting reference interval For someone without known diabetes, a glucose value between 100 and 125 mg/dL is consistent with prediabetes and should be confirmed with a follow-up test. Not Reported: BUN and Creatinine are within reference range. GLUCOSE 116 65-99 mg/dL H UREA NITROGEN (BUN) 12 7-25 mg/dL N CREATININE 0.74 0.50-1.05 mg/dL N EGFR 88 > OR = 60 mL/min/1.73m2 N BUN/CREATININE RATIO SEE NOTE: 6-22 (calc) SODIUM 139 135-146 mmol/L N POTASSIUM 3.9 3.5-5.3 mmol/L N CHLORIDE 104 98-110 mmol/L N CARBON DIOXIDE 23 20-32 mmol/L N CALCIUM 9.5 8.6-10.4 mg/dL N PROTEIN, TOTAL 6.8 6.1-8.1 g/dL N ALBUMIN 4.0 3.6-5.1 g/dL N GLOBULIN 2.8 1.9-3.7 g/dL (calc) N ALBUMIN/GLOBULIN RATIO 1.4 1.0-2.5 (calc) N BILIRUBIN, TOTAL 0.7 0.2-1.2 mg/dL N ALKALINE PHOSPHATASE 81 37-153 U/L N AST 15 10-35 U/L N ALT 13 6-29 U/L N T3, FREE Reviewed date:02/27/2024 01:05:44 PM Interpretation: Performing Lab:JACKIE authorGENArcenio, [address] [place], [address] Karey Zamora MD Notes/Report: T3, FREE 4.0 2.3-4.2 pg/mL N HEMOGLOBIN A1c Reviewed date:02/27/2024 01:06:07 PM Interpretation: Performing Lab: [facility], [address], [place], [address] Karey Zamora Notes/Report: For someone without known diabetes, a hemoglobin A1c value between 5.7% and 6.4% is consistent with prediabetes and should be confirmed with a follow-up test. For someone with known diabetes, a value <7% indicates that their diabetes is well controlled. A1c targets should be individualized based on duration of diabetes, age, comorbid conditions, and other considerations. This assay result is consistent with an increased risk of diabetes. Currently, no consensus exists regarding use of hemoglobin A1c for diagnosis of diabetes for children. This test was performed on the Willy cayetano c503 platform. Effective 09/12/23, a change in test platforms from the La [employer] to the Willy cayetano c503 may have shifted HbA1c results compared to historical results. Based on laboratory validation testing conducted at [facility], the Willy platform relative to the La platform had an average increase in HbA1c value of < or = 0.3%. This difference is within accepted variability established by the National Glycohemoglobin Standardization Program. Note that not all individuals will have had a shift in their results and direct comparisons between historical and current results for testing conducted on different platforms is not recommended. HEMOGLOBIN A1c 5.9 <5.7 % of total Hgb H VITAMIN B12/FOLATE, SERUM PA ENRIQUE Reviewed date:02/27/2024 01:05:28 PM Interpretation: Performing Lab:JACKIE authorGENArcenio, [address] [place], [address] Karey Zamora MD Notes/Report: Reference Range Low: <3.4 Borderline: 3.4-5.4 Normal: >5.4 VITAMIN B12 6004 749-0282 pg/mL N FOLATE, SERUM 11.5 N IRON AND TOTAL IRON BINDING CAPACITY Reviewed date:02/27/2024 01:05:35 PM Interpretation: Performing Lab:[place], [address] [place], [address] ClairMariana Zamora MD Notes/Report: IRON, TOTAL 105 45-160 mcg/dL N IRON BINDING CAPACITY 377 250-450 mc g/dL (calc) N % SATURATION 28 16-45 % (calc) N T4, FREE Reviewed date:02/27/2024 01:05:51 PM Interpretation: Performing Lab:[facility]IS [facility], [address] [place], [address] [facility] Notes/Report: T4, FREE 1.8 0.8-1.8 ng/dL N TSH Reviewed date:02/27/2024 01:05:58 PM Interpretation: Performing Lab:DAMARIS [facility], [address] [place], [address] [facility] Notes/Report: TSH 0.01 0.40-4.50 mIU/L L COMPREHENSIVE METABOLIC PANE L Reviewed date:03/29/2024 08:12:02 PM Interpretation: Performing Lab:DAMARIS [facility], [address] [place], [address] [facility] Notes/Report: FASTING:YES FASTING: YES Fasting reference interval Not Reported: BUN and Creatinine are within reference range. GLUCOSE 98 65-99 mg/dL N UREA NITROGEN (BUN) 11 7-25 mg/dL N CREATININE 0.86 0.50-1.05 mg/dL N EGFR 74 > OR = 60 mL/min/1.73m2 N BUN/CREATININE RATIO SEE NOTE: 6-22 (calc) SODIUM 141 135-146 mmol/L N POTASSIUM 3.5 3.5-5.3 mmol/L N CHLORIDE 102 98-110 mmol/L N CARBON DIOXIDE 28 20-32 mmol/L N CALCIUM 9.9 8.6-10.4 mg/dL N PROTEIN, TOTAL 6.4 6.1-8.1 g/dL N ALBUMIN 3.7 3.6-5.1 g/dL N GLOBULIN 2.7 1.9-3.7 g/dL (calc) N ALBUMIN/GLOBULIN RATIO 1.4 1.0-2.5 (calc) N BILIRUBIN, TOTAL 0.7 0.2-1.2 mg/dL N ALKALINE PHOSPHATASE 64 37-153 U/L N AST 20 10-35 U/L N ALT 14 6-29 U/L N T3, FREE Reviewed date:03/29/2024 08:13:29 PM Interpretation: Performing Lab:JACKIE authorGENArcenio, [address] [place], [address] Karey Zamora MD Notes/Report: FASTING:YES FASTING: YES T3, FREE 2.8 2.3-4.2 pg/mL N HEMOGLOBIN A1c Reviewed date:03/29/2024 08:10:47 PM Interpretation: Performing Lab:[facility]IS [facility], [address] , [place], [address] Karey Zamora Notes/Report: FASTING:YES FASTING: YES For someone without known diabetes, a hemoglobin A1c value between 5.7% and 6.4% is consistent with prediabetes and should be confirmed with a follow-up test. For someone with known diabetes, a value <7% indicates that their diabetes is well controlled. A1c targets should be individualized based on duration of diabetes, age, comorbid conditions, and other considerations. This assay result is consistent with an increased risk of diabetes. Currently, no consensus exists regarding use of hemoglobin A1c for diagnosis of diabetes for children. HEMOGLOBIN A1c 5.8 <5.7 % of total Hgb H INSULIN Reviewed date:03/29/2024 08:11:03 PM Interpretation: Performing Lab:JACKIE authorGENArcenio, [address], [place], [address] Karey Zamora MD Notes/Report: FASTING:YES FASTING: YES Reference Range < or = 18.4 Risk: Optimal < or = 18.4 Moderate NA High >18.4 Adult cardiovascular event risk category cut points (optimal, moderate, high) are based on Insulin Reference Interval studies performed at [facility] in 2021. INSULIN 5.4 N CBC (INCLUDES DIFF/PLT) Reviewed date:03/29/2024 08:13:18 PM Interpretation: Performing Lab:DAMARIS [facility], [address] [place], [address] Karey Zamora Notes/Report: FASTING:YES FASTING: YES For adults, a slight decrease in the calculated MCHC value (in the range of 30 to 32 g/dL) is most likely not clinically significant; however, it should be interpreted with caution in correlation with other red cell parameters and the patient's clinical condition. WHITE BLOOD CELL COUNT 7.2 3.8-10.8 Thousand/uL N RED BLOOD CELL COUNT 4.89 3.80-5.10 Million/uL N HEMOGLOBIN 12.2 11.7-15.5 g/dL N HEMATOCRIT 40.3 35.0-45.0 % N MCV 82.4 80.0-100.0 fL N MCH 24.9 27.0-33.0 pg L MCHC 30.3 32.0-36.0 g/dL L RDW 16.3 11.0-15.0 % H PLATELET COUNT 259 140-400 Thousand/uL N MPV 10.9 7.5-12.5 fL N ABSOLUTE NEUTROPHILS 5450 9666-7202 cells/uL N ABSOLUTE LYMPHOCYTES 008 885-9861 cells/uL N ABSOLUTE MONOCYTES 576 200-950 cells/uL N ABSOLUTE EOSINOPHILS 180 15-500 cells/uL N ABSOLUTE BASOPHILS 7 0-200 cells/uL N NEUTROPHILS 75.7 N LYMPHOCYTES 13.7 N MONOCYTES 8.0 N EOSINOPHILS 2.5 N BASOPHILS 0.1 N VITAMIN B12/FOLATE, SERUM PA ENRIQUE Reviewed date:03/29/2024 08:11:13 PM Interpretation: Performing Lab:Amilcar [facility], [address] [place], [address] Karey Zamora MD Notes/Report: FASTING:YES FASTING: YES Reference Range Low: <3.4 Borderline: 3.4-5.4 Normal: >5.4 VITAMIN B12 7861 667-5985 pg/mL H FOLATE, SERUM 8.7 N IRON AND TOTAL IRON BINDING CAPACITY Reviewed date:03/29/2024 08:13:00 PM Interpretation: Performing Lab:[facility]car [facility], [address] [place], [address] Karey Zamora MD Notes/Report: FASTING:YES FASTING: YES IRON, TOTAL 106 45-160 mcg/dL N IRON BINDING CAPACITY 418 250-450 mc g/dL (calc) N % SATURATION 25 16-45 % (calc) N LIPID PANEL Reviewed date:03/29/2024 08:12:32 PM Interpretation: Performing Lab:[facility]IS [facility], [address] [place], [address] ClairMariana Zamora Notes/Report: FASTING:YES FASTING: YES Reference range: <100 Desirable range <100 mg/dL for primary prevention; <70 mg/dL for patients with CHD or diabetic patients with > or = 2 CHD risk factors. LDL-C is now calculated using the Chace calculation, which is a validated novel method providing better accuracy than the Friedewald equation in the estimation of LDL-C. Ricky LAKE et al. ROSALINO. 2013;310(19): 9773-0372 (http://education.ZoomSystems/faq/DQC666) For patients with diabetes plus 1 major ASCVD risk factor, treating to a non-HDL-C goal of <100 mg/dL (LDL-C of <70 mg/dL) is considered a therapeutic option. CHOLESTEROL, TOTAL 180 <200 mg/dL N HDL CHOLESTEROL 42 > OR = 50 mg/dL L TRIGLYCERIDES 138 <150 mg/dL N LDL-CHOLESTEROL 112 H CHOL/HDLC RATIO 4.3 <5.0 (calc) N NON HDL CHOLESTEROL 138 <130 mg/dL (calc) H T4, FREE Reviewed date:04/03/2024 10:47:57 PM Interpretation: Performing Lab:[facility]IS [facility], [address] [place], [address] Clair-Mariana Zamora Notes/Report: FASTING:YES FASTING: YES T4, FREE 0.9 0.8-1.8 ng/dL N TSH Reviewed date:03/29/2024 08:12:14 PM Interpretation: Performing Lab:[facility]AM[facility]IS [facility], [address] [place], [address] ClairMariana Zamora Notes/Report: FASTING:YES FASTING: YES TSH 6.84 0.40-4.50 mIU/L H COMPREHENSIVE METABOLIC PANE L Reviewed date:04/19/2024 02:01:27 PM Interpretation: Performing Lab:JACKIE authorGENGayle, [address], [address] Karey Zamora MD Notes/Report: FASTING: YES Fasting reference interval For someone without known diabetes, a glucose value between 100 and 125 mg/dL is consistent with prediabetes and should be confirmed with a follow-up test. Not Reported: BUN and Creatinine are within reference range. GLUCOSE 117 65-99 mg/dL H UREA NITROGEN (BUN) 8 7-25 mg/dL N CREATININE 0.83 0.50-1.05 mg/dL N EGFR 77 > OR = 60 mL/min/1.73m2 N BUN/CREATININE RATIO SEE NOTE: 6-22 (calc) SODIUM 141 135-146 mmol/L N POTASSIUM 2.8 3.5-5.3 mmol/L L CHLORIDE 99 98-110 mmol/L N CARBON DIOXIDE 33 20-32 mmol/L H CALCIUM 9.3 8.6-10.4 mg/dL N PROTEIN, TOTAL 6.3 6.1-8.1 g/dL N ALBUMIN 3.6 3.6-5.1 g/dL N GLOBULIN 2.7 1.9-3.7 g/dL (calc) N ALBUMIN/GLOBULIN RATIO 1.3 1.0-2.5 (calc) N BILIRUBIN, TOTAL 0.8 0.2-1.2 mg/dL N ALKALINE PHOSPHATASE 64 37-153 U/L N AST 28 10-35 U/L N ALT 16 6-29 U/L N T3, FREE Reviewed date:04/18/2024 07:54:56 PM Interpretation: Performing Lab:JACKIE authorGENGayle, [address] [place], [address] Karey Zamora MD Notes/Report: FASTING: YES T3, FREE 3.4 2.3-4.2 pg/mL N HEMOGLOBIN A1c Reviewed date:04/18/2024 08:01:56 PM Interpretation: Performing Lab:JACKIE authorGENGay[facility], [address] [place], [address] Karey Zamora MD Notes/Report: FASTING: YES For the purpose of screening for the presence of diabetes: <5.7% Consistent with the absence of diabetes 5.7-6.4% Consistent with increased risk for diabetes (prediabetes) > or =6.5% Consistent with diabetes This assay result is consistent with a decreased risk of diabetes. Currently, no consensus exists regarding use of hemoglobin A1c for diagnosis of diabetes in children. According to [place] Diabetes Association (ADA) guidelines, hemoglobin A1c <7.0% represents optimal control in non- diabetic patients. Different metrics may apply to specific patient populations. Standards of Medical Care in Diabetes(ADA). HEMOGLOBIN A1c 5.4 <5.7 % of total Hgb N CBC (INCLUDES DIFF/PLT) Reviewed date:04/18/2024 08:01:38 PM Interpretation: Performing Lab:JACKIE author[facility], [address] [place], [address] Karey Zamora MD Notes/Report: FASTING: YES For adults, a slight decrease in the calculated MCHC value (in the range of 30 to 32 g/dL) is most likely not clinically significant; however, it should be interpreted with caution in correlation with other red cell parameters and the patient's clinical condition. WHITE BLOOD CELL COUNT 9.5 3.8-10.8 Thousand/uL N RED BLOOD CELL COUNT 4.91 3.80-5.10 Million/uL N HEMOGLOBIN 12.5 11.7-15.5 g/dL N HEMATOCRIT 41.1 35.0-45.0 % N MCV 83.7 80.0-100.0 fL N MCH 25.5 27.0-33.0 pg L MCHC 30.4 32.0-36.0 g/dL L RDW 16.3 11.0-15.0 % H PLATELET COUNT 296 140-400 Thousand/uL N MPV 10.7 7.5-12.5 fL N ABSOLUTE NEUTROPHILS 7154 2206-7401 cells/uL N ABSOLUTE LYMPHOCYTES 1840 480-2381 cells/uL N ABSOLUTE MONOCYTES 1093 200-950 cells/uL H ABSOLUTE EOSINOPHILS 114 15-500 cells/uL N ABSOLUTE BASOPHILS 10 0-200 cells/uL N NEUTROPHILS 75.3 N LYMPHOCYTES 11.9 N MONOCYTES 11.5 N EOSINOPHILS 1.2 N BASOPHILS 0.1 N VITAMIN B12/FOLATE, SERUM PA ENRIQUE Reviewed date:04/18/2024 08:02:42 PM Interpretation: Performing Lab:JACKIE authorGENArcenio, [address] [place], [address] Karey Zamora MD Notes/Report: FASTING: YES Reference Range Low: <3.4 Borderline: 3.4-5.4 Normal: >5.4 VITAMIN B12 667 490-1684 pg/mL N FOLATE, SERUM 8.4 N IRON AND TOTAL IRON BINDING CAPACITY Reviewed date:04/18/2024 08:02:16 PM Interpretation: Performing Lab:JACKIE authorGENArcenio, [address] [place], [address] Karey Zamora MD Notes/Report: FASTING: YES IRON, TOTAL 83 45-160 mcg/dL N IRON BINDING CAPACITY 416 250-450 mc g/dL (calc) N % SATURATION 20 16-45 % (calc) N LIPID PANEL Reviewed date:04/18/2024 08:02:07 PM Interpretation: Performing Lab:JACKIE authorGENArcenio, [address] [place], [address] Karey Zamora MD Notes/Report: FASTING: YES Reference range: <100 Desirable range <100 mg/dL for primary prevention; <70 mg/dL for patients with CHD or diabetic patients with > or = 2 CHD risk factors. LDL-C is now calculated using the Ricky-Adrianna calculation, which is a validated novel method providing better accuracy than the Friedewald equation in the estimation of LDL-C. Ricky SS et al. ROSALINO. 2013;310(19): 3878-4669 (http://education.iThera [employer].Thubrikar Aortic Valve/faq/CEG575) For patients with diabetes plus 1 major ASCVD risk factor, treating to a non-HDL-C goal of <100 mg/dL (LDL-C of <70 mg/dL) is considered a therapeutic option. CHOLESTEROL, TOTAL 160 <200 mg/dL N HDL CHOLESTEROL 40 > OR = 50 mg/dL L TRIGLYCERIDES 166 <150 mg/dL H LDL-CHOLESTEROL 94 N CHOL/HDLC RATIO 4.0 <5.0 (calc) N NON HDL CHOLESTEROL 120 <130 mg/dL (calc) N T4, FREE Reviewed date:04/18/2024 08:02:25 PM Interpretation: Performing Lab:JACKIE authorGENArcenio, [address] [place], [address] Karey Zamora MD Notes/Report: FASTING: YES T4, FREE 1.1 0.8-1.8 ng/dL N TSH Reviewed date:04/18/2024 08:01:48 PM Interpretation: Performing Lab:JACKIE, authorGENArcenio, [address] [place], [address] Karey Zamora MD Notes/Report: FASTING: YES TSH 1.70 0.40-4.50 mIU/L N COMPREHENSIVE METABOLIC PANE L Reviewed date:04/29/2024 10:46:30 AM Interpretation: Performing Lab:[facility]IS [facility], [address] [place], [address] [facility] Notes/Report: Fasting reference interval GLUCOSE 97 65-99 mg/dL N UREA NITROGEN (BUN) 5 7-25 mg/dL L CREATININE 0.76 0.50-1.05 mg/dL N EGFR 85 > OR = 60 mL/min/1.73m2 N BUN/CREATININE RATIO 7 6-22 (calc) N SODIUM 142 135-146 mmol/L N POTASSIUM 3.0 3.5-5.3 mmol/L L CHLORIDE 103 98-110 mmol/L N CARBON DIOXIDE 29 20-32 mmol/L N CALCIUM 9.5 8.6-10.4 mg/dL N PROTEIN, TOTAL 6.4 6.1-8.1 g/dL N ALBUMIN 3.6 3.6-5.1 g/dL N GLOBULIN 2.8 1.9-3.7 g/dL (calc) N ALBUMIN/GLOBULIN RATIO 1.3 1.0-2.5 (calc) N BILIRUBIN, TOTAL 0.8 0.2-1.2 mg/dL N ALKALINE PHOSPHATASE 63 37-153 U/L N AST 16 10-35 U/L N ALT 13 6-29 U/L N COMPREHENSIVE METABOLIC PANE L Reviewed date:05/11/2024 08:25:38 AM Interpretation: Performing Lab:[facility], [address] [place], [address] [facility] Notes/Report: Fasting reference interval For someone without known diabetes, a glucose value between 100 and 125 mg/dL is consistent with prediabetes and should be confirmed with a follow-up test. Not Reported: BUN and Creatinine are within reference range. Verified by repeat analysis. GLUCOSE 117 65-99 mg/dL H UREA NITROGEN (BUN) 7 7-25 mg/dL N CREATININE 0.72 0.50-1.05 mg/dL N EGFR 91 > OR = 60 mL/min/1.73m2 N BUN/CREATININE RATIO SEE NOTE: 6-22 (calc) SODIUM 142 135-146 mmol/L N POTASSIUM 2.5 3.5-5.3 mmol/L LL CHLORIDE 98 98-110 mmol/L N CARBON DIOXIDE 35 20-32 mmol/L H CALCIUM 9.6 8.6-10.4 mg/dL N PROTEIN, TOTAL 6.1 6.1-8.1 g/dL N ALBUMIN 3.5 3.6-5.1 g/dL L GLOBULIN 2.6 1.9-3.7 g/dL (calc) N ALBUMIN/GLOBULIN RATIO 1.3 1.0-2.5 (calc) N BILIRUBIN, TOTAL 0.8 0.2-1.2 mg/dL N ALKALINE PHOSPHATASE 55 37-153 U/L N AST 14 10-35 U/L N ALT 8 6-29 U/L N T4, FREE Reviewed date:05/06/2024 09:18:11 AM Interpretation: Performing Lab:DAMARIS, [facility], [address] [place], [address] [facility] Vo Notes/Report: T4, FREE 1.2 0.8-1.8 ng/dL N TSH Reviewed date:05/06/2024 09:17:52 AM Interpretation: Performing Lab:DAMARIS, [facility], [address] [place], [address] [facility] Notes/Report: TSH 9.49 0.40-4.50 mIU/L H COMP. METABOLIC Reviewed date:08/11/2024 04:07:00 PM Interpretation: Performing Lab: Notes/Report: SODIUM 140 135-146 mmol/L POTASSIUM 4.0 3.5-5.3 mmol/L CHLORIDE 101 98-110 mmol/L CO2 32 20-32 mmol/L GLUCOSE 100 65-139 mg/dL BUN 6 7-25 mg/dL L CREATININE 0.80 0.50-1.05 mg/dL eGFR 80.0 >60 mL/min CALCIUM 9.2 8.6-10.4 mg/dL TOTAL PROTEIN 6.1 6.1-8.1 g/dL ALBUMIN 3.5 3.6-5.1 g/dL L AST 12 10-35 IU/L ALK PHOSPHATASE 68 37-153 IU/L TOTAL BILIRUBIN 0.8 0.2-1.2 mg/dL ALT 7 6-29 IU/L BUN/CREA RATIO 7.5 9-28 Ratio L GLOBULIN 2.60 2.0-5.0 g/dL A/G RATIO 1.3 1.1-2.5 Ratio T3, FREE Reviewed date:06/09/2024 10:39:13 AM Interpretation: Performing Lab:[facility], [address] [place], [address] Karey Zamora MD Notes/Report: T3, FREE 3.2 2.3-4.2 pg/mL N HEMOGLOBIN A1c Reviewed date:06/09/2024 10:39:13 AM Interpretation: Performing Lab:[facility]ARIS [facility], [address] [place], [address] Karey Zamora Notes/Report: For the purpose of screening for the presence of diabetes: <5.7% Consistent with the absence of diabetes 5.7-6.4% Consistent with increased risk for diabetes (prediabetes) > or =6.5% Consistent with diabetes This assay result is consistent with a decreased risk of diabetes. Currently, no consensus exists regarding use of hemoglobin A1c for diagnosis of diabetes in children. According to [place] Diabetes Association (ADA) guidelines, hemoglobin A1c <7.0% represents optimal control in non- diabetic patients. Different metrics may apply to specific patient populations. Standards of Medical Care in Diabetes(ADA). HEMOGLOBIN A1c 5.3 <5.7 % of total Hgb N LIPID PANEL Reviewed date:06/09/2024 10:39:13 AM Interpretation: Performing Lab:DAMARIS [facility], [address] [place], [address] Karey Zamora Notes/Report: Reference range: <100 Desirable range <100 mg/dL for primary prevention; <70 mg/dL for patients with CHD or diabetic patients with > or = 2 CHD risk factors. LDL-C is now calculated using the Chace calculation, which is a validated novel method providing better accuracy than the Friedewald equation in the estimation of LDL-C. Ricky LAKE et al. ROSALINO. 2013;310(19): 2809-3785 (http://education.ZoomSystems/faq/XZA593) For patients with diabetes plus 1 major ASCVD risk factor, treating to a non-HDL-C goal of <100 mg/dL (LDL-C of <70 mg/dL) is considered a therapeutic option. CHOLESTEROL, TOTAL 219 <200 mg/dL H HDL CHOLESTEROL 53 > OR = 50 mg/dL N TRIGLYCERIDES 126 <150 mg/dL N LDL-CHOLESTEROL 141 H CHOL/HDLC RATIO 4.1 <5.0 (calc) N NON HDL CHOLESTEROL 166 <130 mg/dL (calc) H T4, FREE Reviewed date:06/09/2024 10:39:13 AM Interpretation: Performing Lab:[facility]IS [facility], [facility] [place], [address] [facility] Notes/Report: T4, FREE 1.3 0.8-1.8 ng/dL N TSH Reviewed date:06/09/2024 10:39:13 AM Interpretation: Performing Lab:[facility]IS [facility], [address] [place], [address] [facility] Notes/Report: TSH 1.42 0.40-4.50 mIU/L N .COMPREHENSIVE METABOLIC DURAN (31998) [facility] Reviewed date:08/06/2024 08:52:44 PM Interpretation: Performing Lab:DAMARIS authorGENN[place] [address] [facility] [facility] Notes/Report: FASTING: YES FASTING:YES GLUCOSE 110 65-99 mg/dL H prediabetes and should be confirmed with a Fasting reference interval between 100 and 125 mg/dL is consistent with follow-up test. For someone without known diabetes, a glucose value UREA NITROGEN (BUN) 28 7-25 mg/dL H CREATININE 1.07 0.50-1.05 mg/dL H EGFR 57 > OR = 60 mL/min/1.73m2 L BUN/CREATININE RATIO 26 6-22 (calc) H SODIUM 135 135-146 mmol/L N POTASSIUM 4.6 3.5-5.3 mmol/L N CHLORIDE 99 98-110 mmol/L N CARBON DIOXIDE 24 20-32 mmol/L N CALCIUM 10.3 8.6-10.4 mg/dL N PROTEIN, TOTAL 7.7 6.1-8.1 g/dL N ALBUMIN 4.5 3.6-5.1 g/dL N GLOBULIN 3.2 1.9-3.7 g/dL (calc) N ALBUMIN/GLOBULIN RATIO 1.4 1.0-2.5 (calc) N BILIRUBIN, TOTAL 0.6 0.2-1.2 mg/dL N ALKALINE PHOSPHATASE 95 37-153 U/L N AST 11 10-35 U/L N ALT 10 6-29 U/L N .CBC (INCLUDES DIFF/PLT) (63 99) Reviewed date:08/06/2024 08:52:44 PM Interpretation: Performing Lab:DAMARIS, [facility] [id number] [place] [address] [facility] Notes/Report: FASTING:YES FASTING: YES WHITE BLOOD CELL COUNT 8.0 3.8-10.8 Thousand/uL N RED BLOOD CELL COUNT 5.51 3.80-5.10 Million/uL H HEMOGLOBIN 14.2 11.7-15.5 g/dL N HEMATOCRIT 45.1 35.0-45.0 % H MCV 81.9 80.0-100.0 fL N MCH 25.8 27.0-33.0 pg L MCHC 31.5 32.0-36.0 g/dL L not clinically significant; however, it should be red cell parameters and the patient's clinical interpreted with caution in correlation with other For adults, a slight decrease in the calculated MCHC condition. value (in the range of 30 to 32 g/dL) is most likely RDW 12.7 11.0-15.0 % N PLATELET COUNT 284 140-400 Thousand/uL N MPV 11.4 7.5-12.5 fL N ABSOLUTE NEUTROPHILS 6824 0000-8948 cells/uL N ABSOLUTE LYMPHOCYTES 983 100-4044 cells/uL L ABSOLUTE MONOCYTES 368 200-950 cells/uL N ABSOLUTE EOSINOPHILS 88 15-500 cells/uL N ABSOLUTE BASOPHILS 0 0-200 cells/uL N NEUTROPHILS 85.3 N LYMPHOCYTES 9.0 N MONOCYTES 4.6 N EOSINOPHILS 1.1 N BASOPHILS 0.0 N SED RATE BY MODIFIED ISAIAH DEAN (809) Reviewed date:08/06/2024 08:52:44 PM Interpretation: Performing Lab:[facility] [place] [id number] Administration Brynn Remy [address] Notes/Report: FASTING:YES FASTING: YES SED RATE BY MODIFIED LYNETTE 19 < OR = 30 mm/h N C-REACTIVE PROTEIN (4420) Reviewed date:08/07/2024 09:50:35 PM Interpretation: Performing Lab:[facility] [place] [address] Administration Brynn Remy [address] Notes/Report: FASTING:YES FASTING: YES C-REACTIVE PROTEIN 7.7 <8.0 mg/L N RHEUMATOID FACTOR (4418) Reviewed date:08/07/2024 09:50:35 PM Interpretation: Performing Lab:[id number], [id number] Karey Zamora MD Notes/Report: FASTING:YES FASTING: YES RHEUMATOID FACTOR <10 <14 IU/mL N CYCLIC CITRULLINATED PEPTIDE (CCP) AB (IGG) (72875) Reviewed date:08/11/2024 08:43:09 PM Interpretation: Performing Lab:Amilcar MEJIA-[id number] Villa, CiftpbFM[address] Karey Zamora MD Notes/Report: FASTING:YES FASTING: YES CYCLIC CITRULLINATED PEPTIDE (CCP) AB (IGG) <16 N Moderate Positive: 40-59 Reference Range Strong Positive: >59 Weak Positive: 20-39 Negative: <20 .HEMOGLOBIN A1c (496) Reviewed date:08/07/2024 09:50:35 PM Interpretation: Performing Lab:DAMARIS authorGENNathan Ville [address] Administration Brynn Remy [address] Notes/Report: FASTING:YES FASTING: YES HEMOGLOBIN A1c 5.8 <5.7 % of total Hgb H This assay result is consistent with an increased risk diabetes, age, comorbid conditions, and other For someone with known diabetes, a value <7% prediabetes and should be confirmed with a A1c value between 5.7% and 6.4% is consistent with For someone without known diabetes, a hemoglobin targets should be individualized based on duration of Currently, no consensus exists regarding use of indicates that their diabetes is well controlled. A1c follow-up test. of diabetes. hemoglobin A1c for diagnosis of diabetes for children. considerations. T4, FREE (866) Reviewed date:08/06/2024 08:52:44 PM Interpretation: Performing Lab:DAMARIS authorGENNathan [place] [address] Administration Brynn Remy [address] Notes/Report: FASTING:YES FASTING: YES T4, FREE 1.6 0.8-1.8 ng/dL N TSH (899) Reviewed date:08/06/2024 08:52:44 PM Interpretation: Performing Lab:DAM[place]IS authorGENN[place] [address] Administration Brynn Remy [address] Notes/Report: FASTING:YES FASTING: YES TSH 0.04 0.40-4.50 mIU/L L T3, FREE (36611) Reviewed date:08/07/2024 09:50:35 PM Interpretation: Performing Lab:JACKIE authorGEN-[id number] Awilda Villa, PglnujUF[address] [facility] Nicanor Zamora MD Notes/Report: FASTING:YES FASTING: YES T3, FREE 3.1 2.3-4.2 pg/mL N .COMPREHENSIVE METABOLIC DURAN (70603) [facility] Reviewed date:11/03/2024 06:17:40 PM Interpretation: Performing Lab:DAMARIS authorGENN[place] [address] Administration Brynn Rmey [address] Notes/Report: GLUCOSE 92 65-99 mg/dL N Fasting refer ence interval UREA NITROGEN (BUN) 21 7-25 mg/dL N CREATININE 1.04 0.50-1.05 mg/dL N EGFR 59 > OR = 60 mL/min/1.73m2 L BUN/CREATININE RATIO SEE NOTE: 6-22 (calc) Not Reported: BUN and Creatinine are within reference range. SODIUM 138 135-146 mmol/L N POTASSIUM 4.5 3.5-5.3 mmol/L N CHLORIDE 102 98-110 mmol/L N CARBON DIOXIDE 28 20-32 mmol/L N CALCIUM 10.1 8.6-10.4 mg/dL N PROTEIN, TOTAL 6.9 6.1-8.1 g/dL N ALBUMIN 4.3 3.6-5.1 g/dL N GLOBULIN 2.6 1.9-3.7 g/dL (calc) N ALBUMIN/GLOBULIN RATIO 1.7 1.0-2.5 (calc) N BILIRUBIN, TOTAL 0.7 0.2-1.2 mg/dL N ALKALINE PHOSPHATASE 78 37-153 U/L N AST 14 10-35 U/L N ALT 11 6-29 U/L N .LIPID PANEL, STANDARD (7600 ) Reviewed date:11/03/2024 06:17:40 PM Interpretation: Performing Lab:DAMARIS authorGENN[place] [address] Administration Brynn Remy [id number] Karey Zamora Notes/Report: CHOLESTEROL, TOTAL 215 <200 mg/dL H HDL CHOLESTEROL 66 > OR = 50 mg/dL N TRIGLYCERIDES 78 <150 mg/dL N LDL-CHOLESTEROL 132 H <70 mg/dL for patients with CHD or diabetic patients with > or = 2 CHD risk factors. calculation, which is a validated novel method providing Ricky LAKE et al. ROSALINO. 2013;310(19): 9209-0379 Desirable range <100 mg/dL for primary prevention; estimation of LDL-C. LDL-C is now calculated using the [facility] (http://education.[employer]/faq/FAQ16 4) Reference range: <100 better accuracy than the Friedewald equation in the CHOL/HDLC RATIO 3.3 <5.0 (calc) N NON HDL CHOLESTEROL 149 <130 mg/dL (calc) H For patients with diabetes plus 1 major ASCVD risk (LDL-C of <70 mg/dL) is considered a therapeutic factor, treating to a non-HDL-C goal of <100 mg/dL option. .CBC (INCLUDES DIFF/PLT) (63 99) Reviewed date:11/03/2024 06:17:40 PM Interpretation: Performing Lab:DAMARIS authorGENFamily Nation [place] [address] Administration Brynn Remy TaulexyLP[address] Karey Pacheco Notes/Report: WHITE BLOOD CELL COUNT 7.2 3.8-10.8 Thousand/uL N RED BLOOD CELL COUNT 5.01 3.80-5.10 Million/uL N HEMOGLOBIN 13.3 11.7-15.5 g/dL N HEMATOCRIT 43.5 35.0-45.0 % N MCV 86.8 80.0-100.0 fL N MCH 26.5 27.0-33.0 pg L MCHC 30.6 32.0-36.0 g/dL L red cell parameters and the patient's clinical condition. For adults, a slight decrease in the calculated MCHC value (in the range of 30 to 32 g/dL) is most likely not clinically significant; however, it should be interpreted with caution in correlation with other RDW 14.0 11.0-15.0 % N PLATELET COUNT 316 140-400 Thousand/uL N MPV 10.6 7.5-12.5 fL N ABSOLUTE NEUTROPHILS [phone] cells/uL N ABSOLUTE LYMPHOCYTES [phone] cells/uL N ABSOLUTE MONOCYTES 612 200-950 cells/uL N ABSOLUTE EOSINOPHILS 432 15-500 cells/uL N ABSOLUTE BASOPHILS 7 0-200 cells/uL N NEUTROPHILS 58.4 N LYMPHOCYTES 27.0 N MONOCYTES 8.5 N EOSINOPHILS 6.0 N BASOPHILS 0.1 N .HEMOGLOBIN A1c (496) Reviewed date:11/03/2024 06:17:40 PM Interpretation: Performing Lab:DAMARIS [id number] Administration Brynn Remy [id number] [facility] Notes/Report: HEMOGLOBIN A1c 5.6 <5.7 % of total Hgb N Standards of Medical Care in Diabetes(ADA). Currently, no consensus exists regarding use of For the purpose of screening for the presence of > or =6.5% Consistent with diabetes According to [place] Diabetes Association (ADA) hemoglobin A1c for diagnosis of diabetes in children. <5.7% Consistent with the absence of diabetes metrics may apply to specific patient populations. 5.7-6.4% Consistent with increased risk for diabetes control in non- diabetic patients. Different of diabetes. guidelines, hemoglobin A1c <7.0% represents optimal (prediabetes) This assay result is consistent with a decreased risk diabetes: T4, FREE (866) Reviewed date:11/03/2024 06:17:40 PM Interpretation: Performing Lab:DAMARIS Crocs11636 Administration Brynn Remy NkjjwmbKB[address] [facility] Notes/Report: T4, FREE 1.2 0.8-1.8 ng/dL N TSH (899) Reviewed date:11/03/2024 06:17:40 PM Interpretation: Performing Lab:Amilcar OCAMPONathan [place] [address] Administration Brynn Remy [place] [address] Karey Zamora Notes/Report: TSH 0.94 0.40-4.50 mIU/L N T3, FREE (28092) Reviewed date:11/03/2024 06:17:40 PM Interpretation: Performing Lab:Amilcar MEJIA-[id number] Awilda Villa, NkpcbdMH[address] Karey Zamora MD Notes/Report: T3, FREE 2.5 2.3-4.2 pg/mL N CORTISOL, TOTAL (367) Reviewed date:11/27/2024 07:57:09 PM Interpretation: Performing Lab:Amilcar MEJIA-Ehnrtr46527David Baltazar[address] Karey Zamora MD Notes/Report: CORTISOL, TOTAL 5.6 N * Please interpret above results accordingly * Reference Range: For 4 p.m.(3-5 p.m.) Specimen: 3.0-17.0 Reference Range: For 8 a.m.(7-9 a.m.) Specimen: 4.0-22.0 DEXAMETHASONE (43678) Reviewed date:12/12/2024 08:39:23 PM Interpretation: Performing Lab:Amilcar ASH/Radha [facility],[address] [facility] HospitalsCA[address] Lizeth Davis MD,PhD,ANA Notes/Report: DEXAMETHASONE 644 characteristics have been determined by [facility]. Baseline: Less than 20 ng/dL 1 mg dexamethasone overnight: 180-550 ng/dL (8:00-10:00 AM) used for clinical purposes. has been validated pursuant to the CLIA regulations and is This test was developed and its analytical performance It has not been cleared or approved by the FDA. 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 Harper Referring Provider First Name Mamta Referring Provider Last Name Leroy Referring Provider [facility] Endocrinmartin gonzalez Referred Provider Specialty Urology General Notes Insurance :Medicare; Referral Priority Routine Reason Left adrenal adenoma /hyperplasia. DST was 3.8ug/dL and 4.4ug/dL so two positive DST tests consistent with [place]'s Syndrome. Failed Korlym therapy due to severe side effects. Diagnosis 1 [place]'s syndrome, unspecified (E24.9) Diagnosis 2 Adrenal adenoma, uns pecified laterality (D35.00) Referral Organization [facility] Dr. Harper Referring Provider First Name Mamta Referring Provider Last Name Leroy Referring Provider [facility] Endocrinmartin gonzalez Referred Provider Specialty Surgical Onc ology Referral Priority Routine Reason family hx of lupus, sjogrens, has dry mouth, fatigue, arthritis, and paratid enlargement on PET, concern for lupus or autoimmune Diagnosis 1 Polyarthritis (M13.0 ) Diagnosis 2 Chronic fatigue (R53 .82) Diagnosis 3 Dry mouth (R68.2) Referral Organization [facility] Harper Referring Provider First Name Mamta Referring Provider Last Name Leroy Referring Provider [facility] Yordan gonzalez Referred Provider Specialty Rheumatology Referral Priority Routine Reason This patient needs a rheumatology consult. Thank you! Diagnosis 1 Raised antibody tite r (R76.0) Referral Organization [facility] Harper Referring Provider First Name Mamta Referring Provider Last Name Leroy Referring Provider [facility] Endocrinmartin gonzalez Referred Provider Specialty Rheumatology Referral Priority Routine Medications Medication SIG (Take, Route, Frequency, Duration) Notes Start Date End Date Status Unithroid 112 mcg (0.112 mg) tablet TAKE 1 TABLET BY MOUTH EVERY DAY IN THE MORNING; Duration: 90 Days *Pick strength-form from [facility] for eRX* Active ALPRAZolam 0.5 mg tablet TAKE 1 TABLET BY MOUTH TWICE A DAY NEEDED FOR ANXIETY; Duration: 30 Days Active Escitalopram Oxalate 20 MG Tablet 1 tablet Orally Once a day; Duration: 90 days 01/07/2025 Active METHYLCOBALAMIN B-12 1 mg tablet, disintegrating 1 tab(s) sublingually once a day; Duration: 90 days *Reorder from [facility] for eRx and Interaction Alerts* 10/31/2023 Active dexAMETHasone 1 MG Tablet 1 tablet Orally at 10 pm night before 8 am cortiosl; Duration: 1 days 11/05/2024 Active Liothyronine Sodium 5 mcg tablet 1 tab(s) orally twice a day; Duration: 90 days 10/31/2023 Active Omeprazole 20 MG Capsule Delayed Release 1 capsule 1/2 to 1 hour before morning meal Orally Once a day; Duration: 90 days 05/14/2024 Active Lunesta 1 MG Tablet 1 tablet immediately before bedtime Orally Once a day; Duration: 90 days 05/14/2024 Active Escitalopram Oxalate 20 MG Tablet 1 tablet Orally Once a day; Duration: 90 days 05/14/2024 Active Propranolol HCl 10 mg tablet 1 tab(s) orally 2 times a day; Duration: 90 days 04/18/2024 Active Klor-Con M20 20 mEq tablet, extended release 1 tab(s) orally 2 times a day; Duration: 30 days *Pick strength-form from [facility] for eRX* 04/18/2024 Active Spironolactone 100 mg tablet 1 tab(s) orally twice daily; Duration: 90 days 04/18/2024 Active Ondansetron 4 mg tablet 1 tab(s) orally twice daily as needed for nausea; Duration: 30 days *Pick strength-form from [facility] for eRX* 03/01/2024 Active amLODIPine Besylate 5 mg tablet 1 tab(s) orally once a day; Duration: 30 day(s) 10/31/2023 Active Ozempic (0.25 or 0.5 MG/DOSE) 2 MG/3ML Solution Pen-injector 0.5 mg Subcutaneous once a week; Duration: 90 days 01/07/2025 Active Social History Social History Additional Details Category Social Info Options Details Migrated Social History Migrated Social History (Alcohol:):no (Recreational drug use:):no (Smoking:):no Problems Problem Type SNOMED Code ICD Code Onset Dates Problem Status W/U Status Risk Notes Problem Hypothyroidism (25634103) Hypothyroidism, unspecified (E03.9) Active confirmed 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, 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 Problem Disorder of adrenal gland (58477492) Disorder of adrenal gland, unspecified (E27.9) Active confirmed Problem Overweight (396786190) Overweight (E66.3) Active confirmed Problem Obesity (787142505) Obesity, unspecified (E66.9) Active confirmed Problem Hypercalcemia (64154340) Hypercalcemia (E83.52) Active confirmed Problem Generalized anxiety disorder (99996189) Generalized anxiety disorder (F41.1) Active confirmed Problem Essential tremor (512669287) Essential tremor (G25.0) Active confirmed Problem SI - Stress incontinence (12126877) Stress incontinence (female) (male) (N39.3) Active confirmed Problem Menopause (044377895) Menopausal and female climacteric states (N95.1) Active confirmed Problem Functional urinary incontinence (421237817) 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) Active confirmed Problem Polyarthritis (508089770) Polyarthritis (M13.0) Active confirmed Problem Type II diabetes mellitus without complication (033689913) Controlled type 2 diabetes mellitus without complication, without long-term current use of insulin (E11.9) Active confirmed Problem Chronic fatigue syndrome (48971341) Chronic fatigue (R53.82) Active confirmed Problem Type II diabetes mellitus without complication (519910054) Type 2 diabetes mellitus without complication, without long-term current use of insulin (E11.9) Active confirmed Vital Signs Heart Rate 70 /min 01/07/2025 Height-cm 175.26 cm 01/07/2025 Oximetry 96 % 01/07/2025 Blood pressure diastolic 76 mm Hg 01/07/2025 Weight-kg 81.65 kg 01/07/2025 Height 69 in 01/07/2025 Blood pressure systolic 139 mm Hg 01/07/2025 Weight 180.0 lbs 01/07/2025 BMI 26.58 kg/m2 01/07/2025 Encounters Encounter Location Date Provider Diagnosis [place] [id number] [place], [place] [id number] 05/12/2024 Provider Migration Hypokalemia E87.6 and Essential tremor G25.[address] Harper [id number] [place] [phone] 03/05/2024 Mamta Harper Hypothyroidism, unspecified E03.9 ; [place]'s syndrome, 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 ; Obesity, unspecified E66.9 ; Disorder of adrenal gland, unspecified E27.9 and Prediabetes R73.[address] Harper [address] [place] [phone] 04/16/2024 Mamta Harper Sharee's syndrome, 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 ; Hypothyroidism, unspecified E03.9 ; Essential tremor G25.0 and Obesity, unspecified E66.[address] Harper [address] [place] [phone] 05/14/2024 Mamta Harper Hypothyroidism, unspecified E03.9 ; Sharee's syndrome, 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 ; Generalized anxiety disorder F41.1 ; Benign neoplasm of right adrenal gland D35.01 and Heartburn R12 [address] Harper [address] [place] [phone] 06/11/2024 Mamta Harper Hypothyroidism, unspecified E03.9 ; Obesity, unspecified E66.9 ; Disorder of adrenal gland, unspecified E27.9 ; Sharee's syndrome, 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 ; Insulin resistance, unspecified E88.819 ; Urinary tract infection, site not specified N39.0 and Dietary counseling and surveillance Z71.[address] Harper [address] [place] [phone] 08/13/2024 Mamta Harper Hypothyroidism, unspecified E03.9 ; Obesity, unspecified E66.9 ; Generalized anxiety disorder F41.1 ; Sharee's syndrome, 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 ; Adrenal adenoma, unspecified laterality D35.00 and Dietary counseling and surveillance Z71.[address] Harper [address] [place] [phone] 11/05/2024 Mamta Harper Hypothyroidism, unspecified E03.9 ; Obesity, unspecified E66.9 ; Hypercalcemia E83.52 ; Controlled type 2 diabetes mellitus without complication, without long-term current use of insulin E11.9 ; Polyarthritis M13.0 ; Chronic fatigue R53.82 and Dietary counseling and surveillance Z71.[address] Harper [address] [place] [phone] 01/07/2025 Mamta Harper Dietary counseling a nd surveillance Z71.3 ; Hypercortisolism E24.9 ; Hypothyroidism, unspecified E03.9 ; Chronic fatigue R53.82 ; Type 2 diabetes mellitus without complication, without long-term current use of insulin E11.9 ; Hypercalcemia E83.52 and Overweight E66.[address] Harper [address] [place] [phone] 01/19/2024 Mamta Harper AMMO [facility] [address] [place] [phone] 03/01/2024 Mamta Harper Nausea R11.0 AMMO [facility] [address] [place] [phone] 03/01/2024 Mamta Harper AMMO [facility] [address] [place] [phone] 03/12/2024 Mamta Harper Hypothyroidism, unspecified E03.9 and Functional urinary incontinence R39.[address] Harper [address] [place] [phone] 03/27/[address] Harper [address] [place] [phone] 04/05/2024 Mamta Harper Edema, unspecified R60.9 AMMO [facility] [address] [place] [phone] 04/18/2024 Mamta Harper Hypokalemia E87.6 an d Essential tremor G25.[address] Harper [address] [place] [phone] 04/23/[address] Harper [address] [place] [phone] 04/27/2024 Mamta Harper [address] [place] [phone] 05/03/2024 Mamta Harper AMMO [facility] [address] [place] [phone] 05/16/2024 Mamta Harper AMMO [facility] [address] [place] [phone] 05/25/2024 Mamta Harper AMMO [facility] [address] [place] [phone] 06/04/2024 Mamta Harper AMMO [facility] [address] [place] [phone] 08/21/2024 Mamta Harper AMMO [facility] [address] [place] [phone] 09/22/2024 Mamta Harper [address] [place] [phone] 09/24/2024 Mamta Harper [facility] [address] [place] [address] 09/25/2024 Mamta Harper [address] [phone] 11/12/2024 Mamta Harper Assessments Encounter Date Diagnosis (ICD Code) Assessment Notes Treatment Notes Treatment Clinical Notes Section Notes 03/01/2024 Nausea (ICD-10 - R11.0) 03/05/2024 Hypothyroidism, unspecified (ICD-10 - E03.9) drop [...] not have endometrial hyperplasia concerns as SE. 03/12/2024 Hypothyroidism, unspecified (ICD-10 - E03.9) 03/12/2024 Functional urinary incontinence (ICD-10 - R39.81) 04/05/2024 Edema, unspecified (ICD-10 - R60.9) 04/16/2024 Sharee's syndrome, 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) 04/18/2024 Hypokalemia (ICD-10 - E87.6) 04/18/2024 Essential tremor (ICD-10 - G25.0) 05/12/2024 Hypokalemia (ICD-10 - E87.6) 05/12/2024 Essential tremor (ICD-10 - G25.0) 05/14/2024 Hypothyroidism, unspecified (ICD-10 - E03.9) 05/14/2024 Sharee's syndrome, 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) 06/11/2024 Hypothyroidism, unspecified (ICD-10 - E03.9) 06/11/2024 Obesity, unspecified (ICD-10 - E66.9) 08/13/2024 Hypothyroidism, unspecified (ICD-10 - E03.9) 11/05/2024 Hypothyroidism, unspecified (ICD-10 - E03.9) 11/05/2024 Obesity, unspecified (ICD-10 - E66.9) 08/13/2024 Obesity, unspecified (ICD-10 - E66.9) 01/07/2025 Dietary counseling and surveillance (ICD-10 - Z71.3) Spent 15 minutes preventative counseling patient on dietary recommendations and changes in setting of hyperglycemia- need to restrict refined sugars and processed foods and incorporate up to 150 minutes of moderate level activity weekly. 01/07/2025 Hypercortisolism (ICD-10 - E24.9) 08/13/2024 Generalized anxiety disorder (ICD-10 - F41.1) 01/07/2025 Hypothyroidism, unspecified (ICD-10 - E03.9) 11/05/2024 Hypercalcemia (ICD-10 - E83.52) 06/11/2024 Disorder of adrenal gland, unspecified (ICD-10 - E27.9) 05/14/2024 Generalized anxiety disorder (ICD-10 - F41.1) 04/16/2024 Hypothyroidism, unspecified (ICD-10 - E03.9) 03/05/2024 Obesity, unspecified (ICD-10 - E66.9) Continue [...] fluids and dexa treatment. She voiced understanding. 03/05/2024 Disorder of adrenal gland, unspecified (ICD-10 - E27.9) 05/14/2024 Benign neoplasm of right adrenal gland (ICD-10 - D35.01) 04/16/2024 Essential tremor (ICD-10 - G25.0) 06/11/2024 Sharee's syndrome, 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) 08/13/2024 Sharee's syndrome, 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) 11/05/2024 Controlled type 2 diabetes mellitus without complication, without long-term current use of insulin (ICD-10 - E11.9) 01/07/2025 Chronic fatigue (ICD-10 - R53.82) 01/07/2025 Type 2 diabetes mellitus without complication, without long-term current use of insulin (ICD-10 - E11.9) 08/13/2024 Adrenal adenoma, unspecified laterality (ICD-10 - D35.00) 11/05/2024 Polyarthritis (ICD-10 - M13.0) 06/11/2024 Insulin resistance, unspecified (ICD-10 - E88.819) 05/14/2024 Heartburn (ICD-10 - R12) 04/16/2024 Obesity, unspecified (ICD-10 - E66.9) 03/05/2024 Prediabetes (ICD-10 - R73.03) Discussed carb counting and how to read food labels. Recommended patient to utilize the diabetesfoSensorLogicb.com from the ADA website to help with [...] Continue metformin and ozempic 1 mg weekly. 06/11/2024 Urinary tract infection, site not specified (ICD-10 - N39.0) 11/05/2024 Chronic fatigue (ICD-10 - R53.82) 01/07/2025 Hypercalcemia (ICD-10 - E83.52) 01/07/2025 Overweight (ICD-10 - E66.3) 08/13/2024 Dietary counseling and surveillance (ICD-10 - Z71.3) Spent 15 minutes preventative counseling patient on dietary recommendations and changes in setting of hyperglycemia- need to restrict refined sugars and processed foods and incorporate up to 150 minutes of moderate level activity weekly. 06/11/2024 Dietary counseling and surveillance (ICD-10 - Z71.3) 11/05/2024 Dietary counseling and surveillance (ICD-10 - Z71.3) Spent 15 minutes preventative counseling patient on dietary recommendations and changes in setting of hyperglycemia- need to restrict refined sugars and processed foods and incorporate up to 150 minutes of moderate level activity weekly. 03/05/2024 Other Spent 45 minute s preparing to see the patient (ex review of tests/chart), obtaining and / or reviewing separately obtained history, performing a medically appropriate examination and/or evaluation, counseling and educating the patient/family/caregi laura, ordering medications, tests, or procedures, referring and communicating with other health healthcare manager, documenting clinical information in the electronic [...] Consider starting low-dose propranolol after consulting with [facility] and oracle bpm consultant- Monitor tremor severity and adjust treatment if [...] procedures, referring and communicating with other health healthcare manager, documenting clinical information in the electronic [...] Refer the patient to Dr. Martinez at [facility] for evaluation of adrenal adenoma and [...] nausea and vomiting. Consider referral to a senior design engineer if symptoms persist. 4. Insomnia:- Patient reports [...] Refer the patient to Dr. Candelario at [place] or Dr. Martinez at [facility] for evaluation of adrenal adenoma and [...] procedures, referring and communicating with other health healthcare manager, documenting clinical information in the electronic [...] Monitor symptoms and consider referral to a automatic pinsetter adjuster if needed. 5. Edema- Patient reports improvement [...] for Ozempic- Patient's insurance will change to [employer] on June 27. Ensure coverage for Ozempic and coordinate with the primary care physician for any necessary prior authorizations. 10. Upcoming appointment with Dr. Martinez on July 04- Ensure all relevant records, including CT scan, recent notes, labs, and dexamethasone suppression test, are sent to Dr. Martinez at [facility] prior to the appointment. Spent 15 [...] procedures, referring and communicating with other health healthcare manager, documenting clinical information in the electronic or other health record, independently interpreting results and communicating results to the patient/family/caregi laura and care coordinating patient plan. Patient alert and oriented x 4 and aware of discussion noted above and in agreeance to plan in management of hypothyroidism, obesity/weight management, hypercortisolism in setting of adrenal adenoma, UTI and insulin resistance secondary to hypercortisolism. 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 Martinez noted that the patient does not present with typical [place]'s appearance- Obtain second opinion from specialist due to autoimmune issues and inconclusive test results- Perform special CAT scan on Tuesday- Consider adrenalectomy pending further evaluation-patient did not tolerate korlym therapy 2. Hypothyroidism- Patient reports TSH levels as terrible- Currently on levothyroxine 112 mcg- Decrease levothyroxine dose to 88 mcg due to recent weight loss- Monitor TSH levels 3. Obesity, improving- Patient has lost significant weight, from 282 lbs to 190 lbs (53 lbs total)- Height is 5'9- Goal weight is 170 lbs- Currently on Ozempic, second dose- Continue Ozempic, consider increasing to third dose as recommended- Monitor weight loss progress- Encourage protein intake through soups 4. Insomnia- Patient reports significant sleep disturbances, sleeping only from 7 to 10 PM and then remaining awake- Reports high catecholamine levels and inability to shut down brain- Monitor sleep patterns- Reassess after potential treatment for suspected [place]'s syndrome 5. Dizziness and falls- Patient reports episodes of dizziness leading to falls- Has resulted in sprained wrist and bruised ribs- Monitor symptoms- Assess for underlying causes (e.g., medication side effects, orthostatic hypotension) 6. Vitiligo- Patient reports increased spread of vitiligo over the past year- Monitor progression 7. Abnormal lab values- Patient reports abnormal creatinine, blood counts, and lymphocyte levels- A1c is 5.8- Hematocrit abnormality potentially related to cortisol levels- Monitor lab values- Reassess after potential treatment for suspected [place]'s syndrome Follow-up:- Schedule follow-up appointment after special CAT scan and specialist consultation to review results and adjust treatment plan as needed- Encourage patient to contact the clinic if any new or worsening symptoms occur Spent 25 minutes preparing to see the patient (ex review of tests/chart), obtaining and / or reviewing separately obtained history, performing a medically appropriate examination and/or evaluation, counseling and educating the patient/family/caregi laura, ordering medications, tests, or procedures, referring and communicating with other health healthcare manager, documenting clinical information in the electronic or other health record, independently interpreting results and communicating results to the patient/family/caregi laura and care coordinating patient plan. 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 11/05/2024 Other Assessment and Plan: 1. 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 Fatigue and Joint Pain- Recommend rest and pacing of activities- Consider [id number] pain relievers for joint pain as needed- Encourage patient to keep a symptom diary to track fatigue and joint pain patterns- Reassess symptoms at follow-up appointment 3. Dizziness- Advise patient to change positions slowly and use support when standing up- Monitor blood pressure readings- Consider orthostatic blood pressure measurements at next visit- Evaluate current medications for potential side effects causing dizziness 4. Weight Loss- Continue ozempic injections at current dose, with option to reduce to half or quarter dose if needed- Encourage protein intake as recommended by oncologist- Monitor weight at follow-up appointments - Assess nutritional status and consider referral to dietitian if needed 5. Medication Management- Continue current medications: - Liothyronine twice daily - Amlodipine 5 mg daily - Alprazolam as needed - Unithroid daily at 112 mcg daily - Zofran as needed for nausea- Review and clarify medication list with patient's pharmacy- Assess efficacy and side effects of current medications at follow-up Spent 25 minutes preparing to see the patient (ex review of tests/chart), obtaining and / or reviewing separately obtained history, performing a medically appropriate examination and/or evaluation, counseling and educating the patient/family/caregi laura, ordering medications, tests, or procedures, referring and communicating with other health healthcare manager, documenting clinical information in the electronic or other health record, independently interpreting results and communicating results to the patient/family/caregi laura and care coordinating patient plan. Patient alert and oriented x 4 and aware of discussion noted above and in agreeance to plan in management of hypothyroidism, obesity/now overweight, controlled type 2 DM, hypercalcemia, fatigue and concern for underlying lupus/autoimmune d/o. 01/07/2025 Other Assessment and Plan: 1. Suspected [place]'s Syndrome- Patient has had multiple abnormal dexamethasone suppression tests (DST) with persistently elevated cortisol levels, most recently 5.6- Previous imaging studies, including PET scan and CT scan, showed no adrenal abnormalities- Despite multiple physicians stating the patient does not have [place]'s, the persistent symptoms and abnormal test results warrant further investigation- Symptoms consistent with hypercortisolism include weight changes, insomnia, anxiety, and palpitations- Order parathyroid test- Consider trial of Recorlev (levoketoconazole) pending further evaluation- Continue monitoring cortisol levels 2. Weight Loss- Patient has achieved significant weight loss, dropping from 263 pounds one year ago to current weight, for a total loss of over 100 pounds- Currently on Ozempic (semaglutide) for weight management- Decrease Ozempic dose from 3 mg to 0.5 mg weekly- Continue weight monitoring 3. Cardiovascular Symptoms- Patient reports episodes of both bradycardia and tachycardia, as well as orthostatic dizziness- Recent cardiology evaluation, including echocardiogram and monitor, showed no indication for pacemaker- Blood pressure was previously low, leading to consideration of discontinuing antihypertensive medication- Decrease spironolactone to once daily (from twice daily) due to its diuretic effect- Continue propranolol as prescribed- Follow up with [facility] bpm consultant in February as scheduled 4. Anxiety and Insomnia- Patient reports significant anxiety and ongoing sleep disturbances, despite some improvement- No sleep apnea noted- Currently on escitalopram for management- Continue escitalopram 20 mg daily- Consider referral to mental health professional for additional anxiety management strategies 5. 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- Recent thyroid antibody level was 41- Continue current thyroid management- Monitor thyroid function and antibody levels Spent 25 minutes preparing to see the patient (ex review of tests/chart), obtaining and / or reviewing separately obtained history, performing a medically appropriate examination and/or evaluation, counseling and educating the patient/family/caregi laura, ordering medications, tests, or procedures, referring and communicating with other health healthcare manager, documenting clinical information in the electronic or other health record, independently interpreting results and communicating results to the patient/family/caregi laura and care coordinating patient plan. Patient alert and oriented x 4 and aware of discussion noted above and in agreeance to plan in management of hypercortisolism, well controlled type 2 DM, hypothyroidism, hypercalcemia and fatigue. Plan Of Treatment Pending Test Test Name Order Date CT adrenal gland W/WO 11/25/2023 CT adrenal gland W/WO 11/30/2023 Next Appt Details Provider Name:Mamta Harper, 11:00:00 AM, [address] [place] [address], [phone], Insurance Providers Payer Name Payer Address Payer Phone Subscriber Number Group Number Insured Name Patient Relationship to Insured Coverage Start Date Coverage End Date [employer] Medicare part B [address] [address] [place] [address] [id number] Lorraine Boateng Self - patient is the insured Medical (General) History Medical History History ICD Code hypothyroidism prediabetes cushings syndrome adrenal adenoma
--- OUTSIDE RECORDS SUMMARY | 2025-01-17 15:54 | XMS_ITS | Clinical Summary ---
Author Organization [facility] Physic carlene Marfa Address [address] [facility] [place] [address] Care Team Providers Care Crystal Lapper Name Role Phone Unavailable Primary Care Provider Unavailabl e Allergies Active Allergy Reactions Criticality Noted Date Comments Adhesive Itching Low 08/22/2024 Amoxicillin-Pot Clavulanate Unknown 08/22/19 25 Codeine Unknown 08/22/2024 Latex Dizziness Low 08/22/2024 Levofloxacin Unknown 08/22/2024 Meperidine Nausea and Vomiting High 11/28/2024 Morphine Dizziness Low 08/22/2024 Oxycodone-Acetaminophen Dizziness Low 08/22/2024 Medications ALBUTEROL SULFATE INHALATION Take by inhalation. Active cyclobenzaprin e HCl (CYCLOBENZAPRI NE ORAL) Take by mouth. Activ e fluticasone propion-salmet Rose (ADVAIR HFA) 45-21 mcg/actuation HFA Aerosol Inhaler Take 2 Puffs by inhalation every 12 hours. Active liothyronine sodium (LIOTHYRONINE ORAL) Take by mouth. Activ e ALPRAZolam (Xanax) 0.25 mg tablet 5 Active amLODIPine (NORVASC) 5 mg tablet Take 5 mg by mouth daily. Active atorvastatin (LIPITOR) 10 mg tablet Take 1 Tablet by mouth daily. Active [id number] ahydrofolate-B 6 1,000mcg-680mc g DFE-1.5 mg Tablet, Chewable 5 Active escitalopram oxalate (LEXAPRO) 20 mg tablet take 1 tablet by mouth every day for 90 days Active estradioL (ESTRACE) 0.01% (0.1 mg/g) vaginal cream 1 GRAM VAGINALLY DAILY FOR 14 DAYS, THEN 1 GRAM VAGINALLY 2 TIMES A WEEK. Active eszopiclone (Lunesta) 1 mg Tablet 1 tablet immediately before bedtime Orally Once a day for 90 days 4 Active fluconazole (DIFLUCAN) 150 mg tablet TAKE 1 TABLET BY MOUTH ONCE EVERY 72 HOURS Active gabapentin (NEURONTIN) 300 mg capsule TAKE 1 CAPSULE BY MOUTH 3 TIMES A DAY 4 Active levothyroxine 88 mcg tablet levothyroxine 88 mcg tablet 5 Active montelukast (SINGULAIR) 10 mg tablet TAKE 1 TABLET BY MOUTH EVERY DAY IN THE EVENING Active omeprazole (PriLOSEC) 20 mg Capsule, Delayed Release(E.C.) 1 CAPSULE 1/2 TO 1 HOUR BEFORE MORNING MEAL ORALLY ONCE A DAY 90 DAYS 4 Active ondansetron (ZOFRAN) 4 mg Tablet 1 TAB(S) ORALLY TWICE DAILY NEEDED FOR NAUSEA 30 DAYS 4 Active Ozempic 2 mg/dose (8 mg/3 mL) Pen Injector Inject 2 mg by subcutaneous injection every 7 days. 5 Active Active Problems No known active problems Encounters Date Type Department Care Team Description 01/09/2025 External Device Data STL ABSTRACTION Provider, Abstract 01/08/2025 External Device Data STL ABSTRACTION Provider, Abstract 12/18/2024 External Device Data STL ABSTRACTION Provider, Abstract 11/28/2024 1:00 PM CDT Office Visit [facility] Endocrinology [address] [facility] [address] [place] [address] Russell Rasmussen MD Elevated cortisol level (Primary Dx); Hypotension due to drugs 11/14/2024 External Device Data STL ABSTRACTION Provider, Abstract 11/13/2024 External Device Data STL ABSTRACTION Provider, Abstract 11/05/2024 Abstract [facility] Oncology and Hematology [address] [place] [id number] Vicente Conklin MD 10/31/2024 2:30 PM CDT Office Visit [facility] Oncology and Hematology [address] [place] [phone] Vicente Conklin MD Parotid nodule (Primary Dx); Plasma cell disorder 10/25/2024 Orders Only [facility] Oncology and Hematology - Kevin [address] [place] [address] Vicente Conklin MD from Last 3 Months Family History Medical [...] 0.6 oz pur e alcohol) Socially Comments No Sex and Gender Information Value Date Recorded Sex Assigned at Not on file Legal Sex Female 11:51 AM SAND SLINGER Gender Identity Not on file Sexual Orientation Not on file Last Filed Vital Signs Vital Sign Reading Time Taken Comments Blood Pressure 97/65 11/28/2024 12:52 PM CDT Pulse 86 11/28/2024 12:52 PM CDT Temperature 40 C (104 F) 11/28/2024 12:52 PM CDT Respiratory Rate 16 10/31/2024 2:20 PM CDT Oxygen Saturation 99% 11/28/2024 12:52 PM CDT Inhaled Oxygen Concentration - - Weight 85.4 kg (188 lb 4.8 oz) 11/28/2024 12:52 PM CDT Height 175.3 cm (5' 9) 11/28/2024 12:52 PM CDT Body Mass Index 27.81 11/28/2024 12:52 PM CDT Plan of Treatment Upcoming Encounters Date Type Department Care Team (Late st Contact Info) Description 05/06/2025 11:30 AM SAND SLINGER Office Visit [facility] Oncology and Hematology - [address] [place] [address] Vicente Conklin MD [address] [facility] [address] [place] [address] Health Maintenance Due Date Last Done Comments DIABETES ANNUAL RETINAL EXAM 12/03/1973 DIABETES MICROALBUMIN ANNUAL SCREEN 12/03/1973 LDL CHOLESTEROL ANNUAL 12/03/1973 DTAP/TDAP/TD VACCINES (1 - Tdap) 12/03/1974 PNEUMOCOCCAL VACCINE 50+ YEARS (1 of 2 - PCV) 12/03/18 75 ZOSTER VACCINE (1 of 2) 12/03/1974 BREAST CANCER SCREENING 1995 COLORECTAL SCREENING 12/03/2000 Colorectal Cancer Screening 12/03/2000 FIT-DNA Q 3 years 12/03/2000 FIT/FOBT Q 1 year 12/03/2000 Flex Sig/CT Colonography Q 5 years 12/03/2000 RSV VACCINE (60+ or ) (1 - Risk 60-74 years 1-dose series) 2015 DIABETES HBA1C Q 6 MONTHS 03/03/2019 08/31/2018 DIABETES ANNUAL FOOT EXAM 10/13/2019 10/12/2018 OSTEOPOROSIS SCREENING 12/03/2020 INFLUENZA VACCINE (#1) 2025 Procedures Procedure Name Priority Date/Time Associated Diagnosis Comments GLUCOSE LEVEL Routine 10/25/2024 4:23 PM CDT from Last 3 Months Results * GLUCOSE LEVEL (10/25/2024 4:23 PM CDT) Blood Vicente Conklin MD CHEMISTRY ORDERABLES Final Resu lt from Last 3 Months Insurance MEDICARE PART A AND B [facility] AND B [facility] WITH [facility]
--- OUTSIDE RECORDS SUMMARY | 2025-01-17 15:54 | XMS_ITS | Data Portability ---
Author Organization [facility] Address [address] [place] [address] Care Team Providers Care Senior Logistics Manager Name Role Phone BRITT FUENTES Primary Care Provider [phone] Assessment Encounter Date Assessment Date Assessment LastModified by Organization Details LastModified Time 03/18/2023 03/18/2023 45 minutes spent on patient care, >50% face to face [email or web address] Not available 03/18/2023 14:56:49 Plan of Treatment Reminders Order Date Submit Date Provider Last Modified By Organization Details Last Modified Time Details Appointments None recorded. Lab None recorded. Referral None recorded. Procedures None recorded. Surgeries None recorded. Imaging None recorded. Medication Orders estradiol 0.0375 mg/24 hr weekly transdermal patch 2022 023 [id number] [facility] #[id number], [address], [place], [address], 14:42:55 Patient TargetsNo targets recorded. Patient InstructionsNo instructions recorded. Reason for Referral None Reported. Procedures Surgical History Date Name Laterality Status Provider Name and Address Organization Details Recorded Time 08/23/19 23 Date of Last Mammogram completed Gabriella Moscoso [facility] 03/18/2023 12:53:21 08/13/19 23 completed Gabriella Moscoso [facility] 03/18/2023 12:53:21 02/10/19 91 [facility]/18/2023 12:53:33 10/21/18 85 Caesarean Section completed [facility] 03/18/2023 12:53:33 Orthopedic Surgery completed [facility] 03/18/2023 12:53:33 Endometrial Ablation completed [facility] 03/18/2023 12:53:33 Oophorectomy completed [facility] 03/18/2023 12:53:33 Endometrial Biopsy completed [facility] 03/18/2023 12:53:33 Total Hysterectomy completed [facility] 03/18/2023 12:53:33 Colonoscopy completed [facility] 03/18/2023 12:53:33 Imaging Results None recorded. Procedure Notes None recorded. Medical Equipment None Reported. Allergies Allergen ID Allergen Name Allergen Category Reaction Reaction Severity Criticality Documentation Date Start Date Code Code System Note Provider Name and Address Organization Details Recorded Time morphine medicatio n itching Not available Not available 03/18/2023 7052 RxNorm Gabriella Schroedte r null, [facility] 3 12:53:14 65931 Augmentin medicatio n hives Not available Not available 03/18/2023 73146 2 RxNorm Gabriella Schroedte r null, [facility] 3 12:53:14 82120 latex environme nt,medica tion hives Not available Not available 03/18/2023 49667 91 RxNorm Gabriella Schroedte r null, [facility] 3 12:53:14 25470 Levaquin medicatio n nausea Not available Not available 03/18/2023 84049 2 RxNorm Gabriella Schroedte r null, [facility] 3 12:53:14 Medications Name Sig [...] Body mass index (BMI) Body weight Systolic And Diastolic Provider Name and Address Organization Details Last Updated DateTime 03/18/2023 175.26 cm 37.2 kg/m2 855931.28 g 143/82 mm[Hg] Gabriella Moscoso [place] - [facility] 03/18/2023 12:53:10 Social History Question Answer Notes LastModified by Organizat ion Details LastModified Time Tobacco Smoking Status Never Smoker Gabriella Moscoso [facility] 03/18/2023 12:56:57 Do You Have An Advance Directive? Yes Information not available 03/18/2023 Are You Blind [...] Yes Information not available 03/18/2023 Do You Have Difficulty Walking Or Climbing Stairs? No Information not available 03/18/2023 Sex: Unknown Functional Status Question Answer Note LastModified by Organizat ion Details LastModified Time Do you use any illicit or recreational drugs? No Information not available 03/18/2023 What is your level of alcohol consumption? None Information not available 03/18/2023 Are you able to walk? YESWOREST Information not available 03/18/2023 Are you able to care for yourself? Yes Information n ot available 03/18/2023 Do you have difficulty dressing or bathing? No Information not available 03/18/2023 Mental Status Question Answer Note LastModified by Organization D etails LastModified Time Do you feel stressed (tense, restless, nervous, or anxious, or unable to sleep at night)? [id number] Information not available 03/18/2023 Family History Relationship Description Onset Age of this Age Resolved Age Notes LastModified by Organization Details LastModified Time Mother Diabetes mellitus 49 [email or web address] Not available 02/26 12:53:18 Mother Heart disease 78 [email or web address] Not available 02/26 12:53:18 Father Anxiety disorder 25 [email or web address] Not available 02/26 12:53:18 Father Depressive disorder 25 [email or web address] Not available 02/26 12:53:18 Maternal Aunt Malignant tumor of breast 40 [id number] Not available 03/18 14:51:06 Maternal Aunt Malignant tumor of pancreas Not available 03/18 14:51:39 Maternal Uncle Malignant tumor of colon [id number] Not available 03/18 14:51:21 Maternal Uncle Malignant neoplasm of prostate [id number] Not available 03/18 14:51:54 Medical History Condition Response Allergies (Food, seasonal, environmental ) Y Other N Blood Transfusion N Drug/Latex Allergies/Reactions N Breast Cancer N Dermatologic Disorders N Lung Disease N [...] SNOMED-CT Code Diagnosis ICD10 Code Diagnosis Note [id number] BABAK DAWKINS MD [place] [address] [address] 03/18/2023 12:28:21 03/18/2023 15:03:04 Menopausal syndrome [id number] N95.9 - hot flashes, night sweats, brain [...] None Recorded Advance Directives Directive Y: Payers Insurance Date Sequence Insurance Name Policy Number Policy Cavanaugh Covered Member ID Cavanaugh Member ID Guarantor Name 07/15/2023 1 [place] Lorraine Quintana [id number] Lorraine Quintana 07/15/2023 2 [facility] (MEDICARE SUPPLEMENT) Lorraine Quintana [id number] Lorraine Quintana Notes Date Note Type Note Provider Name and Address Organization Details Recorded Time 03/18/2023 text/html Presents today to establish care and discuss concerns of postmenopausal syndrome today. Underwent surgical menopause at 37 yo 2/2 endometrial hyperplasia. She has never been on hormone replacement therapy. She reports hot flashes, night sweats, brain fog, sleep disturbances, low libido and vaginal dryness. She also reports increased frequency of UTIs in the past few years. BABAK DAWKINS MD [address], [place], [address], [facility] 03/18/2023 14:59:43 OBGyn Episode Ob Episode Information Episode Created Date Number of Fetuses Patient Bloodtype Patient rh Status Prepregnancy Weight lbs Domestic Partner Domestic Partner Phone Father Name Ornamental Iron Worker Helper Status 03/18/20 23 1 CLOSED Fetus Data First Name Last Name Admitted to NICU Weight (g) Sex Living Outcome Pediatric Complications Fetus ID Race Codes Race Delivery Type 3175.14 4 F Full Term [id number] Repeat Emmanuel Calculation Initial Emmanuel Date Initial Exam Date Initial Exam Provider Initial Ultrasound Date Last Menstrual Period Date Ultra Sound Weeks Gestation 0 Eighteen To Twenty Week Emmaneul Update Ultra Sound Date Fundal Height At [...] Domestic Partner Domestic Partner Phone Father Name Ornamental Iron Worker Helper Status 03/18/20 23 1 CLOSED Fetus Data First Name Last Name Admitted to NICU Weight (g) Sex Living Outcome Pediatric Complications Fetus ID Race Codes Race Delivery Type 3259.96 5704 M Full Term [id number] Primary Emmanuel Calculation Initial Emmanuel Date Initial [...]
--- OUTSIDE RECORDS SUMMARY | 2025-01-17 15:54 | XMS_ITS | Clinical Summary ---
Author Organization [facility] [place] [address] Address [address] [place] [address] Care Team Providers Care Safety Specialist Name Role Phone Doreen Marte MD Primary Care Provider [phone] Allergies Active Allergy Reactions Criticality Noted Date Comments Amoxicillin-Pot Clavulanate Rash Medium 01/24/20 18 Codeine Levofloxacin Hives Medium 08/14/2018 Morphine Other Rash,Blisters High 01/23/2018 TAPE/ ADHESIVE Oxycodone Oxycodone-Acetaminophen Hypotension High 09/22/2018 Medications blood glucose diagnostic (invinoTOUCH ULTRA TEST) strip Test sugars daily and [...] (08/14/2018): Added automatically from request for surgery [id number] Chronic fatigue 04/25/2018 Hypercholesterolemia 08/23/2017 Assessment & Plan (08/23/2017 2:10 PM BUS ANALYST): Goal of treatment , LDL cholesterol less [...] taken. Assessment & Plan (08/23/2017 2:01 PM BUS ANALYST): Continue current dose of Levothyroxine and Cytomel [...] . 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 file Not on file Not [...] 3:32 PM CDT Height 172.7 cm (5' 7.99) 10/12/2018 3:32 PM C DT Body Mass Index 39.85 10/12/2018 3:32 PM [...] PCV) 12/03/1974 Zoster Vaccine (1 of 2) 12/03/1974 Lipid Panel 08/15/2018 08/15/2017, 02/26, 09/13/2012 Hemoglobin A1C 03/03/2019 08/31/2018, 03/29, 08/23/2017 Depression Screening 10/13/2019 10/12/2018, 04/25/2018, 08/23/2017 Foot Exam 10/13/2019 10/12/2018, 04/25/2018 Well Visit 65+ 12/03/2020 Covid-19 Vaccine ( season) 2024 06/15/2021, 08/30/2020, 08/09/2020 Influenza Vaccine (#1) 2025 04/29/2018 Medical Devices Implanted Type Area Stemmer Machine Device Identifier Shelf Expiration Date Model / Serial / Lot [employer] 3122-040 Smartset Medium Viscosity Cement 40gm Bone Sterile - [id number] Implanted:Qty: 1 on 09/22/2018 by Jordan Jones MD at [facility] [employer] 03/26/2020 [id number] / / [employer] [id number] Smartset Medium Viscosity Cement 40gm Bone Gentamicin - [id number] Implanted:Qty: 1 on 09/22/2018 by Jordan Jones MD at [facility] [employer] 08/19/2019 [id number] / / [employer] [id number] Attune Cemented Cruciate Retaining Knee Left 7 Component Femoral - [id number] Implanted:Qty: 1 on 09/22/2018 by Jordan Jones MD at [facility] [employer] [id number] 03/26/2028 [id number] / / [employer] [id number] Attune 14mm 50mm Cemented Revision Knee Stem Femoral Sterile - Implanted:Qty: 1 on 09/22/2018 by Jordan Jones MD at [facility] [employer] [id number] 01/25/2028 [id number] / / [employer] [id number] Attune Cement Revision Fix Bearing Knee 7 Baseplate Tibial - [id number] Implanted:Qty: 1 on 09/22/2018 by oJrdan Jones MD at [facility] [employer] [id number] 12/25/2027 [id number] / / [employer] [id number] Attune 7mm Cruciate Retaining Fix Bearing Knee 7 Insert Tibial - [id number] Implanted:Qty: 1 on 09/22/2018 by Jordan Jones MD at [facility] [employer] [id number] 04/26/2022 [id number] / / Procedures Procedure Name Priority Date/Time Associated Diagnosis Comments POCT HEMOGLOBIN A1C Routine Gen Lab 08/31/2018 1:15 PM BUS ANALYST LIPID PANEL Routine 08/15/2017 1:25 PM BUS ANALYST Type 2 diabetes mellitus with hyperglycemia, without long-term current use of insulin (HCC) from Last 3 Months or Most Recently Relevant to Health Maintenance Results * POCT hemoglobin A1c (08/31/2018 1:15 PM BUS ANALYST) Pathologist [facility] Hgb A1C, POC 6.0 4.0 - 6.0 % [facility] Est Average Gluc POC 126 mg/dL [facility] Comment: The ADA recommends reporting an estimated Average Glucose (eAG) with all Hemoglobin A1c results using the equation derived from a study of 507 normal and diabetic adults. Minority populations were underrepresented and children were not included. (Diabetes Care 31:0389-2791, 2008). The eAG is not equivalent to a fasting glucose. Blood specimen (specimen) 08/31/2018 1:15 PM BUS ANALYST 08/31/2018 1:15 PM BUS ANALYST Narrative [facility] - 08/31/2018 1:33 PM BUS ANALYST us Jordan Jones MD POINT OF CARE TEST ORDERA BLES Final Result [facility] Department [place] [address] * (ABNORMAL) Lipid panel (08/15/2017 1:25 PM BUS ANALYST) [facility] Cholesterol 247(H) 100 - 199 mg/dL [facility] - 01 Triglycerides 188(H) 0 - 149 mg/dL [facility] - 01 HDL Cholesterol 64 >39 mg/dL [facility] - 01 VLDL 38 5 - 40 mg/dL [facility] - 01 LDL, calculated 145(H) 0 - 99 mg/dL [facility] - 01 Blood specimen (specimen) 08/15/2017 1:25 PM BUS ANALYST 08/15/2017 Narrative [facility] - 08/16/2017 6:14 AM BUS ANALYST Performed at: 01 - [address] [id number] Supervisor Weaving: David Díaz PhD, Phone: [phone] us Naty Norton NP LAB BLOOD ORDERABLES [facility] Organization Address City/State/ZIP Co de Phone Number [facility] - [facility] from Last 3 Months or Most Recently Relevant to Health Maintenance Insurance [facility] Advance Directives For more information, please contact: [phone] * Full Code (Latest Code Status on File) Date Activated Date Inactivated Comments 09/22/2018 11:29 AM 09/22/2018 10:23 PM Care Teams Safety Specialist Relationship Specialty Start Date End Date Doreen Marte MD PCP - General 04/29/14
--- OUTSIDE RECORDS SUMMARY | 2025-01-17 15:54 | XMS_ITS ---
Author Organization [facility] Address [address] [address] Care Team Providers Care Hospice Patient Care Secretary Name Role Phone Mamta Harper Primary Care Provider REASON FOR VISIT 2 month f/u faraz Encounters Encounter Location Date Provider Diagnosis [facility] [place] - Mamta Harper [address] [place] [address] 08/13/2024 Mamta Harper Plan Of Treatment No Information Progress Notes * Lorraine SAUCEDODOB:1955 (69 yo F)Acc No.[id number]:08/13/2024 Progress Notes Patient: Lroraine MUKHERJEE Provider: Viktoriya Harper MD :1955 A ge:68 Y S ex:Female Date:08/13/2024 Address:[facility] Subjective: * Chief Complaints: * 1 . 2 month f/u faraz. * Medical History: Objective: * Vitals: Assessment: Plan: * Treatment: * Billing Information: * Visit Code: * Procedure Codes: * Electronic signature of Meño Harper MD on 01/17/2025 at 03:54 PM CDT Sign off status: Pending * Provider: Viktoriya Harper MD Date: 08/13/2024 Generated for Printi ng/Faxing/eTransmitting on: 0 01/17/2025 03:54 PM CDT
--- OUTSIDE RECORDS SUMMARY | 2025-01-17 15:54 | XMS_ITS | Patient Health Record ---
Author Organization [facility] Address [address] [address] Care Team Providers Care Degreaser Name Role Phone Mamta Harper Primary Care Provider [phone] Migration, Provider Unavailable Unavailable Allergies No Known Allergies Results Component Value Reference Range Notes COMPREHENSIVE METABOLIC PANE L Reviewed date:02/27/2024 01:05:21 PM Interpretation: Performing Lab:[facility], [address] [place], [address] Karey Zamora Notes/Report: T3, FREE Reviewed date:02/27/2024 01:05:44 PM Interpretation: Performing Lab:[facility], [address] [place], [address] Karey Zamora MD Notes/Report: HEMOGLOBIN A1c Reviewed date:02/27/2024 01:06:07 PM Interpretation: Performing Lab:[facility], [address] [place], [address] Karey Zamora Notes/Report: VITAMIN B12/FOLATE, SERUM PA ENRIQUE Reviewed date:02/27/2024 01:05:28 PM Interpretation: Performing Lab:[facility]car MEJ[facility], [address] [place], [address] Karey Zamora MD Notes/Report: IRON AND TOTAL IRON BINDING CAPACITY Reviewed date:02/27/2024 01:05:35 PM Interpretation: Performing Lab:[facility], [address] [place], [address] Karey Zamora MD Notes/Report: T4, FREE Reviewed date:02/27/2024 01:05:51 PM Interpretation: Performing Lab:[facility]car [facility], [address] [place], [address] Karey Zamora Notes/Report: TSH Reviewed date:02/27/2024 01:05:58 PM Interpretation: Performing Lab:[facility], [address] [place], [address] Karey Zamora Notes/Report: COMPREHENSIVE METABOLIC PANE L Reviewed date:03/29/2024 08:12:02 PM Interpretation: Performing Lab:Amilcar [facility], [address] [place], [address] Karey Zamora Notes/Report: FASTING:YES FASTING: YES T3, FREE Reviewed date:03/29/2024 08:13:29 PM Interpretation: Performing Lab:[facility], [address], [place], [address] Karey Zamora MD Notes/Report: FASTING:YES FASTING: YES HEMOGLOBIN A1c Reviewed date:03/29/2024 08:10:47 PM Interpretation: Performing Lab:[facility], [address] [place], [address] Karey Zamora Notes/Report: FASTING:YES FASTING: YES INSULIN Reviewed date:03/29/2024 08:11:03 PM Interpretation: Performing Lab:[facility], [address], [place], [address] Karey Zamora MD Notes/Report: FASTING:YES FASTING: YES CBC (INCLUDES DIFF/PLT) Reviewed date:03/29/2024 08:13:18 PM Interpretation: Performing Lab:[facility], [address] [place], [address] Karey Zamora Notes/Report: FASTING:YES FASTING: YES VITAMIN B12/FOLATE, SERUM PA ENRIQUE Reviewed date:03/29/2024 08:11:13 PM Interpretation: Performing Lab:[facility], [address], [place], [address] Karey Zamora MD Notes/Report: FASTING:YES FASTING: YES IRON AND TOTAL IRON BINDING CAPACITY Reviewed date:03/29/2024 08:13:00 PM Interpretation: Performing Lab:[facility], [address], [place], [place], [address] Karey Zamora MD Notes/Report: FASTING:YES FASTING: YES LIPID PANEL Reviewed date:03/29/2024 08:12:32 PM Interpretation: Performing Lab:[facility], [address], [place], [address] Karey Zamora Notes/Report: FASTING:YES FASTING: YES T4, FREE Reviewed date:04/03/2024 10:47:57 PM Interpretation: Performing Lab:[facility], [address] , [place], [address] Karey Zamora Notes/Report: FASTING:YES FASTING: YES TSH Reviewed date:03/29/2024 08:12:14 PM Interpretation: Performing Lab:[facility], [address] , [place], [address] Karey Zamora Notes/Report: FASTING:YES FASTING: YES COMPREHENSIVE METABOLIC PANE L Reviewed date:04/19/2024 02:01:27 PM Interpretation: Performing Lab:[facility], [address], [place], [place], [address] Karey Zamora MD Notes/Report: FASTING: YES T3, FREE Reviewed date:04/18/2024 07:54:56 PM Interpretation: Performing Lab:[facility], [address], [place], [address] Karey Zamora MD Notes/Report: FASTING: YES HEMOGLOBIN A1c Reviewed date:04/18/2024 08:01:56 PM Interpretation: Performing Lab:[facility], [address], [place], [address] Karey Zamora MD Notes/Report: FASTING: YES CBC (INCLUDES DIFF/PLT) Reviewed date:04/18/2024 08:01:38 PM Interpretation: Performing Lab:[facility], [address], [place], [address] Karey Zamora MD Notes/Report: FASTING: YES VITAMIN B12/FOLATE, SERUM PA ENRIQUE Reviewed date:04/18/2024 08:02:42 PM Interpretation: Performing Lab:[place], [facility], [address], [place], [address] Karey Zamora MD Notes/Report: FASTING: YES IRON AND TOTAL IRON BINDING CAPACITY Reviewed date:04/18/2024 08:02:16 PM Interpretation: Performing Lab:[facility], [address], [place], [address] Karey Zamora MD Notes/Report: FASTING: YES LIPID PANEL Reviewed date:04/18/2024 08:02:07 PM Interpretation: Performing Lab:[facility], [address], [place], [address] Karey Zamora MD Notes/Report: FASTING: YES T4, FREE Reviewed date:04/18/2024 08:02:25 PM Interpretation: Performing Lab:[facility], [address], [place], [address] Karey Zamora MD Notes/Report: FASTING: YES TSH Reviewed date:04/18/2024 08:01:48 PM Interpretation: Performing Lab:[facility], [address], [place], [address] Karey Zamora MD Notes/Report: FASTING: YES COMPREHENSIVE METABOLIC PANE L Reviewed date:04/29/2024 10:46:30 AM Interpretation: Performing Lab:[facility], [address] [place], [address] ClairMariana Zamora Notes/Report: COMPREHENSIVE METABOLIC PANE L Reviewed date:05/11/2024 08:25:38 AM Interpretation: Performing Lab:[facility], [address] [place], [address] ClairMariana Zamora Notes/Report: T4, FREE Reviewed date:05/06/2024 09:18:11 AM Interpretation: Performing Lab:SL, [facility], [address] [place], [address] [facility] Notes/Report: TSH Reviewed date:05/06/2024 09:17:52 AM Interpretation: Performing Lab:SL, [facility], [address] [place], [address] [facility] Noah Notes/Report: T3, FREE Reviewed date:06/09/2024 10:39:13 AM Interpretation: Performing Lab:[place]ACK[place], [facility], [address] [place], [address] [facility] Nicanor Zamora MD Notes/Report: HEMOGLOBIN A1c Reviewed date:06/09/2024 10:39:13 AM Interpretation: Performing Lab:DAMARIS, [facility], [address] [place], [address] [facility] Notes/Report: LIPID PANEL Reviewed date:06/09/2024 10:39:13 AM Interpretation: Performing Lab:DAMARIS, [facility], [address] [place], [address] [facility] Notes/Report: T4, FREE Reviewed date:06/09/2024 10:39:13 AM Interpretation: Performing Lab:DAMARIS, [facility], [address] [place], [address] [facility] Noah Notes/Report: TSH Reviewed date:06/09/2024 10:39:13 AM Interpretation: Performing Lab:DAMARIS, [facility], [address] [place], [address] [employer] Notes/Report: COMPREHENSIVE METABOLIC PANE L (Not yet reviewed by provider) Interpretation: Performing Lab:DAMARIS, [facility], [address] [place], [address] [employer] Notes/Report: FASTING:YES FASTING: YES CYCLIC CITRULLINATED PEPTIDE (CCP) AB (IGG) (Not yet reviewed by provider) Interpretation: Performing Lab:KS, [facility], [address] [place], [address] ClairMariana Zamora MD Notes/Report: FASTING:YES FASTING: YES T3, FREE (Not yet reviewed b y provider) Interpretation: Performing Lab:[facility], [address], [place], [address] Karey Zamora MD Notes/Report: FASTING:YES FASTING: YES RHEUMATOID FACTOR (Not yet r eviewed by provider) Interpretation: Performing Lab:[facility], [address], [place], [address] Karey Zamora MD Notes/Report: FASTING:YES FASTING: YES C-REACTIVE PROTEIN (Not yet reviewed by provider) Interpretation: Performing Lab:[facility], [address] [place], [address] [employer] Notes/Report: FASTING:YES FASTING: YES HEMOGLOBIN A1c (Not yet revi ewed by provider) Interpretation: Performing Lab:[facility], [address] [place], [address] [place] [address] Notes/Report: FASTING:YES FASTING: YES CBC (INCLUDES DIFF/PLT) (Not yet reviewed by provider) Interpretation: Performing Lab:[facility], [address] [place], [address] [place] [address] Notes/Report: FASTING:YES FASTING: YES SED RATE BY MODIFIED SYMONEERG JERMAINE (Not yet reviewed by provider) Interpretation: Performing Lab:[facility], [address] [place], [address] [place] [address] Notes/Report: FASTING:YES FASTING: YES T4, FREE (Not yet reviewed b y provider) Interpretation: Performing Lab:[facility], [address] [place], [address] [place] [address] Notes/Report: FASTING:YES FASTING: YES TSH (Not yet reviewed by pro vider) Interpretation: Performing Lab:[facility], [address] [place], [address] [place] [address] Notes/Report: FASTING:YES FASTING: YES Reason For Referral Reason 9 mm right adrenal a denoma, 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, off korlym could not tolerate, chronic hypokalemia even on highest dose spironolactone Referral Organization [facility], [facility] - Mamta Harper Referring Provider First Name Mamta Referring Provider Last Name Leroy Referring Provider Speciality Internal M edicine Referred Provider Specialty Urology Referral Priority Routine Medications Medication SIG (Take, Route, Frequency, Duration) Notes Start Date End Date Status PROPRANOLOL HYDROCHLORIDE 10 mg 1 tab(s) orally 2 times a day for 90 days 04/18/2024 Active POTASSIUM CHLORIDE (ZWQ-BZWL-MMB M20) 20 mEq 1 tab(s) orally 2 [...] Status W/U Status Risk Notes Problem Hypothyroidism (70021825) Hypothyroidism, unspecified (E03.9) Active confirmed Problem Essential tremor (488572876) Essential tremor (G25.0) Active confirmed Problem Obesity (369058303) Obesity, unspecified (E66.9) Active confirmed 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, 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 Problem Disorder of adrenal gland (26971445) Disorder of adrenal gland, unspecified (E27.9) Active confirmed Problem Generalized anxiety disorder (23457663) Generalized anxiety disorder (F41.1) Active confirmed Problem SI - Stress incontinence (37499539) Stress incontinence (female) (male) (N39.3) Active confirmed Problem Menopause (479045837) Menopausal and female climacteric states (N95.1) Active confirmed Problem Functional urinary incontinence (881835962) 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) Active confirmed Vital Signs Heart Rate 89 /min 06/11/2024 Blood pressure diastolic 81 mm Hg 06/11/2024 Height 69 in 06/11/2024 Blood pressure systolic 127 mm Hg 06/11/2024 Weight 228.8 lbs 06/11/2024 BMI 33.78 kg/m2 06/11/2024 Encounters Encounter Location Date Provider Diagnosis [facility] [address] [place] [address] 05/12/2024 Provider Migration Essential tremor G25.0 and Hypokalemia E87.6 [facility], [facility] - Mamta Harper [address] [place] [address] 08/13/2024 Mamta [facility], [facility] - Mamta Harper [address] [place] [address] 03/05/2024 Mamta Harper Hypothyroidism, unspecified E03.9 ; Sharee's syndrome, 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 ; Obesity, unspecified E66.9 ; Disorder of adrenal gland, unspecified E27.9 and Prediabetes R73.03 [facility], [facility] Mamta [employer] [place] [address] [place] [address] 04/16/2024 Mamta Harper Ashford's syndrome, 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 ; Hypothyroidism, unspecified E03.9 ; Essential tremor G25.0 and Obesity, unspecified E66.9 [facility]ta [employer] [place] [address] [place] [address] 05/14/2024 Mamta Harper Hypothyroidism, unspecified E03.9 ; Sharee's syndrome, 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 ; Generalized anxiety disorder F41.1 ; Benign neoplasm of right adrenal gland D35.01 and Heartburn R12 [facility] Mamta [employer] [id number] [place] [address] 06/11/2024 Mamta Harper Hypothyroidism, unspecified E03.9 ; Obesity, unspecified E66.9 ; Disorder of adrenal gland, unspecified E27.9 ; Sharee's syndrome, 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 ; Insulin resistance, unspecified E88.819 ; Urinary tract infection, site not specified N39.0 and Dietary counseling and surveillance Z71.3 [facility] Mamta Harper [address] [place] [address] 01/19/2024 Mamta Harper [facility] [address] [address] 03/01/2024 Mamta Harper Nausea R11.0 [facility] [address] [place] [address] 03/01/2024 Mamta Harper [facility] [address] [address] 03/12/2024 Mamta Harper Hypothyroidism, unspecified E03.9 and Functional urinary incontinence R39.81 [facility] Mamta [employer] [id number] [place] [address] 03/27/2024 Mamta Harper [facility] Mamtadavidson Harper [address] [place] [address] 04/05/2024 Mamta Harper Edema, unspecified R60.9 [facility] [address] [place] [address] 04/18/2024 Mamta Harper Hypokalemia E87.6 an d Essential tremor G25.0 [facility] - Mamta [employer] [place] [address] [place] [address] 04/23/2024 Mamta Harper [facility] - Mamta Romance [id number] [place] [address] 04/27/2024 Mamta Harper [facility], [facility] - Mamta [address] [address] 05/03/2024 Mamta Leroy [facility] [address] [address] 05/16/2024 Mamta [facility] [employer] [address] [address] 05/25/2024 Mamta Harper [facility] [employer] [address] [address] 06/04/2024 Mamta Harper Assessments Encounter Date Diagnosis (ICD Code) Assessment Notes Treatment Notes Treatment Clinical Notes Section Notes 05/12/2024 Essential tremor (ICD-10 - G25.0) 05/12/2024 Hypokalemia (ICD-10 - E87.6) 03/05/2024 Hypothyroidism, unspecified (ICD-10 - E03.9) drop [...] have endometrial hyperplasia concerns as SE. 04/16/2024 Sharee's syndrome, 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) 05/14/2024 Hypothyroidism, unspecified (ICD-10 - E03.9) 05/14/2024 Ashford's syndrome, 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) 06/11/2024 Hypothyroidism, unspecified (ICD-10 - E03.9) 06/11/2024 Obesity, unspecified (ICD-10 - E66.9) 03/01/2024 Nausea (ICD-10 - R11.0) 03/12/2024 Hypothyroidism, unspecified (ICD-10 - E03.9) 03/12/2024 Functional urinary incontinence (ICD-10 - R39.81) 04/05/2024 Edema, unspecified (ICD-10 - R60.9) 04/18/2024 Essential tremor (ICD-10 - G25.0) 04/18/2024 Hypokalemia (ICD-10 - E87.6) 03/05/2024 Obesity, unspecified (ICD-10 - E66.9) Continue [...] of adrenal gland, unspecified (ICD-10 - E27.9) 03/05/2024 Disorder of adrenal gland, unspecified (ICD-10 - E27.9) 04/16/2024 Essential tremor (ICD-10 - G25.0) 05/14/2024 Benign neoplasm of right adrenal gland (ICD-10 - D35.01) 06/11/2024 Ashford's syndrome, 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) 03/05/2024 Prediabetes (ICD-10 - R73.03) Discussed carb counting and how to read food labels. Recommended patient to utilize the Heartbeat from the ADA website to help with [...] Dietary counseling and surveillance (ICD-10 - Z71.3) 03/05/2024 Other Spent 45 minute s preparing to see the patient (ex review of tests/chart), obtaining and / or reviewing separately obtained history, performing a medically appropriate examination and/or evaluation, counseling and educating the patient/family/caregi laura, ordering medications, tests, or procedures, referring and communicating with other health pet care worker, documenting clinical information in the electronic or [...] Consider starting low-dose propranolol after consulting with [facility] and tourism radio presenter- Monitor tremor severity and adjust treatment if [...] procedures, referring and communicating with other health pet care worker, documenting clinical information in the electronic or [...] Refer the patient to Dr. Martinez at [facility] for evaluation of adrenal adenoma [...] nausea and vomiting. Consider referral to a press leader if symptoms persist. 4. Insomnia:- Patient reports [...] Refer the patient to Dr. Candelario at [place] or Dr. Martinez at [facility] for evaluation of adrenal adenoma [...] procedures, referring and communicating with other health pet care worker, documenting clinical information in the electronic or [...] Monitor symptoms and consider referral to a internal auditor if needed. 5. Edema- Patient reports improvement [...] for Ozempic- Patient's insurance will change to [employer] on June 27. Ensure coverage for Ozempic and coordinate with the primary care physician for any necessary prior authorizations. 10. Upcoming appointment with Dr. Martinez on July 04- Ensure all relevant records, including CT scan, recent notes, labs, and dexamethasone suppression test, are sent to Dr. Martinez at [facility] prior to the appointment. Spent [...] procedures, referring and communicating with other health pet care worker, documenting clinical information in the electronic or [...] CBC (INCLUDES DIFF/PLT) 08/06/2024 SED RATE BY WILLIAM OJEDA 08/06/19 25 T4, FREE 08/06/2024 TSH 08/06/2024 CT adrenal gland W/WO 11/25/2023 CT adrenal gland W/WO 11/30/2023 Insurance Providers Payer Name Payer Address Payer Phone Subscriber Number Group Number Insured Name Patient Relationship to Insured Coverage Start Date Coverage End Date Medicare [address] [address] [place] [address] [id number] Lorraine Boateng Self - patient is the insured [employer] [address] [place] [phone] [id number] Lorraine Boateng Self - patient is the insured Medical (General) History Medical History History ICD Code hypothyroidism prediabetes cushings syndrome adrenal adenoma
--- OUTSIDE RECORDS SUMMARY | 2025-01-17 15:54 | XMS_ITS | Clinical Summary ---
Author Organization [facility] Address [address] [place] [address] Care Team Providers Care Silk Screen Cutter Name Role Phone Doreen Marte MD Primary Care Provider [phone] Efe Bhat MD Unavailable [phone] Source Comments [facility],non-owned Affiliates and Associated Physician Practices is amultiple site organization consisting of ambulatory clinics and hospital sitesin [place], [place], [place] and [place]. This disclosure is being madepursuant to the Care Everywhere program and may not contain all information available regarding this patient. Last updated 18.[facility] Allergies Active Allergy Reactions Criticality Noted Date Comments Adhesive Sensitivity 10/12/2013 Augmentin 10/12/2013 Codeine 10/12/2013 Latex 10/12/2013 Levofloxacin 06/11/2017 Morphine 10/12/2013 Oxycodone-Acetaminophen 10/12/2013 Medications * Be aware that medications may not be up to date on this document. Alwaysverify current medications with the patient. vitamin D, ergocalciferol , (DRISDOL) 24347 UNITS capsule Take 1 (one) capsule by [...] leg 10/12/2013 Overview (09/20/2015): 2015 IMO Updt Social History Tobacco Use Types Packs/Day Years [...] Comments Blood Pressure 126/87 07/04/2024 3:46 PM [employer]WORK [employer]PERAT[employer] SUPERVISOR Pulse 98 07/04/2024 3:46 PM [employer] SUPERVIS[employer] Temperature 36.1 C (97 F) 07/04/2024 3:46 PM [employer] SUPERVISOR Respiratory Rate 16 06/11/2017 10:54 AM [employer] SUPERVISOR Oxygen Saturation 94% 07/04/2024 3:46 PM [employer] SUPERVISOR Inhaled Oxygen Concentration - - Weight 93.4 kg (206 lb) 07/04/2024 3:46 PM [employer] SUPERVISOR Height 175.3 cm (5' 9) 07/04/2024 3:46 PM [employer] SUPER[employer] Body Mass Index 30.42 07/04/2024 3:46 PM [employer] SUPER[employer]OR Plan of Treatment Health Maintenance Due Date [...] VACCINE ( - 2023-2 5 season) 2024 DEPRESSION SCREENING 06/27/2024 DIABETES - URINE PROTEIN SCREENING 06/27/2024 DIABETES RETINOPATHY SCREENING 07/04/2024 DIABETES-FOOT EXAM WITH MONOFILAMENT 07/04/2024 DIABETES-HGB A1C 07/04/2024 08/31/2018 INFLUENZA VACCINE (#1) 2025 Respiratory Syncytial Virus (RSV) Vaccine Pt: [...] on patient's age to complete this topic Insurance MEDICARE [facility] Care Teams Silk Screen Cutter Relationship Specialty Start Date End Date Doreen Marte MD [address] [place] [address] PCP - General Family Medicine 10/12/13 [place] [id number] [address] Orthopedic Surgery 10/12/13
--- OUTSIDE RECORDS SUMMARY | 2025-01-17 15:54 | XMS_ITS | Referral Summary ---
Author Organization [facility] [facility] Address [address] [place] [address] Care Team Providers Care Credit Collections Clerk Name Role Phone Doreen Marte MD Primary Care Provider [phone] Allergies Active Allergy Reactions Criticality Noted Date Comments Amoxicillin-Pot Clavulanate Rash Medium 01/24/20 18 Codeine Levofloxacin Hives Medium 08/14/2018 Morphine Other Rash,Blisters High 01/23/2018 TAPE/ ADHESIVE Oxycodone Oxycodone-Acetaminophen Hypotension High 09/22/2018 Medications blood glucose diagnostic (Embrace+TOUCH ULTRA TEST) strip Test sugars daily and [...] (08/14/2018): Added automatically from request for surgery [id number] Chronic fatigue 04/25/2018 Hypercholesterolemia 08/23/2017 Assessment & Plan (08/23/2017 2:10 PM PROFESSOR OF BUSINESS): Goal of treatment , LDL cholesterol less [...] taken. Assessment & Plan (08/23/2017 2:01 PM PROFESSOR OF BUSINESS): Continue current dose of Levothyroxine and Cytomel [...] . 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 Not on file Not [...] 172.7 cm (5' 7.99) 10/12/2018 3:32 PM CD T Body Mass Index 39.85 10/12/2018 3:32 PM CDT Plan of Treatment Not on file Medical Devices Implanted Type Area Fishing Floats Assembler Device Identifier Shelf Expiration Date Model / Serial / Lot [employer] 3122-040 Smartset Medium Viscosity Cement 40gm Bone Sterile - [id number] Implanted:Qty: 1 on 09/22/2018 by Jordan Jones MD at [facility] [employer] 03/26/2020 3122-040 / / [employer] [id number] Smartset Medium Viscosity Cement 40gm Bone Gentamicin - [id number] Implanted:Qty: 1 on 09/22/2018 by Jordan Jones MD at [facility] [employer] 08/19/2019 [id number] / / [employer] [id number] Attune Cemented Cruciate Retaining Knee Left 7 Component Femoral - [id number] Implanted:Qty: 1 on 09/22/2018 by Jordan Jones MD at [facility] [employer] [id number] 03/26/2028 [id number] / / [employer] [id number] Attune 14mm 50mm Cemented Revision Knee Stem Femoral Sterile - [id number] Implanted:Qty: 1 on 09/22/2018 by Jordan Jones MD at [facility] [employer] [id number] 01/25/2028 [id number] / / [employer] [id number] Attune Cement Revision Fix Bearing Knee 7 Baseplate Tibial - [id number] Implanted:Qty: 1 on 09/22/2018 by Jordan Jones MD at [facility] [employer] [id number] 12/25/2027 [id number] / / [employer] [id number] Attune 7mm Cruciate Retaining Fix Bearing Knee 7 Insert Tibial - [id number] Implanted:Qty: 1 on 09/22/2018 by Jordan Jones MD at [facility] [employer]it [employer] [id number] 04/26/2022 [id number] / / Procedures Procedure Name Priority Date/Time Associated Diagnosis Comments POCT HEMOGLOBIN A1C Routine Gen Lab 08/31/2018 1:15 PM PROFESSOR OF BUSINESS LIPID PANEL Routine 08/15/2017 1:25 PM PROFESSOR OF BUSINESS Type 2 diabetes mellitus with hyperglycemia, without long-term current use of insulin (HCC) from Last 3 Months or Most Recently Relevant to Health Maintenance Results * POCT hemoglobin A1c (08/31/2018 1:15 PM PROFESSOR OF BUSINESS) Pathologist [facility] Hgb A1C, POC 6.0 4.0 - 6.0 % [facility] Est Average Gluc POC 126 mg/dL [facility] Comment: The ADA recommends reporting an estimated Average Glucose (eAG) with all Hemoglobin A1c results using the equation derived from a study of 507 normal and diabetic adults. Minority populations were underrepresented and children were not included. (Diabetes Care 31:7494-8398, 2008). The eAG is not equivalent to a fasting glucose. Blood specimen (specimen) 08/31/2018 1:15 PM PROFESSOR OF BUSINESS 08/31/2018 1:15 PM PROFESSOR OF BUSINESS Narrative [facility] - 08/31/2018 1:33 PM PROFESSOR OF BUSINESS us Jordan Jones MD POINT OF CARE TEST ORDERA BLES Final Result [facility] [place] [address] * (ABNORMAL) Lipid panel (08/15/2017 1:25 PM PROFESSOR OF BUSINESS) [facility] Cholesterol 247(H) 100 - 199 mg/dL [facility] - 01 Triglycerides 188(H) 0 - 149 mg/dL [facility] - 01 HDL Cholesterol 64 >39 mg/dL [facility] - 01 VLDL 38 5 - 40 mg/dL [facility] - 01 LDL, calculated 145(H) 0 - 99 mg/dL [facility] - 01 Blood specimen (specimen) 08/15/2017 1:25 PM PROFESSOR OF BUSINESS 08/15/2017 Narrative [facility] - 08/16/2017 6:14 AM PROFESSOR OF BUSINESS Performed at: 01 - [address] [id number] Clerk Analyst: David Díaz PhD, Phone: [phone] us Naty Norton NP LAB BLOOD ORDERABLES [facility] Organization Address City/State/ZIP Co de Phone Number [facility] - [facility] from Last 3 Months or Most Recently Relevant to Health Maintenance Insurance [facility] MEDICARE [facility] Advance Directives For more information, please contact: [phone] * Full Code (Latest Code Status on File) Date Activated Date Inactivated Comments 09/22/2018 11:29 AM 09/22/2018 10:23 PM Care Teams Credit Collections Clerk Relationship Specialty Start Date End Date Doreen Marte MD PCP - General 04/29/14
== END 2025-01-17 15:50 | disposition home or self-care (01) ==
LOC: ANHIMG 15:51
PROVIDERS: PCP Family Medicine; Visit Provider Family Medicine
DX: Z12.31 Encounter for screening mammogram for malignant neoplasm of breast (principal); R92.8 Other abnormal and inconclusive findings on diagnostic imaging of breast
CPT/HCPCS: 77063; 77067

== ENCOUNTER 2025-02-27 12:37 | Outpatient (CLI) | payer MEDICARE, OTHER, SELFPAY ==
--- OUTSIDE RECORDS SUMMARY | 2024-05-12 16:00 | XMS_ITS ---
Author Organization [facility] Address [address] [address] Care Team Providers Care Boat Joiner Helper Name Role Phone Meño Harpern Primary Care Provider [phone] Migration, Provider Unavailable Unavailable REAS[facility] FOR VISIT [facility] Encounter Medications Medication SIG (Take, Route, Frequency, Duration) Notes Start Date End Date Status Ondansetron HCl 4 MG 1 tab(s) orally twice daily as needed for nausea for 30 days 03/01/2024 Active Unithroid 88 MCG (0.088 MG) 1 TAB(S) ORALLY ONCE A DAY for 90 DAYS *Please review and pick correct strength-formulat ion from [email or web address].nl options. If intended option is not shown, discontinue and re-order from Quick Search* 03/05/2024 Active Liothyronine Sodium 5 MCG 1 tab(s) orally twice daily for 90 days 03/12/2024 Active oxyBUTYnin 5 MG/24 HR 1 TAB(S) ORALLY ON CE A DAY for 90 DAYS *Please review and pick correct strength-formulat ion from [email or web address].nl options. If intended option is not shown, discontinue and re-order from Quick Search* 03/12/2024 Active Lasix 20 MG 1 tab(s) orally once a day for 30 days 04/11/2024 Active Escitalopram Oxalate 20 MG TAKE 1 TABLET BY MOUTH EVERY DAY for 90 Days Active oxyBUTYnin 5 MG/24 HR 1 TAB(S) ORALLY ON CE A DAY for 90 DAYS *Please review and pick correct strength-formulat ion from [email or web address].nl options. If intended option is not shown, discontinue and re-order from Quick Search* 12/05/2023 Active ALPRAZolam 0.5 MG TAKE 1 TABLET BY MOUTH TWICE A DAY NEEDED FOR ANXIETY for 30 Days Active Unithroid 112 MCG (0.112 MG) TAKE 1 TABLET BY MOUTH EVERY DAY IN THE MORNING for 90 DAYS *Please review and pick correct strength-formulat ion from [email or web address].nl options. If intended option is not shown, discontinue and re-order from Quick Search* Active Spironolactone 50 MG take up to 2 tablet s orally daily for 90 days 12/19/2023 Active oxyBUTYnin Chloride 5 MG 1 tab(s) orally 3 times a day for 30 day(s) 10/31/2023 Active Gabapentin 300 MG TAKE 1 CAPSULE BY MOUTH THREE TIMES A DAY for 30 Days Active amLODIPine Besylate 5 MG 1 tab(s) orally once a day for 30 day(s) 10/31/2023 Active metFORMIN HCl ER 500 MG 1 tab(s) orally twice daily with meals for 90 days 10/31/2023 Active Ozempic (0.25 or 0.5 MG/DOSE) 2 MG/3ML inject 0.5 mg subcutaneously once a week for 90 days 10/31/2023 Active Potassium Chloride ER 20 MEQ 1 tab(s) orally 2 times a day for 30 days 04/18/2024 Active Liothyronine Sodium 5 MCG 1 tab(s) orally twice a day for 90 days 10/31/2023 Active Spironolactone 100 MG 1 tab(s) orally twice daily for 90 days 04/18/2024 Active Propranolol HCl 10 MG 1 tab(s) orally 2 times a day for 90 days 04/18/2024 Active METHYLCOBALAMIN B-12 1 MG 1 TAB(S) SUBLINGUALLY ONCE A DAY for 90 DAYS *Please review for potential replacement for e-prescription and drug interaction check* 10/31/2023 Active Encounters Encounter Location Date Provider Diagnosis [facility] [address] [address] 05/12/2024 Provider Migration Essential tremor G25.0 and Hypokalemia E87.6 Assessments Encounter Date Diagnosis (ICD Code) Assessment Notes Treatment Notes Treatment Clinical Notes Section Notes 05/12/2024 Essential tremor (ICD-10 - G25.0) 05/12/2024 Hypokalemia (ICD-10 - E87.6) Plan Of Treatment Medication Medication Name Sig Start Date Stop Date Notes Potassium Chloride ER 20 MEQ 1 tab(s) or ally 2 times a day for 30 days 04/18/2024 Spironolactone 100 MG 1 tab(s) orally tw ice daily for 90 days 04/18/2024 Propranolol HCl 10 MG 1 tab(s) orally 2 times a day for 90 days 04/18/2024 Progress Notes * Lorraine SAUCEDODOB:1955 (69 yo F)Acc No.[id number]:05/12/2024 Patient: Lorraine MUKHERJEE Provider: Juan Carlos Ricci :1955 A ge:68 Y S ex:Female Date:05/12/2024 Address:[address] [place], [place] [phone] Pcp:Mamta Harper Subjective: * Chief Complaints: * 1 . [facility] To [facility] Conversion Encounter. * Medical History: * Medications: [...] *Please review and pick correct strength-formulation from Evotecspan options. If intended option is not shown, discontinue and re-order from Quick Search*, Taking Unithroid 112 MCG (0.112 MG) TABLET TAKE 1 TABLET BY MOUTH EVERY DAY IN THE MORNING , Notes to Pharmacist: *Please review and pick correct strength-formulation from Evotecspan options. If intended option is not shown, [...] *Please review and pick correct strength-formulation from Evotecspan options. If intended option is not shown, discontinue and re-order from Quick Search*, Taking Liothyronine Sodium 5 MCG Tablet 1 tab(s) orally twice daily , Taking oxyBUTYnin 5 MG/24 HR TABLET, EXTENDED RELEASE 1 TAB(S) ORALLY ONCE A DAY , Notes to Pharmacist: *Please review and pick correct strength-formulation from Evotecspan options. If intended option is not shown, [...] Procedure Codes: * Electronic signature of Prov ider Migration on 02/27/2025 at 01:47 PM CDT Sign off status: Pending * Provider: Juan Carlos leija Migration Date: 07/12/2023 Generated for Gisselle renner/Amanda/Santiago on: 02/27/2025 01:47 PM CDT
--- OUTSIDE RECORDS SUMMARY | 2024-08-13 05:20 | XMS_ITS ---
Author Organization [employer] [facility] Address [address] [address] Care Team Providers Care Road Cutter Name Role Phone Mamta Harper Primary Care Provider [phone] REASON FOR VISIT 2 month f/u faraz Encounters Encounter Location Date Provider Diagnosis [facility] - Mamta Harper [address] [place] [address] 08/13/2024 Mamta Harper Plan Of Treatment No Information Progress Notes * Lorraine SAUCEDODOB:1955 (69 yo F)Acc No.[id number]:08/13/2024 Progress Notes Patient: Lorraine MUKHERJEE Provider: Viktoriya Harper MD :1955 A ge:68 Y S ex:Female Date:08/13/2024 Address:[facility] Subjective: * Chief Complaints: * 1 . 2 month f/u faraz. * Medical History: Objective: * Vitals: Assessment: Plan: * Treatment: * Billing Information: * Visit Code: * Procedure Codes: * Electronic signature of Meño Harper MD on 02/27/2025 at 01:46 PM CDT Sign off status: Pending * Provider: Viktoriya Harper MD Date: 08/13/2024 Generated for Printi ng/Faxing/eTransmitting on: 0 02/27/2025 01:46 PM CDT
--- NOTE | ~2025-02-27 | MMUS_ITS ---
EXAMINATION: US breast RT limited, MM diagnostic radha RT w jose guadalupe HISTORY: Inconclusive mammogram. Asymmetry seen in the right CC projection in the medial right breast at anterior to middle depth. Palpable abnormality in the right breast at the 1:00 position. No history of recent trauma to the right breast. TECHNIQUE: [Additional images of the right breast]] were performed using full field digital mammography. 3-D tomosynthesis were also obtained and synthetic 2- D images were generated. CAD analysis was submitted and interpreted. High resolution right breast ultrasound of the medial right breast from the 12 to 6:00 position was performed.] ] COMPARISON: Mammograms from 01/17/2025, 10/01/2023 and 08/19/2022 BREAST PARENCHYMAL COMPOSITION: There are scattered areas of fibroglandular density FINDINGS: MAMMOGRAPHIC FINDINGS: Redemonstration of asymmetry seen in the medial right breast, anterior to middle depth, seen in the right CC projections. No suspicious calcifications or architectural distortion. ULTRASOUND: There is a 3 x 3 x 3 mm hypoechoic mass in area of palpable concern in the right breast at the 1:00 position 5 cm from the nipple anterior depth. Margins are partially circumscribed partially indistinct. No internal color Doppler flow. No posterior acoustic shadowing. Questionable surrounding amorphous hyperechoic rim about the mass. The finding may possibly correspond with the asymmetry in the medial right breast. The constellation of findings are suspicious. An ultrasound-guided breast biopsy is recommended. IMPRESSION/RECOMMENDATION: 1. There is a mass in the area of palpable concern in the right breast at the 1:00 position 5 cm from the nipple. The finding is suspicious. An ultrasound- guided breast biopsy is recommended. 2. Probably benign mammographic finding in the medial right breast. A diagnostic right breast mammogram in 6 months is recommended. BI-RADS 4-Suspicious Protocol insures that results of the study are called and/or faxed to the referring clinician's office and documented in the patient's chart critical findings protocol. Reviewed, dictated and finalized at location Q. IMPRESSION/RECOMMENDATION: 1. There is a mass in the area of palpable concern in the right breast at the 1 :00 position 5 cm from the nipple. The finding is suspicious. An ultrasound-lobo ded breast biopsy is recommended. 2. Probably benign mammographic finding in the medial right breast. A diagnosti c right breast mammogram in 6 months is recommended. BI-RADS 4-Suspicious Protocol insures that results of the study are called and/or faxed to the refer ring clinician's office and documented in the patient's chart critical findings protocol. IMPRESSION/RECOMMENDATION: 1. There is a mass in the area of palpable concern in the right breast at the 1 :00 position 5 cm from the nipple. The finding is suspicious. An ultrasound-lobo ded breast biopsy is recommended. 2. Probably benign mammographic finding in the medial right breast. A diagnosti c right breast mammogram in 6 months is recommended. BI-RADS 4-Suspicious Protocol insures that results of the study are called and/or faxed to the refer ring clinician's office and documented in the patient's chart critical findings protocol.
--- OUTSIDE RECORDS SUMMARY | 2025-02-27 13:46 | XMS_ITS | Patient Health Record ---
Author Organization [facility] Address [address] [address] Care Team Providers Care District Manager Postal Service Name Role Phone Mamta Harper Primary Care Provider Migration, Provider Unavailable Unavailable Allergies No Known Allergies Results Component Value Reference Range Notes COMPREHENSIVE METABOLIC PANE L Reviewed date:03/29/2024 08:12:02 PM Interpretation: Performing Lab:[facility] [employer] [facility], [address] [place], [address] Karey Zamora Notes/Report: FASTING:YES FASTING: YES T3, FREE Reviewed date:03/29/2024 08:13:29 PM Interpretation: Performing Lab:[facility], [address] [place], [address] Karey Zamora MD Notes/Report: FASTING:YES FASTING: YES HEMOGLOBIN A1c Reviewed date:03/29/2024 08:10:47 PM Interpretation: Performing Lab:[facility] [employer] [facility] [place], [address] [place], [address] Karey Zamora Notes/Report: FASTING:YES FASTING: YES INSULIN Reviewed date:03/29/2024 08:11:03 PM Interpretation: Performing Lab:[facility], [address] [place], [address] Karey Zamora MD Notes/Report: FASTING:YES FASTING: YES CBC (INCLUDES DIFF/PLT) Reviewed date:03/29/2024 08:13:18 PM Interpretation: Performing Lab:[facility] [employer], [address] [place], [address] [facility] Notes/Report: FASTING:YES FASTING: YES VITAMIN B12/FOLATE, SERUM PA ENRIQUE Reviewed date:03/29/2024 08:11:13 PM Interpretation: Performing Lab:[facility], [address], [place], [address] Karey Zamora MD Notes/Report: FASTING:YES FASTING: YES IRON AND TOTAL IRON BINDING CAPACITY Reviewed date:03/29/2024 08:13:00 PM Interpretation: Performing Lab:[facility], [address], [place], [address] Karey Zamora MD Notes/Report: FASTING:YES FASTING: YES LIPID PANEL Reviewed date:03/29/2024 08:12:32 PM Interpretation: Performing Lab:[email or web address] [place], [address] , [place], [address] [facility] Tara Notes/Report: FASTING:YES FASTING: YES T4, FREE Reviewed date:04/03/2024 10:47:57 PM Interpretation: Performing Lab:[facility] [email or web address] [place], [address] , [place], [address] [facility] Notes/Report: FASTING:YES FASTING: YES TSH Reviewed date:03/29/2024 08:12:14 PM Interpretation: Performing Lab:[facility] [email or web address], [address] , [place], [address] [facility] Notes/Report: FASTING:YES FASTING: YES COMPREHENSIVE METABOLIC PANE L Reviewed date:04/19/2024 02:01:27 PM Interpretation: Performing Lab:[facility], [address], [place], [address] Karey Zamora MD Notes/Report: FASTING: YES T3, FREE Reviewed date:04/18/2024 07:54:56 PM Interpretation: Performing Lab:[facility], [address], [place], [address] Karey Zamora MD Notes/Report: FASTING: YES HEMOGLOBIN A1c Reviewed date:04/18/2024 08:01:56 PM Interpretation: Performing Lab:JACKIE, [facility], [address], [place], [address] Karey Zamora MD Notes/Report: FASTING: YES CBC (INCLUDES DIFF/PLT) Reviewed date:04/18/2024 08:01:38 PM Interpretation: Performing Lab:JACKIE, [facility], [address], [place], [address] Karey Zamora MD Notes/Report: FASTING: YES VITAMIN B12/FOLATE, SERUM PA ENRIQUE Reviewed date:04/18/2024 08:02:42 PM Interpretation: Performing Lab:[facility], [address], [place], [address] Karey Zamora MD Notes/Report: FASTING: YES IRON AND TOTAL IRON BINDING CAPACITY Reviewed date:04/18/2024 08:02:16 PM Interpretation: Performing Lab:[facility], [address], [place], [address] Karey Zamora MD Notes/Report: FASTING: YES LIPID PANEL Reviewed date:04/18/2024 08:02:07 PM Interpretation: Performing Lab:[facility], [address], [place], [address] Karey Zamora MD Notes/Report: FASTING: YES T4, FREE Reviewed date:04/18/2024 08:02:25 PM Interpretation: Performing Lab:[facility], [address], [place], [address] Karey Zamora MD Notes/Report: FASTING: YES TSH Reviewed date:04/18/2024 08:01:48 PM Interpretation: Performing Lab:[facility], [address], [place], [address] Karey Zamora MD Notes/Report: FASTING: YES COMPREHENSIVE METABOLIC PANE L Reviewed date:04/29/2024 10:46:30 AM Interpretation: Performing Lab:[facility], [address] [place], [address] [facility] Zamora Notes/Report: COMPREHENSIVE METABOLIC PANE L Reviewed date:05/11/2024 08:25:38 AM Interpretation: Performing Lab:SL, [facility], [address] [place], [address] [facility] Tara Zamora Notes/Report: T4, FREE Reviewed date:05/06/2024 09:18:11 AM Interpretation: Performing Lab:SL, [facility], [address] [place], [address] [facility] Tara Zamora Notes/Report: TSH Reviewed date:05/06/2024 09:17:52 AM Interpretation: Performing Lab:SL, [facility], [address] [place], [address] [facility] Tara Zamora Notes/Report: T3, FREE Reviewed date:06/09/2024 10:39:13 AM Interpretation: Performing Lab:JACKIE, [facility], [address] [place], [address] [facility] Nicanor Zamora MD Notes/Report: HEMOGLOBIN A1c Reviewed date:06/09/2024 10:39:13 AM Interpretation: Performing Lab:DAMARIS, [facility], [address] [place], [address] [facility] T[facility] Zamora Notes/Report: LIPID PANEL Reviewed date:06/09/2024 10:39:13 AM Interpretation: Performing Lab:SL, [facility], [address] [place], [address] [facility] Tara Zamora Notes/Report: T4, FREE Reviewed date:06/09/2024 10:39:13 AM Interpretation: Performing Lab:SL, [facility], [address] [place], [address] [facility] Tara Zamora Notes/Report: TSH Reviewed date:06/09/2024 10:39:13 AM Interpretation: Performing Lab:SL, [facility], [address] [place], [address] [facility] Tara Zamora Notes/Report: COMPREHENSIVE METABOLIC PANE L (Not yet reviewed by provider) Interpretation: Performing Lab:SL, [facility], [address] [place], [address] [facility] Notes/Report: FASTING:YES FASTING: YES CYCLIC CITRULLINATED PEPTIDE (CCP) AB (IGG) (Not yet reviewed by provider) Interpretation: Performing Lab:JACKIE, [email or web address], [address], [place], [address] Karey Zamora MD Notes/Report: FASTING:YES FASTING: YES T3, FREE (Not yet reviewed b y provider) Interpretation: Performing Lab:JACKIE, [facility], [address], [place], [address] ClairMraiana Zamora MD Notes/Report: FASTING:YES FASTING: YES RHEUMATOID FACTOR (Not yet r eviewed by provider) Interpretation: Performing Lab:JACKIE, [facility], [address], [place], [address] ClairMariana Zamora MD Notes/Report: FASTING:YES FASTING: YES C-REACTIVE PROTEIN (Not yet reviewed by provider) Interpretation: Performing Lab:[email or web address], [address] [place], [address] [facility] Notes/Report: FASTING:YES FASTING: YES HEMOGLOBIN A1c (Not yet revi ewed by provider) Interpretation: Performing Lab:[email or web address], [address] [place], [address] [facility] Notes/Report: FASTING:YES FASTING: YES CBC (INCLUDES DIFF/PLT) (Not yet reviewed by provider) Interpretation: Performing Lab:[email or web address], [address] [place], [address] [facility] Notes/Report: FASTING:YES FASTING: YES SED RATE BY MODIFIED ISAIAH JERMAINE (Not yet reviewed by provider) Interpretation: Performing Lab:[email or web address], [address] [place], [address] [place] [address] Notes/Report: FASTING:YES FASTING: YES T4, FREE (Not yet reviewed b y provider) Interpretation: Performing Lab:[email or web address], [address] [place], [address] [facility] Notes/Report: FASTING:YES FASTING: YES TSH (Not yet reviewed by pro vider) Interpretation: Performing Lab:, [facility], [address], [place], [address] [facility] Notes/Report: FASTING:YES FASTING: YES Reason For Referral Reason 9 mm right adrenal a denoma, 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, off korlym could not tolerate, chronic hypokalemia even on highest dose spironolactone Referral Organization [facility] [employer] [facility] [employer] - Mamta Harper Referring Provider First Name Mamta Referring Provider Last Name Leroy Referring Provider Speciality Internal M edicine Referred Provider Specialty Urology Referral Priority Routine Medications Medication SIG (Take, Route, Frequency, Duration) Notes Start Date End Date Status PROPRANOLOL HYDROCHLORIDE 10 mg 1 tab(s) orally 2 times a day for 90 days 04/18/2024 Active POTASSIUM CHLORIDE (PWC-CVVA-OGP M20) 20 mEq 1 tab(s) orally 2 [...] 20 MG TAKE 1 TABLET BY MK EVERY DAY for 90 Days Unknown METFORMIN [...] Status W/U Status Risk Notes Problem Hypothyroidism (24079974) Hypothyroidism, unspecified (E03.9) Active confirmed Problem Essential tremor (875748324) Essential tremor (G25.0) Active confirmed Problem Obesity (427334882) Obesity, unspecified (E66.9) Active confirmed 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, 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 Problem Disorder of adrenal gland (76617094) Disorder of adrenal gland, unspecified (E27.9) Active confirmed Problem Generalized anxiety disorder (19330758) Generalized anxiety disorder (F41.1) Active confirmed Problem SI - Stress incontinence (21768546) Stress incontinence (female) (male) (N39.3) Active confirmed Problem Menopause (303663713) Menopausal and female climacteric states (N95.1) Active confirmed Problem Functional urinary incontinence (933524773) 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) Active confirmed Vital Signs Heart Rate 89 /min 06/11/2024 Blood pressure diastolic 81 mm Hg 06/11/2024 Height 69 in 06/11/2024 Blood pressure systolic 127 mm Hg 06/11/2024 Weight 228.8 lbs 06/11/2024 BMI 33.78 kg/m2 06/11/2024 Encounters Encounter Location Date Provider Diagnosis [facility] [address] [place] [address] 05/12/2024 Provider Migration Essential tremor G25.0 and Hypokalemia E87.6 [facility], [facility] - Mamta Harper [address] [place] [address] 08/13/2024 Mamta Harper [facility], [facility] Mamta [facility] [address] [place] [address] 03/05/2024 Mamta Leroy Hypothyroidism, unspecified E03.9 ; Monsey's syndrome, 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 ; Obesity, unspecified E66.9 ; Disorder of adrenal gland, unspecified E27.9 and Prediabetes R73.03 [facility] [address] [place] [address] 04/16/2024 Mamta Harper Sharee's syndrome, 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 ; Hypothyroidism, unspecified E03.9 ; Essential tremor G25.0 and Obesity, unspecified E66.9 [facility] Mamta [facility] [address] [place] [address] 05/14/2024 Mamta Leroy Hypothyroidism, unspecified E03.9 ; Monsey's syndrome, 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 ; Generalized anxiety disorder F41.1 ; Benign neoplasm of right adrenal gland D35.01 and Heartburn R12 [facility] Mamta [facility] [id number] [place] [address] 06/11/2024 Mamta Leroy Hypothyroidism, unspecified E03.9 ; Obesity, unspecified E66.9 ; Disorder of adrenal gland, unspecified E27.9 ; Monsey's syndrome, 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 ; Insulin resistance, unspecified E88.819 ; Urinary tract infection, site not specified N39.0 and Dietary counseling and surveillance Z71.3 [facility] [id number] [place] [address] 03/01/2024 Mamta Leroy Nausea R11.0 [facility] [address] [address] 03/01/2024 Mamta Harper [facility] [address] [address] 03/12/2024 Mamta Leroy Hypothyroidism, unspecified E03.9 and Functional urinary incontinence R39.81 [facility] Mamta [facility] [address] [place] [address] 03/27/2024 Mamta Harper [facility], [facility] - Mamta [facility] [address] [place] [address] 04/05/2024 Mamta Harper Edema, unspecified R60.9 [facility] [address] [address] 04/18/2024 Mamta Harper Hypokalemia E87.6 an d Essential tremor G25.0 [facility], [facility] - Mamta [facility] [id number] [place] [address] 04/23/2024 Mamta Harper [facility], [facility] Mamta [address] [address] 04/27/2024 Mamta Harper [facility], [facility] Mamta [facility] [address] [place] [address] 05/03/2024 Mamta Harper [facility] [address] [address] 05/16/2024 Mamta Harper [facility] [address] [address] 05/25/2024 Mamta Leroy [facility] [address] [address] 06/04/2024 Mamta Harper Assessments Encounter Date Diagnosis [...] have adrenal adenoma and high DST/abnormal). 03/05/2024 Monsey's syndrome, 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) Continue korlym [...] have endometrial hyperplasia concerns as SE. 04/16/2024 Monsey's syndrome, 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) 05/14/2024 Hypothyroidism, unspecified (ICD-10 - E03.9) 05/14/2024 Monsey's syndrome, 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) 06/11/2024 Hypothyroidism, [...] 06/11/2024 Sharee's syndrome, 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) 03/05/2024 Prediabetes (ICD-10 - R73.03) Discussed carb counting and how to read food labels. Recommended patient to utilize the diabetesTravelerCar.PreciouStatus from the ADA website to help with [...] procedures, referring and communicating with other health companion caregiver, documenting clinical information in the electronic or other health record, independently interpreting results and communicating results to the patient/family/caregi laura and care coordinating patient plan. Patient alert and oriented x 4 and aware of discussion noted above and in agreeance to plan in management of cushings syndrome, hypothyroidism, prediabetes, weight management and nausea/headche management. 04/16/2024 Other Assessment and Plan: 1. Monsey's syndrome:- Continue Korlym 300 mg twice a [...] Consider starting low-dose propranolol after consulting with [facility] and judicial reporter- Monitor tremor severity and adjust treatment if [...] procedures, referring and communicating with other health companion caregiver, documenting clinical information in the electronic or [...] Refer the patient to Dr. Martinez at [facility] for evaluation of adrenal adenoma and potential [...] nausea and vomiting. Consider referral to a selector packer if symptoms persist. 4. Insomnia:- Patient reports [...] Refer the patient to Dr. Candelario at [facility] or Dr. Martinez at [facility] for evaluation of adrenal adenoma and potential [...] procedures, referring and communicating with other health companion caregiver, documenting clinical information in the electronic or [...] Monitor symptoms and consider referral to a medical administrative specialist if needed. 5. Edema- Patient reports improvement [...] for Ozempic- Patient's insurance will change to [employer] on June 27. Ensure coverage for Ozempic and coordinate with the primary care physician for any necessary prior authorizations. 10. Upcoming appointment with Dr. Martinez on July 04- Ensure all relevant records, including CT scan, recent notes, labs, and dexamethasone suppression test, are sent to Dr. Martinez at [facility] prior to the appointment. Spent 15 minutes [...] procedures, referring and communicating with other health companion caregiver, documenting clinical information in the electronic or [...] (INCLUDES DIFF/PLT) 08/06/2024 SED RATE BY MODIFIED SYMONEERGREN 08/06/19 25 T4, FREE 08/06/2024 TSH 08/06/2024 CT adrenal gland W/WO 11/25/2023 CT adrenal gland W/WO 11/30/2023 Insurance Providers Payer Name Payer Address Payer Phone Subscriber Number Group Number Insured Name Patient Relationship to Insured Coverage Start Date Coverage End Date Medicare [address] [address] [place] [address] [id number] Lorraine Boateng Self - patient is the insured [facility] [employer] [address] [place] [phone] [id number] Lorraine Boateng Self - patient is the insured Medical (General) History Medical History History ICD Code hypothyroidism prediabetes cushings syndrome adrenal adenoma
--- OUTSIDE RECORDS SUMMARY | 2025-02-27 13:46 | XMS_ITS | Clinical Summary ---
Author Organization [facility] carlene [place] Address [address] [facility] [facility] [address] [address] Care Team Providers Care Break Out Man Name Role Phone Unavailable Primary Care Provider [...] Take 1 Tablet by mouth daily. Active N60-mhvlrtlpcu ahydrofolate-B 6 1,000mcg-680mc g DFE-1.5 mg Tablet, [...] Encounters Date Type Department Care Team Description 01/29/2025 External Device Data [facility] Provider, Abstract 01/09/2025 External Device Data [facility] Provider, Abstract 01/08/2025 External Device Data [facility] Provider, Abstract 12/18/2024 External Device Data [facility] Provider, Abstract 11/28/2024 1:00 PM CDT Office Visit [facility] Endocrinology [address] [place] [address] Russell Rasmussen MD Elevated cortisol level (Primary Dx); Hypotension due to drugs from Last 3 Months Family History Medical [...] on file Legal Sex 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 Gender Identity Not on file Sexual Orientation [...] st Contact Info) Description 05/06/2025 11:30 AM CONSUMER SAFETY INSPECTOR Office Visit [facility] Oncology and Hematology [facility] [address] [facility] [address] [place] [address] Vicente Conklin MD [address] [facility] [address] [place] [address] Health Maintenance Due Date Last [...] OSTEOPOROSIS SCREENING 12/03/2020 INFLUENZA VACCINE (#1) 2025 Insurance MEDICARE PART A AND B [employer] [facility] MEDIC[facility] PART A [facility] B [facility] [place] [address]
--- OUTSIDE RECORDS SUMMARY | 2025-02-27 13:46 | XMS_ITS | Clinical Summary ---
Author Organization [facility] Address [address] [place] [address] Care Team Providers Care Obstetrics Gynecology Md Name Role Phone Doreen Marte MD Primary Care Provider [phone] Allergies Active Allergy Reactions Criticality Noted Date Comments Amoxicillin-Pot Clavulanate Rash Medium 01/24/20 18 Codeine Levofloxacin Hives Medium 08/14/2018 Morphine Other Rash,Blisters High 01/23/2018 TAPE/ ADHESIVE Oxycodone Oxycodone-Acetaminophen Hypotension High 09/22/2018 Medications blood glucose diagnostic ([employer] Medical SystemsTOUCH ULTRA TEST) strip Test sugars daily and [...] (08/14/2018): Added automatically from request for surgery [id number] Chronic fatigue 04/25/2018 Hypercholesterolemia 08/23/2017 Assessment & Plan (08/23/2017 2:10 PM CONTRACT NEGOTIATION MANAGER): Goal of treatment , LDL cholesterol less [...] taken. Assessment & Plan (08/23/2017 2:01 PM CONTRACT NEGOTIATION MANAGER): Continue current dose of Levothyroxine and Cytomel [...] . Assessment & Plan (08/23/2017 2:00 PM CONTRACT NEGOTIATION MANAGER): Hba1c was 6.0 today, indicating DM control [...] accordingly Assessment & Plan (08/23/2017 2:04 PM CONTRACT NEGOTIATION MANAGER[place] [address] IU twice a week Surgical History Surgery Date Site/Laterality Comments CHOLECYSTECTOMY 06/27/2005 - 06/26/2006 Cholecystectomy POSTERIOR LAMINECTOMY / DECOMPRESSION LUMBAR SPINE 07/19/2017 L4-L5-S1 ANTERIOR FUSION CERVICAL SPINE COLONOSCOPY HYSTERECTOMY 06/27/1995 - 06/26/1996 Left salpingo-oophorectom y SALPINGOOPHORECTOMY Right Medical History Medical History Date Comments Disorder of thyroid Thyroid dise ase Diabetes mellitus (HCC) Diabetes Hx Other Medical Claustrophobic; Comments: [facility] 04/29/2014 - PONV (postoperative nausea and vomiting) [...] on file Legal Sex Female 12:34 PM CONTRACT NEGOTIATION MANAGER Gender Identity Not on file Sexual Orientation Not on file 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 Not on file Not on file Not [...] 2025 04/29/2018 Medical Devices Implanted Type Area C Software Engineer Device Identifier Shelf Expiration Date Model / Serial / Lot [employer] 3122-040 Smartset Medium Viscosity Cement 40gm Bone Sterile - [id number] Implanted:Qty: 1 on 09/22/2018 by Jordan Jones MD at [facility] [employer] 03/26/2020 [id number] / / [employer] [id number] Smartset Medium Viscosity Cement 40gm Bone Gentamicin - [id number] Implanted:Qty: 1 on 09/22/2018 by Jordan Jones MD at [facility] [employer] 08/19/2019 [id number] / / [employer] [id number] Attune Cemented Cruciate Retaining Knee Left 7 Component Femoral - [id number] Implanted:Qty: 1 on 09/22/2018 by Jordan Jones MD at [facility] [employer] [id number] 03/26/2028 [id number] / / [employer] [id number] Attune 14mm 50mm Cemented Revision Knee Stem Femoral Sterile - [id number] Implanted:Qty: 1 on 09/22/2018 by Jordan Jones MD at [facility] [employer] [id number] 01/25/2028 [id number] / / [employer] [id number] Attune Cement Revision Fix Bearing Knee 7 Baseplate Tibial - [id number] Implanted:Qty: 1 on 09/22/2018 by Jordan Jones MD at [facility] [employer] [id number] 12/25/2027 [id number] / / [employer] [id number] Attune 7mm Cruciate Retaining Fix Bearing Knee 7 Insert Tibial - [id number] Implanted:Qty: 1 on 09/22/2018 by Jordan Jones MD at [facility] [employer] [id number] 04/26/2022 [id number] / / Procedures Procedure Name Priority Date/Time Associated Diagnosis Comments POCT HEMOGLOBIN A1C Routine Gen Lab 08/31/2018 1:15 PM CONTRACT NEGOTIATION MANAGER LIPID PANEL Routine 08/15/2017 1:25 PM CONTRACT NEGOTIATION MANAGER Type 2 diabetes mellitus with hyperglycemia, without long-term current use of insulin (HCC) from Last 3 Months or Most Recently Relevant to Health Maintenance Results * POCT hemoglobin A1c (08/31/2018 1:15 PM CONTRACT NEGOTIATION MANAGER) Pathologist [facility] [place] Hgb A1C, POC 6.0 4.0 - 6.0 % [facility] Est Average Gluc POC 126 mg/dL [facility] Comment: The ADA recommends reporting an estimated Average Glucose (eAG) with all Hemoglobin A1c results using the equation derived from a study of 507 normal and diabetic adults. Minority populations were underrepresented and children were not included. (Diabetes Care 31:7654-4743, 2008). The eAG is not equivalent to a fasting glucose. Blood specimen (specimen) 08/31/2018 1:15 PM CONTRACT NEGOTIATION MANAGER 08/31/2018 1:15 PM CONTRACT NEGOTIATION MANAGER Narrative [facility] - 08/31/2018 1:33 PM CONTRACT NEGOTIATION MANAGER us Jordan Jones MD POINT OF CARE TEST ORDERA BLES Final Result [facility] Department [place] [address] * (ABNORMAL) Lipid panel (08/15/2017 1:25 PM CONTRACT NEGOTIATION MANAGER) [facility] Cholesterol 247(H) 100 - 199 mg/dL [facility] - 01 Triglycerides 188(H) 0 - 149 mg/dL [facility] - 01 HDL Cholesterol 64 >39 mg/dL [facility] - 01 VLDL 38 5 - 40 mg/dL [facility] - 01 LDL, calculated 145(H) 0 - 99 mg/dL [facility] - 01 Blood specimen (specimen) 08/15/2017 1:25 PM CONTRACT NEGOTIATION MANAGER 08/15/2017 Narrative [facility] - 08/16/2017 6:14 AM CONTRACT NEGOTIATION MANAGER Performed at: 01 - [address] [id number] Coremaking Machine Setter: David Díaz PhD, Phone: [phone] us Naty Norton NP LAB BLOOD ORDERABLES [facility] Organization Address City/State/ZIP Co de Phone Number [facility] from Last 3 Months or Most Recently Relevant to Health Maintenance Insurance [facility] MEDICARE [facility] Advance Directives For more information, please contact: [phone] * Full Code (Latest Code Status on File) Date Activated Date Inactivated Comments 09/22/2018 11:29 AM 09/22/2018 10:23 PM Care Teams Obstetrics Gynecology Md Relationship Specialty Start Date End Date Doreen Marte MD PCP - General 04/29/14
--- OUTSIDE RECORDS SUMMARY | 2025-02-27 13:47 | XMS_ITS | Clinical Summary ---
Author Organization [facility] Address [address] [place] [address] Care Team Providers Care Glazing Machine Operator Name Role Phone Doreen Marte MD Primary Care Provider [phone] Efe Bhat MD Unavailable [phone] Source Comments [facility],non-owned Affiliates and Associated Physician Practices is amultiple site organization consisting of ambulatory clinics and hospital sitesin [place], [place], [place] and [place]. This disclosure is being madepursuant to the Care Everywhere program and may not contain all information available regarding this patient. Last updated 18.[facility] Allergies Active Allergy Reactions Criticality Noted Date Comments Adhesive Sensitivity 10/12/2013 Augmentin 10/12/2013 Codeine 10/12/2013 Latex 10/12/2013 Levofloxacin 06/11/2017 Morphine 10/12/2013 Oxycodone-Acetaminophen 10/12/2013 Medications * Be aware that medications may not be up to date on this document. Alwaysverify current medications with the patient. vitamin D, ergocalciferol , (DRISDOL) 80385 UNITS capsule Take 1 (one) capsule by [...] Comments Blood Pressure 126/87 07/04/2024 3:46 PM [facility] Pulse 98 07/04/2024 3:46 PM [facility] Temperature 36.1 C (97 F) 07/04/2024 3:46 PM [facility] Respiratory Rate 16 06/11/2017 10:54 AM [facility] Oxygen Saturation 94% 07/04/2024 3:46 PM [facility] Inhaled Oxygen Concentration - - Weight 93.4 kg (206 lb) 07/04/2024 3:46 PM [facility] Height 175.3 cm (5' 9) 07/04/2024 3:46 PM [facility] Body Mass Index 30.42 07/04/2024 3:46 PM [facility] Plan of Treatment Health Maintenance Due Date [...] 1995 ZOSTER VACCINE (1 of 2) 12/03/2005 DEPRESSION SCREENING 06/27/2024 DIABETES - URINE PROTEIN SCREENING 06/27/2024 DIABETES RETINOPATHY SCREENING 07/04/2024 DIABETES-FOOT EXAM WITH MONOFILAMENT 07/04/2024 DIABETES-HGB A1C 07/04/2024 08/31/2018 COVID-19 VACCINE (1 - 2023-2 5 season) 2025 INFLUENZA VACCINE (#1) 2025 Respiratory Syncytial Virus [...] age to complete this topic Insurance MEDICARE [facility] Care Teams Glazing Machine Operator Relationship Specialty Start Date End Date Doreen Marte MD [address] [place] [address] PCP - General Family Medicine 10/12/13 [place] [id number] [address] Orthopedic Surgery 10/12/13
== END 2025-02-27 12:38 | disposition home or self-care (01) ==
LOC: ANHFOHIMG 12:37
PROVIDERS: PCP Family Medicine; Visit Provider Family Medicine
DX: R92.8 Other abnormal and inconclusive findings on diagnostic imaging of breast (principal)
CPT/HCPCS: 76642; 77061; 77065; G0279

== ENCOUNTER 2025-03-08 08:33 | Outpatient (CLI) | payer MEDICARE, OTHER, SELFPAY ==
--- OUTSIDE RECORDS SUMMARY | 2024-05-12 16:00 | XMS_ITS ---
Author Organization [facility] Address [address] [address] Care Team Providers Care Adjunct Faculty For Medical Terminology Name Role Phone Meño Harpern Primary Care Provider Migration, Provider Unavailable Unavailable REAS[facility] VISIT [facility] Encounter Medications Medication SIG (Take, Route, Frequency, Duration) Notes Start Date End Date Status Ondansetron HCl 4 MG 1 tab(s) orally twice daily as needed for nausea for 30 days 03/01/2024 Active Unithroid 88 MCG (0.088 MG) 1 TAB(S) ORALLY ONCE A DAY for 90 DAYS *Please review and pick correct strength-formulat ion from Declara options. If intended option is not shown, discontinue and re-order from Quick Search* 03/05/2024 Active Liothyronine Sodium 5 MCG 1 tab(s) orally twice daily for 90 days 03/12/2024 Active oxyBUTYnin 5 MG/24 HR 1 TAB(S) ORALLY ON CE A DAY for 90 DAYS *Please review and pick correct strength-formulat ion from Declara options. If intended option is not shown, [...] review and pick correct strength-formulat ion from Declara options. If intended option is not shown, discontinue and re-order from Quick Search* 12/05/2023 Active ALPRAZolam 0.5 MG TAKE 1 TABLET BY MOUTH TWICE A DAY NEEDED FOR ANXIETY for 30 Days Active Unithroid 112 MCG (0.112 MG) TAKE 1 TABLET BY MOUTH EVERY DAY IN THE MORNING for 90 DAYS *Please review and pick correct strength-formulat ion from Declara options. If intended option is not shown, [...] Active Encounters Encounter Location Date Provider Diagnosis [facility] [address] [address] 05/12/2024 Provider Migration Essential tremor G25.0 and [...] Notes * Lorraine SAUCEDODOB:1955 (69 yo F)Acc No.[id number]:05/12/2024 Patient: Lorraine MUKHERJEE Provider: Juan Carlos Ricci :1955 A ge:68 Y S ex:Female Date:05/12/2024 Address:[address] [place], [place] [phone] Pcp:Mamta Harper Subjective: * Chief Complaints: * [facility] . [facility] * Medical History: * Medications: [...] *Please review and pick correct strength-formulation from RealMassivespan options. If intended option is not shown, discontinue and re-order from Quick Search*, Taking Unithroid 112 MCG (0.112 MG) TABLET TAKE 1 TABLET BY MOUTH EVERY DAY IN THE MORNING , Notes to Pharmacist: *Please review and pick correct strength-formulation from RealMass[employer]pan options. If intended option is not shown, [...] *Please review and pick correct strength-formulation from RealMassivespan options. If intended option is not shown, discontinue and re-order from Quick Search*, Taking Liothyronine Sodium 5 MCG Tablet 1 tab(s) orally twice daily , Taking oxyBUTYnin 5 MG/24 HR TABLET, EXTENDED RELEASE 1 TAB(S) ORALLY ONCE A DAY , Notes to Pharmacist: *Please review and pick correct strength-formulation from RealMassivespan options. If intended option is not shown, [...] Electronic signature of Prov ider Migration on 03/08/2025 at 08:46 AM CDT Sign off status: Pending * Provider: Juan Carlos leija Migration Date: 07/12/2023 Generated for Gisselle renner/Amanda/Santiago on: 03/08/2025 08:46 AM CDT
--- OUTSIDE RECORDS SUMMARY | 2024-08-13 05:20 | XMS_ITS ---
Author Organization [employer] [place] Address [address] [address] Care Team Providers Care Costume Designer Name Role Phone Mamta Harper Primary Care Provider REASON FOR VISIT 2 month f/u faraz Encounters Encounter Location Date Provider Diagnosis [facility] - Mamta Harper [address] [place] [address] 08/13/2024 Mamta Harper Plan Of Treatment No Information Progress Notes * Lorraine SAUCEDODOB:1955 (69 yo F)Acc No.[id number]:08/13/2024 Progress Notes Patient: Lorraine MUKHERJEE Provider: Viktoriya Harper MD :1955 A ge:68 Y S ex:Female Date:08/13/2024 Address:[facility] Subjective: * Chief Complaints: * 1 . 2 month f/u faraz. * Medical History: Objective: * Vitals: Assessment: Plan: * Treatment: * Billing Information: * Visit Code: * Procedure Codes: * Electronic signature of Meño Harper MD on 03/08/2025 at 08:45 AM CDT Sign off status: Pending * Provider: Viktoriya Harper MD Date: 08/13/2024 Generated for Printi ng/Faxing/eTransmitting on: 0 03/08/2025 08:45 AM CDT
--- NOTE | ~2025-03-08 | MMUS_ITS ---
PROCEDURE: MM post biopsy diagnostic RT, US breast biopsy RT w image CLINICAL HISTORY: 69-year-old female with suspicious right breast hypoechoic mass at 1:00 location that correlates to an area of palpable lump who presents for ultrasound-guided core needle biopsy procedure. COMPARISON: 02/27/2025 Following informed consent including risks, benefits, and possible complications, the patient was brought to the ultrasound suite. A time-out procedure was performed. A preliminary ultrasound of the right breast was performed, redemonstrating a superficial hypoechoic mass surrounded by echogenic tissue at 1:00, 5 cm from the nipple. The patient was prepped and draped in the usual sterile fashion. 1% lidocaine was instilled into the subcutaneous tissues. 1% lidocaine without epinephrine was injected into the deep tissues just inferior to the lesion. Approximately 15cc lidocaine was administered. A small skin deon was made. Multiple core samples were obtained with a 14-gauge multi pass biopsy needle. A post biopsy butterfly HydroMark marker was placed at the biopsy site. Postprocedural mammogram of the right breast in craniocaudal and mediolateral projections reveal the post biopsy metal marker in good position. The patient tolerated the procedure well and was without immediate postprocedural complications. IMPRESSION: Successful ultrasound guided biopsy of right breast mass at 1:00 location. A post biopsy metal marker was placed at the biopsy site, which is seen on postprocedural mammogram. The patient tolerated the procedure well without immediate postprocedure complications. The patient was given postprocedural instructions and sent home in stable condition. Reviewed, dictated and finalized at location B. IMPRESSION: Successful ultrasound guided biopsy of right breast mass at 1:00 lo cation. A post biopsy metal marker was placed at the biopsy site, which is seen on postprocedural mammogram. The patient tolerated the procedure well without immediate postprocedure compli cations. The patient was given postprocedural instructions and sent home in sta ble condition.
--- OUTSIDE RECORDS SUMMARY | 2025-03-08 08:45 | XMS_ITS | Patient Health Record ---
Author Organization [facility] Address [address] [address] Care Team Providers Care Senior Laboratory Technician Name Role Phone Mamta Harper Primary Care Provider Migration, Provider Unavailable Unavailable Allergies No Known Allergies Results Component Value Reference Range Notes COMPREHENSIVE METABOLIC PANE L Reviewed date:03/29/2024 08:12:02 PM Interpretation: Performing Lab:DAMARIS [facility], [address] [place], [address] Karey Zamora Notes/Report: FASTING:YES FASTING: YES T3, FREE Reviewed date:03/29/2024 08:13:29 PM Interpretation: Performing Lab:[facility], [address] [place], [address] Karey Zamora MD Notes/Report: FASTING:YES FASTING: YES HEMOGLOBIN A1c Reviewed date:03/29/2024 08:10:47 PM Interpretation: Performing Lab:DAMARIS [facility] [place], [address] [place], [address] Karey Zamora Notes/Report: FASTING:YES FASTING: YES INSULIN Reviewed date:03/29/2024 08:11:03 PM Interpretation: Performing Lab:[facility], [address] [place], [address] Karey Zamora MD Notes/Report: FASTING:YES FASTING: YES CBC (INCLUDES DIFF/PLT) Reviewed date:03/29/2024 08:13:18 PM Interpretation: Performing Lab:DAMARIS [facility], [address] [place], [address] [facility] Notes/Report: FASTING:YES FASTING: YES VITAMIN B12/FOLATE, SERUM PA ENRIQUE Reviewed date:03/29/2024 08:11:13 PM Interpretation: Performing Lab:[facility], [address], [place], [address] Karey Zamora MD Notes/Report: FASTING:YES FASTING: YES IRON AND TOTAL IRON BINDING CAPACITY Reviewed date:03/29/2024 08:13:00 PM Interpretation: Performing Lab:[facility], [address], [place], [address] Karey Zamora MD Notes/Report: FASTING:YES FASTING: YES LIPID PANEL Reviewed date:03/29/2024 08:12:32 PM Interpretation: Performing Lab:DAMARIS [facility], [address] , [place], [address] [facility] Tara Notes/Report: FASTING:YES FASTING: YES T4, FREE Reviewed date:04/03/2024 10:47:57 PM Interpretation: Performing Lab:DAMARIS [facility], [address] , [place], [address] [facility] Notes/Report: FASTING:YES FASTING: YES TSH Reviewed date:03/29/2024 08:12:14 PM Interpretation: Performing Lab:DAMARIS [facility], [address] , [place], [address] [facility] Tara Notes/Report: FASTING:YES FASTING: YES COMPREHENSIVE METABOLIC PANE L Reviewed date:04/19/2024 02:01:27 PM Interpretation: Performing Lab:[facility], [address], [place], [address] Karey Zamora MD Notes/Report: FASTING: YES T3, FREE Reviewed date:04/18/2024 07:54:56 PM Interpretation: Performing Lab:[facility], [address], [place], [address] Karey Zamora MD Notes/Report: FASTING: YES HEMOGLOBIN A1c Reviewed date:04/18/2024 08:01:56 PM Interpretation: Performing Lab:JACKIE, [facility], [address], [place], [address] Karey Zamora MD Notes/Report: FASTING: YES CBC (INCLUDES DIFF/PLT) Reviewed date:04/18/2024 08:01:38 PM Interpretation: Performing Lab:JACKIE, [facility], [address], [place], [address] Karey Zamora MD Notes/Report: FASTING: YES VITAMIN B12/FOLATE, SERUM PA ENRIQUE Reviewed date:04/18/2024 08:02:42 PM Interpretation: Performing Lab:[facility], [address], [place], [address] Karey Zamora MD Notes/Report: FASTING: YES IRON AND TOTAL IRON BINDING CAPACITY Reviewed date:04/18/2024 08:02:16 PM Interpretation: Performing Lab:[facility], [address], [place], [address] Karey Zamora MD Notes/Report: FASTING: YES LIPID PANEL Reviewed date:04/18/2024 08:02:07 PM Interpretation: Performing Lab:[facility], [address], [place], [address] Karey Zamora MD Notes/Report: FASTING: YES T4, FREE Reviewed date:04/18/2024 08:02:25 PM Interpretation: Performing Lab:[facility], [address], [place], [address] Karey Zamora MD Notes/Report: FASTING: YES TSH Reviewed date:04/18/2024 08:01:48 PM Interpretation: Performing Lab:[facility], [address], [place], [address] Karey Zamora MD Notes/Report: FASTING: YES COMPREHENSIVE METABOLIC PANE L Reviewed date:04/29/2024 10:46:30 AM Interpretation: Performing Lab:[facility], [address] [place], [address] [facility] Tara Zamora Notes/Report: COMPREHENSIVE METABOLIC PANE L Reviewed date:05/11/2024 08:25:38 AM Interpretation: Performing Lab:SL, [facility], [address] [place], [address] [facility] Tara Zamora Notes/Report: T4, FREE Reviewed date:05/06/2024 09:18:11 AM Interpretation: Performing Lab:SL, [facility], [address] [place], [address] [facility] Tara Zamora Notes/Report: TSH Reviewed date:05/06/2024 09:17:52 AM Interpretation: Performing Lab:SL, [facility], [address] [place], [address] [facility] Tara Zamora Notes/Report: T3, FREE Reviewed date:06/09/2024 10:39:13 AM Interpretation: Performing Lab:JACKIE, [facility], [address] [place], [address] [facility] Nicanor Zamora MD Notes/Report: HEMOGLOBIN A1c Reviewed date:06/09/2024 10:39:13 AM Interpretation: Performing Lab:DAMARIS, [facility], [address] [place], [address] [facility] Tara Zamora Notes/Report: LIPID PANEL Reviewed date:06/09/2024 10:39:13 AM Interpretation: Performing Lab:SL, [facility], [address] [place], [address] [facility] Tara Zamora Notes/Report: T4, FREE Reviewed date:06/09/2024 10:39:13 AM Interpretation: Performing Lab:SL, [facility], [address] [place], [address] [facility] Tara Zamora Notes/Report: TSH Reviewed date:06/09/2024 10:39:13 AM Interpretation: Performing Lab:SL, [facility], [address] [place], [address] [facility] Tara Zamora Notes/Report: COMPREHENSIVE METABOLIC PANE L (Not yet reviewed by provider) Interpretation: Performing Lab:SL, [facility], [address] [place], [address] [facility] Notes/Report: FASTING:YES FASTING: YES CYCLIC CITRULLINATED PEPTIDE (CCP) AB (IGG) (Not yet reviewed by provider) Interpretation: Performing Lab:JACKIE, [facility], [address], [place], [address] Karey Zamora MD Notes/Report: FASTING:YES FASTING: YES T3, FREE (Not yet reviewed b y provider) Interpretation: Performing Lab:JACKIE, [facility], [address], [place], [address] Clair[facility]ariana Zamora MD Notes/Report: FASTING:YES FASTING: YES RHEUMATOID FACTOR (Not yet r eviewed by provider) Interpretation: Performing Lab:JACKIE, [facility], [address], [place], [address] ClairMarinaa Zamora MD Notes/Report: FASTING:YES FASTING: YES C-REACTIVE PROTEIN (Not yet reviewed by provider) Interpretation: Performing Lab:[facility], [address] [place], [address] [facility] Notes/Report: FASTING:YES FASTING: YES HEMOGLOBIN A1c (Not yet revi ewed by provider) Interpretation: Performing Lab:[facility], [address] [place], [address] [facility] Notes/Report: FASTING:YES FASTING: YES CBC (INCLUDES DIFF/PLT) (Not yet reviewed by provider) Interpretation: Performing Lab:[facility], [address] [place], [address] [facility] Notes/Report: FASTING:YES FASTING: YES SED RATE BY MODIFIED ISAIAH JERMAINE (Not yet reviewed by provider) Interpretation: Performing Lab:[facility], [address] [place], [address] [place] [address] Notes/Report: FASTING:YES FASTING: YES T4, FREE (Not yet reviewed b y provider) Interpretation: Performing Lab:[facility], [address] [place], [address] [facility] Notes/Report: FASTING:YES FASTING: YES TSH (Not yet reviewed by pro vider) Interpretation: Performing Lab:, [facility], [address], [place], [address] [facility] Notes/Report: FASTING:YES FASTING: YES Reason For Referral Reason 9 mm right adrenal a denoma, 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, off korlym could not tolerate, chronic hypokalemia even on highest dose spironolactone Referral Organization [facility], [employer] - Mamta Harper Referring Provider First Name Mamta Referring Provider Last Name Leroy Referring Provider Speciality Internal M edicine Referred Provider Specialty Urology Referral Priority Routine Medications Medication SIG (Take, Route, Frequency, Duration) Notes Start Date End Date Status PROPRANOLOL HYDROCHLORIDE 10 mg 1 tab(s) orally 2 times a day for 90 days 04/18/2024 Active POTASSIUM CHLORIDE (HZA-ATSV-BBG M20) 20 mEq 1 tab(s) orally 2 [...] Status W/U Status Risk Notes Problem Hypothyroidism (26438212) Hypothyroidism, unspecified (E03.9) Active confirmed Problem Essential tremor (124617835) Essential tremor (G25.0) Active confirmed Problem Obesity (117362602) Obesity, unspecified (E66.9) Active confirmed 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, 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 Problem Disorder of adrenal gland (00523481) Disorder of adrenal gland, unspecified (E27.9) Active confirmed Problem Generalized anxiety disorder (44026671) Generalized anxiety disorder (F41.1) Active confirmed Problem SI - Stress incontinence (06931077) Stress incontinence (female) (male) (N39.3) Active confirmed Problem Menopause (988327164) Menopausal and female climacteric states (N95.1) Active confirmed Problem Functional urinary incontinence (968543684) 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) Active confirmed Vital Signs Heart Rate 89 /min 06/11/2024 Blood pressure diastolic 81 mm Hg 06/11/2024 Height 69 in 06/11/2024 Blood pressure systolic 127 mm Hg 06/11/2024 Weight 228.8 lbs 06/11/2024 BMI 33.78 kg/m2 06/11/2024 Encounters Encounter Location Date Provider Diagnosis [facility] [address] [place] [address] 05/12/2024 Provider Migration Essential tremor G25.0 and Hypokalemia E87.6 [facility] - Mamta Harper [address] [place] [address] 08/13/2024 Mamta Harper [facility] Mamta Qubole [address] [place] [address] 04/16/2024 Mamta Harper Burleson's syndrome, 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 ; Hypothyroidism, unspecified E03.9 ; Essential tremor G25.0 and Obesity, unspecified E66.9 [facility] Mamta Qubole [address] [place] [address] 05/14/2024 Mamta Leroy Hypothyroidism, unspecified E03.9 ; Sharee's syndrome, 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 ; Generalized anxiety disorder F41.1 ; Benign neoplasm of right adrenal gland D35.01 and Heartburn R12 [facility] Mamta Qubole [address] [place] [address] 06/11/2024 Mamta Leroy Hypothyroidism, unspecified E03.9 ; Obesity, unspecified E66.9 ; Disorder of adrenal gland, unspecified E27.9 ; Burleson's syndrome, 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 ; Insulin resistance, unspecified E88.819 ; Urinary tract infection, site not specified N39.0 and Dietary counseling and surveillance Z71.3 [facility] [address] [place] [address] 03/12/2024 Mamta Leroy Hypothyroidism, unspecified E03.9 and Functional urinary incontinence R39.81 [facility] Mamta Qubole [address] [place] [address] 03/27/2024 Mamta Harper [facility] Mamta [address] [address] [place] [address] 04/05/2024 Mamta Leroy Edema, unspecified R60.9 [facility] [address] [place] [address] 04/18/2024 Mamta Harper Hypokalemia E87.6 an d Essential tremor G25.0 [facility] Mamta [address]ole [address] [place] [address] 04/23/2024 Mamta Harper [facility] Mamta [address] [address] [place] [address] 04/27/2024 Mamta Harper [facility] - Mamta Leroy [address] [place] [address] 05/03/2024 Mamta Leroy [facility] [address] [place] [address] 05/16/2024 Mamta Leroy [facility] [address] [place] [address] 05/25/2024 Mamta Leroy [facility] [address] [place] [address] 06/04/2024 Mamta Leroy Assessments Encounter Date Diagnosis (ICD Code) Assessment Notes Treatment Notes Treatment Clinical Notes Section Notes 05/12/2024 Essential tremor (ICD-10 - G25.0) 05/12/2024 Hypokalemia (ICD-10 - E87.6) 04/16/2024 Burleson's syndrome, 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) 05/14/2024 Hypothyroidism, unspecified (ICD-10 - E03.9) 05/14/2024 Burleson's syndrome, 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) 06/11/2024 Hypothyroidism, unspecified (ICD-10 - E03.9) 06/11/2024 Obesity, unspecified (ICD-10 - E66.9) 03/12/2024 Hypothyroidism, unspecified (ICD-10 - E03.9) 03/12/2024 Functional urinary incontinence (ICD-10 - R39.81) 04/05/2024 Edema, unspecified (ICD-10 - R60.9) 04/18/2024 Essential tremor (ICD-10 - G25.0) 04/18/2024 Hypokalemia (ICD-10 - E87.6) 04/16/2024 Hypothyroidism, unspecified (ICD-10 - E03.9) 05/14/2024 Generalized anxiety disorder (ICD-10 - F41.1) 06/11/2024 Disorder of adrenal gland, unspecified (ICD-10 - E27.9) 04/16/2024 Essential tremor (ICD-10 - G25.0) 05/14/2024 Benign neoplasm of right adrenal gland (ICD-10 - D35.01) 06/11/2024 Sharee's syndrome, 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) 04/16/2024 Obesity, unspecified (ICD-10 - E66.9) 05/14/2024 Heartburn (ICD-10 - R12) 06/11/2024 Insulin resistance, unspecified (ICD-10 - E88.819) 06/11/2024 Urinary tract infection, site not specified (ICD-10 - N39.0) 06/11/2024 Dietary counseling and surveillance (ICD-10 - Z71.3) 04/16/2024 Other Assessment and Plan: 1. Sharee's [...] Consider starting low-dose propranolol after consulting with [facility] and service liaison representative- Monitor tremor severity and adjust treatment if [...] procedures, referring and communicating with other health out of school hours care worker, documenting clinical information in the electronic or other health record, independently interpreting results and communicating results to the patient/family/caregi laura and care coordinating patient plan. Patient alert and oriented x 4 and aware of discussion noted above and in agreeance to plan in management of cushings syndrome, hypothyroidism, prediabetes, essential tremor and obesity. 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 Martinez at [facility] for evaluation of adrenal adenoma and potential [...] nausea and vomiting. Consider referral to a sql server dba developer if symptoms persist. 4. Insomnia:- Patient reports [...] Refer the patient to Dr. Candelario at [place] or Dr. Martinez at [facility] for evaluation of adrenal adenoma and potential [...] procedures, referring and communicating with other health out of school hours care worker, documenting clinical information in the [...] Monitor symptoms and consider referral to a marketing engineer if needed. 5. Edema- Patient reports improvement [...] for Ozempic- Patient's insurance will change to [employer] on June 27. Ensure coverage for Ozempic and coordinate with the primary care physician for any necessary prior authorizations. 10. Upcoming appointment with Dr. Martinez on July 04- Ensure all relevant records, including CT scan, recent notes, labs, and dexamethasone suppression test, are sent to Dr. Martinez at [facility] prior to the appointment. Spent 15 [...] procedures, referring and communicating with other health out of school hours care worker, documenting clinical information in the [...] Date Coverage End Date Medicare [address] [address] [place] [address] [id number] Lorraine Boateng Self - patient is the insured [employer] [address] [place] [phone] [id number] Lorraine Boateng Self - patient is the insured Medical (General) History Medical History History ICD Code hypothyroidism prediabetes cushings syndrome adrenal adenoma
--- OUTSIDE RECORDS SUMMARY | 2025-03-08 08:45 | XMS_ITS | Clinical Summary ---
Author Organization [facility] Address [address] [address] [address] Care Team Providers Care Debug Technician Name Role Phone Doreen Marte MD Primary Care Provider [phone] Allergies Active Allergy Reactions Criticality Noted Date [...] Take 1 Tablet by mouth daily. Active T46-vnyhrdyeev ahydrofolate-B 6 1,000mcg-680mc g DFE-1.5 mg Tablet, [...] Encounters Date Type Department Care Team Description 03/04/2025 Orders Only [facility] Oncology and Hematology - Kevin [address] [place] [address] Vicente Conklin MD 01/29/2025 External Device Data STL ABSTRACTION Provider, Abstract 01/09/2025 External Device Data [facility] ABSTRACTION Provider, Abstract 01/08/2025 External Device Data [facility] ABSTRACTION Provider, Abstract 12/18/2024 External Device Data STL ABSTRACTION Provider, Abstract from Last 3 Months Family History Medical [...] on file Legal Sex Female 11:51 AM PATIENT SERVICE COORDINATOR Gender Identity Not on file Sexual Orientation [...] st Contact Info) Description 05/06/2025 11:30 AM PATIENT SERVICE COORDINATOR Office Visit [facility] Oncology and Hematology [facility] [address] [facility] [address] [place] [address] Vicente Conklin MD [address] [facility] [address] [place] [address] Health Maintenance Due Date Last Done Comments DIABETES ANNUAL RETINAL EXAM 12/03/1973 DIABETES MICROALBUMIN ANNUAL SCREEN 12/03/1973 LDL CHOLESTEROL ANNUAL 12/03/1973 DTAP/TDAP/TD VACCINES (1 - Tdap) 12/03/1974 PNEUMOCOCCAL VACCINE 50+ YEARS (1 of 2 - PCV) 12/03/18 75 Traditional Medicare (ACO) Annual Wellness Visit 12/03 ZOSTER VACCINE (1 of 2) 12/03/1974 COLORECTAL SCREENING 12/03/2000 Colorectal Cancer Screening 12/03/2000 FIT-DNA Q 3 years 12/03/2000 FIT/FOBT Q 1 year 12/03/2000 Flex Sig/CT Colonography Q 5 years 12/03/2000 RSV VACCINE (60+ or ) (1 - Risk 60-74 years 1-dose series) 2015 DIABETES HBA1C Q 6 MONTHS 03/03/2019 08/31/2018 DIABETES ANNUAL FOOT EXAM 10/13/2019 10/12/2018 OSTEOPOROSIS SCREENING 12/03/2020 INFLUENZA VACCINE (#1) 2025 BREAST CANCER SCREENING 02/27/2026 02/27/2025 Procedures Procedure Name Priority Date/Time Associated Diagnosis Comments MAMMO DIAGNOSTIC UNI RIGHT W OR WO CAD Routine 02/27/2025 9:13 AM CDT from Last 3 Months Results * MAMMO DIAGNOSTIC UNI RIGHT W OR WO CAD (02/27/2025 9:13 AM CDT) Anatomical Region Laterality Modality Breast Right Mammography Vicente Conklin MD MAMMO ORDERABLES Final Result from Last 3 Months Insurance MEDICARE PART A AND B [facility] MEDICARE PART A AND B [employer] [facility] [place] [address] Care Teams Debug Technician Relationship Specialty Start Date End Date Doreen Marte MD [address] [address] PCP - General Family Practice 02/27/25
--- OUTSIDE RECORDS SUMMARY | 2025-03-08 08:45 | XMS_ITS | Encounter Summary ---
Author Organization [facility] Address [address] [place] [address] Care Team Providers Care Photography Instructor Name Role Phone Doreen Marte MD Primary Care Provider Encounter Details Date Type Department Care Team (Special Care Hospital Contact Info) Description 03/04/2025 Orders Only [facility] Oncology and Hematology [facility] [address] [place] [address] Vicente Conklin MD [facility] [employer] [address] [place] [address] Social History Tobacco Use Types Packs/Day Years Used Date Smoking Tobacco: Never Smokeless Tobacco: Never Alcohol Use Standard Drinks/Week Comments Yes 0 (1 standard drink = 0.6 oz pur e alcohol) Socially Comments No Sex and Gender Information Value Date Recorded Sex Assigned at Not on file Legal Sex Female 11:51 AM CARDROOM DRAWING RUNNER Gender Identity Not on file Sexual Orientation Not on file documented as of this encounter Plan of Treatment Upcoming Encounters Date Type Department Care Team (Late Contact Info) Description 05/06/2025 11:30 AM CARDROOM DRAWING RUNNER Office Visit [facility] Oncology [facility] [address] [place] [address] Vicente Conklin MD [address] [place], [place] [address]HERMEL DELOR [address] [place] [address] documented as of this encounter Procedures Procedure Name Priority Date/Time Associated Diagnosis Comments MAMMO DIAGNOSTIC UNI RIGHT W OR WO CAD Routine 02/27/2025 9:13 AM CDT documented in this encounter Results * MAMMO DIAGNOSTIC UNI RIGHT W OR WO CAD (02/27/2025 9:13 AM CDT) Anatomical Region Laterality Modality Breast Right Mammography Viecnte Conklin MD MAMMO ORDERABLES Final Result documented in this encounter Visit Diagnoses Not on filedocumented in this encounter Care Teams Photography Instructor Relationship Specialty Start Date End Date Doreen Marte MD [address] [place] [phone] PCP - General Family Practice 02/27/25 documented as of this encounter
--- OUTSIDE RECORDS SUMMARY | 2025-03-08 08:45 | XMS_ITS | Clinical Summary ---
Author Organization [facility] [place] [facility] Address [address] [place] [address] Care Team Providers Care Human Resources Director Name Role Phone Doreen Marte MD Primary Care Provider [phone] Allergies Active Allergy Reactions Criticality Noted Date Comments Amoxicillin-Pot Clavulanate Rash Medium 01/24/20 18 Codeine Levofloxacin Hives Medium 08/14/2018 Morphine Other Rash,Blisters High 01/23/2018 TAPE/ ADHESIVE Oxycodone Oxycodone-Acetaminophen Hypotension High 09/22/2018 Medications blood glucose diagnostic (PanizonTOUCH ULTRA TEST) strip Test sugars daily and [...] (08/14/2018): Added automatically from request for surgery [id number] Chronic fatigue 04/25/2018 Hypercholesterolemia 08/23/2017 Assessment & Plan (08/23/2017 2:10 PM COLLECTION MANAGER): Goal of treatment , LDL cholesterol [...] taken. Assessment & Plan (08/23/2017 2:01 PM COLLECTION MANAGER): Continue current dose of Levothyroxine and [...] . Assessment & Plan (08/23/2017 2:00 PM COLLECTION MANAGER): Hba1c was 6.0 today, indicating DM [...] accordingly Assessment & Plan (08/23/2017 2:04 PM COLLECTION MANAGER): [place] [address] IU twice a week Surgical History Surgery Date Site/Laterality Comments CHOLECYSTECTOMY 06/27/2005 - 06/26/2006 Cholecystectomy POSTERIOR LAMINECTOMY / DECOMPRESSION LUMBAR SPINE 07/19/2017 L4-L5-S1 ANTERIOR FUSION CERVICAL SPINE COLONOSCOPY HYSTERECTOMY 06/27/1995 - 06/26/1996 Left salpingo-oophorectom y SALPINGOOPHORECTOMY Right Medical History Medical History Date Comments Disorder of thyroid Thyroid dise ase Diabetes mellitus (HCC) Diabetes Hx Other Medical Claustrophobic; Comments: [facility] 04/29/2014 - PONV (postoperative nausea and [...] on file Legal Sex Female 12:34 PM COLLECTION MANAGER Gender Identity Not on file Sexual Orientation Not on file 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 Not on file Not on file [...] Visit 65+ 12/03/2020 Covid-19 Vaccine ( season) 2025 06/15/2021, 08/30/2020, 08/09/2020 Influenza Vaccine (#1) 2025 04/29/2018 Medical Devices Implanted Type Area Evp Managing Director Device Identifier Shelf Expiration Date Model / Serial / Lot [employer] 3122-040 Smartset Medium Viscosity Cement 40gm Bone Sterile - [id number] Implanted:Qty: 1 on 09/22/2018 by Jordan Jones MD at [facility] [employer] 03/26/2020 [id number] / / [employer] [id number] Smartset Medium Viscosity Cement 40gm Bone Gentamicin - [id number] Implanted:Qty: 1 on 09/22/2018 by Jordan Jones MD at [facility] [employer] 08/19/2019 [id number] / / [employer] [id number] Attune Cemented Cruciate Retaining Knee Left 7 Component Femoral - [id number] Implanted:Qty: 1 on 09/22/2018 by Jordan Jones MD at [facility] [employer] [id number] 03/26/2028 [id number] / / [employer] [id number] Attune 14mm 50mm Cemented Revision Knee Stem Femoral Sterile - [id number] Implanted:Qty: 1 on 09/22/2018 by Jordan Jones MD at [facility] [employer] [id number] 01/25/2028 [id number] / / [employer] [id number] Attune Cement Revision Fix Bearing Knee 7 Baseplate Tibial - [id number] Implanted:Qty: 1 on 09/22/2018 by Jordan Jones MD at [facility] [employer] [id number] 12/25/2027 [id number] / / [employer] [id number] Attune 7mm Cruciate Retaining Fix Bearing Knee 7 Insert Tibial - [id number] Implanted:Qty: 1 on 09/22/2018 by Jordan Jones MD at [facility] [employer] [id number] 04/26/2022 [id number] / / Procedures Procedure Name Priority Date/Time Associated Diagnosis Comments POCT HEMOGLOBIN A1C Routine Gen Lab 08/31/2018 1:15 PM COLLECTION MANAGER LIPID PANEL Routine 08/15/2017 1:25 PM COLLECTION MANAGER Type 2 diabetes mellitus with hyperglycemia, without long-term current use of insulin (HCC) from Last 3 Months or Most Recently Relevant to Health Maintenance Results * POCT hemoglobin A1c (08/31/2018 1:15 PM COLLECTION MANAGER) Pathologist [facility] Hgb A1C, POC 6.0 4.0 - 6.0 % [facility] Est Average Gluc POC 126 mg/dL [facility] Comment: The ADA recommends reporting an estimated Average Glucose (eAG) with all Hemoglobin A1c results using the equation derived from a study of 507 normal and diabetic adults. Minority populations were underrepresented and children were not included. (Diabetes Care 31:3188-8542, 2008). The eAG is not equivalent to a fasting glucose. Blood specimen (specimen) 08/31/2018 1:15 PM COLLECTION MANAGER 08/31/2018 1:15 PM COLLECTION MANAGER Narrative [facility] - 08/31/2018 1:33 PM COLLECTION MANAGER us Jordan Jones MD POINT OF CARE TEST ORDERA BLES Final Result [facility] [place] [address] * (ABNORMAL) Lipid panel (08/15/2017 1:25 PM COLLECTION MANAGER) [facility] Cholesterol 247(H) 100 - 199 mg/dL [facility] - 01 Triglycerides 188(H) 0 - 149 mg/dL [facility] - 01 HDL Cholesterol 64 >39 mg/dL [facility] - 01 VLDL 38 5 - 40 mg/dL [facility] - 01 LDL, calculated 145(H) 0 - 99 mg/dL [facility] - 01 Blood specimen (specimen) 08/15/2017 1:25 PM COLLECTION MANAGER 08/15/2017 Narrative [facility] - 08/16/2017 6:14 AM COLLECTION MANAGER Performed at: 01 - [address] [id number] Cardiac Catheterization Technician: David Díaz PhD, Phone: [phone] us Naty Norton NP LAB BLOOD ORDERABLES Final [facility] Address City/State/ZIP Co de Phone Number [facility] - 01 from Last 3 Months or Most Recently Relevant to Health Maintenance Insurance [facility] MEDICARE [facility] Advance Directives For more information, please contact: [phone] * Full Code (Latest Code Status on File) Date Activated Date Inactivated Comments 09/22/2018 11:29 AM 09/22/2018 10:23 PM Care Teams Human Resources Director Relationship Specialty Start Date End Date Doreen Marte MD PCP - General 04/29/14
--- OUTSIDE RECORDS SUMMARY | 2025-03-08 08:46 | XMS_ITS | Patient Health Record ---
Author Organization [facility] Address [address] [facility] magda Cast[place] [id number] Care Team Providers Care Sales Associate Cashier Name Role Phone Mamta Harper Unavailable [phone] Migration, Provider Unavailable Unavailable Allergies No Known Allergies Results Component Value Reference Range Flag Notes COMPREHENSIVE METABOLIC PANE L Reviewed date:03/29/2024 08:12:02 PM Interpretation: Performing Lab:, [facility], [facility] [address], [place], [address] [facility] Notes/Report: FASTING:YES FASTING: YES Fasting reference interval [...] date:03/29/2024 08:13:29 PM Interpretation: Performing Lab:Amilcar MEJIA, [address] [place], [address] Karey Zamora MD Notes/Report: FASTING:YES FASTING: YES T3, FREE 2.8 2.3-4.2 pg/mL N HEMOGLOBIN A1c Reviewed date:03/29/2024 08:10:47 PM Interpretation: Performing Lab:[facility], [address] [place], [address] Karey Zamora Notes/Report: FASTING:YES FASTING: YES For [...] Reviewed date:03/29/2024 08:11:03 PM Interpretation: Performing Lab:Am[place]car [place], [address] [place], [address] Karey Zamora MD Notes/Report: FASTING:YES FASTING: YES Reference Range < or = 18.4 Risk: Optimal < or = 18.4 Moderate NA High >18.4 Adult cardiovascular event risk category cut points (optimal, moderate, high) are based on Insulin Reference Interval studies performed at [facility] in 2021. INSULIN 5.4 N CBC (INCLUDES DIFF/PLT) Reviewed date:03/29/2024 08:13:18 PM Interpretation: Performing Lab:[facility], [address] [place], [address] Karey Zamora Notes/Report: FASTING:YES FASTING: YES For [...] 10.9 7.5-12.5 fL N ABSOLUTE NEUTROPHILS 5450 4150-9606 cells/uL N ABSOLUTE LYMPHOCYTES 909 813-9889 cells/uL N ABSOLUTE MONOCYTES 576 200-950 cells/uL N ABSOLUTE EOSINOPHILS 180 15-500 cells/uL N ABSOLUTE BASOPHILS 7 0-200 cells/uL N NEUTROPHILS 75.7 N LYMPHOCYTES 13.7 N MONOCYTES 8.0 N EOSINOPHILS 2.5 N BASOPHILS 0.1 N VITAMIN B12/FOLATE, SERUM PA ENRIQUE Reviewed date:03/29/2024 08:11:13 PM Interpretation: Performing Lab:JACKIE [facility], [address] [place], [address] Karey Zamora MD Notes/Report: FASTING:YES FASTING: YES Reference Range Low: <3.4 Borderline: 3.4-5.4 Normal: >5.4 VITAMIN B12 6853 599-9340 pg/mL H FOLATE, SERUM 8.7 N IRON AND TOTAL IRON BINDING CAPACITY Reviewed date:03/29/2024 08:13:00 PM Interpretation: Performing Lab:JACKIE [facility], [address] [place], [address] Karey Zamora MD Notes/Report: FASTING:YES FASTING: YES IRON, TOTAL 106 45-160 mcg/dL N IRON BINDING CAPACITY 418 250-450 mc g/dL (calc) N % SATURATION 25 16-45 % (calc) N LIPID PANEL Reviewed date:03/29/2024 08:12:32 PM Interpretation: Performing Lab:[facility], [address] [place], [address] [facility] Notes/Report: FASTING:YES FASTING: YES Reference range: <100 Desirable range <100 mg/dL for primary prevention; <70 mg/dL for patients with CHD or diabetic patients with > or = 2 CHD risk factors. LDL-C is now calculated using the Chace calculation, which is a validated novel method providing better accuracy than the Friedewald equation in the estimation of LDL-C. Ricky SS et al. ROSALINO. 2013;310(72): 4227-4997 (http://BrandBacker.TC3 Health/faq/JSG683) For patients with diabetes plus 1 major [...] Reviewed date:04/03/2024 10:47:57 PM Interpretation: Performing Lab:Amilcar OCAMPO Sn[facility]heetLovelace Women[facility]S HospitalJose, [address] [place], [address] [facility] Notes/Report: FASTING:YES FASTING: YES T4, FREE 0.9 0.8-1.8 ng/dL N TSH Reviewed date:03/29/2024 08:12:14 PM Interpretation: Performing Lab:DAMARIS [facility] HospitalJose, [address] [place], [address] [facility] Notes/Report: FASTING:YES FASTING: YES TSH 6.84 0.40-4.50 mIU/L H COMPREHENSIVE METABOLIC PANE L Reviewed date:04/19/2024 02:01:27 PM Interpretation: Performing Lab:Amilcar MEJIA, [address] [place], [address] ClairMariana Zamora MD Notes/Report: FASTING: YES Fasting reference [...] Reviewed date:04/18/2024 07:54:56 PM Interpretation: Performing Lab:JACKIE [facility], [address] [place], [address] Karey Zamora MD Notes/Report: FASTING: YES T3, FREE 3.4 2.3-4.2 pg/mL N HEMOGLOBIN A1c Reviewed date:04/18/2024 08:01:56 PM Interpretation: Performing Lab:JACKIE [facility], [address] [place], [address] Karey Zamora MD Notes/Report: FASTING: YES For [...] diagnosis of diabetes in children. According to [place] Diabetes Association (ADA) guidelines, hemoglobin A1c <7.0% represents optimal control in non- diabetic patients. Different metrics may apply to specific patient populations. Standards of Medical Care in Diabetes(ADA). HEMOGLOBIN A1c 5.4 <5.7 % of total Hgb N CBC (INCLUDES DIFF/PLT) Reviewed date:04/18/2024 08:01:38 PM Interpretation: Performing Lab:JACKIE AkohaArcenio, [address] [place], [address] Karey Zamora MD Notes/Report: FASTING: YES For [...] 10.7 7.5-12.5 fL N ABSOLUTE NEUTROPHILS 7154 3975-4690 cells/uL N ABSOLUTE LYMPHOCYTES 4985 550-7744 cells/uL N ABSOLUTE MONOCYTES 1093 200-950 cells/uL H ABSOLUTE EOSINOPHILS 114 15-500 cells/uL N ABSOLUTE BASOPHILS 10 0-200 cells/uL N NEUTROPHILS 75.3 N LYMPHOCYTES 11.9 N MONOCYTES 11.5 N EOSINOPHILS 1.2 N BASOPHILS 0.1 N VITAMIN B12/FOLATE, SERUM PA ENRIQUE Reviewed date:04/18/2024 08:02:42 PM Interpretation: Performing Lab:JACKIE [facility]TG[facility], [address] [place], [address] Karey Zamora MD Notes/Report: FASTING: YES Reference Range Low: <3.4 Borderline: 3.4-5.4 Normal: >5.4 VITAMIN B12 138 849-4139 pg/mL N FOLATE, SERUM 8.4 N IRON AND TOTAL IRON BINDING CAPACITY Reviewed date:04/18/2024 08:02:16 PM Interpretation: Performing Lab:Amilcar MEJIA, [address] [place], [address] Karey Zamora MD Notes/Report: FASTING: YES IRON, TOTAL 83 45-160 mcg/dL N IRON BINDING CAPACITY 416 250-450 mc g/dL (calc) N % SATURATION 20 16-45 % (calc) N LIPID PANEL Reviewed date:04/18/2024 08:02:07 PM Interpretation: Performing Lab:Amilcar MEJIA, [place], [address] Karey Zamora MD Notes/Report: FASTING: YES Reference range: <100 Desirable range <100 mg/dL for primary prevention; <70 mg/dL for patients with CHD or diabetic patients with > or = 2 CHD risk factors. LDL-C is now calculated using the Ricky-Rodas calculation, which is a validated novel method providing better accuracy than the Friedewald equation in the estimation of LDL-C. Ricky LAKE et al. ROSALINO. 2013;310(19): 3432-8008 (http://education.Notch.2359 Media/faq/ZQS612) For patients with diabetes plus 1 major [...] Reviewed date:04/18/2024 08:02:25 PM Interpretation: Performing Lab:Amilcar MEJIA, [address] [place], [address] Karey Zamora MD Notes/Report: FASTING: YES T4, FREE 1.1 0.8-1.8 ng/dL N TSH Reviewed date:04/18/2024 08:01:48 PM Interpretation: Performing Lab:Am[place]car [place]ACrother[place], [address] [facility], [place], [address] Karey Zamora MD Notes/Report: FASTING: YES TSH 1.70 0.40-4.50 mIU/L N COMPREHENSIVE METABOLIC PANE L Reviewed date:04/29/2024 10:46:30 AM Interpretation: Performing Lab: [facility], [address] [place], [address] Karey Zaomra Notes/Report: Fasting reference interval GLUCOSE 97 65-99 [...] Reviewed date:05/11/2024 08:25:38 AM Interpretation: Performing Lab:[facility]IS [facility], [address] [place], [address] ClairBigfork Valley Hospitalfay Zamora Notes/Report: Fasting reference interval For someone without [...] Reviewed date:05/06/2024 09:18:11 AM Interpretation: Performing Lab:DAMARIS, [facility], [facility] [place], [address] [facility] Notes/Report: T4, FREE 1.2 0.8-1.8 ng/dL N TSH Reviewed date:05/06/2024 09:17:52 AM Interpretation: Performing Lab:DAMARIS, [facility], [address] [place], [address] [facility] Vo Notes/Report: TSH 9.49 0.40-4.50 mIU/L H [...] FREE Reviewed date:06/09/2024 10:39:13 AM Interpretation: Performing Lab:IN, [facility]ELTMcl[facility]ape[facility] RegionCrothersville, [address], [place], [address] Karey Zamora MD Notes/Report: T3, FREE 3.2 2.3-4.2 pg/mL N HEMOGLOBIN A1c Reviewed date:06/09/2024 10:39:13 AM Interpretation: Performing Lab:[facility]IS [facility], [address] [place], [address] Karey Zamora Notes/Report: For the purpose of screening for the presence of diabetes: <5.7% Consistent with the absence of diabetes 5.7-6.4% Consistent with increased risk for diabetes (prediabetes) > or =6.5% Consistent with diabetes This assay result is consistent with a decreased risk of diabetes. Currently, no consensus exists regarding use of hemoglobin A1c for diagnosis of diabetes in children. According to [place] Diabetes Association (ADA) guidelines, hemoglobin A1c <7.0% represents optimal control in non- diabetic patients. Different metrics may apply to specific patient populations. Standards of Medical Care in Diabetes(ADA). HEMOGLOBIN A1c 5.3 <5.7 % of total Hgb N LIPID PANEL Reviewed date:06/09/2024 10:39:13 AM Interpretation: Performing Lab:[facility]IS [facility], [address] [place], [address] Karey Zamora Notes/Report: Reference range: <100 Desirable range <100 mg/dL for primary prevention; <70 mg/dL for patients with CHD or diabetic patients with > or = 2 CHD risk factors. LDL-C is now calculated using the Chace calculation, which is a validated novel method providing better accuracy than the Friedewald equation in the estimation of LDL-C. Ricky LAKE et al. ROSALINO. 2013;310(19): 6959-9003 (http://education.Notch.2359 Media/faq/YST908) For patients with diabetes plus 1 major [...] Reviewed date:06/09/2024 10:39:13 AM Interpretation: Performing Lab:[facility], [facility] [place], [address] [facility] Notes/Report: T4, FREE 1.3 0.8-1.8 ng/dL N TSH Reviewed date:06/09/2024 10:39:13 AM Interpretation: Performing Lab:[facility], [facility] [place], [address] [facility] Notes/Report: TSH 1.42 0.40-4.50 mIU/L N .COMPREHENSIVE METABOLIC DURAN (84263) [facility] Reviewed date:08/06/2024 08:52:44 PM Interpretation: Performing Lab:DAMARIS [place]TAlan [place] [address] [address] [place] [facility] Notes/Report: FASTING:YES FASTING: YES GLUCOSE 110 65-99 mg/dL H Fasting reference interval For someone without known diabetes, a glucose value between 100 and 125 mg/dL is consistent with prediabetes and should be confirmed with a follow-up test. UREA NITROGEN (BUN) 28 7-25 mg/dL H [...] 99) Reviewed date:08/06/2024 08:52:44 PM Interpretation: Performing Lab:DAMARIS [employer] [id number] DbaxqqdOY[address] [facility] Notes/Report: FASTING:YES FASTING: YES WHITE BLOOD CELL COUNT 8.0 3.8-10.8 Thousand/uL N RED BLOOD CELL COUNT 5.51 3.80-5.10 Million/uL H HEMOGLOBIN 14.2 11.7-15.5 g/dL N HEMATOCRIT 45.1 35.0-45.0 % H MCV 81.9 80.0-100.0 fL N MCH 25.8 27.0-33.0 pg L MCHC 31.5 32.0-36.0 g/dL L For adults, a slight decrease in the calculated MCHC value (in the range of 30 to 32 g/dL) is most likely not clinically significant; however, it should be interpreted with caution in correlation with other red cell parameters and the patient's clinical condition. RDW 12.7 11.0-15.0 % N PLATELET COUNT 284 140-400 Thousand/uL N MPV 11.4 7.5-12.5 fL N ABSOLUTE NEUTROPHILS 6824 1809-5992 cells/uL N ABSOLUTE LYMPHOCYTES 291 584-6318 cells/uL L ABSOLUTE MONOCYTES 368 200-950 cells/uL N ABSOLUTE EOSINOPHILS 88 15-500 cells/uL N ABSOLUTE BASOPHILS 0 0-200 cells/uL N NEUTROPHILS 85.3 N LYMPHOCYTES 9.0 N MONOCYTES 4.6 N EOSINOPHILS 1.1 N BASOPHILS 0.0 N SED RATE BY MODIFIED ISAIAH DEAN (809) Reviewed date:08/06/2024 08:52:44 PM Interpretation: Performing Lab:DAMARIS [employer] [id number] [place] [address] Karey Zamora Notes/Report: FASTING:YES FASTING: YES SED RATE BY MODIFIED WESTERGREN 19 < OR = 30 mm/h N C-REACTIVE PROTEIN (4420) Reviewed date:08/07/2024 09:50:35 PM Interpretation: Performing Lab:Amilcar OCAMPOAlan [place] [address] [address] [place] [address] Karey Zamora Notes/Report: FASTING:YES FASTING: YES C-REACTIVE PROTEIN 7.7 <8.0 mg/L N RHEUMATOID FACTOR (4418) Reviewed date:08/07/2024 09:50:35 PM Interpretation: Performing Lab:Amilcar MEJIA-[address], [place]od[place] Karey Zamora MD Notes/Report: FASTING:YES FASTING: YES RHEUMATOID FACTOR <10 <14 IU/mL N CYCLIC CITRULLINATED PEPTIDE (CCP) AB (IGG) (31919) Reviewed date:08/11/2024 08:43:09 PM Interpretation: Performing Lab:Amilcar MEJIA-[address]qk[address], [place]OE[address] Karey Zamora MD Notes/Report: FASTING:YES FASTING: YES CYCLIC CITRULLINATED PEPTIDE (CCP) AB (IGG) <16 N Reference Range Negative: <20 Weak Positive: 20-39 Moderate Positive: 40-59 Strong Positive: >59 .HEMOGLOBIN A1c (496) Reviewed date:08/07/2024 09:50:35 PM Interpretation: Performing Lab:Amilcar [place]AMPOAlan [place] [address] [address] [place] [address] CyndyEssentia Healthfay Zamora Notes/Report: FASTING:YES FASTING: YES HEMOGLOBIN A1c 5.8 <5.7 % of total Hgb H For someone without known diabetes, a hemoglobin [...] A1c for diagnosis of diabetes for children. T4, FREE (866) Reviewed date:08/06/2024 08:52:44 PM Interpretation: Performing Lab:[facility]IS [facility] [id number] [address] Notes/Report: FASTING:YES FASTING: YES T4, FREE 1.6 0.8-1.8 ng/dL N TSH (899) Reviewed date:08/06/2024 08:52:44 PM Interpretation: Performing Lab:Amilcar OCAMPO [place] [address] [address] Notes/Report: FASTING:YES FASTING: YES TSH 0.04 0.40-4.50 mIU/L L T3, FREE (00306) Reviewed date:08/07/2024 09:50:35 PM Interpretation: Performing Lab:JACKIE [facility]T-[address], OdexhvZY[address] [facility] Noah MARTINI Notes/Report: FASTING:YES FASTING: YES T3, FREE 3.1 2.3-4.2 pg/mL N .COMPREHENSIVE METABOLIC DURAN EL (76452) CMP Reviewed date:11/03/2024 06:17:40 PM Interpretation: Performing Lab:DAMARIS [place] [address] [address] Notes/Report: GLUCOSE 92 65-99 mg/dL N Fasting reference interval UREA NITROGEN (BUN) 21 7-25 mg/dL [...] Reviewed date:11/03/2024 06:17:40 PM Interpretation: Performing Lab:DAMARIS [place] [address] [address] GrlrdnvMZ[address] [facility] Notes/Report: CHOLESTEROL, TOTAL 215 <200 mg/dL H HDL CHOLESTEROL 66 > OR = 50 mg/dL N TRIGLYCERIDES 78 <150 mg/dL N LDL-CHOLESTEROL 132 H Reference range: <100 Desirable range <100 mg/dL for primary prevention; <70 mg/dL for patients with CHD or diabetic patients with > or = 2 CHD risk factors. LDL-C is now calculated using the Chace calculation, which is a validated novel method providing better accuracy than the Friedewald equation in the estimation of LDL-C. Ricky SS et al. ROSALINO. 2013;310(19): 7234-2548 (http://education.Pictrition App.2359 Media/faq/FAQ16 4) CHOL/HDLC RATIO 3.3 <5.0 (calc) N NON HDL CHOLESTEROL 149 <130 mg/dL (calc) H For patients with diabetes plus 1 major ASCVD risk factor, treating to a non-HDL-C goal of <100 mg/dL (LDL-C of <70 mg/dL) is considered a therapeutic option. .CBC (INCLUDES DIFF/PLT) (63 99) Reviewed date:11/03/2024 06:17:40 PM Interpretation: Performing Lab:DAMARIS [place] [address] [address] NeelmuiCS[address] [facility] Notes/Report: WHITE BLOOD CELL COUNT 7.2 3.8-10.8 Thousand/uL N RED BLOOD CELL COUNT 5.01 3.80-5.10 Million/uL N HEMOGLOBIN 13.3 11.7-15.5 g/dL N HEMATOCRIT 43.5 35.0-45.0 % N MCV 86.8 80.0-100.0 fL N MCH 26.5 27.0-33.0 pg L MCHC 30.6 32.0-36.0 g/dL L For adults, a slight decrease in the calculated MCHC value (in the range of 30 to 32 g/dL) is most likely not clinically significant; however, it should be interpreted with caution in correlation with other red cell parameters and the patient's clinical condition. RDW 14.0 11.0-15.0 % N PLATELET COUNT 316 140-400 Thousand/uL N MPV 10.6 7.5-12.5 fL N ABSOLUTE NEUTROPHILS 4205 8384-1350 cells/uL N ABSOLUTE LYMPHOCYTES 2918 573-9210 cells/uL N ABSOLUTE MONOCYTES 612 200-950 cells/uL N ABSOLUTE EOSINOPHILS 432 15-500 cells/uL N ABSOLUTE BASOPHILS 7 0-200 cells/uL N NEUTROPHILS 58.4 N LYMPHOCYTES 27.0 N MONOCYTES 8.5 N EOSINOPHILS 6.0 N BASOPHILS 0.1 N .HEMOGLOBIN A1c (496) Reviewed date:11/03/2024 06:17:40 PM Interpretation: Performing Lab:DAMARIS [place] [address] [address] [place] [address] [facility] Noah Notes/Report: HEMOGLOBIN A1c 5.6 <5.7 % of total Hgb N For the purpose of screening for the presence of diabetes: <5.7% Consistent with the absence of diabetes 5.7-6.4% Consistent with increased risk for diabetes (prediabetes) > or =6.5% Consistent with diabetes This assay result is consistent with a decreased risk of diabetes. Currently, no consensus exists regarding use of hemoglobin A1c for diagnosis of diabetes in children. According to [place] Diabetes Association (ADA) guidelines, hemoglobin A1c <7.0% represents optimal control in non- diabetic patients. Different metrics may apply to specific patient populations. Standards of Medical Care in Diabetes(ADA). T4, FREE (866) Reviewed date:11/03/2024 06:17:40 PM Interpretation: Performing Lab:[facility] [id number] [place] [address] CyndyEssentia Healthfay [facility] Noah Notes/Report: T4, FREE 1.2 0.8-1.8 ng/dL N TSH (899) Reviewed date:11/03/2024 06:17:40 PM Interpretation: Performing Lab:DAMARIS [place] [address] [address] CcrznfwDI[address] Clair-Mariana Zamora Notes/Report: TSH 0.94 0.40-4.50 mIU/L N T3, FREE (64008) Reviewed date:11/03/2024 06:17:40 PM Interpretation: Performing Lab:Amilcar MEJIA-[address]uk[address], ZibqhtDI[address] Karey Zamora MD Notes/Report: T3, FREE 2.5 2.3-4.2 pg/mL N CORTISOL, TOTAL (367) Reviewed date:11/27/2024 07:57:09 PM Interpretation: Performing Lab:Amilcar MEJIA-[address]epgjc[address], EhcdgeFM[address] Karey Zamora MD Notes/Report: CORTISOL, TOTAL 5.6 N Reference Range: For 8 a.m.(7-9 a.m.) Specimen: 4.0-22.0 Reference Range: For 4 p.m.(3-5 p.m.) Specimen: 3.0-17.0 * Please interpret above results accordingly * DEXAMETHASONE (88338) Reviewed date:12/12/2024 08:39:23 PM Interpretation: Performing Lab:Amilcar ASH/[facility],[address] [address]osSt[address] Mark's HospitalCA[address] Lizeth Davis MD,PhD,ANA Notes/Report: DEXAMETHASONE 644 Reference Ranges for Dexamethasone: Baseline: Less than 20 ng/dL 1 mg dexamethasone overnight: 180-550 ng/dL (8:00-10:00 AM) This test was developed and its analytical performance characteristics have been determined by [facility]. It has not been cleared or approved by the FDA. This assay has been validated pursuant to the CLIA regulations and is used for clinical purposes. PTH, INTACT AND CALCIUM (883 7) Reviewed date:02/07/2025 08:13:11 AM Interpretation: Performing Lab:Amilcar MEJIA-Svltho[address], GfkulgPS[address] Karey Zamroa MD Notes/Report: FASTING:YES COLLECTION KIT GIVEN TO PATIENT. PATIENT ADVISED TO RETURN. FASTING: YES PARATHYROID HORMONE, INTACT 31 16-77 pg/mL N Interpretive Guide Intact PTH Calcium ------- Normal Parathyroid Normal Normal Hypoparathyroidism Low or Low Normal Low Hyperparathyroidism Primary Normal or High High Secondary High Normal or Low Tertiary High High Non-Parathyroid Hypercalcemia Low or Low Normal High CALCIUM 10.1 8.6-10.4 mg/dL N .LIPID PANEL, STANDARD (7600 ) Reviewed date:02/05/2025 07:55:09 AM Interpretation: Performing Lab:DAMARIS [place] CdlcvcjTT[address] [facility] Notes/Report: FASTING:YES COLLECTION KIT GIVEN TO PATIENT. PATIENT ADVISED TO RETURN. FASTING: YES CHOLESTEROL, TOTAL 187 <200 mg/dL N HDL CHOLESTEROL 60 > OR = 50 mg/dL N TRIGLYCERIDES 95 <150 mg/dL N LDL-CHOLESTEROL 108 H Reference range: <100 Desirable range <100 mg/dL for primary prevention; <70 mg/dL for patients with CHD or diabetic patients with > or = 2 CHD risk factors. LDL-C is now calculated using the Chace calculation, which is a validated novel method providing better accuracy than the Friedewald equation in the estimation of LDL-C. Ricky SS et al. ROSALINO. 2013;310(19): 7851-3780 (http://education.Free & Clear/faq/FAQ16 4) CHOL/HDLC RATIO 3.1 <5.0 (calc) N NON HDL CHOLESTEROL 127 <130 mg/dL (calc) N For patients with diabetes plus 1 major ASCVD risk factor, treating to a non-HDL-C goal of <100 mg/dL (LDL-C of <70 mg/dL) is considered a therapeutic option. .HEMOGLOBIN A1c (496) Reviewed date:02/05/2025 07:55:09 AM Interpretation: Performing Lab:DAMARIS [facility] MELTOptio Labs [place] [address] [address] EwvnnmfOW[address] [facility] Notes/Report: FASTING:YES COLLECTION KIT GIVEN TO PATIENT. PATIENT ADVISED TO RETURN. FASTING: YES HEMOGLOBIN A1c 5.7 <5.7 % of total Hgb H For someone without known diabetes, a hemoglobin [...] A1c for diagnosis of diabetes for children. INSULIN (561) Reviewed date:02/07/2025 07:12:28 PM Interpretation: Performing Lab:Amilcar MEJIA-[place] [place], XidpsuYR[address] Karey Zamora MD Notes/Report: FASTING:YES COLLECTION KIT GIVEN TO PATIENT. PATIENT ADVISED TO RETURN. FASTING: YES INSULIN 8.5 N Reference Range < or = 18.4 Risk: Optimal < or = 18.4 Moderate NA High >18.4 Adult cardiovascular event risk category cut points (optimal, moderate, high) are based on Insulin Reference Interval studies performed at [facility] in 2021. DHEA SULFATE (402) Reviewed date:02/05/2025 07:55:09 AM Interpretation: Performing Lab:Amilcar MEJIA-David Guzman[address] Karey Zamora MD Notes/Report: FASTING:YES COLLECTION KIT GIVEN TO PATIENT. PATIENT ADVISED TO RETURN. FASTING: YES DHEA SULFATE 11 9-118 mcg/dL N VITAMIN B12/FOLATE, SERUM PA ENRIQUE (3387) Reviewed date:02/05/2025 07:55:09 AM Interpretation: Performing Lab:Amilcar MEJIAa101David Mcdaniels[address] Karey Zamora MD Notes/Report: FASTING:YES COLLECTION KIT GIVEN TO PATIENT. PATIENT ADVISED TO RETURN. FASTING: YES VITAMIN B12 989 588-2469 pg/mL N FOLATE, SERUM 5.1 L Reference Range Low: <3.4 Borderline: 3.4-5.4 Normal: >5.4 T4, FREE (866) Reviewed date:02/05/2025 07:55:09 AM Interpretation: Performing Lab:Amilcar OCAMPOWashington County [facility] HospitalQhfbt[address] Karey Zamora Notes/Report: FASTING:YES COLLECTION KIT GIVEN TO PATIENT. PATIENT ADVISED TO RETURN. FASTING: YES T4, FREE 1.1 0.8-1.8 ng/dL N CORTISOL, TOTAL (367) Reviewed date:02/05/2025 07:55:09 AM Interpretation: Performing Lab:Amilcar MEJIAa101Kirill McdanielsaKS[address] Karey Zamora MD Notes/Report: FASTING:YES COLLECTION KIT GIVEN TO PATIENT. PATIENT ADVISED TO RETURN. FASTING: YES CORTISOL, TOTAL 31.7 H Reference Range: For 8 a.m.(7-9 a.m.) Specimen: 4.0-22.0 Reference Range: For 4 p.m.(3-5 p.m.) Specimen: 3.0-17.0 * Please interpret above results accordingly * TSH (899) Reviewed date:02/05/2025 07:55:10 AM Interpretation: Performing Lab:Amilcar OCAMPOWashington County Memorial HospitalTdskq32[address] Karey Zamora Notes/Report: FASTING:YES COLLECTION KIT GIVEN TO PATIENT. PATIENT ADVISED TO RETURN. FASTING: YES TSH 0.14 0.40-4.50 mIU/L L T3, FREE (46866) Reviewed date:02/05/2025 07:55:10 AM Interpretation: Performing Lab:Amilcar MEJIA [id number] Karey Zamora MD Notes/Report: FASTING:YES COLLECTION KIT GIVEN TO PATIENT. PATIENT ADVISED TO RETURN. FASTING: YES T3, FREE 2.2 2.3-4.2 pg/mL L .VITAMIN D,25-OH,TOTAL,IA (1 4924) Reviewed date:02/05/2025 07:55:10 AM Interpretation: Performing Lab:[facility] [id number] Karey Zamora MD Notes/Report: FASTING:YES COLLECTION KIT GIVEN TO PATIENT. PATIENT ADVISED TO RETURN. FASTING: YES VITAMIN D,25-OH,TOTAL,IA 69 30-100 ng/mL N Vitamin D Status 25-OH Vitamin D: Deficiency: <20 ng/mL Insufficiency: 20 - 29 ng/mL Optimal: > or = 30 ng/mL For 25-OH Vitamin D testing on patients on D2-supplementation and patients for whom quantitation of D2 and D3 fractions is required, the QuestAssureD(TM) 25-OH VIT D, (D2,D3), LC/MS/MS is recommended: order code 66975 (patients >2yrs). See Note 1 Note 1 For additional information, please refer to http://education.[place]/faq/JBR152 (This link is being provided for informational/ educational purposes only.) ACTH, PLASMA (211) Reviewed date:02/07/2025 07:12:28 PM Interpretation: Performing Lab:[facility]/Radha OlveraMay [id number] Sonal Remy, [id number] Connor Tai M.D.,PhD Notes/Report: FASTING:YES COLLECTION KIT GIVEN TO PATIENT. PATIENT ADVISED TO RETURN. FASTING: YES ACTH, PLASMA 40 6-50 pg/mL Reference range applies only to specimens collected between 7am-10am. DEXAMETHASONE (26925) Reviewed date:02/14/2025 08:52:25 PM Interpretation: Performing Lab:[facility],[address] [facility], [place] Lizeth Davis MD,PhD,ANA Notes/Report: FASTING:YES COLLECTION KIT GIVEN TO PATIENT. PATIENT ADVISED TO RETURN. FASTING: YES DEXAMETHASONE <20 Reference Ranges for Dexamethasone: Baseline: Less than 20 ng/dL 1 mg dexamethasone overnight: 180-550 ng/dL (8:00-10:00 AM) This test was developed and its analytical performance characteristics have been determined by [facility]. It has not been cleared or approved by the FDA. This assay has been validated pursuant to the CLIA regulations and is used for clinical purposes. CORTISOL, LC/MS, SALIVA, 2 S AMPLES (42676) Reviewed date:02/12/2025 09:08:34 PM Interpretation: Performing Lab:[facility], [place] Lizeth Davis MD,PhD,ANA Notes/Report: URINE VOLUME: 1700/24 DRAW DATE 1 02/04/2025 DRAW TIME 1 11:00 PM CORTISOL, SALIVA SAMPLE 1 TNP TEST(S) NOT PERFORMED: CORTISOL, SALIVA SAMPLE 1 TEST NOT PERFORMED. Quantity not sufficient. DRAW DATE 2 02/05/2025 DRAW TIME 2 11:00PM CORTISOL, SALIVA SAMPLE 2 TNP TEST(S) NOT PERFORMED: CORTISOL, SALIVA SAMPLE 2 TEST NOT PERFORMED. Quantity not sufficient. CALCIUM, 24 HOUR URINE (W/ C REATININE) (1635) Reviewed date:02/07/2025 07:12:28 PM Interpretation: Performing Lab:[facility]-[id number] [facility], [place] Karey Zamora MD Notes/Report: URINE VOLUME: 1700/24 CALCIUM/CREATININE RATIO 90 30-275 mg/g creat N CALCIUM, 24 HOUR URINE 80 N Reference Range 35-250 Low calcium diet 35-200 CREATININE, 24 HOUR URINE 0.88 0.50-2.15 g/24 h N CORTISOL, FREE, 24 HOUR URIN E (08084) Reviewed date:02/12/2025 09:08:34 PM Interpretation: Performing Lab:[facility],[address] [facility] Lizeth Davis MD,PhD,ANA Notes/Report: URINE VOLUME: 1700/24 TOTAL VOLUME 1700 CORTISOL, FREE, URINE 16.0 4.0-50.0 mcg/24 h CORTISOL, FREE, URINE 18.0 Reference Range: ADULTS: 3.1-42.3 CREATININE, URINE 0.89 0.50-2.15 g/24 h This test was developed and its analytical performance characteristics have been determined by [facility]. It has not been cleared or approved by the FDA. This assay has been validated pursuant to the CLIA regulations and is used for clinical purposes. 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 Harper Referring Provider First Name Mamta Referring Provider Last Name Leroy Referring Provider Speciality Endocrinol ogy Referred Provider Specialty Urology General Notes Insurance :Medicare; Referral Priority Routine Reason Left adrenal adenoma /hyperplasia. 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 Harper Referring Provider First Name Mamta Referring Provider Last Name Leroy Referring Provider Speciality Endocrinol lisa Referred Provider Specialty Surgical Onc ology Referral Priority Routine Reason family hx of lupus, sjogrens, has dry mouth, fatigue, arthritis, and paratid enlargement on PET, concern for lupus or autoimmune Diagnosis 1 Polyarthritis (M13.0 ) Diagnosis 2 Chronic fatigue (R53 .82) Diagnosis 3 Dry mouth (R68.2) Referral Organization [facility] Harper Referring Provider First Name Mamta Referring Provider Last Name Leroy [facility] Referred Provider Specialty Rheumatology Referral Priority Routine Reason This patient needs a rheumatology consult. Thank you! Diagnosis 1 Raised antibody tite r (R76.0) Referral Organization [facility] Dr. Harper Referring Provider First Name Mamta Referring Provider Last Name Leroy Referring Provider [facility] Endocrinmartin gonzalez Referred Provider Specialty Rheumatology Referral Priority Routine Medications Medication SIG (Take, Route, Frequency, Duration) Notes Start Date End Date Status dexAMETHasone 1 MG Tablet 1 tablet Orally at 10 pm night before 8 am cortisol; Duration: 1 days 02/11/2025 Active Escitalopram Oxalate 20 MG Tablet 1 tablet Orally Once a day; Duration: 90 days 01/07/2025 Active Ondansetron 4 mg tablet 1 tab(s) orally twice daily as needed for nausea; Duration: 30 days *Pick strength-form from Syncapse for eRX* 03/01/2024 Active ALPRAZolam 0.5 mg tablet TAKE 1 TABLET BY MOUTH TWICE A DAY NEEDED FOR ANXIETY; Duration: 30 Days Active dexAMETHasone 1 MG Tablet 1 tablet Orally at 10 pm night before 8 am cortiosl; Duration: 1 days 11/05/2024 Active Omeprazole 20 MG Capsule Delayed Release 1 capsule 1/2 to 1 hour before morning meal Orally Once a day; Duration: 90 days 05/14/2024 Active Liothyronine Sodium 5 mcg tablet 1 tab(s) orally twice a day; Duration: 90 days 10/31/2023 Active Spironolactone 50 MG Tablet 1 tablet Orally Once a day Active amLODIPine Besylate 5 mg tablet 1 tab(s) orally once a day; Duration: 30 day(s) 10/31/2023 Active Ozempic (1 MG/DOSE) 4 MG/3ML Solution Pen-injector 1 mg Subcutaneous once a week; Duration: 90 days 02/11/2025 Active METHYLCOBALAMIN B-12 1 mg tablet, disintegrating 1 tab(s) sublingually once a day; Duration: 90 days *Reorder from Syncapse for eRx and Interaction Alerts* 10/31/2023 Active Unithroid 88 MCG Tablet 1 tablet in the morning on an empty stomach Orally Once a day Active Ozempic (0.25 or 0.5 MG/DOSE) 2 MG/3ML Solution Pen-injector 0.5 mg Subcutaneous once a week; Duration: 90 days 01/07/2025 Active Social History Social History Additional Details Category Social Info Options Details Migrated Social History Migrated Social History (Alcohol:):no (Recreational drug use:):no (Smoking:):no Problems Problem Type SNOMED Code ICD Code Onset Dates Problem Status W/U Status Risk Notes Problem Hypothyroidism (79815948) Hypothyroidism, unspecified (E03.9) Active confirmed Problem Cypress's syndrome (31888837) Cypress's syndrome, 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 Problem Disorder of adrenal gland (65114585) Disorder of adrenal gland, unspecified (E27.9) Active confirmed Problem Overweight (555548255) Overweight (E66.3) Active confirmed Problem Obesity (190237953) Obesity, unspecified (E66.9) Active confirmed Problem Hypercalcemia (32782408) Hypercalcemia (E83.52) Active confirmed Problem Generalized anxiety disorder (31455006) Generalized anxiety disorder (F41.1) Active confirmed Problem Essential tremor (857824479) Essential tremor (G25.0) Active confirmed Problem SI - Stress incontinence (23940553) Stress incontinence (female) (male) (N39.3) Active confirmed Problem Menopause (675285124) Menopausal and female climacteric states (N95.1) Active confirmed Problem Functional urinary incontinence (640306680) 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) Active confirmed Problem Polyarthritis (580520268) Polyarthritis (M13.0) Active confirmed Problem Type II diabetes mellitus without complication (608049987) Controlled type 2 diabetes mellitus without complication, without long-term current use of insulin (E11.9) Active confirmed Problem Chronic fatigue syndrome (89401676) Chronic fatigue (R53.82) Active confirmed Problem Type II diabetes mellitus without complication (662646464) Type 2 diabetes mellitus without complication, without long-term current use of insulin (E11.9) Active confirmed Problem Hypercortisolism (74504973) Hypercortisolism (E24.9) Active confirmed Vital Signs Heart Rate 70 /min 01/07/2025 Oximetry 96 % 01/07/2025 Height-cm 175.26 cm 02/11/2025 Blood pressure diastolic 76 mm Hg 01/07/2025 Weight-kg 81.65 kg 02/11/2025 Height 69 in 02/11/2025 Blood pressure systolic 139 mm Hg 01/07/2025 Weight 180 lbs 02/11/2025 BMI 26.58 kg/m2 02/11/2025 Encounters Encounter Location Date Provider Diagnosis [address] [id number] 05/12/2024 Provider Migration Hypokalemia E87.6 and Essential tremor G25.[address] Harper [address] [place] [phone] 04/16/2024 Mamta Harper Cypress's syndrome, 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 ; Hypothyroidism, unspecified E03.9 ; Essential tremor G25.0 and Obesity, unspecified E66.[address] Harper [address] [place] [phone] 05/14/2024 Mamta Harper Hypothyroidism, unspecified E03.9 ; Sharee's syndrome, 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 ; Generalized anxiety disorder F41.1 ; Benign neoplasm of right adrenal gland D35.01 and Heartburn R12 [facility] Harper [address] [place] [phone] 06/11/2024 Mamta Harper Hypothyroidism, unspecified E03.9 ; Obesity, unspecified E66.9 ; Disorder of adrenal gland, unspecified E27.9 ; Sharee's syndrome, 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 ; Insulin resistance, unspecified E88.819 ; Urinary tract infection, site not specified N39.0 and Dietary counseling and surveillance Z71.[address] [facility] [address] Harper [address] [place] [phone] 08/13/2024 Mamta Leroy Hypothyroidism, unspecified E03.9 ; Obesity, unspecified E66.9 ; Generalized anxiety disorder F41.1 ; Sharee's syndrome, 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 ; Adrenal adenoma, unspecified laterality D35.00 and Dietary counseling and surveillance Z71.[address] [facility] [address] Harper [address] [place] [phone] 11/05/2024 Mamta Harper Hypothyroidism, unspecified E03.9 ; Obesity, unspecified E66.9 ; Hypercalcemia E83.52 ; Controlled type 2 diabetes mellitus without complication, without long-term current use of insulin E11.9 ; Polyarthritis M13.0 ; Chronic fatigue R53.82 and Dietary counseling and surveillance Z71.[address] [address] Harper [address] [place] [phone] 01/07/2025 Mamta Harper Dietary counseling a nd surveillance Z71.3 ; Hypercortisolism E24.9 ; Hypothyroidism, unspecified E03.9 ; Chronic fatigue R53.82 ; Type 2 diabetes mellitus without complication, without long-term current use of insulin E11.9 ; Hypercalcemia E83.52 and Overweight E66.[address] Harper [address] [place] [phone] 02/11/2025 Mamta Harper Hypothyroidism, unspecified E03.9 ; Controlled type 2 diabetes mellitus without complication, without long-term current use of insulin E11.9 ; Obesity, unspecified E66.9 ; Dietary counseling and surveillance Z71.3 and Hypercortisolism E24.[address] [facility] [address] [phone] 03/12/2024 Mamta Harper Hypothyroidism, unspecified E03.9 and Functional urinary incontinence R39.[address] [facility] [address] Harper [address] [place] [phone] 03/27/[address] [address] Harper [address] [place] [phone] 04/05/2024 Mamta Harper Edema, unspecified R60.[address] [facility] [address] [phone] 04/18/2024 Mamta Harper Hypokalemia E87.6 an d Essential tremor G25.[address] Harper [address] [place] [phone] 04/23/2024 Mamta Harper [address] [place] [phone] 04/27/2024 Mamta Harper [address] [place] [phone] 05/03/2024 Mamta Harper [facility] [address] [place] [phone] 05/16/2024 Mamta Harper [facility] [address] [place] [phone] 05/25/2024 Mamta Harper [facility] [address] [place] [phone] 06/04/2024 Mamta Harper [facility] [address] [place] [phone] 08/21/2024 Mamta Harper [facility] [address] [place] [phone] 09/22/[address] [address] Harper [address] [place] [phone] 09/24/2024 Mamta Harper [facility] [address] [place] [phone] 09/25/2024 Mamta Harper [facility] [address] [place] [phone] 11/12/2024 Mamta Harper [address] [place] [phone] 01/22/2025 Mamta Harper [address] [place] [phone] 01/30/2025 Mamta Harper [facility] [address] [place] [phone] 01/31/2025 Mamta Harper Assessments Encounter Date Diagnosis (ICD Code) Assessment Notes Treatment Notes Treatment Clinical Notes Section Notes 03/12/2024 Hypothyroidism, unspecified (ICD-10 - E03.9) 03/12/2024 Functional urinary incontinence (ICD-10 - R39.81) 04/05/2024 Edema, unspecified (ICD-10 - R60.9) 04/16/2024 Cypress's syndrome, 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) 04/18/2024 Hypokalemia [...] 08/13/2024 Obesity, unspecified (ICD-10 - E66.9) 01/07/2025 Hypercortisolism (ICD-10 - E24.9) 02/11/2025 Hypothyroidism, unspecified (ICD-10 - E03.9) 01/07/2025 Dietary counseling and surveillance (ICD-10 - Z71.3) Spent 15 minutes preventative counseling patient on dietary recommendations and changes in setting of hyperglycemia- need to restrict refined sugars and processed foods and incorporate up to 150 minutes of moderate level activity weekly. 02/11/2025 Controlled type 2 diabetes mellitus without complication, without long-term current use of insulin (ICD-10 - E11.9) 08/13/2024 Generalized anxiety disorder (ICD-10 - F41.1) 01/07/2025 Hypothyroidism, unspecified (ICD-10 - E03.9) 11/05/2024 Hypercalcemia (ICD-10 - E83.52) 06/11/2024 Disorder of adrenal gland, unspecified (ICD-10 - E27.9) 05/14/2024 Generalized anxiety disorder (ICD-10 - F41.1) 04/16/2024 Hypothyroidism, unspecified (ICD-10 - E03.9) 05/14/2024 Benign neoplasm of right adrenal gland (ICD-10 - D35.01) 04/16/2024 Essential tremor (ICD-10 - G25.0) 06/11/2024 Sharee's syndrome, 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) 08/13/2024 Sharee's syndrome, 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) 11/05/2024 Controlled type 2 diabetes mellitus without complication, without long-term current use of insulin (ICD-10 - E11.9) 01/07/2025 Chronic fatigue (ICD-10 - R53.82) 02/11/2025 Obesity, unspecified (ICD-10 - E66.9) 02/11/2025 Dietary counseling and surveillance (ICD-10 - Z71.3) Spent 15 minutes preventative counseling patient on dietary recommendations and changes in setting of hyperglycemia- need to restrict refined sugars and processed foods and incorporate up to 150 minutes of moderate level activity weekly. 01/07/2025 Type 2 diabetes mellitus without complication, without long-term current use of insulin (ICD-10 - E11.9) 02/11/2025 Hypercortisolism (ICD-10 - E24.9) 08/13/2024 Adrenal adenoma, unspecified laterality (ICD-10 - D35.00) 11/05/2024 Polyarthritis (ICD-10 - M13.0) 06/11/2024 Insulin resistance, unspecified (ICD-10 - E88.819) 05/14/2024 Heartburn (ICD-10 - R12) 04/16/2024 Obesity, unspecified (ICD-10 - E66.9) 06/11/2024 Urinary tract infection, site not specified [...] 150 minutes of moderate level activity weekly. 04/16/2024 Other Assessment and Plan: 1. Sharee's [...] Consider starting low-dose propranolol after consulting with [facility] and bookkeeping clerk- Monitor tremor severity and adjust treatment if [...] procedures, referring and communicating with other health cna caregiver, documenting clinical information in the electronic [...] the patient to Dr. Martinez at [facility] for evaluation of adrenal adenoma and [...] nausea and vomiting. Consider referral to a town marshal if symptoms persist. 4. Insomnia:- Patient reports [...] Refer the patient to Dr. Candelario at [place] or Dr. Martinez at [facility] for evaluation of adrenal adenoma and [...] procedures, referring and communicating with other health cna caregiver, documenting clinical information in the electronic [...] Monitor symptoms and consider referral to a l d rn if needed. 5. Edema- Patient reports improvement [...] for Ozempic- Patient's insurance will change to [employer] on June 27. Ensure coverage for Ozempic and coordinate with the primary care physician for any necessary prior authorizations. 10. Upcoming appointment with Dr. Martinez on July 04- Ensure all relevant records, including CT scan, recent notes, labs, and dexamethasone suppression test, are sent to Dr. Martinez at [facility] prior to the appointment. Spent 15 [...] procedures, referring and communicating with other health cna caregiver, documenting clinical information in the electronic [...] hypercortisolism. 08/13/2024 Other Assessment and Plan: 1. 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 Martinez noted that the patient does not present with typical Sharee's appearance- Obtain second opinion from specialist due [...] patterns- Reassess after potential treatment for suspected Sharee's syndrome 5. Dizziness and falls- Patient reports [...] values- Reassess after potential treatment for suspected Sharee's syndrome Follow-up:- Schedule follow-up appointment after special [...] procedures, referring and communicating with other health cna caregiver, documenting clinical information in the electronic [...] Plan: 1. Suspected Autoimmune Disorder- Refer to l d rn for comprehensive evaluation of suspected lupus and [...] Recommend rest and pacing of activities- Consider [id number] pain relievers for joint pain as needed- [...] procedures, referring and communicating with other health cna caregiver, documenting clinical information in the electronic [...] 01/07/2025 Other Assessment and Plan: 1. 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 Anxiety and [...] procedures, referring and communicating with other health cna caregiver, documenting clinical information in the electronic or other health record, independently interpreting results and communicating results to the patient/family/caregi laura and care coordinating patient plan. Patient alert and oriented x 4 and aware of discussion noted above and in agreeance to plan in management of hypercortisolism, well controlled type 2 DM, hypothyroidism, hypercalcemia and fatigue. 02/11/2025 Other Pamela is a patient with a history of weight management issues, endocrine concerns, and dizziness, presenting for follow-up and medication adjustment. Weight ManagementAssessment: Patient is currently on Ozempic 0.5 mg for weight management. She reports struggling on the lower dose and maintaining weight at 180 lbs while consuming 1200 calories daily. Patient expresses desire to increase Ozempic dose due to returning food noise and difficulty managing cravings. Previous higher doses caused mild initial nausea. Patient's goal weight is 170 lbs. Recent A1c is 5.7.Plan:- Increase Ozempic to 1 mg weekly - Patient informed of potential side effects, including nausea - Instructed to increase dose gradually, five clicks at a time- Continue calorie-restricted diet- Schedule DEXA scan for body composition assessment- Follow up to assess response to increased Ozempic dose Orthostatic Hypotension / Possible POTSAssessment: Patient reports ongoing dizziness, particularly when transitioning from lying to standing. No recent fainting episodes. Discontinued propranolol due to excessive blood pressure lowering. Current medications include amlodipine and spironolactone 50 mg daily. Patient notes high resting heart rate (101 bpm) that increases to 150 bpm upon standing, suggestive of possible POTS (Postural Orthostatic Tachycardia Syndrome).Plan:- Continue spironolactone 50 mg daily- Discontinue amlodipine- Patient to follow up with Dr. Patel in February for POTS evaluation - Consider alternative medication options (e.g., low-dose Coreg)- Monitor blood pressure and heart rate at home- Report any worsening symptoms or syncopal episodes Thyroid FunctionAssessment: Patient is currently on Unithroid 88 mcg. Recent thyroid function tests show low TSH and T4 of 1.6, indicating possible overtreatment.Plan:- Continue Unithroid 88 mcg daily- Repeat thyroid function tests at next follow-up- Adjust dose if necessary based on results Neck Pain and Swallowing DifficultyAssessment: Patient reports neck pain for about a month and occasional trouble swallowing. Given history of endocrine concerns, further evaluation may be warranted to rule out thyroid-related issues.Plan:- Perform physical examination of the neck- Consider thyroid ultrasound if symptoms persist- Refer to ENT if swallowing difficulties worsen Possible Cypress's SyndromeAssessment: Patient has a history of adrenal concerns with previous cortisol level of 31. Patient inquires about repeating dexamethasone suppression test. No current symptoms suggestive of active Cypress's syndrome reported.Plan:- Defer repeat dexamethasone suppression test at this time- Continue monitoring for symptoms of hypercortisolism- Encourage continuation of clean eating and stress management techniques Breast CystAssessment: Patient reports finding a hard, round, non-painful mass in one breast during recent mammogram. Follow-up imaging scheduled for February 26, including mammogram of left breast and ultrasound of right breast.Plan:- Await results of scheduled breast imaging on February 26- Follow up after imaging results are available to discuss findings and any necessary further management Spent 25 minutes preparing to see the patient (ex review of tests/chart), obtaining and / or reviewing separately obtained history, performing a medically appropriate examination and/or evaluation, counseling and educating the patient/family/caregi laura, ordering medications, tests, or procedures, referring and communicating with other health cna caregiver, documenting clinical information in the electronic or other health record, independently interpreting results and communicating results to the patient/family/caregi laura and care coordinating patient plan. Patient alert and oriented x 4 and aware of discussion noted above and in agreeance to plan in management of well controlled type 2 DM/weight management, hypothyroidism, concern for hypercortisolism-off korlym and doing well. Repeat DST prior to return visit in 3 months for monitoring. Plan Of Treatment Pending Test Test Name Order Date CT adrenal gland W/WO 11/25/2023 CT adrenal gland W/WO 11/30/2023 Next Appt Details Provider Name:Mamta Harper, 11:00:00 AM, [id number] [place] [address], [phone], Insurance Providers Payer Name Payer Address Payer Phone Subscriber Number Group Number Insured Name Patient Relationship to Insured Coverage Start Date Coverage End Date [employer] Medicare part B [address] [address] [place] [address] [id number] Lorraine Boateng Self - patient is the insured Medical (General) History Medical History History ICD Code hypothyroidism prediabetes cushings syndrome adrenal adenoma
--- OUTSIDE RECORDS SUMMARY | 2025-03-08 08:46 | XMS_ITS | Clinical Summary ---
Author Organization [facility] Address [address] [place] [address] Care Team Providers Care Answerer Name Role Phone Doreen Marte MD Primary Care Provider [phone] Efe Bhat MD Unavailable [phone] Source Comments [facility],non-owned Affiliates and Associated Physician Practices is amultiple site organization consisting of ambulatory clinics and hospital sitesin [place], [place], [place] and [place]. This disclosure is being madepursuant to the Care Everywhere program and may not contain all information available regarding this patient. Last updated 18.[facility] Allergies Active Allergy Reactions Criticality Noted Date Comments Adhesive Sensitivity 10/12/2013 Augmentin 10/12/2013 Codeine 10/12/2013 Latex 10/12/2013 Levofloxacin 06/11/2017 Morphine 10/12/2013 Oxycodone-Acetaminophen 10/12/2013 Medications * Be aware that medications may not be up to date on this document. Alwaysverify current medications with the patient. vitamin D, ergocalciferol , (DRISDOL) 12231 UNITS capsule Take 1 (one) capsule by [...] Comments Blood Pressure 126/87 07/04/2024 3:46 PM MAKEUP SALES ADVISOR Pulse 98 07/04/2024 3:46 PM MAKEUP SALES ADVISOR Temperature 36.1 C (97 F) 07/04/2024 3:46 PM MAKEUP SALES ADVISOR Respiratory Rate 16 06/11/2017 10:54 AM MAKEUP SALES ADVISOR Oxygen Saturation 94% 07/04/2024 3:46 PM MAKEUP SALES ADVISOR Inhaled Oxygen Concentration - - Weight 93.4 kg (206 lb) 07/04/2024 3:46 PM MAKEUP SALES ADVISOR Height 175.3 cm (5' 9) 07/04/2024 3:46 PM MAKEUP SALES ADVISOR Body Mass Index 30.42 07/04/2024 3:46 PM MAKEUP SALES ADVISOR Plan of Treatment Health Maintenance Due Date [...] age to complete this topic Insurance MEDICARE [facility] Care Teams Answerer Relationship Specialty Start Date End Date Doreen Marte MD [address] [place] [address] PCP - General Family Medicine 10/12/13 [place] [address] [address] Orthopedic Surgery 10/12/13
--- NOTE | 2025-03-08 09:37 | S_PTH ---
PATIENT: Lorraine Quintana LOC: ANHFOHIMG #:[id number] AGE/SX: 69/F ROOM: RE03/08/[address]: Droeen MarteMD : 1955 BED: DIS: 03/08/2025 SPEC #: [id number] RECD: 03/08/25 11:39 STATUS: [facility]ONT RESg #: [id number] ELISEO: 03/08/25 09:[address]: EstuardoDoreen DEPT: [facility] Surgical RECD BY: Marcela Mancia Tissues: A - Breast Biopsy Procedures: Willams Keratin Hematoxylin and Eosin Stain Gross and Microscopic Level 4 S 100
== END 2025-03-08 08:34 | disposition home or self-care (01) ==
PROVIDERS: PCP Family Medicine; Visit Provider Family Medicine
DX: R92.8 Other abnormal and inconclusive findings on diagnostic imaging of breast (principal)
CPT/HCPCS: 19083; 77065; 88305; 88342; A4648

== ENCOUNTER 2025-04-29 09:54 | Outpatient (CLI) | payer MEDICARE, OTHER, SELFPAY ==
--- OUTSIDE RECORDS SUMMARY | 2024-05-12 15:00 | XMS_ITS ---
Author Organization [facility] Address [address] [place] [address] Care Team Providers Care Charge Aide Name Role Phone Mamta Harper Unavailable [phone] Migration, Provider Unavailable Unavailable [facility] Encounter Medications Medication SIG (Take, Route, Frequency, Duration) Notes Start Date End Date Status Spironolactone 100 MG Tablet 1 tab(s) orally twice daily; Duration: 90 days 04/18/2024 Active Potassium Chloride ER 20 MEQ Tablet Extended Release 1 tab(s) orally 2 times a day; Duration: 30 days 04/18/2024 Active Propranolol HCl 10 MG Tablet 1 tab(s) orally 2 times a day; Duration: 90 days 04/18/2024 Active oxyBUTYnin 5 MG/24 HR TABLET, EXTENDED RELEASE 1 TAB(S) ORALLY ONCE A DAY; Duration: 90 DAYS *Please review and pick correct strength-formulat ion from [employer] options. If intended option is not shown, discontinue and re-order from Quick Search* *Pick strength-form from [employer] for eRX* 03/12/2024 Active Lasix 20 MG Tablet 1 tab(s) orally once a day; Duration: 30 days 04/11/2024 Active Unithroid 88 MCG (0.088 MG) TABLET 1 TAB(S) ORALLY ONCE A DAY; Duration: 90 DAYS *Please review and pick correct strength-formulat ion from [employer] options. If intended option is not shown, discontinue and re-order from Quick Search* *Pick strength-form from [employer] for eRX* 03/05/2024 Active Liothyronine Sodium 5 MCG Tablet 1 tab(s) orally twice daily; Duration: 90 days 03/12/2024 Active Spironolactone 50 MG Tablet take up to 2 tablets orally daily; Duration: 90 days 12/19/2023 Active Ondansetron HCl 4 MG Tablet 1 tab(s) orally twice daily as needed for nausea; Duration: 30 days 03/01/2024 Active Unithroid 112 MCG (0.112 MG) TABLET TAKE 1 TABLET BY MOUTH EVERY DAY IN THE MORNING; Duration: 90 DAYS *Please review and pick correct strength-formulat ion from [employer] options. If intended option is not shown, discontinue and re-order from Quick Search* *Pick strength-form from [employer] for eRX* Active Escitalopram Oxalate 20 MG Tablet TAKE 1 TABLET BY MOUTH EVERY DAY; Duration: 90 Days Active oxyBUTYnin 5 MG/24 HR TABLET, EXTENDED RELEASE 1 TAB(S) ORALLY ONCE A DAY; Duration: 90 DAYS *Please review and pick correct strength-formulat ion from [employer] options. If intended option is not shown, discontinue and re-order from Quick Search* *Pick strength-form from [employer] for eRX* 12/05/2023 Active oxyBUTYnin Chloride 5 MG Tablet 1 tab(s) orally 3 times a day; Duration: 30 day(s) 10/31/2023 Active ALPRAZolam 0.5 MG Tablet TAKE 1 TABLET BY MOUTH TWICE A DAY NEEDED FOR ANXIETY; Duration: 30 Days Active Gabapentin 300 MG Capsule TAKE 1 CAPSULE BY MOUTH THREE TIMES A DAY; Duration: 30 Days Active Ozempic (0.25 or 0.5 MG/DOSE) 2 MG/3ML Solution Pen-injector inject 0.5 mg subcutaneously once a week; Duration: 90 days 10/31/2023 Active metFORMIN HCl ER 500 MG Tablet Extended Release 24 Hour 1 tab(s) orally twice daily with meals; Duration: 90 days 10/31/2023 Active Liothyronine Sodium 5 MCG Tablet 1 tab(s) orally twice a day; Duration: 90 days 10/31/2023 Active METHYLCOBALAMIN B-12 1 MG TABLET, DISINTEGRATING 1 TAB(S) SUBLINGUALLY ONCE A DAY; Duration: 90 DAYS *Please review for potential replacement for e-prescription and drug interaction check* *Reorder from [employer] for eRx and Interaction Alerts* 10/31/2023 Active amLODIPine Besylate 5 MG Tablet 1 tab(s) orally once a day; Duration: 30 day(s) 10/31/2023 Active Encounters Encounter Location Date Provider Diagnosis [address] [id number] 05/12/2024 Provider Migration Hypokalemia E87.6 an d Essential tremor G25.0 Assessments Encounter Date Diagnosis (ICD Code) Assessment Notes Treatment Notes Treatment Clinical Notes Section Notes 05/12/2024 Hypokalemia (ICD-10 - E87.6) 05/12/2024 Essential tremor (ICD-10 - G25.0) Plan Of Treatment Medication Medication Name Sig Start Date Stop Date Notes Spironolactone 100 MG Tablet 1 tab(s) or ally twice daily; Duration: 90 days 04/18/2024 Potassium Chloride ER 20 MEQ Tablet Extended Release 1 tab(s) orally 2 times a day; Duration: 30 days 04/18/2024 Propranolol HCl 10 MG Tablet 1 tab(s) or ally 2 times a day; Duration: 90 days 04/18/2024 Next Appt Details Provider Name:Mamta Harper, 11:00:00 AM, [address] [place] [address], [phone], Progress Notes * Lorraine SAUCEDODOB:1955 (69 yo F)Acc No.[id number]:05/12/2024 Patient: Lorraine Crabtree Provider: Juan Carlos Ricci :1955 A ge:68 Y S ex:Female Date:05/12/2024 Address:[address] [place], [place] [id number] Subjective: * Chief Complaints: * M ultum To [facility] Conversion Encounter * Medications: T akingLiothyronine Sodium 5 MCG Tablet 1 tab(s) orally twice a day METHYLCOBALAMIN B-12 1 MG TABLET, DISINTEGRATING 1 TAB(S) SUBLINGUALLY ONCE A DAY , Notes to Pharmacist: *Please review for potential replacement for e-prescription and drug interaction check* *Reorder from [facility] for eRx and Interaction Alerts*Ozempic (0.25 or 0.5 MG/DOSE) 2 MG/3ML Solution Pen-injector inject 0.5 mg subcutaneously once a week metFORMIN HCl ER 500 MG Tablet Extended Release 24 Hour 1 tab(s) orally twice daily with meals amLODIPine Besylate 5 MG Tablet 1 tab(s) orally once a day Gabapentin 300 MG Capsule TAKE 1 CAPSULE BY MOUTH THREE TIMES A DAY oxyBUTYnin Chloride 5 MG Tablet 1 tab(s) orally 3 times a day ALPRAZolam 0.5 MG Tablet TAKE 1 TABLET BY MOUTH TWICE A DAY NEEDED FOR ANXIETY Escitalopram Oxalate 20 MG Tablet TAKE 1 TABLET BY MOUTH EVERY DAY oxyBUTYnin 5 MG/24 HR TABLET, EXTENDED RELEASE 1 TAB(S) ORALLY ONCE A DAY , Notes to Pharmacist: *Please review and pick correct strength-formulation from [employer] options. If intended option is not shown, discontinue and re-order from Quick Search* *Pick strength-form from [employer] for eRX*Unithroid 112 MCG (0.112 MG) TABLET TAKE 1 TABLET BY MOUTH EVERY DAY IN THE MORNING , Notes to Pharmacist: *Please review and pick correct strength- formulation from [employer] options. If intended option is not shown, discontinue and re-order from Quick Search* *Pick strength-form from [employer] for eRX*Spironolactone 50 MG Tablet take up to 2 tablets orally daily Ondansetron HCl 4 MG Tablet 1 tab(s) orally twice daily as needed for nausea Unithroid 88 MCG (0.088 MG) TABLET 1 TAB(S) ORALLY ONCE A DAY , Notes to Pharmacist: *Please review and pick correct strength-formulation from [employer] options. If intended option is not shown, discontinue and re-order from Quick Search* *Pick strength-form from [employer] for eRX*Liothyronine Sodium 5 MCG Tablet 1 tab(s) orally twice daily oxyBUTYnin 5 MG/24 HR TABLET, EXTENDED RELEASE 1 TAB(S) ORALLY ONCE A DAY , Notes to Pharmacist: *Please review and pick correct strength-formulation from [employer] options. If intended option is not shown, discontinue and re-order from Quick Search* *Pick strength-form from [employer] for eRX*Lasix 20 MG Tablet 1 tab(s) orally once a day Taking Liothyronine Sodium 5 MCG Tablet 1 tab(s) orally twice a day Taking METHYLCOBALAMIN B-12 1 MG TABLET, DISINTEGRATING 1 TAB(S) SUBLINGUALLY ONCE A DAY , Notes to Pharmacist: *Please review for potential replacement for e-prescription and drug interaction check* *Reorder from [employer] for eRx and Interaction Alerts*Taking Ozempic (0.25 or 0.5 MG/DOSE) 2 MG/3ML Solution Pen-injector inject 0.5 mg subcutaneously once a week Taking metFORMIN HCl ER 500 MG Tablet Extended Release 24 Hour 1 tab(s) orally twice daily with meals Taking amLODIPine Besylate 5 MG Tablet 1 tab(s) orally once a day Taking Gabapentin 300 MG Capsule TAKE 1 CAPSULE BY MOUTH THREE TIMES A DAY Taking oxyBUTYnin Chloride 5 MG Tablet 1 tab(s) orally 3 times a day Taking ALPRAZolam 0.5 MG Tablet TAKE 1 TABLET BY MOUTH TWICE A DAY NEEDED FOR ANXIETY Taking Escitalopram Oxalate 20 MG Tablet TAKE 1 TABLET BY MOUTH EVERY DAY Taking oxyBUTYnin 5 MG/24 HR TABLET, EXTENDED RELEASE 1 TAB(S) ORALLY ONCE A DAY , Notes to Pharmacist: *Please review and pick correct strength-formulation from [employer] options. If intended option is not shown, discontinue and re-order from Quick Search* *Pick strength-form from [employer] for eRX*Taking Unithroid 112 MCG (0.112 MG) TABLET TAKE 1 TABLET BY MOUTH EVERY DAY IN THE MORNING , Notes to Pharmacist: *Please review and pick correct strength-formulation from [employer] options. If intended option is not shown, discontinue and re-order from Quick Search* *Pick strength-form from [employer] for eRX*Taking Spironolactone 50 MG Tablet take up to 2 tablets orally daily Taking Ondansetron HCl 4 MG Tablet 1 tab(s) orally twice daily as needed for nausea Taking Unithroid 88 MCG (0.088 MG) TABLET 1 TAB(S) ORALLY ONCE A DAY , Notes to Pharmacist: *Please review and pick correct strength-formulation from [employer] options. If intended option is not shown, discontinue and re-order from Quick Search* *Pick strength-form from [employer] for eRX*Taking Liothyronine Sodium 5 MCG Tablet 1 tab(s) orally twice daily Taking oxyBUTYnin 5 MG/24 HR TABLET, EXTENDED RELEASE 1 TAB(S) ORALLY ONCE A DAY , Notes to Pharmacist: *Please review and pick correct strength-formulation from [employer] options. If intended option is not shown, discontinue and re-order from Quick Search* *Pick strength-form from [employer] for eRX*Taking Lasix 20 MG Tablet 1 tab(s) orally once a day Assessment: * Assessment: 1. H ypokalemia - E87.6 (Primary) 2 . E ssential tremor - G25.0 ? Plan: * Treatment: 2. E ssential tremor Start Propranolol HCl Tablet, 10 MG, 1 tab(s), orally, 2 times a day, 90 days, 180 Tablet, Refills 1. * Electronic signature of Prov ider Migration on 04/29/2025 at 10:49 AM FINANCE INTERN Sign off status: Pending * Provider: Juan Carlos leija Migration Date: 07/12/2023 Generated for Gisselle renner/Amnada/Andriaitting on: 06/29/2024 10:49 AM FINANCE INTERN
--- OUTSIDE RECORDS SUMMARY | 2024-05-12 15:00 | XMS_ITS ---
Author Organization [facility] Address [address] [address] Care Team Providers Care Specialty Person Name Role Phone Leroy Mamta Primary Care Provider Migration, Provider Unavailable Unavailable [facility] Encounter Medications Medication SIG (Take, Route, Frequency, Duration) Notes Start Date End Date Status Ondansetron HCl 4 MG 1 tab(s) orally twice daily as needed for nausea; Duration: 30 days 03/01/2024 Active Unithroid 88 MCG (0.088 MG) 1 TAB(S) ORALLY ONCE A DAY; Duration: 90 DAYS *Please review and pick correct strength-formulat ion from [employer] options. If intended option is not shown, discontinue and re-order from Quick Search* 03/05/2024 Active Liothyronine Sodium 5 MCG 1 tab(s) orally twice daily; Duration: 90 days 03/12/2024 Active oxyBUTYnin 5 MG/24 HR 1 TAB(S) ORALLY ON CE A DAY; Duration: 90 DAYS *Please review and pick correct strength-formulat ion from [employer] options. If intended option is not shown, [...] review and pick correct strength-formulat ion from [employer] options. If intended option is not shown, discontinue and re-order from Quick Search* 12/05/2023 Active ALPRAZolam 0.5 MG TAKE 1 TABLET BY MOUTH TWICE A DAY NEEDED FOR ANXIETY; Duration: 30 Days Active Unithroid 112 MCG (0.112 MG) TAKE 1 TABLET BY MOUTH EVERY DAY IN THE MORNING; Duration: 90 DAYS *Please review and pick correct strength-formulat ion from [employer] options. If intended option is not shown, [...] Active Encounters Encounter Location Date Provider Diagnosis [facility] [address] [place] [address] 05/12/2024 Provider Migration Essential tremor G25.0 and [...] Notes * Lorraine SAUCEDODOB:1955 (69 yo F)Acc No.[id number]:05/12/2024 Patient: Lorraine MUKHERJEE Provider: Juan Carlos Ricci :1955 A ge:68 Y S ex:Female Date:05/12/2024 Address:[address] [place], [place] [phone] Pcp:Mamta Harper Subjective: * Chief Complaints: * [facility] . [facility] En[facility]. * Medical History: * Medications: [...] *Please review and pick correct strength-formulation from [employer] options. If intended option is not shown, discontinue and re-order from Quick Search*, Taking Unithroid 112 MCG (0.112 MG) TABLET TAKE 1 TABLET BY MOUTH EVERY DAY IN THE MORNING , Notes to Pharmacist: *Please review and pick correct strength-formulation from [employer] options. If intended option is not shown, [...] *Please review and pick correct strength-formulation from [employer] options. If intended option is not shown, discontinue and re-order from Quick Search*, Taking Liothyronine Sodium 5 MCG Tablet 1 tab(s) orally twice daily , Taking oxyBUTYnin 5 MG/24 HR TABLET, EXTENDED RELEASE 1 TAB(S) ORALLY ONCE A DAY , Notes to Pharmacist: *Please review and pick correct strength-formulation from [employer] options. If intended option is not shown, [...] * Procedure Codes: * Electronic signature of Nicci brantley Migration on 04/29/2025 at 10:50 AM ARTIST REPRESENTATIVE Sign off status: Pending * Provider: Juan Carlos leija Migration Date: 07/12/2023 Generated for Gisselle renner/Amanda/Santiago on: 06/29/2024 10:50 AM ARTIST REPRESENTATIVE
--- OUTSIDE RECORDS SUMMARY | 2024-08-13 04:20 | XMS_ITS ---
Author Organization [employer] [place] Address [address] [address] Care Team Providers Care Dust Collector Operator Name Role Phone Mamta Harper Primary Care Provider REASON FOR VISIT 2 month f/u faraz Encounters Encounter Location Date Provider Diagnosis [facility] - Mamta Harper [address] [place] [address] 08/13/2024 Mamta Harper Plan Of Treatment No Information Progress Notes * Lorraine SAUCEDODOB:1955 (69 yo F)Acc No.[id number]:08/13/2024 Progress Notes Patient: Lorraine MUKHERJEE Provider: Viktoriya Harper MD :1955 A ge:68 Y S ex:Female Date:08/13/2024 Address:[facility] Subjective: * Chief Complaints: * 1 . 2 month f/u faraz. * Medical History: Objective: * Vitals: Assessment: Plan: * Treatment: * Billing Information: * Visit Code: * Procedure Codes: * Electronic signature of Meño Harper MD on 04/29/2025 at 10:49 AM DENT REMOVER Sign off status: Pending * Provider: Viktoriya Harper MD Date: 0 08/13/2024 Generated for Printi ng/Faabbeyg/eTransmitting on: 1 06/29/2024 10:49 AM DENT REMOVER
--- NOTE | ~2025-04-29 | CT_ITS ---
EXAMINATION: CT brain wo min, 04/29/2025 10:05 CLIENT REPORTING ASSOCIATE HISTORY: Other disease of salivary gland-parotid gland nodule COMPARISON: No comparisons available. Technique: Axial images obtained of the brain without contrast. One or more of the following dose reduction techniques were used: automated exposure control, adjustment of the mA and/or kV according to patient size, use of iterative reconstruction technique. Findings: No acute infarct or parenchymal hemorrhage. No abnormal mass or mass effect. No midline shift. No extra-axial fluid collections. No hydrocephalus. Mastoid air cells unremarkable. Sinuses and orbits unremarkable. No acute fracture. No significant facial or scalp soft tissue swelling evident. No radiopaque foreign body is seen. Impression: 1.No acute intracranial abnormality. Reviewed, dictated and finalized at location P. NT REPORTING ASSOCIATE Impression: 1.No acute intracranial abnormality.
--- NOTE | ~2025-04-29 | CT_ITS ---
EXAMINATION: CT soft tissue neck w con DATE: 04/29/2025 10:29 INDICATION: Other diseases of salivary gland. Parotid mass. TECHNIQUE: Computed tomography (CT) of the neck was performed with 75 mL Omnipaque-350 intravenous contrast. Automated exposure control and iterative reconstruction technique were employed. The dose-length product was 418.38 mGy-cm. COMPARISON: PET/CT 10/25/2024 FINDINGS: There are no pathologically enlarged lymph nodes. There is an 8 x 5 mm mass in the left parotid gland. There is plaque in the proximal internal carotid arteries with 0% stenosis relative to normal distal artery lumen diameters. There are disc replacements at C4-C5, C5-C6, and C6-C7. IMPRESSION: 1. Stable 8 x 5 mm mass in left parotid gland that demonstrated increased activity on the prior PET/CT. This finding may be a normal lymph node, benign mixed tumor, or Warthin tumor. Reviewed, dictated and finalized at location E. RETE CONVEYOR OPERATOR IMPRESSION: 1. Stable 8 x 5 mm mass in left parotid gland that demonstrated increased activ ity on the prior PET/CT. This finding may be a normal lymph node, benign mixed tumor, or Warthin tumor.
[2025-04-29 10:29] LABS: Estimated Glomerular Filt Rate 49
--- OUTSIDE RECORDS SUMMARY | 2025-04-29 10:49 | XMS_ITS | Clinical Summary ---
Author Organization [facility] Address [address] [address] Care Team Providers Care Hydro Station Operator Name Role Phone Doreen Marte MD Primary Care Provider [phone] Allergies Active Allergy Reactions Criticality Noted Date [...] Take 1 Tablet by mouth daily. Active J36-qrrxyxeohh ahydrofolate-B 6 1,000mcg-680mc g DFE-1.5 mg Tablet, [...] Encounters Date Type Department Care Team Description 04/17/2025 External Device Data [facility]CTION Provider, Abstract 04/16/2025 External Device Data [facility] Provider, Abstract 03/12/2025 External Device Data [facility] Provider, Abstract 03/04/2025 Orders Only [facility] Oncology and Hematology - Kevin [address] [place] [address] [place] [id number] Vicente Conklin MD 01/29/2025 External Device [...] on file Legal Sex Female 11:51 AM VICE PRESIDENT OF CONSULTING SERVICES Gender Identity Not on file Sexual Orientation [...] st Contact Info) Description 05/06/2025 11:30 AM VICE PRESIDENT OF CONSULTING SERVICES Office Visit [facility] Oncology and Hematology [facility] [address] [place] [address] Vicente Conklin MD [address] [place] [address] Health Maintenance Due Date Last Done Comments DIABETES ANNUAL RETINAL EXAM 12/03/1973 DIABETES MICROALBUMIN ANNUAL SCREEN 12/03/1973 LDL CHOLESTEROL ANNUAL 12/03/1973 DTAP/TDAP/TD VACCINES (1 - Tdap) 12/03/1974 PNEUMOCOCCAL VACCINE 50+ YEARS (1 of 2 - PCV) 12/03/18 75 ZOSTER VACCINE (1 of 2) 12/03/1974 COLORECTAL SCREENING 12/03/2000 Colorectal Cancer Screening 12/03/2000 FIT-DNA Q 3 years 12/03/2000 FIT/FOBT Q 1 year 12/03/2000 Flex Sig/CT Colonography Q 5 years 12/03/2000 RSV VACCINE (60+ or ) (1 - Risk 50-74 years 1-dose series) 12/03/2005 DIABETES HBA1C Q 6 MONTHS 03/03/2019 08/31/2018 [...] Months Insurance MEDICARE PART A AND B [facility] MEDICARE PART A AND B [employer] [facility] Care Teams Hydro Station Operator Relationship Specialty Start Date End Date Doreen Marte MD [address] [place] [address] PCP - General Family Practice 02/27/25
--- OUTSIDE RECORDS SUMMARY | 2025-04-29 10:49 | XMS_ITS | Clinical Summary ---
Author Organization [facility] [address] [facility] Address [address] [place] [address] Care Team Providers Care Firebrick Layer Helper Name Role Phone Doreen Marte MD Primary Care Provider [phone] Allergies Active Allergy Reactions Criticality Noted Date Comments Amoxicillin-Pot Clavulanate Rash Medium 01/24/20 18 Codeine Levofloxacin Hives Medium 08/14/2018 Morphine Other Rash,Blisters High 01/23/2018 TAPE/ ADHESIVE Oxycodone Oxycodone-Acetaminophen Hypotension High 09/22/2018 Medications blood glucose diagnostic (CloudEngineTOUCH ULTRA TEST) strip Test sugars daily and [...] (08/14/2018): Added automatically from request for surgery [id number] Chronic fatigue 04/25/2018 Hypercholesterolemia 08/23/2017 Assessment & Plan (08/23/2017 2:10 PM PUBLIC POLICY MEDIATOR): Goal of treatment , LDL cholesterol less [...] taken. Assessment & Plan (08/23/2017 2:01 PM PUBLIC POLICY MEDIATOR): Continue current dose of Levothyroxine and Cytomel [...] . Assessment & Plan (08/23/2017 2:00 PM PUBLIC POLICY MEDIATOR): Hba1c was 6.0 today, indicating DM control [...] accordingly Assessment & Plan (08/23/2017 2:04 PM PUBLIC POLICY MEDIATOR): [place] [address] IU twice a week Surgical History Surgery Date Site/Laterality Comments CHOLECYSTECTOMY 06/27/2005 - 06/26/2006 Cholecystectomy POSTERIOR LAMINECTOMY / DECOMPRESSION LUMBAR SPINE 07/19/2017 L4-L5-S1 ANTERIOR FUSION CERVICAL SPINE COLONOSCOPY HYSTERECTOMY 06/27/1995 - 06/26/1996 Left salpingo-oophorectom y SALPINGOOPHORECTOMY Right Medical History Medical History Date Comments Disorder of thyroid Thyroid dise ase Diabetes mellitus Diabetes Hx Other Medical Claustrophobic; Comments: [facility] 04/29/2014 - PONV (postoperative nausea and [...] on file Legal Sex Female 12:34 PM PUBLIC POLICY MEDIATOR Gender Identity Not on file Sexual Orientation Not on file 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 on file Not on file Not [...] on file Medical Devices Implanted Type Area Delivery Associate Device Identifier Shelf Expiration Date Model / Serial / Lot [employer] 3122-040 Smartset Medium Viscosity Cement 40gm Bone Sterile - [id number] Implanted:Qty: 1 on 09/22/2018 by Jordan Jones MD at [facility] [employer] 03/26/2020 3122-040 / / [employer] [id number] Smartset Medium Viscosity Cement 40gm Bone Gentamicin - [id number] Implanted:Qty: 1 on 09/22/2018 by Jordan Jones MD at [facility] [employer] 08/19/2019 [id number] / / [employer] [id number] Attune Cemented Cruciate Retaining Knee Left 7 Component Femoral - [id number] Implanted:Qty: 1 on 09/22/2018 by Jordan Jones MD at [facility] [employer] [id number] 03/26/2028 [id number] / / [employer] [id number] Attune 14mm 50mm Cemented Revision Knee Stem Femoral Sterile - [id number] Implanted:Qty: 1 on 09/22/2018 by Jordan Jones MD at [facility] [employer] [id number] 01/25/2028 [id number] / / [employer] [id number] Attune Cement Revision Fix Bearing Knee 7 Baseplate Tibial - [id number] Implanted:Qty: 1 on 09/22/2018 by Jordan Jones MD at [facility] [employer] [facility] [id number] 12/25/2027 [id number] / / [employer] [id number] Attune 7mm Cruciate Retaining Fix Bearing Knee 7 Insert Tibial - [id number] Implanted:Qty: 1 on 09/22/2018 by Jordan Jones MD at [facility] [employer] [facility] [id number] 04/26/2022 [id number] / / Procedures Procedure Name Priority Date/Time Associated Diagnosis Comments POCT HEMOGLOBIN A1C Routine Gen Lab 08/31/2018 1:15 PM PUBLIC POLICY MEDIATOR LIPID PANEL Routine 08/15/2017 1:25 PM PUBLIC POLICY MEDIATOR Type 2 diabetes mellitus with hyperglycemia, without long-term current use of insulin (HCC) from Last 3 Months or Most Recently Relevant to Health Maintenance Results * POCT hemoglobin A1c (08/31/2018 1:15 PM PUBLIC POLICY MEDIATOR) Pathologist [facility] [place] Hgb A1C, POC 6.0 4.0 - 6.0 % [facility] Est Average Gluc POC 126 mg/dL [facility] Comment: The ADA recommends reporting an estimated Average Glucose (eAG) with all Hemoglobin A1c results using the equation derived from a study of 507 normal and diabetic adults. Minority populations were underrepresented and children were not included. (Diabetes Care 31:8910-2493, 2008). The eAG is not equivalent to a fasting glucose. Blood specimen (specimen) 08/31/2018 1:15 PM PUBLIC POLICY MEDIATOR 08/31/2018 1:15 PM PUBLIC POLICY MEDIATOR Narrative [facility] - 08/31/2018 1:33 PM PUBLIC POLICY MEDIATOR us Jordan Jones MD POINT OF CARE TEST ORDERA BLES Final Result [facility] Department [place] [address] * (ABNORMAL) Lipid panel (08/15/2017 1:25 PM PUBLIC POLICY MEDIATOR) Cholesterol 247(H) 100 - 199 mg/dL [facility] - 01 Triglycerides 188(H) 0 - 149 mg/dL [facility] - 01 HDL Cholesterol 64 >39 mg/dL [facility] - 01 VLDL 38 5 - 40 mg/dL [facility] - 01 LDL, calculated 145(H) 0 - 99 mg/dL [facility] - 01 Blood specimen (specimen) 08/15/2017 1:25 PM PUBLIC POLICY MEDIATOR 08/15/2017 Narrative [facility] - 08/16/2017 6:14 AM PUBLIC POLICY MEDIATOR Performed at: - [facility] [address] [id number] Patrol Sergeant: David Díaz PhD, Phone: [phone] Naty Norton NP LAB BLOOD ORDERABLES Final R esult [facility] - 01 from Last 3 Months or Most Recently Relevant to Health Maintenance Insurance [facility] MEDICARE [facility] Advance Directives For more information, please contact: [phone] * Full Code (Latest Code Status on File) Date Activated Date Inactivated Comments 09/22/2018 11:29 AM 09/22/2018 10:23 PM Care Teams Firebrick Layer Helper Relationship Specialty Start Date End Date Doreen Marte MD PCP - General 04/29/14
--- OUTSIDE RECORDS SUMMARY | 2025-04-29 10:49 | XMS_ITS | Patient Health Record ---
Author Organization [facility] Address [address] [address] Care Team Providers Care Law Librarian Name Role Phone Mamta Harper Primary Care Provider [phone] Migration, Provider Unavailable Unavailable Allergies No Known Allergies Results Component Value Reference Range Notes COMPREHENSIVE METABOLIC PANE L Reviewed date:05/11/2024 08:25:38 AM Interpretation: Performing Lab:[facility], [address] [place], [address] Karey Zamora Notes/Report: T4, FREE Reviewed date:05/06/2024 09:18:11 AM Interpretation: Performing Lab:[facility], [address] [place], [address] Karey Zamora Notes/Report: TSH Reviewed date:05/06/2024 09:17:52 AM Interpretation: Performing Lab[facility], [address] [place], [address] Karey Zamora Notes/Report: T3, FREE Reviewed date:06/09/2024 10:39:13 AM Interpretation: Performing Lab:[facility]ACK[facility], [facility], [address] [place], [address] Karey Zamora MD Notes/Report: HEMOGLOBIN A1c Reviewed date:06/09/2024 10:39:13 AM Interpretation: Performing Lab:[facility], [address] [place], [address] Karey Zamora Notes/Report: LIPID PANEL Reviewed date:06/09/2024 10:39:13 AM Interpretation: Performing Lab:[facility], [address] [place], [address] [facility] Notes/Report: T4, FREE Reviewed date:06/09/2024 10:39:13 AM Interpretation: Performing Lab:[facility], [address] [place], [address] [facility] Notes/Report: TSH Reviewed date:06/09/2024 10:39:13 AM Interpretation: Performing Lab:[facility], [address] [place], [address] [facility] Notes/Report: COMPREHENSIVE METABOLIC PANE L (Not yet reviewed by provider) Interpretation: Performing Lab:[facility], [address] [place], [address] [place] [address] Notes/Report: FASTING:YES FASTING: YES CYCLIC CITRULLINATED PEPTIDE (CCP) AB (IGG) (Not yet reviewed by provider) Interpretation: Performing Lab:[facility], [address] [place], [address] Karey Zamora MD Notes/Report: FASTING:YES FASTING: YES T3, FREE (Not yet reviewed b y provider) Interpretation: Performing Lab:[facility], [address] [place], [address] Karey Zamora MD Notes/Report: FASTING:YES FASTING: YES RHEUMATOID FACTOR (Not yet r eviewed by provider) Interpretation: Performing Lab:[facility], [address] [place], [address] Karey Zamora MD Notes/Report: FASTING:YES FASTING: YES C-REACTIVE PROTEIN (Not yet reviewed by provider) Interpretation: Performing Lab:[facility], [address] [place], [address] [place] [address] Tara Notes/Report: FASTING:YES FASTING: YES HEMOGLOBIN A1c (Not yet revi ewed by provider) Interpretation: Performing Lab:[facility], [address] [place], [address] [place] [address] Notes/Report: FASTING:YES FASTING: YES CBC (INCLUDES DIFF/PLT) (Not yet reviewed by provider) Interpretation: Performing Lab:[facility], [facility] [place], [address] [place] [address] Notes/Report: FASTING:YES FASTING: YES SED RATE BY MODIFIED WESTERG JERMAINE (Not yet reviewed by provider) Interpretation: Performing Lab:[facility], [facility] [place], [address] [place] [address] Notes/Report: FASTING:YES FASTING: YES T4, FREE (Not yet reviewed b y provider) Interpretation: Performing Lab:[facility], [facility] [place], [address] [place] [address] Notes/Report: FASTING:YES FASTING: YES TSH (Not yet reviewed by pro vider) Interpretation: Performing Lab:[facility], [facility] [place], [address] [place] [address] Notes/Report: FASTING:YES FASTING: YES Reason For Referral Reason 9 mm right adrenal a denoma, 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, off korlym could not tolerate, chronic hypokalemia even on highest dose spironolactone Referral Organization [facility] - Mamta Harper Referring Provider First Name Mamta Referring Provider Last Name Leroy Referring Provider Speciality Internal M edicine Referred Provider Specialty Urology Referral Priority Routine Medications Medication SIG (Take, Route, Frequency, Duration) Notes Start Date End Date Status PROPRANOLOL HYDROCHLORIDE 10 mg 1 tab(s) orally 2 times a day; Duration: 90 days 04/18/2024 Active POTASSIUM CHLORIDE (LKN-[id number]-QMN M20) 20 mEq 1 tab(s) orally 2 times a day; Duration: 30 days take 40 meq twice daily x 4 days then 40 meq daily thereafter 04/18/2024 Active Lunesta 1 MG 1 tablet immediately before bedtime Orally Once a day; Duration: 90 days 05/14/2024 Active Escitalopram Oxalate 20 MG 1 tablet Oral ly Once a day; Duration: 90 days 05/14/2024 Active OZEMPIC 2 mg/3 mL (0.25 mg or 0.5 mg dose) inject 0.5 mg subcutaneously once a week; Duration: 90 days 10/31/2023 Unknown Macrobid 100 MG 1 capsule with food Orally every 12 hrs; Duration: 7 days 06/11/2024 Active Omeprazole 20 MG 1 capsule 1/2 to 1 h our before morning meal Orally Once a day; Duration: 90 days 05/14/2024 Active ESCITALOPRAM 20 MG TAKE 1 TABLET BY MK TH EVERY DAY; Duration: 90 Days Unknown METFORMIN (EQV-GLUCOPHAGE XR) 500 mg 1 tab(s) orally twice daily with meals; Duration: 90 days 10/31/2023 Unknown LIOTHYRONINE SODIUM 5 mcg 1 tab(s) orall y twice a day; Duration: 90 days 10/31/2023 Active AMLODIPINE BESYLATE 5 mg 1 tab(s) orally once a day; Duration: 30 day(s) 10/31/2023 Active METHYLCOBALAMIN B-12 1 mg 1 tab(s) subli ngually once a day; Duration: 90 days 10/31/2023 Active UNITHROID 112 mcg (0.112 mg) TAKE 1 TABLET BY MOUTH EVERY DAY IN THE MORNING; Duration: 90 Days Active ALPRAZOLAM 0.5 mg TAKE 1 TABLET BY MK TH TWICE A DAY NEEDED FOR ANXIETY; Duration: 30 Days Active SPIRONOLACTONE 100 mg 1 tab(s) orally tw ice daily; Duration: 90 days 04/18/2024 Active ONDANSETRON 4 mg 1 tab(s) orally twic e daily as needed for nausea; Duration: 30 days 03/01/2024 Active Problems Problem Type SNOMED Code ICD Code Onset Dates Problem Status W/U Status Risk Notes Problem Hypothyroidism (86621900) Hypothyroidism, unspecified (E03.9) Active confirmed Problem Essential tremor (961365213) Essential tremor (G25.0) Active confirmed Problem Obesity (853333846) Obesity, unspecified (E66.9) Active confirmed 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, 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 Problem Disorder of adrenal gland (77569548) Disorder of adrenal gland, unspecified (E27.9) Active confirmed Problem Generalized anxiety disorder (68583010) Generalized anxiety disorder (F41.1) Active confirmed Problem SI - Stress incontinence (85127863) Stress incontinence (female) (male) (N39.3) Active confirmed Problem Menopause (838189152) Menopausal and female climacteric states (N95.1) Active confirmed Problem Functional urinary incontinence (133309060) 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) Active confirmed Vital Signs Heart Rate 89 /min 06/11/2024 Blood pressure diastolic 81 mm Hg 06/11/2024 Height 69 in 06/11/2024 Blood pressure systolic 127 mm Hg 06/11/2024 Weight 228.8 lbs 06/11/2024 BMI 33.78 kg/m2 06/11/2024 Encounters Encounter Location Date Provider Diagnosis [facility] [address] [place] [address] 05/12/2024 Provider Migration Essential tremor G25.0 and Hypokalemia E87.6 [facility] Mamta Zaranga [address] [place] [address] 08/13/2024 Mamta Harper [place] [facility] Mamta Zaranga [address] [place] [address] 05/14/2024 Mamta Harper Hypothyroidism, unspecified E03.9 ; Sharee's syndrome, 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 ; Generalized anxiety disorder F41.1 ; Benign neoplasm of right adrenal gland D35.01 and Heartburn R12 [facility] Mamta Zaranga [address] [place] [address] 06/11/2024 Mamta Harper Hypothyroidism, unspecified E03.9 ; Obesity, unspecified E66.9 ; Disorder of adrenal gland, unspecified E27.9 ; Lafayette's syndrome, 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 ; Insulin resistance, unspecified E88.819 ; Urinary tract infection, site not specified N39.0 and Dietary counseling and surveillance Z71.3 [facility] [address] [address] [place] [address] 05/03/2024 Mamta Harper [facility] [address] [place] [address] 05/16/2024 Mamta Zaranga [facility] [address] [place] [address] 05/25/2024 Mamta [facility] [address] [place] [address] 06/04/2024 Ammta [facility] Encounter Date Diagnosis (ICD Code) Assessment Notes Treatment Notes Treatment Clinical Notes Section Notes 05/12/2024 Essential tremor (ICD-10 - G25.0) 05/12/2024 Hypokalemia (ICD-10 - E87.6) 05/14/2024 Hypothyroidism, unspecified (ICD-10 - E03.9) 05/14/2024 Lafayette's syndrome, 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) 06/11/2024 Hypothyroidism, unspecified (ICD-10 - E03.9) 06/11/2024 Obesity, unspecified (ICD-10 - E66.9) 05/14/2024 Generalized anxiety disorder (ICD-10 - F41.1) 06/11/2024 Disorder of adrenal gland, unspecified (ICD-10 - E27.9) 05/14/2024 Benign neoplasm of right adrenal gland (ICD-10 - D35.01) 06/11/2024 Lafayette's syndrome, 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) 05/14/2024 Heartburn (ICD-10 - R12) 06/11/2024 Insulin resistance, unspecified (ICD-10 - E88.819) 06/11/2024 Urinary tract infection, site not specified (ICD-10 - N39.0) 06/11/2024 Dietary counseling and surveillance (ICD-10 - Z71.3) 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 Martinez at [facility] for evaluation of adrenal adenoma and potential [...] and vomiting. Consider referral to a package drier if symptoms persist. 4. Insomnia:- Patient reports [...] Refer the patient to Dr. Candelario at [place] or Dr. Martinez at [facility] for evaluation of adrenal adenoma and potential [...] referring and communicating with other health animal daycare provider, documenting clinical information in the electronic or [...] Monitor symptoms and consider referral to a veterinary medicine scientist if needed. 5. Edema- Patient reports improvement [...] for Ozempic- Patient's insurance will change to [employer] on June 27. Ensure coverage for Ozempic and coordinate with the primary care physician for any necessary prior authorizations. 10. Upcoming appointment with Dr. Martinez on July 04- Ensure all relevant records, including CT scan, recent notes, labs, and dexamethasone suppression test, are sent to Dr. Martinez at [facility] prior to the appointment. Spent 15 minutes [...] referring and communicating with other health animal daycare provider, documenting clinical information in the electronic or [...] (INCLUDES DIFF/PLT) 08/06/2024 SED RATE BY MODIFIED LYNETTE 08/06/19 25 T4, FREE 08/06/2024 TSH 08/06/2024 CT adrenal gland W/WO 11/25/2023 CT adrenal gland W/WO 11/30/2023 Insurance Providers Payer Name Payer Address Payer Phone Subscriber Number Group Number Insured Name Patient Relationship to Insured Coverage Start Date Coverage End Date Medicare [address] [address] [place] [address] [id number] Lorraine Boateng Self - patient is the insured fake company [address] [place] [id number] [phone] [id number] Lorraine Boateng Self - patient is the insured Medical (General) History Medical History History ICD Code hypothyroidism prediabetes cushings syndrome adrenal adenoma
--- OUTSIDE RECORDS SUMMARY | 2025-04-29 10:50 | XMS_ITS | Patient Health Record ---
Author Organization [facility] Address [address] [place], [place] [address] Care Team Providers Care Diving Fisher Name Role Phone Mamta Harper Unavailable [phone] Migration, Provider Unavailable Unavailable Allergies No Known Allergies Results Component Value Reference Range Flag Notes COMPREHENSIVE METABOLIC PANE L Reviewed date:05/11/2024 08:25:38 AM Interpretation: Performing Lab:, [facility] [address], [place], [address] [facility] Notes/Report: Not Reported: BUN and Creatinine are within Verified by repeat analysis. Fasting reference interval reference range. For someone without known diabetes, a glucose value between 100 and 125 mg/dL is consistent with prediabetes and should be confirmed with a follow-up test. GLUCOSE 117 65-99 mg/dL H UREA NITROGEN [...] Reviewed date:05/06/2024 09:18:11 AM Interpretation: Performing Lab:[facility], [address] [place], [address] [facility] Notes/Report: T4, FREE 1.2 0.8-1.8 ng/dL N TSH Reviewed date:05/06/2024 09:17:52 AM Interpretation: Performing Lab:[facility]IS [facility] [place], [address] [facility] Notes/Report: TSH 9.49 0.40-4.50 mIU/L H TSH Reviewed date:06/09/2024 10:39:13 AM Interpretation: Performing Lab:DAMRAIS [facility], [address] [place], [address] [facility] Notes/Report: TSH 1.42 0.40-4.50 mIU/L N T4, FREE Reviewed date:06/09/2024 10:39:13 AM Interpretation: Performing Lab:[facility]IS [facility], [address] [place], [address] [facility] Notes/Report: T4, FREE 1.3 0.8-1.8 ng/dL N LIPID PANEL Reviewed date:06/09/2024 10:39:13 AM Interpretation: Performing Lab:[facility]AMARIS [facility], [facility] [place], [address] [facility] Notes/Report: Reference range: <100 For patients with diabetes plus 1 major ASCVD risk factor, treating to a non-HDL-C goal of <100 mg/dL Desirable range <100 mg/dL for primary prevention; (LDL-C of <70 mg/dL) is considered a therapeutic <70 mg/dL for patients with CHD or diabetic patients option. with > or = 2 CHD risk factors. LDL-C is now calculated using the Chace calculation, which is a validated novel method providing better accuracy than the Friedewald equation in the estimation of LDL-C. Ricky LAKE et al. ROSALINO. 2013;310(19): 4292-8765 (http://education.Visus Technology.ScaleArc/faq/JXI694) CHOLESTEROL, TOTAL 219 <200 mg/dL H HDL CHOLESTEROL 53 > OR = 50 mg/dL N TRIGLYCERIDES 126 <150 mg/dL N LDL-CHOLESTEROL 141 H CHOL/HDLC RATIO 4.1 <5.0 (calc) N NON HDL CHOLESTEROL 166 <130 mg/dL (calc) H HEMOGLOBIN A1c Reviewed date:06/09/2024 10:39:13 AM Interpretation: Performing Lab:[facility], [address] , [place], [address] Karey Zamora Notes/Report: For the purpose of screening for the presence of diabetes: <5.7% Consistent with the absence of diabetes 5.7-6.4% Consistent with increased risk for diabetes (prediabetes) > or =6.5% Consistent with diabetes This assay result is consistent with a decreased risk of diabetes. Currently, no consensus exists regarding use of hemoglobin A1c for diagnosis of diabetes in children. According to [place] Diabetes Association (ADA) guidelines, hemoglobin A1c <7.0% represents optimal control in non- diabetic patients. Different metrics may apply to specific patient populations. Standards of Medical Care in Diabetes(ADA). HEMOGLOBIN A1c 5.3 <5.7 % of total Hgb N T3, FREE Reviewed date:06/09/2024 10:39:13 AM Interpretation: Performing Lab:JACKIE [facility], [address] [place], [address] Karey Zamora MD Notes/Report: T3, FREE 3.2 2.3-4.2 pg/mL N CORTISOL, TOTAL (367) Reviewed date:11/27/2024 07:57:09 PM Interpretation: Performing Lab:Amilcar MEJIA-Pkhoow49999 Kirill KayeaKS[address] Karey Zamora MD Notes/Report: CORTISOL, TOTAL 5.6 N * Please interpret above results accordingly * Reference Range: For 4 p.m.(3-5 p.m.) Specimen: 3.0-17.0 Reference Range: For 8 a.m.(7-9 a.m.) Specimen: 4.0-22.0 DEXAMETHASONE ([id number]) Reviewed date:12/12/2024 08:39:23 PM Interpretation: Performing Lab:Amilcar ASH/Radha [facility],[address] [address] [place]iawaNyuqkcavlgTU[address] Lizeth Davis MD,PhD,ANA Notes/Report: DEXAMETHASONE 644 used for clinical purposes. characteristics have been determined by [facility]. Baseline: Less than 20 ng/dL 1 mg dexamethasone overnight: 180-550 ng/dL (8:00-10:00 AM) has been validated pursuant to the CLIA regulations and is This test was developed and its analytical performance It has not been cleared or approved by the FDA. This assay Reference Ranges for Dexamethasone: COMP. METABOLIC Reviewed date:08/11/2024 04:07:00 PM Interpretation: [...] 2.0-5.0 g/dL A/G RATIO 1.3 1.1-2.5 Ratio CALCIUM, 24 HOUR URINE (W/ C REATININE) (3765) Reviewed date:02/07/2025 07:12:28 PM Interpretation: Performing Lab:Amilcar MEJIA-Ocbmuo[address] [place], IhihihWK[address] Karey Zamora MD Notes/Report: URINE VOLUME: 1700/24 CALCIUM/CREATININE RATIO 90 30-275 mg/g creat N CALCIUM, 24 HOUR URINE 80 N Reference Range 35-250 Low calcium diet 35-200 CREATININE, 24 HOUR URINE 0.88 0.50-2.15 g/24 h N CORTISOL, FREE, 24 HOUR URIN E (03950) Reviewed date:02/12/2025 09:08:34 PM Interpretation: Performing Lab:NILSA [facility] [employer] [facility],[address] [facility] Lizeth Davis MD,PhD,ANA Notes/Report: URINE VOLUME: 1700/24 TOTAL VOLUME 1700 CORTISOL, FREE, URINE 16.0 4.0-50.0 mcg/24 h CORTISOL, FREE, URINE 18.0 Reference Range: ADULTS: 3.1-42.3 CREATININE, URINE 0.89 0.50-2.15 g/24 h This test was developed and its analytical performance It has not been cleared or approved by the FDA. This assay used for clinical purposes. has been validated pursuant to the CLIA regulations and is characteristics have been determined by [facility]. CORTISOL, LC/MS, SALIVA, 2 S AMPLES (64756) Reviewed date:02/12/2025 09:08:34 PM Interpretation: Performing Lab:NILSA [facility],[address] [facility] Lizeth Davis MD,PhD,ANA Notes/Report: URINE VOLUME: 1700/24 DRAW DATE 1 02/04/2025 DRAW TIME 1 11:00 PM CORTISOL, SALIVA SAMPLE 1 TNP Quantity not sufficient. CORTISOL, SALIVA SAMPLE 1 TEST(S) NOT PERFORMED: TEST NOT PERFORMED. DRAW DATE 2 02/05/2025 DRAW TIME 2 11:00PM CORTISOL, SALIVA SAMPLE 2 TNP CORTISOL, SALIVA SAMPLE 2 TEST(S) NOT PERFORMED: TEST NOT PERFORMED. Quantity not sufficient. .COMPREHENSIVE METABOLIC DURAN EL (48719) [facility] Reviewed date:11/03/2024 06:17:40 PM Interpretation: Performing Lab:DAMARIS [facility] DiagnosticsSaint John'S Health SystemAyfou[address] [facility] HospitalHulbsckUY[address] [facility] Notes/Report: GLUCOSE 92 65-99 mg/dL N Fasting [...] Reviewed date:11/03/2024 06:17:40 PM Interpretation: Performing Lab:DAMARIS [facility]aticSaint [facility] Health SystemFzitc[address] [place] [address] [facility] Notes/Report: CHOLESTEROL, TOTAL 215 <200 mg/dL H HDL CHOLESTEROL 66 > OR = 50 mg/dL N TRIGLYCERIDES 78 <150 mg/dL N LDL-CHOLESTEROL 132 H <70 mg/dL for patients with CHD or diabetic patients with > or = 2 CHD risk factors. calculation, which is a validated novel method providing Ricky LAKE et al. ROSALINO. 2013;310(19): 8781-5701 Desirable range <100 mg/dL for primary prevention; estimation of LDL-C. LDL-C is now calculated using the RickyRodas (http://education.Tushky.com/faq/XMO994) Reference range: <100 better accuracy than the [...] Reviewed date:11/03/2024 06:17:40 PM Interpretation: Performing Lab:DAMARIS AdmaticJust[place] [address] [address] CnyywskXU[address] [facility] Notes/Report: WHITE BLOOD CELL COUNT 7.2 3.8-10.8 Thousand/uL N RED BLOOD CELL COUNT 5.01 3.80-5.10 Million/uL N HEMOGLOBIN 13.3 11.7-15.5 g/dL N HEMATOCRIT 43.5 35.0-45.0 % N MCV 86.8 80.0-100.0 fL N MCH 26.5 27.0-33.0 pg L MCHC 30.6 32.0-36.0 g/dL L red cell parameters and the patient's clinical value (in the range of 30 to 32 g/dL) is most likely condition. For adults, a slight decrease in the calculated MCHC not clinically significant; however, it should be interpreted with caution in correlation with other RDW 14.0 11.0-15.0 % N PLATELET COUNT 316 140-400 Thousand/uL N MPV 10.6 7.5-12.5 fL N ABSOLUTE NEUTROPHILS 4205 4119-3197 cells/uL N ABSOLUTE LYMPHOCYTES 0015 748-9812 cells/uL N ABSOLUTE MONOCYTES 612 200-950 cells/uL N ABSOLUTE EOSINOPHILS 432 15-500 cells/uL N ABSOLUTE BASOPHILS 7 0-200 cells/uL N NEUTROPHILS 58.4 N LYMPHOCYTES 27.0 N MONOCYTES 8.5 N EOSINOPHILS 6.0 N BASOPHILS 0.1 N .HEMOGLOBIN A1c (496) Reviewed date:11/03/2024 06:17:40 PM Interpretation: Performing Lab:DAMARIS AdmaticJust[place] [address] [address] TraklmcCZ[address] [facility] Notes/Report: HEMOGLOBIN A1c 5.6 <5.7 % of total Hgb N Standards of Medical Care in Diabetes(ADA). For the purpose of screening for the presence of > or =6.5% Consistent with diabetes According to [place] Diabetes Association (ADA) Currently, no consensus exists regarding use of hemoglobin A1c for diagnosis of diabetes in children. <5.7% Consistent with the absence of diabetes metrics may apply to specific patient populations. 5.7-6.4% Consistent with increased risk for diabetes guidelines, hemoglobin A1c <7.0% represents optimal control in non- diabetic patients. Different of diabetes. (prediabetes) This assay result is consistent with a decreased risk diabetes: T4, FREE (866) Reviewed date:11/03/2024 06:17:40 PM Interpretation: Performing Lab:DAMARIS [place]aticJust[place] [address] [address] Notes/Report: T4, FREE 1.2 0.8-1.8 ng/dL N TSH (899) Reviewed date:11/03/2024 06:17:40 PM Interpretation: Performing Lab:DAMARIS [place]aticJust[place] [address] [address] Notes/Report: TSH 0.94 0.40-4.50 mIU/L N T3, FREE (28559) Reviewed date:11/03/2024 06:17:40 PM Interpretation: Performing Lab:Amilcar MEJIA-Allpga96486Kirill McdanielsaKS[address] Karey Zamora MD Notes/Report: T3, FREE 2.5 2.3-4.2 pg/mL N INSULIN (561) Reviewed date:02/07/2025 07:12:28 PM Interpretation: Performing Lab:Amilcar MEJIAa101Kirill McdanielsaKS[address] Karey Zamora MD Notes/Report: FASTING:YES COLLECTION KIT GIVEN TO PATIENT. PATIENT ADVISED TO RETURN. FASTING: YES INSULIN 8.5 N Moderate NA Reference Range < or = 18.4 are based on Insulin Reference Interval cut points (optimal, moderate, high) Optimal < or = 18.4 High >18.4 in 2021. Risk: Adult cardiovascular event risk category studies performed at [facility] DHEA SULFATE (402) Reviewed date:02/05/2025 07:55:09 AM Interpretation: Performing Lab:Amilcar MEJIAa101Kirill McdanielsaKS[address] Karey Zamora MD Notes/Report: FASTING:YES COLLECTION KIT GIVEN TO PATIENT. PATIENT ADVISED TO RETURN. FASTING: YES DHEA SULFATE 11 9-118 mcg/dL N VITAMIN B12/FOLATE, SERUM PA ENRIQUE (7188) Reviewed date:02/05/2025 07:55:09 AM Interpretation: Performing Lab:Amilcar MEJIA LenexaKS[address] Karey Zamora MD Notes/Report: FASTING:YES COLLECTION KIT GIVEN TO PATIENT. PATIENT ADVISED TO RETURN. FASTING: YES VITAMIN B12 964 409-6074 pg/mL N FOLATE, SERUM 5.1 L Borderline: 3.4-5.4 Low: <3.4 Normal: >5.4 Reference Range T4, FREE (866) Reviewed date:02/05/2025 07:55:09 AM Interpretation: Performing Lab:Amilcar OCAMPOSaint John'S Health SystemNniky[address] Karey Zamora Notes/Report: FASTING:YES COLLECTION KIT [...] * Please interpret above results accordingly * T3, FREE (73753) Reviewed date:02/05/2025 07:55:10 AM Interpretation: Performing Lab:Amilcar MEJIA LenexaKS[address] Karey Zamora MD Notes/Report: FASTING:YES COLLECTION KIT GIVEN TO PATIENT. PATIENT ADVISED TO RETURN. FASTING: YES T3, FREE 2.2 2.3-4.2 pg/mL L ACTH, PLASMA (211) Reviewed date:02/07/2025 07:12:28 PM Interpretation: Performing Lab:Amilcar ORTIZ/[facility] RP87858 [facility] , UpqwjahghJN[address] Connor Tai M.D.,PhD Notes/Report: FASTING:YES COLLECTION KIT GIVEN TO PATIENT. PATIENT ADVISED TO RETURN. FASTING: YES ACTH, PLASMA 40 6-50 pg/mL between 7am-10am. Reference range applies only to specimens collected DEXAMETHASONE (20899) Reviewed date:02/14/2025 08:52:25 PM Interpretation: Performing Lab:Amilcar ASH/Radha [facility],[address] [address] [facility].CA[address] Lizeth Davis MD,PhD,ANA Notes/Report: FASTING:YES COLLECTION KIT GIVEN TO PATIENT. PATIENT ADVISED TO RETURN. FASTING: YES DEXAMETHASONE <20 This test was developed and its analytical performance has been validated pursuant to the CLIA regulations and is Baseline: Less than 20 ng/dL It has not been cleared or approved by the FDA. This assay 1 mg dexamethasone overnight: 180-550 ng/dL (8:00-10:00 AM) used for clinical purposes. Reference Ranges for Dexamethasone: characteristics have been determined by [facility]. T3, FREE (31323) Reviewed date:08/07/2024 09:50:35 PM Interpretation: Performing Lab:Amilcar MEJIA-Leeimh412[address] Matheus KayeSjzvusJC[address] Karey Zamora MD Notes/Report: FASTING:YES FASTING: YES T3, FREE 3.1 2.3-4.2 pg/mL N TSH (899) Reviewed date:08/06/2024 08:52:44 PM Interpretation: Performing Lab:Amilcar OCAMPOJustin V[place] [address] [address] [place] [address] Karey Zamora Notes/Report: FASTING:YES FASTING: YES TSH 0.04 0.40-4.50 mIU/L L T4, FREE (866) Reviewed date:08/06/2024 08:52:44 PM Interpretation: Performing Lab:Amilcar OCAMPORachael V[place] [id number] [place] [address] Karey Zamora Notes/Report: FASTING:YES FASTING: YES T4, FREE 1.6 0.8-1.8 ng/dL N .HEMOGLOBIN A1c (496) Reviewed date:08/07/2024 09:50:35 PM Interpretation: Performing Lab:Amilcar OCAMPO ThermaSourceRachael [place] [id number] [place] [address] Karey Zamora Notes/Report: FASTING:YES FASTING: YES HEMOGLOBIN A1c 5.8 <5.7 % of total Hgb H This assay result is consistent with an increased risk diabetes, age, comorbid conditions, and other A1c value between 5.7% and 6.4% is consistent with For someone with known diabetes, a value <7% prediabetes and should be confirmed with a targets should be individualized based on duration of Currently, no consensus exists regarding use of For someone without known diabetes, a hemoglobin of diabetes. considerations. hemoglobin A1c for diagnosis of diabetes for children. indicates that their diabetes is well controlled. A1c follow-up test. CYCLIC CITRULLINATED PEPTIDE (CCP) AB (IGG) (09648) Reviewed date:08/11/2024 08:43:09 PM Interpretation: Performing Lab:Amilcar EMJIA-Jkptif39567 David aKye[address] Karey Zamora MD Notes/Report: FASTING:YES FASTING: YES CYCLIC CITRULLINATED PEPTIDE (CCP) AB (IGG) <16 N Moderate Positive: 40-59 Strong Positive: >59 Reference Range Weak Positive: 20-39 Negative: <20 RHEUMATOID FACTOR (4418) Reviewed date:08/07/2024 09:50:35 PM Interpretation: Performing Lab:Amilcar MEJIA-Jxtdzs94565 Kirill KayeaKS[address] Karey Zamora MD Notes/Report: FASTING:YES FASTING: YES RHEUMATOID FACTOR <10 <14 IU/mL N C-REACTIVE PROTEIN (4420) Reviewed date:08/07/2024 09:50:35 PM Interpretation: Performing Lab:Amilcar OCAMPO [facility]SourceNew [facility] Inmet[address] [place] [address] Karey Zamora Notes/Report: FASTING:YES FASTING: YES C-REACTIVE PROTEIN 7.7 <8.0 mg/L N SED RATE BY MODIFIED ISAIAH DEAN (809) Reviewed date:08/06/2024 08:52:44 PM Interpretation: Performing Lab:Amilcar OCAMPO ThermaSourceSt DukesDgvat11954 [address] Notes/Report: FASTING:YES FASTING: YES SED RATE BY MODIFIED WESTERGREN 19 < OR = 30 mm/h N .CBC (INCLUDES DIFF/PLT) (63 99) Reviewed date:08/06/2024 08:52:44 PM Interpretation: Performing Lab:DAMARIS AdmaticJust[place] [address] [address] Notes/Report: FASTING:YES FASTING: YES WHITE BLOOD CELL [...] 11.4 7.5-12.5 fL N ABSOLUTE NEUTROPHILS 6824 1822-9965 cells/uL N ABSOLUTE LYMPHOCYTES 601 132-4477 cells/uL L ABSOLUTE MONOCYTES 368 200-950 cells/uL N ABSOLUTE EOSINOPHILS 88 15-500 cells/uL N ABSOLUTE BASOPHILS 0 0-200 cells/uL N NEUTROPHILS 85.3 N LYMPHOCYTES 9.0 N MONOCYTES 4.6 N EOSINOPHILS 1.1 N BASOPHILS 0.0 N .COMPREHENSIVE METABOLIC DURAN EL (99788) CMP Reviewed date:08/06/2024 08:52:44 PM Interpretation: Performing Lab:DAMARIS AdmaticJust[place] [address] [address] Notes/Report: FASTING:YES FASTING: YES GLUCOSE 110 65-99 mg/dL H prediabetes and [...] U/L N ALT 10 6-29 U/L N PTH, INTACT AND CALCIUM (883 7) Reviewed date:02/07/2025 08:13:11 AM Interpretation: Performing Lab:JACKIE [facility]-Owivfv[address] [place], IcjdbdYR[address] Karey Zamora MD Notes/Report: FASTING:YES COLLECTION KIT GIVEN TO PATIENT. PATIENT ADVISED TO RETURN. FASTING: YES PARATHYROID HORMONE, INTACT 31 16-77 pg/mL N Interpretive Guide Intact PTH Calcium Tertiary High High Hyperparathyroidism Normal Parathyroid Normal Normal Hypercalcemia Low or Low Normal High Non-Parathyroid Secondary High Normal or Low ------- Hypoparathyroidism Low or Low Normal Low Primary Normal or High High CALCIUM 10.1 8.6-10.4 mg/dL N .LIPID PANEL, STANDARD (7600 ) Reviewed date:02/05/2025 07:55:09 AM Interpretation: Performing Lab:DAMARIS AdmaticSaint [facility]S Health SystemHssqi[address] YcfxsvuIM[address] Karey Zamora Notes/Report: FASTING:YES COLLECTION KIT GIVEN TO PATIENT. PATIENT ADVISED TO RETURN. FASTING: YES CHOLESTEROL, TOTAL 187 <200 mg/dL N HDL CHOLESTEROL 60 > OR = 50 mg/dL N TRIGLYCERIDES 95 <150 mg/dL N LDL-CHOLESTEROL 108 H <70 mg/dL for patients with CHD or diabetic patients LDL-C is now calculated using the Chace with > or = 2 CHD risk factors. estimation of LDL-C. (http://education.Tushky.com/faq/UKF376) Ricky LAKE et al. ROSALINO. 2013;310(19): 7306-0522 Desirable range <100 mg/dL for primary prevention; calculation, which is a validated novel method providing better accuracy than the Friedewald equation in the Reference range: <100 CHOL/HDLC RATIO 3.1 <5.0 (calc) N NON HDL CHOLESTEROL 127 <130 mg/dL (calc) N option. factor, treating to a non-HDL-C goal of <100 mg/dL (LDL-C of <70 mg/dL) is considered a therapeutic For patients with diabetes plus 1 major ASCVD risk .HEMOGLOBIN A1c (496) Reviewed date:02/05/2025 07:55:09 AM Interpretation: Performing Lab:DAMARIS [facility]Symb[facility] Health [place] [address] [address] VlawadlCA[address] Karey Pacheco Notes/Report: FASTING:YES COLLECTION KIT GIVEN TO PATIENT. PATIENT ADVISED TO RETURN. FASTING: YES HEMOGLOBIN A1c 5.7 <5.7 % of total Hgb H This assay result is consistent with an increased risk of diabetes. Currently, no consensus exists regarding use of follow-up test. hemoglobin A1c for diagnosis of diabetes for children. prediabetes and should be confirmed with a considerations. indicates that their diabetes is well controlled. A1c A1c value between 5.7% and 6.4% is consistent with For someone without known diabetes, a hemoglobin targets should be individualized based on duration of diabetes, age, comorbid conditions, and other For someone with known diabetes, a value <7% TSH (899) Reviewed date:02/05/2025 07:55:10 AM Interpretation: Performing Lab:DAMARIS AdmaticSymbiosis Health [place] [address] [address] HfznjfvBZ[address] CyndyEssentia Healthfay Pacheco Notes/Report: FASTING:YES COLLECTION KIT GIVEN TO PATIENT. PATIENT ADVISED TO RETURN. FASTING: YES TSH 0.14 0.40-4.50 mIU/L L .VITAMIN D,25-OH,TOTAL,IA (1 7354) Reviewed date:02/05/2025 07:55:10 AM Interpretation: Performing Lab:KS, [facility]-Neiaos[address] [place], DicjeoQZ[address] Karey Zamora MD Notes/Report: FASTING:YES COLLECTION KIT GIVEN TO PATIENT. PATIENT ADVISED TO RETURN. FASTING: YES VITAMIN D,25-OH,TOTAL,IA 69 30-100 ng/mL N code 88888 (patients >2yrs). 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 Harper Referring Provider First Name Mamta Referring Provider Last Name Leroy Referring Provider Speciality Endocrinol oggallo Referred Provider Specialty Urology General Notes Insurance :Medicare; Referral Priority Routine Reason Left adrenal adenoma /hyperplasia. 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 Harper Referring Provider First Name Mamta Referring Provider Last Name Leroy Referring Provider Speciality Endocrinmartin gonzalez Referred Provider Specialty Rheumatology Referral Priority Routine Reason This patient needs a rheumatology consult. Thank you! Diagnosis 1 Raised antibody jle r (R76.0) Referral Organization [facility] Dr. Harper Referring Provider First Name Mamta Referring Provider Last Name Leroy Referring Provider [facility] Endocrinmartin gonzalez Referred Provider Specialty Rheumatology Referral [...] nausea; Duration: 30 days *Pick strength-form from [employer] for eRX* 03/01/2024 Active ALPRAZolam 0.5 mg [...] a day; Duration: 90 days *Reorder from [employer]eter for eRx and Interaction Alerts* 10/31/2023 Active Unithroid 88 MCG Tablet 1 tablet in the morning on an empty stomach Orally Once a day; Duration: 90 days Active Ozempic (0.25 or 0.5 MG/DOSE) 2 MG/3ML Solution Pen-injector 0.5 mg Subcutaneous once a week; Duration: 90 days 01/07/2025 Active Social History Social History Additional Details Category Social Info Options Details Migrated Social History Migrated Social History (Alcohol:):no (Recreational drug use:):no (Smoking:):no Problems Problem Type SNOMED Code ICD Code Onset Dates Problem Status W/U Status Risk Notes Problem Hypothyroidism (95552427) Hypothyroidism, unspecified (E03.9) Active confirmed 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, 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 Problem Disorder of adrenal gland (76424083) Disorder of adrenal gland, unspecified (E27.9) Active confirmed Problem Overweight (393326943) Overweight (E66.3) Active confirmed Problem Obesity (981448970) Obesity, unspecified (E66.9) Active confirmed Problem Hypercalcemia (41118207) Hypercalcemia (E83.52) Active confirmed Problem Generalized anxiety disorder (26380303) Generalized anxiety disorder (F41.1) Active confirmed Problem Essential tremor (497029548) Essential tremor (G25.0) Active confirmed Problem SI - Stress incontinence (91092834) Stress incontinence (female) (male) (N39.3) Active confirmed Problem Menopause (230567235) Menopausal and female climacteric states (N95.1) Active confirmed Problem Functional urinary incontinence (251221313) 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) Active confirmed Problem Polyarthritis (810338865) Polyarthritis (M13.0) Active confirmed Problem Type II diabetes mellitus without complication (941224256) Controlled type 2 diabetes mellitus without complication, without long-term current use of insulin (E11.9) Active confirmed Problem Chronic fatigue syndrome (12635151) Chronic fatigue (R53.82) Active confirmed Problem Type II diabetes mellitus without complication (428530093) Type 2 diabetes mellitus without complication, without long-term current use of insulin (E11.9) Active confirmed Problem Hypercortisolism (78990731) Hypercortisolism (E24.9) Active confirmed Vital Signs Heart Rate 70 /min 01/07/2025 Oximetry 96 % 01/07/2025 Height-cm 175.26 cm 02/11/2025 Blood pressure diastolic 76 mm Hg 01/07/2025 Weight-kg 81.65 kg 02/11/2025 Height 69 in 02/11/2025 Blood pressure systolic 139 mm Hg 01/07/2025 Weight 180 lbs 02/11/2025 BMI 26.58 kg/m2 02/11/2025 Encounters Encounter Location Date Provider Diagnosis [address] [place], [place] [id number] 05/12/2024 Provider Migration Hypokalemia E87.6 and Essential tremor G25.[address] 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 Harper [address] [place] [phone] 11/05/2024 Mamta Harper Hypothyroidism, unspecified E03.9 ; Obesity, unspecified E66.9 ; Hypercalcemia E83.52 ; Controlled type 2 diabetes mellitus without complication, without long-term current use of insulin E11.9 ; Polyarthritis M13.0 ; Chronic fatigue R53.82 and Dietary counseling and surveillance Z71.[address] Harper [address] [place] [address] 01/07/2025 Mamta Harper Dietary counseling a nd surveillance Z71.3 ; Hypercortisolism E24.9 ; Hypothyroidism, unspecified E03.9 ; Chronic fatigue R53.82 ; Type 2 diabetes mellitus without complication, without long-term current use of insulin E11.9 ; Hypercalcemia E83.52 and Overweight E66.[address] Harper [address] [place] [phone] 02/11/2025 Mamta Harper Hypothyroidism, unspecified E03.9 ; Controlled type 2 diabetes mellitus without complication, without long-term current use of insulin E11.9 ; Obesity, unspecified E66.9 ; Dietary counseling and surveillance Z71.3 and Hypercortisolism E24.[address] Harper [address] [place] [phone] 05/03/2024 Mamta ROCHA [facility] [address] [place] [phone] 05/16/2024 Mamta ROCHA [facility] [address] [place] [phone] 05/25/2024 Mamta ROCHA [facility] [address] [place] [phone] 06/04/2024 Mamta ROCHA [facility] [address] [place] [phone] 08/21/2024 Mamta ROCHA [facility] [address] [place] [phone] 09/22/2024 Mamta Harper [address] [place] [phone] 09/24/2024 Mamta ROCHA [facility] [address] [place] [phone] 09/25/2024 Mamta ROCHA [facility] [address] [place] [phone] 11/12/2024 Mamta Harper [address] [place] [phone] 01/22/2025 Mamta Harper [address] [place] [phone] 01/30/2025 Mamta ROCHA [facility] [address] [place] [phone] 01/31/2025 Mamta Harper [address] [place] [phone] 04/08/2025 [facility] Encounter Date Diagnosis (ICD Code) Assessment Notes Treatment Notes Treatment Clinical Notes Section Notes 05/12/2024 Hypokalemia (ICD-10 - E87.6) 05/12/2024 Essential tremor (ICD-10 - G25.0) 05/14/2024 Hypothyroidism, unspecified (ICD-10 - E03.9) 05/14/2024 Decatur's syndrome, 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) 06/11/2024 Hypothyroidism, [...] 05/14/2024 Generalized anxiety disorder (ICD-10 - F41.1) 05/14/2024 Benign neoplasm of right adrenal gland (ICD-10 - D35.01) 06/11/2024 Decatur's syndrome, 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) 08/13/2024 Sharee's [...] - E88.819) 05/14/2024 Heartburn (ICD-10 - R12) 06/11/2024 Urinary tract infection, site not specified [...] 150 minutes of moderate level activity weekly. 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 Martinez at [facility] for evaluation of adrenal adenoma and [...] nausea and vomiting. Consider referral to a snow removing supervisor if symptoms persist. 4. Insomnia:- Patient reports [...] Refer the patient to Dr. Candelario at [place] or Dr. Martinez at [facility] for evaluation of adrenal adenoma and [...] referring and communicating with other health healthcare associate, documenting clinical information in the electronic or [...] Monitor symptoms and consider referral to a membership counselor if needed. 5. Edema- Patient reports improvement [...] for Ozempic- Patient's insurance will change to [employer] on June 27. Ensure coverage for Ozempic and coordinate with the primary care physician for any necessary prior authorizations. 10. Upcoming appointment with Dr. Martinez on July 04- Ensure all relevant records, including CT scan, recent notes, labs, and dexamethasone suppression test, are sent to Dr. Martinez at [facility] prior to the appointment. Spent 15 [...] referring and communicating with other health healthcare associate, documenting clinical information in the electronic or [...] the patient does not present with typical Decatur's appearance- Obtain second opinion from specialist due [...] values- Reassess after potential treatment for suspected Decatur's syndrome Follow-up:- Schedule follow-up appointment after special [...] referring and communicating with other health healthcare associate, documenting clinical information in the electronic or [...] Plan: 1. Suspected Autoimmune Disorder- Refer to membership counselor for comprehensive evaluation of suspected lupus and [...] Recommend rest and pacing of activities- Consider [id number]-[id number] pain relievers for joint pain as needed- [...] referring and communicating with other health healthcare associate, documenting clinical information in the electronic or [...] 01/07/2025 Other Assessment and Plan: 1. 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 Anxiety and [...] referring and communicating with other health healthcare associate, documenting clinical information in the electronic or [...] to ENT if swallowing difficulties worsen Possible Sharee's SyndromeAssessment: Patient has a history of adrenal concerns with previous cortisol level of 31. Patient inquires about repeating dexamethasone suppression test. No current symptoms suggestive of active Sharee's syndrome reported.Plan:- Defer repeat dexamethasone suppression test [...] referring and communicating with other health healthcare associate, documenting clinical information in the electronic or [...] Name Order Date CT adrenal gland W/WO 11/30/2023 CT adrenal gland W/WO 11/25/2023 Next Appt Details Provider Name:Mamta Harper, 11:00:00 AM, [address] [facility], [place], [address], Insurance Providers Payer Name Payer Address Payer Phone Subscriber Number Group Number Insured Name Patient Relationship to Insured Coverage Start Date Coverage End Date W[employer] Medicare part B [address] [address] [place] [address] [id number] Lorraine Boateng Self - patient is the insured Medical (General) History Medical History History ICD Code hypothyroidism prediabetes cushings syndrome adrenal adenoma
--- OUTSIDE RECORDS SUMMARY | 2025-04-29 10:50 | XMS_ITS | Data Portability ---
Author Organization [facility] Address [address] [place] [address] Care Team Providers Care Hay Chopper Name Role Phone BRITT FUENTES Primary Care Provider Assessment Encounter Date Assessment Date Assessment LastModified by Organization Details LastModified Time 03/18/2023 03/18/2023 45 minutes spent on patient care, >50% face to face [email or web address] Not available 03/18/2023 14:56:49 Plan of Treatment Reminders Order Date Submit Date Provider Last Modified By Organization Details Last Modified Time Details Appointments None recorded. Lab None recorded. Referral None recorded. Procedures None recorded. Surgeries None recorded. Imaging None recorded. Medication Orders estradiol 0.0375 mg/24 hr weekly transdermal patch 2022 023 [id number] [id number], [address] , [place], [address], 14:42:55 Patient TargetsNo targets recorded. Patient InstructionsNo instructions recorded. Reason for Referral None Reported. Procedures Surgical History Date Name Laterality Status Provider Name and Address Organization Details Recorded Time 08/23/19 23 Date of Last Mammogram completed Gabriella Moscoso [facility] 03/18/2023 12:53:21 08/13/19 23 completed Gabriella Moscoso [facility] 03/18/2023 12:53:21 02/10/19 91 [facility] 03/18/[facility]23 12:53:33 10/21/18 85 Caesarean Section completed [facility] 03/18/2023 12:53:33 Orthopedic Surgery completed [facility] 03/18/2023 12:53:33 Endometrial Ablation completed [facility] 03/18/2023 12:53:[address] [facility] 03/18/2023 12:53:33 Endometrial Biopsy completed [facility] 03/18/2023 12:53:33 Total Hysterectomy completed [facility] 03/18/2023 12:53:[address] [facility] 03/18/2023 12:53:33 Imaging Results None recorded. Procedure Notes None recorded. Medical Equipment None Reported. Allergies Allergen ID Allergen Name Allergen Category Reaction Reaction Severity Criticality Documentation Date Start Date Code Code System Note Provider Name and Address Organization Details Recorded Time morphine medicatio n itching Not available Not available 03/18/2023 7052 RxNorm Gabriella Schroedte r null, [facility] 3 12:53:14 56263 Augmentin medicatio n hives Not available Not available 03/18/2023 99162 2 RxNorm Gabriella Schroedte r null, [facility] 3 12:53:14 96689 latex environme nt,medica tion hives Not available Not available 03/18/2023 21451 91 RxNorm Gabriella Schroedte r null, [facility] 3 12:53:14 41884 Levaquin medicatio n nausea Not available Not available 03/18/2023 46284 2 RxNorm Gabriella Schroedte r null, [facility] 3 12:53:14 Medications Name Sig Start [...] Updated DateTime 03/18/2023 175.26 cm 37.2 kg/m2 509131.28 g 143/82 mm[Hg] Gabriella Moscoso [place] - [facility] 03/18/2023 12:53:10 Social History Question Answer Notes LastModified by Organizat ion Details LastModified Time Tobacco Smoking Status Never Smoker [facility] 03/18/2023 12:56:57 Do You Have An [...] not available 03/18/2023 Are you able to walk independently without assistance or assistive devices? YESWOREST Information not available 03/18/2023 Are you able to care for yourself independently? Yes Information not available 03/18/2023 Do you have difficulty dressing, bathing, grooming, or toileting? No Information not available 03/18/2023 Mental Status Question Answer Note LastModified by Organization D etails LastModified Time Do you feel stressed (tense, restless, nervous, or anxious, or unable to sleep at night)? [id number] Information not available 03/18/2023 Family History Relationship Description On[place] Age of this Age Resolved Age Notes LastModified by Organization Details LastModified Time Mother Diabetes mellitus 49 [email or web address] Not available 02/26 12:53:18 Mother Heart disease 78 [email or web address] Not available 02/26 12:53:18 Father Anxiety disorder 25 [email or web address] Not available 02/26 12:53:18 Father Depressive disorder 25 [email or web address] Not available 02/26 12:53:18 Maternal Aunt Malignant neoplasm of breast 40 [email or web address] Not available 03/18 14:51:06 Maternal Aunt Malignant neoplasm of pancreas [email or web address] Not available 03/18 14:51:39 Maternal Uncle Malignant neoplasm of colon [email or web address] Not available 03/18 14:51:21 Maternal Uncle Malignant neoplasm of prostate [id number] Not available 03/18 14:51:54 Medical History Condition [...] Diagnosis SNOMED-CT Code Diagnosis ICD10 Code Diagnosis IMO Codes Diagnosis Note [id number] BABAK DAWKINS MD [facility] [address] [address] 03/18/2023 12:28:21 03/18/2023 15:03:04 Menopausal syndrome [id number] N95.9 - hot flashes, night sweats, brain [...] Cavanaugh Member ID Guarantor Name 07/15/2023 1 [place] Lorraine Quintana [id number] Lorraine Quintana 07/15/2023 2 [facility] (MEDICARE SUPPLEMENT) Lorraine Quintana [id number] Lorraine Quintana Notes Date Note Type Note [...] years. BABAK DAWKINS MD [address], [place], [address], [facility] 03/18/2023 14:59:43 OBGyn Episode Ob Episode Information Episode Created Date Number of Fetuses Patient Bloodtype Patient rh Status Prepregnancy Weight lbs Domestic Partner Domestic Partner Phone Father Name Fretted Instruments Inspector Status 03/18/20 23 1 CLOSED Fetus Data First Name Last Name Admitted to NICU Weight (g) Sex Living Outcome Pediatric Complications Fetus ID Race Codes Race Delivery Type 3175.14 4 F Full Term 51996 Repeat Emmanuel Calculation Initial Emmanuel Date Initial [...] Domestic Partner Domestic Partner Phone Father Name Fretted Instruments Inspector Status 03/18/20 23 1 CLOSED Fetus Data First Name Last Name Admitted to NICU Weight (g) Sex Living Outcome Pediatric Complications Fetus ID Race Codes Race Delivery Type 3259.96 5704 M Full Term 40499 Primary Emmanuel Calculation Initial Emmanuel Date Initial [...]
--- OUTSIDE RECORDS SUMMARY | 2025-04-29 10:50 | XMS_ITS | Clinical Summary ---
Author Organization [facility] Address [address] [place] [address] Care Team Providers Care Auxiliary Operator Name Role Phone Doreen Marte MD Primary Care Provider [phone] Efe Bhat MD Unavailable [phone] Source Comments [facility],non-owned Affiliates and Associated Physician Practices is amultiple site organization consisting of ambulatory clinics and hospital sitesin [place], [place], [place] and [place]. This disclosure is being madepursuant to the Care Everywhere program and may not contain all information available regarding this patient. Last updated 18.[facility] Allergies Active Allergy Reactions Criticality Noted Date Comments Adhesive Sensitivity 10/12/2013 Augmentin 10/12/2013 Codeine 10/12/2013 Latex 10/12/2013 Levofloxacin 06/11/2017 Morphine 10/12/2013 Oxycodone-Acetaminophen 10/12/2013 Medications * Be aware that medications may not be up to date on this document. Alwaysverify current medications with the patient. vitamin D, ergocalciferol , (DRISDOL) 59693 UNITS capsule Take 1 (one) capsule by [...] Comments Blood Pressure 126/87 07/04/2024 3:46 PM UX ARCHITECT Pulse 98 07/04/2024 3:46 PM UX ARCHITECT Temperature 36.1 C (97 F) 07/04/2024 3:46 PM UX ARCHITECT Respiratory Rate 16 06/11/2017 10:54 AM UX ARCHITECT Oxygen Saturation 94% 07/04/2024 3:46 PM UX ARCHITECT Inhaled Oxygen Concentration - - Weight 93.4 kg (206 lb) 07/04/2024 3:46 PM UX ARCHITECT Height 175.3 cm (5' 9) 07/04/2024 3:46 PM UX ARCHITECT Body Mass Index 30.42 07/04/2024 3:46 PM UX ARCHITECT Plan of Treatment Health Maintenance Due Date [...] EXAM WITH MONOFILAMENT 07/04/2024 DIABETES-HGB A1C 07/04/2024 COVID-19 VACCINE (1 - 2023-2 5 season) [...] age to complete this topic Insurance MEDICARE [facility] SELF PAY NO INSURANCE Member Subscriber Plan / Payer (Ef fective for All Dates) Name:Lorraine Saucedo Member ID:Not on file Relation to Subscriber:Not on file Name:LORRAINE SAUCEDO Subscriber ID:Not on file (Home) Address: [address] [place] [id number] Payer ID:Not on file Group ID:Not on file Type:Self Pay Address: [place], [place] Care Teams Auxiliary Operator Relationship Specialty Start Date End Date Doreen Marte MD [address] [place] [address] PCP - General Family Medicine 10/12/13 [place] [address] [address] Orthopedic Surgery 10/12/13
== END 2025-04-29 09:55 | disposition home or self-care (01) ==
PROVIDERS: PCP Student in an Organized Health Care Education/Training Program; Visit Provider Internal Medicine Hematology & Oncology
DX: K11.8 Other diseases of salivary glands (principal)
CPT/HCPCS: 70450; 70491; Q9967

== ENCOUNTER 2025-05-02 11:32 | Outpatient (CLI) | payer MEDICARE, OTHER, SELFPAY ==
--- OUTSIDE RECORDS SUMMARY | 2024-05-12 15:00 | XMS_ITS ---
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 If intended option is not shown, discontinue and re-order from Quick Search* 03/05/2024 Active Liothyronine Sodium 5 MCG 1 tab(s) orally twice daily; Duration: 90 days 03/12/2024 Active oxyBUTYnin 5 MG/24 HR 1 TAB(S) ORALLY ON CE A DAY; Duration: 90 DAYS *Please review and pick correct strength-formulat ion from [employer] options. If intended option is not shown, discontinue and re-order from Quick Search* 03/12/2024 Active Lasix 20 MG 1 tab(s) orally once a day; Duration: 30 days 04/11/2024 Active Escitalopram Oxalate 20 MG TAKE 1 TABLET BY MOUTH EVERY DAY; Duration: 90 Days Active oxyBUTYnin 5 MG/24 HR 1 TAB(S) ORALLY ON CE A DAY; Duration: 90 DAYS *Please review and pick correct strength-formulat ion from [employer] options. If intended option is not shown, discontinue and re-order from Quick Search* 12/05/2023 Active ALPRAZolam 0.5 MG TAKE 1 TABLET BY MOUTH TWICE A DAY NEEDED FOR ANXIETY; Duration: 30 Days Active Unithroid 112 MCG (0.112 MG) TAKE 1 TABLET BY MOUTH EVERY DAY IN THE MORNING; Duration: 90 DAYS *Please review and pick correct strength-formulat ion from [employer] options. If intended option is not shown, discontinue and re-order from Quick Search* Active Spironolactone 50 MG take up to 2 tablet s orally daily; Duration: 90 days 12/19/2023 Active oxyBUTYnin Chloride 5 MG 1 tab(s) orally 3 times a day; Duration: 30 day(s) 10/31/2023 Active Gabapentin 300 MG TAKE 1 CAPSULE BY MOUTH THREE TIMES A DAY; Duration: 30 Days Active amLODIPine Besylate 5 MG 1 tab(s) orally once a day; Duration: 30 day(s) 10/31/2023 Active metFORMIN HCl ER 500 MG 1 tab(s) orally twice daily with meals; Duration: 90 days 10/31/2023 Active Ozempic (0.25 or 0.5 MG/DOSE) 2 MG/3ML inject 0.5 mg subcutaneously once a week; Duration: 90 days 10/31/2023 Active Potassium Chloride ER 20 MEQ 1 tab(s) orally 2 times a day; Duration: 30 days 04/18/2024 Active Liothyronine Sodium 5 MCG 1 tab(s) orally twice a day; Duration: 90 days 10/31/2023 Active Spironolactone 100 MG 1 tab(s) orally twice daily; Duration: 90 days 04/18/2024 Active Propranolol HCl 10 MG 1 tab(s) orally 2 times a day; Duration: 90 days 04/18/2024 Active METHYLCOBALAMIN B-12 1 MG 1 TAB(S) SUBLINGUALLY ONCE A DAY; Duration: 90 DAYS *Please review for potential replacement for e-prescription and drug interaction check* 10/31/2023 Active Encounters Encounter Location Date Provider Diagnosis [facility] [address] [place] [address] 05/12/2024 Provider Migration Essential tremor G25.0 and Hypokalemia E87.6 Assessments Encounter Date Diagnosis (ICD Code) Assessment Notes Treatment Notes Treatment Clinical Notes Section Notes 05/12/2024 Essential tremor (ICD-10 - G25.0) 05/12/2024 Hypokalemia (ICD-10 - E87.6) Plan Of Treatment Medication Medication Name Sig Start Date Stop Date Notes Potassium Chloride ER 20 MEQ 1 tab(s) or ally 2 times a day; Duration: 30 days 04/18/2024 Spironolactone 100 MG 1 tab(s) orally tw ice daily; Duration: 90 days 04/18/2024 Propranolol HCl 10 MG 1 tab(s) orally 2 times a day; Duration: 90 days 04/18/2024 Progress Notes * Lorraine SAUCEDODOB:1955 (69 yo F)Acc No.[id number]:05/12/2024 Patient: Lorraine MUKHERJEE Provider: Juan Carlos Ricci :1955 A ge:68 Y S ex:Female Date:05/12/2024 Address:[address] [place], [place] [id number] Pcp:Mamta Harper Subjective: * Chief Complaints: * 1 . [facility] Conversion Encounter. * Medical History: * Medications: T aking Liothyronine Sodium 5 MCG Tablet 1 tab(s) orally twice a day , Taking METHYLCOBALAMIN B-12 1 MG TABLET, DISINTEGRATING 1 TAB(S) SUBLINGUALLY ONCE A DAY , Notes to Pharmacist: *Please review for potential replacement for e-prescription and drug interaction check*, Taking Ozempic (0.25 or 0.5 MG/DOSE)(Semaglutide(0.25 or 0.5MG/DOS)) 2 MG/3ML Solution Pen-injector inject 0.5 mg subcutaneously once a week , Taking metFORMIN HCl ER 500 MG Tablet Extended Release 24 Hour 1 tab(s) orally twice daily with meals , Taking amLODIPine Besylate 5 MG Tablet 1 tab(s) orally once a day , Taking Gabapentin 300 MG Capsule TAKE 1 CAPSULE BY MOUTH THREE TIMES A DAY , Taking oxyBUTYnin Chloride 5 MG Tablet 1 tab(s) orally 3 times a day , Taking ALPRAZolam 0.5 MG Tablet TAKE 1 TABLET BY MOUTH TWICE A DAY NEEDED FOR ANXIETY , Taking Escitalopram Oxalate 20 MG Tablet TAKE 1 TABLET BY MOUTH EVERY DAY , Taking oxyBUTYnin 5 MG/24 HR TABLET, EXTENDED RELEASE 1 TAB(S) ORALLY ONCE A DAY , Notes to Pharmacist: *Please review and pick correct strength-formulation from [employer] options. If intended option is not shown, discontinue and re-order from Quick Search*, Taking Unithroid 112 MCG (0.112 MG) TABLET TAKE 1 TABLET BY MOUTH EVERY DAY IN THE MORNING , Notes to Pharmacist: *Please review and pick correct strength-formulation from [employer] options. If intended option is not shown, discontinue and re-order from Quick Search*, Taking Spironolactone 50 MG Tablet take up to 2 tablets orally daily , Taking Ondansetron HCl 4 MG Tablet 1 tab(s) orally twice daily as needed for nausea , Taking Unithroid 88 MCG (0.088 MG) TABLET 1 TAB(S) ORALLY ONCE A DAY , Notes to Pharmacist: *Please review and pick correct strength-formulation from [employer] options. If intended option is not shown, discontinue and re-order from Quick Search*, Taking Liothyronine Sodium 5 MCG Tablet 1 tab(s) orally twice daily , Taking oxyBUTYnin 5 MG/24 HR TABLET, EXTENDED RELEASE 1 TAB(S) ORALLY ONCE A DAY , Notes to Pharmacist: *Please review and pick correct strength-formulation from [employer] options. If intended option is not shown, discontinue and re-order from Quick Search*, Taking Lasix(Furosemide) 20 MG Tablet 1 tab(s) orally once a day Objective: * Vitals: Assessment: * Assessment: 1. H ypokalemia - E87.6 (Primary) 2 . E ssential tremor - G25.0 ? Plan: * Treatment: 2. E ssential tremor Start Propranolol HCl Tablet, 10 MG, 1 tab(s), orally, 2 times a day, 90 days, 180 Tablet, Refills 1. * Billing Information: * Visit Code: * Procedure Codes: * Electronic signature of Prov karon Migration on 05/02/2025 at 07:13 PM PROTECTIVE SIGNAL REPAIRER Sign off status: Pending * Provider: Juan Carlos leija Migration Date: 07/12/2023 Generated for Gisselle renner/Amanda/Santiago on: 07/02/2024 07:13 PM PROTECTIVE SIGNAL REPAIRER
--- OUTSIDE RECORDS SUMMARY | 2024-05-12 15:00 | XMS_ITS ---
Author Organization [facility] Address [address] [place] [address] Care Team Providers Care Fisher Hand Line Name Role Phone Mamta Harper Unavailable [phone] Migration, Provider Unavailable Unavailable [facility] Encounter Medications Medication SIG (Take, [...] review and pick correct strength-formulat ion from [employer] options. If intended option is not shown, discontinue and re-order from Quick Search* *Pick strength-form from [employer] for eRX* 03/12/2024 Active Lasix 20 MG Tablet 1 tab(s) orally once a day; Duration: 30 days 04/11/2024 Active Unithroid 88 MCG (0.088 MG) TABLET 1 TAB(S) ORALLY ONCE A DAY; Duration: 90 DAYS *Please review and pick correct strength-formulat ion from [employer] options. If intended option is not shown, discontinue and re-order from Quick Search* *Pick strength-form from [employer] for eRX* 03/05/2024 Active Liothyronine Sodium 5 [...] review and pick correct strength-formulat ion from [employer] options. If intended option is not shown, discontinue and re-order from Quick Search* *Pick strength-form from [employer] for eRX* Active Escitalopram Oxalate 20 MG Tablet TAKE 1 TABLET BY MOUTH EVERY DAY; Duration: 90 Days Active oxyBUTYnin 5 MG/24 HR TABLET, EXTENDED RELEASE 1 TAB(S) ORALLY ONCE A DAY; Duration: 90 DAYS *Please review and pick correct strength-formulat ion from [employer] options. If intended option is not shown, discontinue and re-order from Quick Search* *Pick strength-form from [employer] for eRX* 12/05/2023 Active oxyBUTYnin Chloride 5 [...] e-prescription and drug interaction check* *Reorder from [employer] for eRx and Interaction Alerts* 10/31/2023 Active amLODIPine Besylate 5 MG Tablet 1 tab(s) orally once a day; Duration: 30 day(s) 10/31/2023 Active Encounters Encounter Location Date Provider Diagnosis [address] [id number] 05/12/2024 Provider Migration Hypokalemia E87.6 an d [...] Appt Details Provider Name:Mamta Harper, 11:00:00 AM, [address] [place] [address], [phone], Progress Notes * Lorraine SAUCEDODOB:1955 (69 yo F)Acc No.[id number]:05/12/2024 Patient: Lorraine Crabtree Provider: Juan Carlos Ricci :1955 A ge:68 Y S ex:Female Date:05/12/2024 Address:[address] [place], [place] [id number] Subjective: * Chief Complaints: * M ultum To [facility] Conversion Encounter * Medications: T akingLiothyronine Sodium 5 MCG Tablet 1 tab(s) orally twice a day METHYLCOBALAMIN B-12 1 MG TABLET, DISINTEGRATING 1 TAB(S) SUBLINGUALLY ONCE A DAY , Notes to Pharmacist: *Please review for potential replacement for e-prescription and drug interaction check* *Reorder from [facility] for eRx and Interaction Alerts*Ozempic (0.25 or [...] *Please review and pick correct strength-formulation from [employer] options. If intended option is not shown, discontinue and re-order from Quick Search* *Pick strength-form from [employer] for eRX*Unithroid 112 MCG (0.112 MG) TABLET TAKE 1 TABLET BY MOUTH EVERY DAY IN THE MORNING , Notes to Pharmacist: *Please review and pick correct strength- formulation from [employer] options. If intended option is not shown, discontinue and re-order from Quick Search* *Pick strength-form from [employer] for eRX*Spironolactone 50 MG Tablet take up to 2 tablets orally daily Ondansetron HCl 4 MG Tablet 1 tab(s) orally twice daily as needed for nausea Unithroid 88 MCG (0.088 MG) TABLET 1 TAB(S) ORALLY ONCE A DAY , Notes to Pharmacist: *Please review and pick correct strength-formulation from [employer] options. If intended option is not shown, discontinue and re-order from Quick Search* *Pick strength-form from [employer] for eRX*Liothyronine Sodium 5 MCG Tablet 1 tab(s) orally twice daily oxyBUTYnin 5 MG/24 HR TABLET, EXTENDED RELEASE 1 TAB(S) ORALLY ONCE A DAY , Notes to Pharmacist: *Please review and pick correct strength-formulation from [employer] options. If intended option is not shown, discontinue and re-order from Quick Search* *Pick strength-form from [employer] for eRX*Lasix 20 MG Tablet 1 tab(s) orally once a day Taking Liothyronine Sodium 5 MCG Tablet 1 tab(s) orally twice a day Taking METHYLCOBALAMIN B-12 1 MG TABLET, DISINTEGRATING 1 TAB(S) SUBLINGUALLY ONCE A DAY , Notes to Pharmacist: *Please review for potential replacement for e-prescription and drug interaction check* *Reorder from [employer] for eRx and Interaction Alerts*Taking Ozempic (0.25 [...] *Please review and pick correct strength-formulation from [employer] options. If intended option is not shown, discontinue and re-order from Quick Search* *Pick strength-form from [employer] for eRX*Taking Unithroid 112 MCG (0.112 MG) TABLET TAKE 1 TABLET BY MOUTH EVERY DAY IN THE MORNING , Notes to Pharmacist: *Please review and pick correct strength-formulation from [employer] options. If intended option is not shown, discontinue and re-order from Quick Search* *Pick strength-form from [employer] for eRX*Taking Spironolactone 50 MG Tablet take up to 2 tablets orally daily Taking Ondansetron HCl 4 MG Tablet 1 tab(s) orally twice daily as needed for nausea Taking Unithroid 88 MCG (0.088 MG) TABLET 1 TAB(S) ORALLY ONCE A DAY , Notes to Pharmacist: *Please review and pick correct strength-formulation from [employer] options. If intended option is not shown, discontinue and re-order from Quick Search* *Pick strength-form from [employer] for eRX*Taking Liothyronine Sodium 5 MCG Tablet 1 tab(s) orally twice daily Taking oxyBUTYnin 5 MG/24 HR TABLET, EXTENDED RELEASE 1 TAB(S) ORALLY ONCE A DAY , Notes to Pharmacist: *Please review and pick correct strength-formulation from [employer] options. If intended option is not shown, [...] Electronic signature of Prov ider Migration on 05/02/2025 at 07:13 PM NURSE CARE MANAGER Sign off status: Pending * Provider: Juan Carlos leija Migration Date: 07/12/2023 Generated for Gisselle renner/Amanda/Andriaitting on: 07/02/2024 07:13 PM NURSE CARE MANAGER
--- OUTSIDE RECORDS SUMMARY | 2024-08-13 04:20 | XMS_ITS ---
Author Organization [facility] [place] Address [address] [address] Care Team Providers Care Dining Room Tables Set Up Attendant Name Role Phone Mamta Harper Primary Care Provider [phone] REASON FOR VISIT 2 month f/u faraz Encounters Encounter Location Date Provider Diagnosis [facility] - Mamta Harper [address] [place] [address] 08/13/2024 Mamta Harper Plan Of Treatment No Information Progress Notes * Lorraine SAUCEDODOB:1955 (69 yo F)Acc No.[id number]:08/13/2024 Progress Notes Patient: Lorraine MUKHERJEE Provider: Viktoriya Harper MD :1955 A ge:68 Y S ex:Female Date:08/13/2024 Address:[facility] Subjective: * Chief Complaints: * 1 . 2 month f/u faraz. * Medical History: Objective: * Vitals: Assessment: Plan: * Treatment: * Billing Information: * Visit Code: * Procedure Codes: * Electronic signature of Meño Harper MD on 05/02/2025 at 07:13 PM TESTING AND REGULATING CHIEF Sign off status: Pending * Provider: Viktoriya Harper MD Date: 0 08/13/2024 Generated for Printi ng/Faxing/eTransmitting on: 1 07/02/2024 07:13 PM TESTING AND REGULATING CHIEF
[2025-05-02 12:02] LABS: Hematocrit 40.8 % (37.0-47.0); Hemoglobin 12.8 g/dL (12.0-15.0); Immature Granulocyte Percent A 0.2 % (0-0.5); Lymphocytes Absolute Auto 1.31 K/mm3 (0.9-3.2); Mean Corpuscular HGB Conc 31.4 g/dl (32-36); Mean Corpuscular Hemoglobin 27.1 pg (26-34); Mean Corpuscular Volume 86.3 fl (80-100); Nucleated Red Blood Cells Absolute Auto 0.000 K/mm3 (0.0-0.012); Nucleated Red Blood Cells Perc 0.0 % (0.0-0.2); Platelet Count Result 241 k/mm3 (150-375); Red Blood Count 4.73 M/mm3 (4.2-5.4); White Blood Count 6.4 K/mm3 (4.5-10.0)
[2025-05-02 14:31] LABS: Alanine Aminotransferase 12 U/L (6-35); Albumin Level 4.5 g/dL (3.5-5.1); Alkaline Phosphatase 67 U/L (38-126); Anion Gap 10 mmol/L (4-12); Aspartate Amino Transferase 21 U/L (14-36); Bilirubin,Total 0.7 mg/dL (0.2-1.3); Blood Urea Nitrogen 27 mg/dL (7-17); Calcium 10.0 mg/dL (8.4-10.2); Carbon Dioxide 26 mmol/L (22-30); Chloride 101 mmol/L (98-107); Estimated Glomerular Filt Rate 42; Glucose 90 mg/dL (65-110); Potassium 4.3 mmol/L (3.4-5.0); Sodium 137 mmol/L (137-145); Total Protein 7.8 g/dL (6.3-8.2)
[2025-05-02 14:40] LABS: Immunoglobulin A 148 mg/dL (70-400); Immunoglobulin G 1173 mg/dL (700-1600); Immunoglobulin M 111 mg/dL (40-230)
--- OUTSIDE RECORDS SUMMARY | 2025-05-02 19:13 | XMS_ITS | Patient Health Record ---
Author Organization [facility] Address [address] [address] Care Team Providers Care Appian Bpm Developer Name Role Phone Mamta Harper Primary Care Provider [phone] Migration, Provider Unavailable Unavailable Allergies No Known Allergies Results Component Value Reference Range Notes COMPREHENSIVE METABOLIC PANE L Reviewed date:05/11/2024 08:25:38 AM Interpretation: Performing Lab:[facility], [address] [place], [address] Karey Zamora Notes/Report: T4, FREE Reviewed date:05/06/2024 09:18:11 AM Interpretation: Performing Lab:[facility], [address] [place], [address] Karey Zamora Notes/Report: TSH Reviewed date:05/06/2024 09:17:52 AM Interpretation: Performing Lab[facility], [address] [place], [address] Karey Zamora Notes/Report: T3, FREE Reviewed date:06/09/2024 10:39:13 AM Interpretation: Performing Lab:[facility], [facility], [address] [place], [address] Karey Zamora MD Notes/Report: HEMOGLOBIN A1c Reviewed date:06/09/2024 10:39:13 AM Interpretation: Performing Lab:[facility], [address] [place], [address] Karey Zamora Notes/Report: LIPID PANEL Reviewed date:06/09/2024 10:39:13 AM Interpretation: Performing Lab[facility], [address] [place], [address] [facility] Notes/Report: T4, FREE Reviewed date:06/09/2024 10:39:13 AM Interpretation: Performing Lab:[facility], [address] [place], [address] [facility] Notes/Report: TSH Reviewed date:06/09/2024 10:39:13 AM Interpretation: Performing Lab:[facility], [address] [place], [address] [facility] Notes/Report: COMPREHENSIVE METABOLIC PANE L (Not yet reviewed by provider) Interpretation: Performing Lab:[facility], [address] [place], [address] [place] [address] Notes/Report: FASTING:YES FASTING: YES CYCLIC CITRULLINATED PEPTIDE (CCP) AB (IGG) (Not yet reviewed by provider) Interpretation: Performing Lab:[facility], [address] [place], [address] Karey Zamora MD Notes/Report: FASTING:YES FASTING: YES T3, FREE (Not yet reviewed b y provider) Interpretation: Performing Lab:[facility], [address] [place], [address] Karey Zamora MD Notes/Report: FASTING:YES FASTING: YES RHEUMATOID FACTOR (Not yet r eviewed by provider) Interpretation: Performing Lab:[facility], [address] [place], [address] Karey Zamora MD Notes/Report: FASTING:YES FASTING: YES C-REACTIVE PROTEIN (Not yet reviewed by provider) Interpretation: Performing Lab:[facility], [address] [place], [address] [place] [address] Tara Notes/Report: FASTING:YES FASTING: YES HEMOGLOBIN A1c (Not yet revi ewed by provider) Interpretation: Performing Lab:[facility], [address] [place], [address] [place] [address] Notes/Report: FASTING:YES FASTING: YES CBC (INCLUDES DIFF/PLT) (Not yet reviewed by provider) Interpretation: Performing Lab:[facility], [facility] [place] [place], [address] [place] [address] Notes/Report: FASTING:YES FASTING: YES SED RATE BY MODIFIED WESTERG JERMAINE (Not yet reviewed by provider) Interpretation: Performing Lab:[facility], [facility] [place], [address] [place] [address] Notes/Report: FASTING:YES FASTING: YES T4, FREE (Not yet reviewed b y provider) Interpretation: Performing Lab:[facility], [facility] [place], [address] [place] [address] Notes/Report: FASTING:YES FASTING: YES TSH (Not yet reviewed by pro vider) Interpretation: Performing Lab:[facility], [facility] [place], [address] [place] [address] Notes/Report: FASTING:YES FASTING: YES Reason For Referral Reason 9 mm right adrenal a denoma, 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, off korlym could not tolerate, chronic hypokalemia even on highest dose spironolactone Referral Organization [facility], [facility] - Mamta Harper Referring Provider First Name Mamta Referring Provider Last Name Leroy Referring Provider Speciality Internal M edicine Referred Provider Specialty Urology Referral Priority Routine Medications Medication SIG (Take, Route, Frequency, Duration) Notes Start Date End Date Status PROPRANOLOL HYDROCHLORIDE 10 mg 1 tab(s) orally 2 times a day; Duration: 90 days 04/18/2024 Active POTASSIUM CHLORIDE ([facility]-AWEN-REM M20) 20 mEq 1 tab(s) orally 2 [...] Status W/U Status Risk Notes Problem Hypothyroidism (22569655) Hypothyroidism, unspecified (E03.9) Active confirmed Problem Essential tremor (568600753) Essential tremor (G25.0) Active confirmed Problem Obesity (615801322) Obesity, unspecified (E66.9) Active confirmed 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, 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 Problem Disorder of adrenal gland (25081302) Disorder of adrenal gland, unspecified (E27.9) Active confirmed Problem Generalized anxiety disorder (33807526) Generalized anxiety disorder (F41.1) Active confirmed Problem SI - Stress incontinence (62746591) Stress incontinence (female) (male) (N39.3) Active confirmed Problem Menopause (731883371) Menopausal and female climacteric states (N95.1) Active confirmed Problem Functional urinary incontinence (364619700) 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) Active confirmed Vital Signs Heart Rate 89 /min 06/11/2024 Blood pressure diastolic 81 mm Hg 06/11/2024 Height 69 in 06/11/2024 Blood pressure systolic 127 mm Hg 06/11/2024 Weight 228.8 lbs 06/11/2024 BMI 33.78 kg/m2 06/11/2024 Encounters Encounter Location Date Provider Diagnosis [facility] [address] [place] [address] 05/12/2024 Provider Migration Essential tremor G25.0 and Hypokalemia E87.6 [facility] [address] [address] [place] [address] 08/13/2024 Mamta Harper [facility] [address] [address] [place] [address] 05/14/2024 Mamta Harper Hypothyroidism, unspecified E03.9 ; Sharee's syndrome, 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 ; Generalized anxiety disorder F41.1 ; Benign neoplasm of right adrenal gland D35.01 and Heartburn R12 [facility] [address] [address] [place] [address] 06/11/2024 Mamta Harper Hypothyroidism, unspecified E03.9 ; Obesity, unspecified E66.9 ; Disorder of adrenal gland, unspecified E27.9 ; Havana's syndrome, 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 ; Insulin resistance, unspecified E88.819 ; Urinary tract infection, site not specified N39.0 and Dietary counseling and surveillance Z71.3 [facility] [employer] [address] [place] [address] 05/03/2024 Mamta Harper [facility] [employer] [address] [place] [address] 05/16/[address] [facility] [employer] [address] [place] [address] 05/25/2024 Mamta [facility] [employer] [address] [place] [address] 06/04/2024 Mamta [facility] Encounter Date Diagnosis (ICD Code) Assessment Notes Treatment Notes Treatment Clinical Notes Section Notes 05/12/2024 Essential tremor (ICD-10 - G25.0) 05/12/2024 Hypokalemia (ICD-10 - E87.6) 05/14/2024 Hypothyroidism, unspecified (ICD-10 - E03.9) 05/14/2024 Havana's syndrome, 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) 06/11/2024 Hypothyroidism, unspecified (ICD-10 - E03.9) 06/11/2024 Obesity, unspecified (ICD-10 - E66.9) 05/14/2024 Generalized anxiety disorder (ICD-10 - F41.1) 06/11/2024 Disorder of adrenal gland, unspecified (ICD-10 - E27.9) 05/14/2024 Benign neoplasm of right adrenal gland (ICD-10 - D35.01) 06/11/2024 Havana's syndrome, 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) 05/14/2024 Heartburn [...] the patient to Dr. Martinez at [facility] for evaluation of adrenal adenoma and potential [...] nausea and vomiting. Consider referral to a online program coordinator if symptoms persist. 4. Insomnia:- Patient reports [...] Refer the patient to Dr. Candelario at [place] or Dr. Martinez at [facility] for evaluation of adrenal adenoma and potential [...] procedures, referring and communicating with other health resident care provider, documenting clinical information in the electronic [...] Monitor symptoms and consider referral to a clearance cutter if needed. 5. Edema- Patient reports improvement [...] for Ozempic- Patient's insurance will change to [employer] on June 27. Ensure coverage for Ozempic and coordinate with the primary care physician for any necessary prior authorizations. 10. Upcoming appointment with Dr. Martinez on July 04- Ensure all relevant records, including CT scan, recent notes, labs, and dexamethasone suppression test, are sent to Dr. Martinez at [facility] prior to the appointment. Spent 15 minutes [...] procedures, referring and communicating with other health resident care provider, documenting clinical information in the electronic [...] Date Coverage End Date Medicare [address] [address] [place] [address] [id number] Lorraine Boateng Self - patient is the insured [employer] [address] [place] [phone] [id number] Lorraine Boateng Self - patient is the insured Medical (General) History Medical History History ICD Code hypothyroidism prediabetes cushings syndrome adrenal adenoma
--- OUTSIDE RECORDS SUMMARY | 2025-05-02 19:13 | XMS_ITS | Encounter Summary ---
Author Organization [facility] [employer] [facility] Address [address] [place] [address] Care Team Providers Care Systems Qa Analyst Name Role Phone Doreen Marte MD Primary Care Provider [phone] Encounter Details Date Type Department Care Team ([facility] Contact Info) Description 04/30/2025 Orders Only [facility] Oncology and Hematology [facility] [address] [place] [address] Vicente Conklin MD [address] [place], [place] [address] [address] [place] [address] Social History Tobacco Use Types Packs/Day Years Used Date Smoking Tobacco: Never Smokeless Tobacco: Never Alcohol Use Standard Drinks/Week Comments Yes 0 (1 standard drink = 0.6 oz pur e alcohol) Socially Comments No Sex and Gender Information Value Date Recorded Sex Assigned at Not on file Legal Sex Female 11:51 AM HAIR SPRING CUTTER Gender Identity Not on file Sexual Orientation Not on file documented as of this encounter Plan of Treatment Upcoming Encounters Date Type Department Care Team (Late Contact Info) Description 05/06/2025 11:30 AM HAIR SPRING CUTTER Office Visit [facility] Oncology and Hematology [facility] [address] [place] [address] Vicente Conklin MD [address] [place], [place] [address] [address] [place] [address] documented as of this encounter Procedures Procedure Name Priority Date/Time Associated Diagnosis Comments CT SOFT TISSUE NECK W CONTRAST Routine 04/29/2025 12:15 PM HAIR SPRING CUTTER HC CT HEAD/BRAIN WO CONT Routine 04/29/2025 7:39 AM HAIR SPRING CUTTER documented in this encounter Results * CT SOFT TISSUE NECK W CONTRAST (04/29/2025 12:15 PM HAIR SPRING CUTTER) Anatomical Region Laterality Modality Neck Computed Tomogra phy us Vicente Conklin MD CT ORDERABLES Final Result * [facility] CT HEAD/BRAIN WO CONT (04/29/2025 7:39 AM HAIR SPRING CUTTER) us Vicente Conklin MD [facility] CT Final Result documented in this encounter Visit Diagnoses Not on filedocumented in this encounter Care Teams Systems Qa Analyst Relationship Specialty Start Date End Date Doreen Marte MD [address] [place] [address] PCP - General Family Practice 02/27/25 documented as of this encounter
--- OUTSIDE RECORDS SUMMARY | 2025-05-02 19:14 | XMS_ITS | Clinical Summary ---
Author Organization [facility] Address [address] [facility] [address] [place] [address] Care Team Providers Care Shot Tube Machine Tender Name Role Phone Doreen Marte MD Primary Care Provider [phone] Allergies Active Allergy Reactions Criticality Noted Date [...] Take 1 Tablet by mouth daily. Active K70-xtgptofihh ahydrofolate-B 6 1,000mcg-680mc g DFE-1.5 mg Tablet, [...] Encounters Date Type Department Care Team Description 04/30/2025 Orders Only [facility] Oncology and Hematology - [address] [place] [address] Vicente Conklin MD 04/17/2025 External Device Data STL ABSTRACTION Provider, Abstract 04/16/2025 External Device Data STL ABSTRACTION Provider, Abstract 03/12/2025 External Device Data STL ABSTRACTION Provider, Abstract 03/04/2025 Orders Only [facility] Oncology and Hematology - [address] [place] [address] Vicente Conklin MD from Last 3 Months [...] on file Legal Sex Female 11:51 AM TOW TRUCK DISPATCHER Gender Identity Not on file Sexual Orientation [...] st Contact Info) Description 05/06/2025 11:30 AM TOW TRUCK DISPATCHER Office Visit [facility] Oncology and Hematology - [place] [address] [facility] [address] [place] [address] Vicente Conklin MD [address] [facility] [address] [place] [address] Health Maintenance Due Date Last [...] NECK W CONTRAST Routine 04/29/2025 12:15 PM TOW TRUCK DISPATCHER [facility] CT HEAD/BRAIN WO CONT Routine 04/29/2025 7:39 AM TOW TRUCK DISPATCHER [facility] RIGHT W OR WO CAD Routine 02/27/2025 9:13 AM CDT from Last 3 Months Results * CT SOFT TISSUE NECK W CONTRAST (04/29/2025 12:15 PM TOW TRUCK DISPATCHER) Anatomical Region Laterality Modality Neck Computed Tomogra phy us Vicente Conklin MD CT ORDERABLES Final Result * [facility] CT HEAD/BRAIN WO CONT (04/29/2025 7:39 AM TOW TRUCK DISPATCHER) us Vicente Conklin MD [facility] CT Final Result * [facility] RIGHT W OR WO CAD (02/27/2025 9:13 AM CDT) Anatomical Region Laterality Modality Breast Right Mammography us Vicente Conklin MD MAMMO ORDERABLES Final Result from Last 3 Months Insurance MEDICARE PART A AND B LOCATED WITHIN [facility] MEDICARE PART A AND B LOCATED WITHIN [facility] Care Teams Shot Tube Machine Tender Relationship Specialty Start Date End Date Doreen Marte MD [address] [place] [phone] PCP - General Family Practice 02/27/25
--- OUTSIDE RECORDS SUMMARY | 2025-05-02 19:14 | XMS_ITS | Clinical Summary ---
Author Organization [facility] Address [address] [place] [address] Care Team Providers Care Assistant Boys Track Coach Name Role Phone Doreen Marte MD Primary Care Provider [phone] Allergies Active Allergy Reactions Criticality Noted Date Comments Amoxicillin-Pot Clavulanate Rash Medium 01/24/20 18 Codeine Levofloxacin Hives Medium 08/14/2018 Morphine Other Rash,Blisters High 01/23/2018 TAPE/ ADHESIVE Oxycodone Oxycodone-Acetaminophen Hypotension High 09/22/2018 Medications blood glucose diagnostic (DrikTOUCH ULTRA TEST) strip Test sugars daily and [...] (08/14/2018): Added automatically from request for surgery [id number] Chronic fatigue 04/25/2018 Hypercholesterolemia 08/23/2017 Assessment & Plan (08/23/2017 2:10 PM FINE GRADE BULLDOZER OPERATOR): Goal of treatment , LDL cholesterol less [...] taken. Assessment & Plan (08/23/2017 2:01 PM FINE GRADE BULLDOZER OPERATOR): Continue current dose of Levothyroxine and Cytomel [...] . Assessment & Plan (08/23/2017 2:00 PM FINE GRADE BULLDOZER OPERATOR): Hba1c was 6.0 today, indicating DM control [...] accordingly Assessment & Plan (08/23/2017 2:04 PM FINE GRADE BULLDOZER OPERATOR[place] [address] IU twice a week Surgical History Surgery Date Site/Laterality Comments CHOLECYSTECTOMY 06/27/2005 - 06/26/2006 Cholecystectomy POSTERIOR LAMINECTOMY / DECOMPRESSION LUMBAR SPINE 07/19/2017 L4-L5-S1 ANTERIOR FUSION CERVICAL SPINE COLONOSCOPY HYSTERECTOMY 06/27/1995 - 06/26/1996 Left salpingo-oophorectom y SALPINGOOPHORECTOMY Right Medical History Medical History Date Comments Disorder of thyroid Thyroid dise ase Diabetes mellitus Diabetes Hx Other Medical Claustrophobic; Comments: 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 Not on file Not [...] on file Medical Devices Implanted Type Area Traveling Plant Operator Device Identifier Shelf Expiration Date Model / Serial / Lot [employer] 3122-040 Smartset Medium Viscosity Cement 40gm Bone Sterile - [id number] Implanted:Qty: 1 on 09/22/2018 by Jordan Jones MD at [facility] [employer] 03/26/2020 [id number] / / [employer] [id number] Smartset Medium Viscosity Cement 40gm Bone Gentamicin - [id number] Implanted:Qty: 1 on 09/22/2018 by Jordan Jones MD at [facility] [employer] 08/19/2019 [id number] / / [employer] [id number] Attune Cemented Cruciate Retaining Knee Left 7 Component Femoral - [id number] Implanted:Qty: 1 on 09/22/2018 by Jordan Jones MD at [facility] [employer] [id number] 03/26/2028 [id number] / / [employer] [id number] Attune 14mm 50mm Cemented Revision Knee Stem Femoral Sterile - [id number] Implanted:Qty: 1 on 09/22/2018 by Jordan Jones MD at [facility] [employer] [id number] 01/25/2028 [id number] / / [employer] [id number] Attune Cement Revision Fix Bearing Knee 7 Baseplate Tibial - [id number] Implanted:Qty: 1 on 09/22/2018 by Jordan Jones MD at [facility] [employer] [id number] 12/25/2027 [id number] / / [employer] [id number] Attune 7mm Cruciate Retaining Fix Bearing Knee 7 Insert Tibial - [id number] Implanted:Qty: 1 on 09/22/2018 [facility] [employer] [id number] 04/26/2022 [id number] / / Insurance [place] [employer] [place] MEDICARE [facility] [place] [address] Advance Directives For more information, please contact: [phone] * Full Code (Latest Code Status on File) Date Activated Date Inactivated Comments 09/22/2018 11:29 AM 09/22/2018 10:23 PM Care Teams Assistant Boys Track Coach Relationship Specialty Start Date End Date Doreen Marte MD PCP - General 04/29/14
--- OUTSIDE RECORDS SUMMARY | 2025-05-02 19:14 | XMS_ITS | Patient Health Record ---
Author Organization [facility] Address [address] [place], [place] [address] Care Team Providers Care Wedding Photographer Name Role Phone Mamta Harper Unavailable [phone] Migration, Provider Unavailable Unavailable Allergies No Known Allergies Results Component Value Reference Range Flag Notes TSH (899) Reviewed date:08/06/2024 08:52:44 PM Interpretation: Performing Lab:DAMARIS [facility] GroupRobert [place] [address] Administration Bry[address] Remy [address] Notes/Report: FASTING:YES FASTING: YES TSH 0.04 0.40-4.50 mIU/L L T4, FREE (866) Reviewed date:08/06/2024 08:52:44 PM Interpretation: Performing Lab:DAMARIS [facility] GroupN[facility] [id number] Administration Brynn Remy [address] StreetITM PowerHCA [facility] Notes/Report: FASTING:YES FASTING: YES T4, FREE 1.6 0.8-1.8 ng/dL N .HEMOGLOBIN A1c (496) Reviewed date:08/07/2024 09:50:35 PM Interpretation: Performing Lab:DAMARIS [facility] [place] [address] Administration Brynn Remy [address] [place] Notes/Report: FASTING:YES FASTING: YES HEMOGLOBIN A1c 5.8 [...] diabetes is well controlled. A1c follow-up test. COMP. METABOLIC Reviewed date:08/11/2024 04:07:00 PM Interpretation: [...] 2.0-5.0 g/dL A/G RATIO 1.3 1.1-2.5 Ratio PTH, INTACT AND CALCIUM (883 7) Reviewed date:02/07/2025 08:13:11 AM Interpretation: Performing Lab:JACKIE [facility]-Qjuqgp03764 Awilda Villa, AgpsyxDC[address] Karey Zamora MD Notes/Report: FASTING:YES COLLECTION KIT [...] Reviewed date:02/05/2025 07:55:09 AM Interpretation: Performing Lab:DAMARIS [facility] GroupSoutheast Missouri Community Treatment CenterWcegz[address] [place] [address] Karey Zamora Notes/Report: FASTING:YES COLLECTION KIT GIVEN [...] 2 CHD risk factors. estimation of LDL-C. (http://education.Markit.com/faq/WUP522) Ricky SS et al. ROSALINO. 2013;310(19): 8813-7434 Desirable range <100 mg/dL for primary prevention; [...] Reviewed date:02/05/2025 07:55:09 AM Interpretation: Performing Lab:DAMARIS [facility]- Wijdg86299 Administration Brynn Remy MrevkiiBJ[address] Karey Zamora Notes/Report: FASTING:YES COLLECTION KIT GIVEN [...] someone with known diabetes, a value <7% INSULIN (561) Reviewed date:02/07/2025 07:12:28 PM Interpretation: Performing Lab:Amilcar [facility]-Jkkmts36375 Matheus KayePqbhgeSJ[address] Karey Zamora MD Notes/Report: FASTING:YES COLLECTION KIT GIVEN TO PATIENT. PATIENT ADVISED TO RETURN. FASTING: YES INSULIN 8.5 N Moderate NA Reference Range < or = 18.4 are based on Insulin Reference Interval cut points (optimal, moderate, high) Optimal < or = 18.4 High >18.4 in 2021. Risk: Adult cardiovascular event risk category studies performed at [facility] DHEA SULFATE (402) Reviewed date:02/05/2025 07:55:09 AM Interpretation: Performing Lab:Amilcar MEJIA-Bpexky79488 Awilda Villa, GfnpryYV[address] Karey Zamora MD Notes/Report: FASTING:YES COLLECTION KIT GIVEN TO PATIENT. PATIENT ADVISED TO RETURN. FASTING: YES DHEA SULFATE 11 9-118 mcg/dL N VITAMIN B12/FOLATE, SERUM PA ENRIQUE (8248) Reviewed date:02/05/2025 07:55:09 AM Interpretation: Performing Lab:Amilcar MEJIAa10101 Awilda [place], PspmgvIW[address] Karey Zamora MD Notes/Report: FASTING:YES COLLECTION KIT GIVEN TO PATIENT. PATIENT ADVISED TO RETURN. FASTING: YES VITAMIN B12 474 049-0658 pg/mL N FOLATE, SERUM 5.1 L Borderline: 3.4-5.4 Low: <3.4 Normal: >5.4 Reference Range T4, FREE (866) Reviewed date:02/05/2025 07:55:09 AM Interpretation: Performing Lab:[facility] Xhfqa18479 Administration Brynn Remy ThsefpsKM[address] ClairRebekah Tara Zamora Notes/Report: FASTING:YES COLLECTION KIT GIVEN TO PATIENT. PATIENT ADVISED TO RETURN. FASTING: YES T4, FREE 1.1 0.8-1.8 ng/dL N TSH (899) Reviewed date:02/05/2025 07:55:10 AM Interpretation: Performing Lab:Amilcar OCAMPOSt DukesZmhek24684 Administration Brynn Remy [place] [address] [facility] Tara Zamora Notes/Report: FASTING:YES COLLECTION KIT GIVEN TO PATIENT. PATIENT ADVISED TO RETURN. FASTING: YES TSH 0.14 0.40-4.50 mIU/L L T3, FREE (69043) Reviewed date:02/05/2025 07:55:10 AM Interpretation: Performing Lab:Amilcar MEJIA-Ghjfcb32365 Awilda Villa, JzdiwaUX[address] Karey Zamora MD Notes/Report: FASTING:YES COLLECTION KIT GIVEN TO PATIENT. PATIENT ADVISED TO RETURN. FASTING: YES T3, FREE 2.2 2.3-4.2 pg/mL L .VITAMIN D,25-OH,TOTAL,IA (1 7306) Reviewed date:02/05/2025 07:55:10 AM Interpretation: Performing Lab:Amilcar MEJ[facility]-Mmgmue17668 Awilda Villa, DochvvCD[address] Karey Zamora MD Notes/Report: FASTING:YES COLLECTION KIT GIVEN TO PATIENT. PATIENT ADVISED TO RETURN. FASTING: YES VITAMIN D,25-OH,TOTAL,IA 69 30-100 ng/mL N code 71881 (patients >2yrs). 25-OH VIT D, (D2,D3), LC/MS/MS is recommended: order For 25-OH Vitamin D testing on patients on of D2 and D3 fractions is required, the Waste RemediesureD(TM) http://education.Wundrbar/faq/DRS796 For additional information, please refer to Vitamin D Status 25-OH Vitamin D: Insufficiency: 20 - 29 ng/mL See Note 1 educational purposes only.) (This link is being provided for informational/ D2-supplementation and patients for whom quantitation Note 1 Optimal: > or = 30 ng/mL Deficiency: <20 ng/mL .CBC (INCLUDES DIFF/PLT) (63 99) Reviewed date:11/03/2024 06:17:40 PM Interpretation: Performing Lab:Amilcar OCAMPOSoutheast Missouri Community Treatment CenterPfset19181 Administration Brynn Remy SicwxvhRB[address] Karey Zamora Notes/Report: WHITE BLOOD CELL COUNT 7.2 3.8-10.8 [...] 10.6 7.5-12.5 fL N ABSOLUTE NEUTROPHILS [phone] cells/uL N ABSOLUTE LYMPHOCYTES 3189 342-6846 cells/uL N ABSOLUTE MONOCYTES 612 200-950 cells/uL N ABSOLUTE EOSINOPHILS 432 15-500 cells/uL N ABSOLUTE BASOPHILS 7 0-200 cells/uL N NEUTROPHILS 58.4 N LYMPHOCYTES 27.0 N MONOCYTES 8.5 N EOSINOPHILS 6.0 N BASOPHILS 0.1 N .HEMOGLOBIN A1c (496) Reviewed date:11/03/2024 06:17:40 PM Interpretation: Performing Lab:DAMARIS [facility] Network GroupRobert [place] [address] Administration Brynn Remy [place] [address] ClairChanoUnited Hospitalfay Zamora Notes/Report: HEMOGLOBIN A1c 5.6 <5.7 % of total Hgb N Standards of Medical Care in Diabetes(ADA). For the purpose of screening for the presence of > or =6.5% Consistent with diabetes According to [place] Diabetes [employer] (ADA) Currently, no consensus exists [...] Reviewed date:11/03/2024 06:17:40 PM Interpretation: Performing Lab:DAMARIS [facility] Network GroupRobert [place] [address] Administration Brynn Remy [place] [address] [facility] Tara Zamora Notes/Report: T4, FREE 1.2 0.8-1.8 ng/dL N TSH (899) Reviewed date:11/03/2024 06:17:40 PM Interpretation: Performing Lab:DAMARIS [facility] GroupRobert [place] [address] Administration Brynn Remy [place] [address] [facility] Tara Zamora Notes/Report: TSH 0.94 0.40-4.50 mIU/L N T3, FREE (88499) Reviewed date:11/03/2024 06:17:40 PM Interpretation: Performing Lab:Amilcar MEJIA-Pdytwz83924 Kirill KayeaKS[address] Karey Zamora MD Notes/Report: T3, FREE 2.5 2.3-4.2 pg/mL N CORTISOL, TOTAL (367) Reviewed date:02/05/2025 07:55:09 AM Interpretation: Performing Lab:Amilcar MEJIA-Moqygr31567 Kirill KayeaKS[address] Karey Zamora MD Notes/Report: FASTING:YES COLLECTION KIT GIVEN TO PATIENT. PATIENT ADVISED TO RETURN. FASTING: YES CORTISOL, TOTAL 31.7 H Reference Range: For 8 a.m.(7-9 a.m.) Specimen: 4.0-22.0 Reference Range: For 4 p.m.(3-5 p.m.) Specimen: 3.0-17.0 * Please interpret above results accordingly * ACTH, PLASMA (211) Reviewed date:02/07/2025 07:12:28 PM Interpretation: Performing Lab:Amilcar ORTIZ/Radha OlveraBernhards Bay [id number] Sonal Remy, UgnpyssbmZV[address] Connor Tai M.D.,PhD Notes/Report: FASTING:YES COLLECTION KIT GIVEN TO PATIENT. PATIENT ADVISED TO RETURN. FASTING: YES ACTH, PLASMA 40 6-50 pg/mL between 7am-10am. Reference range applies only to specimens collected DEXAMETHASONE (85854) Reviewed date:02/14/2025 08:52:25 PM Interpretation: Performing Lab:Amilcar [facility]/Radha [facility] CenterCross [place],[address] DavalosBlue Mountain HospitalCA[address] Lizeth Davis MD,PhD,ANA Notes/Report: FASTING:YES COLLECTION KIT [...] for Dexamethasone: characteristics have been determined by [facility]. CORTISOL, LC/MS, SALIVA, 2 S AMPLES (79536) Reviewed date:02/12/2025 09:08:34 PM Interpretation: Performing Lab:NILSA [facility],[address] [facility] Lizeth Davis MD,PhD,ANA Notes/Report: URINE VOLUME: 1700/24 DRAW DATE 1 02/04/2025 DRAW TIME 1 11:00 PM CORTISOL, SALIVA SAMPLE 1 TNP Quantity not sufficient. CORTISOL, SALIVA SAMPLE 1 TEST(S) NOT PERFORMED: TEST NOT PERFORMED. DRAW DATE 2 02/05/2025 DRAW TIME 2 11:00PM CORTISOL, SALIVA SAMPLE 2 TNP CORTISOL, SALIVA SAMPLE 2 TEST(S) NOT PERFORMED: TEST NOT PERFORMED. Quantity not sufficient. CALCIUM, 24 HOUR URINE (W/ C REATININE) (1635) Reviewed date:02/07/2025 07:12:28 PM Interpretation: Performing Lab:JACKIE [facility]-Amnhhq34297 Awilda Hall, UrcujxJL[address] Karey Zamora MD Notes/Report: URINE VOLUME: 1700/24 CALCIUM/CREATININE RATIO 90 30-275 mg/g creat N CALCIUM, 24 HOUR URINE 80 N Reference Range 35-250 Low calcium diet 35-200 CREATININE, 24 HOUR URINE 0.88 0.50-2.15 g/24 h N CORTISOL, FREE, 24 HOUR URIN E (44827) Reviewed date:02/12/2025 09:08:34 PM Interpretation: Performing Lab:NILSA [facility],[address] [facility] Lizeth Davis MD,PhD,ANA Notes/Report: URINE VOLUME: [...] and is characteristics have been determined by [facility]. T3, FREE (85973) Reviewed date:08/07/2024 09:50:35 PM Interpretation: Performing Lab:Amilcar MEJIA-Karyn Villa, QheyofMG[address] Karey Zamora MD Notes/Report: FASTING:YES FASTING: YES T3, FREE 3.1 2.3-4.2 pg/mL N CYCLIC CITRULLINATED PEPTIDE (CCP) AB (IGG) (79899) Reviewed date:08/11/2024 08:43:09 PM Interpretation: Performing Lab:Amilcar MEJIA-Karyn Villa, PhctxzDT[address] Karey Zamora MD Notes/Report: FASTING:YES FASTING: YES CYCLIC CITRULLINATED PEPTIDE (CCP) AB (IGG) <16 N Moderate Positive: 40-59 Strong Positive: >59 Reference Range Weak Positive: 20-39 Negative: <20 RHEUMATOID FACTOR (4418) Reviewed date:08/07/2024 09:50:35 PM Interpretation: Performing Lab:Amilcar MEJIA-David Guzman[address] Karey Zamora MD Notes/Report: FASTING:YES FASTING: YES RHEUMATOID FACTOR <10 <14 IU/mL N C-REACTIVE PROTEIN (4420) Reviewed date:08/07/2024 09:50:35 PM Interpretation: Performing Lab:Amilcar OCAMPORobert [place] [address] Administration Brynn Remy [address] Notes/Report: FASTING:YES FASTING: YES C-REACTIVE PROTEIN 7.7 <8.0 mg/L N SED RATE BY WILLIAM DEAN (809) Reviewed date:08/06/2024 08:52:44 PM Interpretation: Performing Lab:Amilcar OCAMPORobert [place] [address] Administration Brynn Remy [address] Notes/Report: FASTING:YES FASTING: YES SED RATE BY WILLIAM OJEDA 19 < OR = 30 mm/h N .CBC (INCLUDES DIFF/PLT) (63 99) Reviewed date:08/06/2024 08:52:44 PM Interpretation: Performing Lab:DAMARIS [facility] GroupRobert [place]ille [address] Administration Brynn Remy MkdthmnDN[address] [facility] Notes/Report: FASTING:YES FASTING: YES WHITE BLOOD [...] 11.4 7.5-12.5 fL N ABSOLUTE NEUTROPHILS 6824 0374-2996 cells/uL N ABSOLUTE LYMPHOCYTES 159 462-0574 cells/uL L ABSOLUTE MONOCYTES 368 200-950 cells/uL N ABSOLUTE EOSINOPHILS 88 15-500 cells/uL N ABSOLUTE BASOPHILS 0 0-200 cells/uL N NEUTROPHILS 85.3 N LYMPHOCYTES 9.0 N MONOCYTES 4.6 N EOSINOPHILS 1.1 N BASOPHILS 0.0 N .COMPREHENSIVE METABOLIC DURAN (03100) [facility] Reviewed date:08/06/2024 08:52:44 PM Interpretation: Performing Lab:DAMARIS [facility] Network GroupRobert [place] [address] Administration Brynn Remy NrubmelIE[address] [facility] Notes/Report: FASTING:YES FASTING: YES GLUCOSE 110 65-99 [...] U/L N ALT 10 6-29 U/L N .COMPREHENSIVE METABOLIC DURAN EL (08237) CMP Reviewed date:11/03/2024 06:17:40 PM Interpretation: Performing Lab:, [facility] GroupRobert [place] [address] [facility] Notes/Report: GLUCOSE 92 65-99 mg/dL N Fasting [...] 11 6-29 U/L N .LIPID PANEL, STANDARD (6370 ) Reviewed date:11/03/2024 06:17:40 PM Interpretation: Performing Lab:Amilcar OCAMPO-Christian HospitalKadgb[address] [facility] CenterHtnlrftZC[address] Karey Zamora Notes/Report: CHOLESTEROL, TOTAL 215 <200 mg/dL H HDL CHOLESTEROL 66 > OR = 50 mg/dL N TRIGLYCERIDES 78 <150 mg/dL N LDL-CHOLESTEROL 132 H <70 mg/dL for patients with CHD or diabetic patients with > or = 2 CHD risk factors. calculation, which is a validated novel method providing Ricky LAKE et al. ROSALINO. 2013;310(19): 8410-4690 Desirable range <100 mg/dL for primary prevention; estimation of LDL-C. LDL-C is now calculated using the [facility] (http://Quality Solicitors.NoWait/faq/FRJ468) Reference range: <100 better accuracy than the Friedewald equation in the CHOL/HDLC RATIO 3.3 <5.0 (calc) N NON HDL CHOLESTEROL 149 <130 mg/dL (calc) H For patients with diabetes plus 1 major ASCVD risk (LDL-C of <70 mg/dL) is considered a therapeutic factor, treating to a non-HDL-C goal of <100 mg/dL option. CORTISOL, TOTAL (367) Reviewed date:11/27/2024 07:57:09 PM Interpretation: Performing Lab:Amilcar MEJIA-Jsmpvg88631 Awilda Villa, BcggohEB[address] Karey Zamora MD Notes/Report: CORTISOL, TOTAL 5.6 N * Please interpret above results accordingly * Reference Range: For 4 p.m.(3-5 p.m.) Specimen: 3.0-17.0 Reference Range: For 8 a.m.(7-9 a.m.) Specimen: 4.0-22.0 DEXAMETHASONE (72347) Reviewed date:12/12/2024 08:39:23 PM Interpretation: Performing Lab:Amilcar ASH/Radha [facility] CenterCross Plains,[address] [facility], [facility] HospitalKyqehwiifnQF[address] Lizeth Davis MD,PhD,ANA Notes/Report: DEXAMETHASONE 644 used [...] FDA. This assay Reference Ranges for Dexamethasone: TSH Reviewed date:06/09/2024 10:39:13 AM Interpretation: Performing Lab:DAMARIS [facility] GroupS[facility], [address] [place], [address] [facility] Notes/Report: TSH 1.42 0.40-4.50 mIU/L N T4, FREE Reviewed date:06/09/2024 10:39:13 AM Interpretation: Performing Lab:DAMARIS [facility] GroupS[facility], [facility] [place], [address] [facility] Notes/Report: T4, FREE 1.3 0.8-1.8 ng/dL N LIPID PANEL Reviewed date:06/09/2024 10:39:13 AM Interpretation: Performing Lab:DAMARIS [facility] GroupS[facility], [facility] [place], [address] [facility] Notes/Report: Reference range: <100 Desirable range <100 mg/dL for primary prevention; <70 mg/dL for patients with CHD or diabetic patients with > or = 2 CHD risk factors. LDL-C is now calculated using the Ricky-Adrianna calculation, which is a validated novel method providing better accuracy than the Friedewald equation in the estimation of LDL-C. Ricky LAKE et al. ROSALINO. 2013;310(19): 4155-8091 (http://education.MBF Therapeutics.S[address]/faq/ZMY813) For patients with diabetes plus 1 major [...] Reviewed date:06/09/2024 10:39:13 AM Interpretation: Performing Lab:DAMARIS [facility] GroupS[facility], [facility] [place], [address] Clair-Rebekah Tara Notes/Report: For the purpose of screening for the presence of diabetes: <5.7% Consistent with the absence of diabetes 5.7-6.4% Consistent with increased risk for diabetes (prediabetes) > or =6.5% Consistent with diabetes This assay result is consistent with a decreased risk of diabetes. Currently, no consensus exists regarding use of hemoglobin A1c for diagnosis of diabetes in children. According to [place] Diabetes Association (ADA) guidelines, hemoglobin A1c <7.0% represents optimal control in non- diabetic patients. Different metrics may apply to specific patient populations. Standards of Medical Care in Diabetes(ADA). HEMOGLOBIN A1c 5.3 <5.7 % of total Hgb N T3, FREE Reviewed date:06/09/2024 10:39:13 AM Interpretation: Performing Lab:JACKIE [facility] Network GroupLos [place], [address] [place], [address] Karey Zamora MD Notes/Report: T3, FREE 3.2 2.3-4.2 pg/mL N TSH Reviewed date:05/06/2024 09:17:52 AM Interpretation: Performing Lab:DAMARIS [facility] GroupS[facility], [address] [place], [address] [facility] Tara Notes/Report: TSH 9.49 0.40-4.50 mIU/L H T4, FREE Reviewed date:05/06/2024 09:18:11 AM Interpretation: Performing Lab:DAMARIS [facility] GroupPlains Regional Medical CenterJose, [address] [place], [address] [facility] Tara Notes/Report: T4, FREE 1.2 0.8-1.8 ng/dL N COMPREHENSIVE METABOLIC PANE L Reviewed date:05/11/2024 08:25:38 AM Interpretation: Performing Lab:DAMARIS [facility] GroupS[facility], [address] [address] [place], [address] Clair-Mariana Pacheco Notes/Report: Fasting reference interval For someone without [...] U/L N ALT 8 6-29 U/L N Reason For Referral Reason 9 mm right adrenal a denoma, 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 Harper Referring Provider First Name Mamta Referring Provider Last Name Leroy Referring Provider Speciality Endocrinmartin gonzalez Referred Provider Specialty Rheumatology Referral Priority Routine Reason This patient needs a rheumatology consult. Thank you! Diagnosis 1 Raised antibody jle r (R76.0) Referral Organization [facility] Dr. Harper Referring Provider First Name Mamta Referring Provider Last Name Leroy Referring Provider [facility] Endocrinmartin gonzalez Referred Provider Specialty [...] nausea; Duration: 30 days *Pick strength-form from tastytrade for eRX* 03/01/2024 Active ALPRAZolam 0.5 mg [...] a day; Duration: 90 days *Reorder from tastytrade for eRx and Interaction Alerts* 10/31/2023 Active [...] Status W/U Status Risk Notes Problem Hypothyroidism (29874485) Hypothyroidism, unspecified (E03.9) Active confirmed Problem Homosassa's syndrome (28854540) Homosassa's syndrome, 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 Problem Disorder of adrenal gland (47164050) Disorder of adrenal gland, unspecified (E27.9) Active confirmed Problem Overweight (466645010) Overweight (E66.3) Active confirmed Problem Obesity (610051971) Obesity, unspecified (E66.9) Active confirmed Problem Hypercalcemia (27730673) Hypercalcemia (E83.52) Active confirmed Problem Generalized anxiety disorder (07594017) Generalized anxiety disorder (F41.1) Active confirmed Problem Essential tremor (309726952) Essential tremor (G25.0) Active confirmed Problem SI - Stress incontinence (77739670) Stress incontinence (female) (male) (N39.3) Active confirmed Problem Menopause (110640598) Menopausal and female climacteric states (N95.1) Active confirmed Problem Functional urinary incontinence (257198377) 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) Active confirmed Problem Polyarthritis (340207617) Polyarthritis (M13.0) Active confirmed Problem Type II diabetes mellitus without complication (855946587) Controlled type 2 diabetes mellitus without complication, without long-term current use of insulin (E11.9) Active confirmed Problem Chronic fatigue syndrome (24695242) Chronic fatigue (R53.82) Active confirmed Problem Type II diabetes mellitus without complication (419990253) Type 2 diabetes mellitus without complication, without long-term current use of insulin (E11.9) Active confirmed Problem Hypercortisolism (27481472) Hypercortisolism (E24.9) Active confirmed Vital Signs Heart Rate 70 /min 01/07/2025 Oximetry 96 % 01/07/2025 Height-cm 175.26 cm 02/11/2025 Blood pressure diastolic 76 mm Hg 01/07/2025 Weight-kg 81.65 kg 02/11/2025 Height 69 in 02/11/2025 Blood pressure systolic 139 mm Hg 01/07/2025 Weight 180 lbs 02/11/2025 BMI 26.58 kg/m2 02/11/2025 Encounters Encounter Location Date Provider Diagnosis [place] [address] [place], [place] [phone] 05/12/2024 Provider Migration Hypokalemia E87.6 and Essential tremor G25.[address] 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 Harper [address] [place] [phone] 06/11/2024 Mamta Harper Hypothyroidism, unspecified E03.9 ; Obesity, unspecified E66.9 ; Disorder of adrenal gland, unspecified E27.9 ; Homosassa's syndrome, 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 ; Insulin resistance, unspecified E88.819 ; Urinary tract infection, site not specified N39.0 and Dietary counseling and surveillance Z71.[address] Harper [address] [place] [phone] 08/13/2024 Mamta Harper Hypothyroidism, unspecified E03.9 ; Obesity, unspecified E66.9 ; Generalized anxiety disorder F41.1 ; Homosassa's syndrome, 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 ; Adrenal adenoma, unspecified laterality D35.00 and Dietary counseling and surveillance Z71.[address] Harper [address] [place] [phone] 11/05/2024 Mamta Harper Hypothyroidism, unspecified E03.9 ; Obesity, unspecified E66.9 ; Hypercalcemia E83.52 ; Controlled type 2 diabetes mellitus without complication, without long-term current use of insulin E11.9 ; Polyarthritis M13.0 ; Chronic fatigue R53.82 and Dietary counseling and surveillance Z71.[address] Harper [address] [place] [address] 01/07/2025 Mamta Harper Dietary counseling a nd surveillance Z71.3 ; Hypercortisolism E24.9 ; Hypothyroidism, unspecified E03.9 ; Chronic fatigue R53.82 ; Type 2 diabetes mellitus without complication, without long-term current use of insulin E11.9 ; Hypercalcemia E83.52 and Overweight E66.[address] Harper [address] [place] [phone] 02/11/2025 Mamta Harper Hypothyroidism, unspecified E03.9 ; Controlled type 2 diabetes mellitus without complication, without long-term current use of insulin E11.9 ; Obesity, unspecified E66.9 ; Dietary counseling and surveillance Z71.3 and Hypercortisolism E24.[address] Harper [address] [place] [phone] 05/03/2024 Mamta ROCHA [facility] [address] [place] [phone] 05/16/2024 Mamta ROCHA [facility] [address] [place] [phone] 05/25/2024 Mamta ROCHA [facility] [address] [place] [phone] 06/04/2024 Mamta ROCHA [facility] [address] [place] [phone] 08/21/2024 Mamta ROCHA [facility] [address] [place] [phone] 09/22/2024 Mamta Harper [address] [place] [phone] 09/24/2024 Mamta ROCHA [facility] [address] [place] [phone] 09/25/2024 Mamta ROCHA [facility] [address] [place] [phone] 11/12/2024 Mamta Harper [address] [place] [phone] 01/22/2025 Mamta Harper [address] [place] [phone] 01/30/2025 Mamta ROCHA [facility] [address] [place] [phone] 01/31/2025 Mamta Harper [address] [place] [phone] 04/08/2025 [facility] Encounter Date Diagnosis (ICD Code) Assessment Notes Treatment Notes Treatment Clinical Notes Section Notes 05/14/2024 Hypothyroidism, unspecified (ICD-10 - E03.9) 05/14/2024 Sharee's syndrome, 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 05/12/2024 Hypokalemia (ICD-10 - E87.6) 05/12/2024 Essential tremor (ICD-10 - G25.0) 08/13/2024 Hypothyroidism, unspecified (ICD-10 - E03.9) 08/13/2024 Obesity, unspecified (ICD-10 - E66.9) 11/05/2024 Hypothyroidism, unspecified (ICD-10 - E03.9) 11/05/2024 Obesity, unspecified (ICD-10 - E66.9) 11/05/2024 Hypercalcemia (ICD-10 - E83.52) 08/13/2024 Generalized anxiety disorder (ICD-10 - F41.1) 02/11/2025 Controlled type 2 diabetes mellitus without complication, without long-term current use of insulin (ICD-10 - E11.9) 01/07/2025 Hypothyroidism, unspecified (ICD-10 - E03.9) 06/11/2024 Disorder of adrenal gland, unspecified (ICD-10 - E27.9) 05/14/2024 Generalized anxiety disorder (ICD-10 - F41.1) 06/11/2024 Sharee's syndrome, 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) 05/14/2024 Benign neoplasm of right adrenal gland (ICD-10 - D35.01) 02/11/2025 Obesity, unspecified (ICD-10 - E66.9) 01/07/2025 Chronic fatigue (ICD-10 - R53.82) 08/13/2024 Sharee's syndrome, 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) 11/05/2024 Controlled type 2 diabetes mellitus without complication, without long-term current use of insulin (ICD-10 - E11.9) 08/13/2024 Adrenal adenoma, unspecified laterality (ICD-10 - D35.00) 01/07/2025 Type 2 diabetes mellitus without complication, without long-term current use of insulin (ICD-10 - E11.9) 02/11/2025 Hypercortisolism (ICD-10 - E24.9) 02/11/2025 Dietary counseling and surveillance (ICD-10 - Z71.3) Spent 15 minutes preventative counseling patient on dietary recommendations and changes in setting of hyperglycemia- need to restrict refined sugars and processed foods and incorporate up to 150 minutes of moderate level activity weekly. 06/11/2024 Insulin resistance, unspecified (ICD-10 - E88.819) 05/14/2024 Heartburn (ICD-10 - R12) 11/05/2024 Polyarthritis (ICD-10 - M13.0) 06/11/2024 Urinary tract infection, site not specified (ICD-10 - N39.0) 01/07/2025 Hypercalcemia (ICD-10 - E83.52) 11/05/2024 Chronic fatigue (ICD-10 - R53.82) 08/13/2024 Dietary counseling and surveillance (ICD-10 - Z71.3) Spent 15 minutes preventative counseling patient on dietary recommendations and changes in setting of hyperglycemia- need to restrict refined sugars and processed foods and incorporate up to 150 minutes of moderate level activity weekly. 01/07/2025 Overweight (ICD-10 - E66.3) 06/11/2024 Dietary counseling and surveillance (ICD-10 - [...] Refer the patient to Dr. Martinez at [facility] for evaluation of adrenal adenoma and potential [...] nausea and vomiting. Consider referral to a sizing machine and drier operator if symptoms persist. 4. Insomnia:- Patient reports [...] Refer the patient to Dr. Candelario at [place] or Dr. Martinez at [facility] for evaluation of adrenal adenoma and potential [...] procedures, referring and communicating with other health manager of care, documenting clinical information in the electronic or [...] Monitor symptoms and consider referral to a gwot ia/ilo intelligence support if needed. 5. Edema- Patient reports improvement [...] for Ozempic- Patient's insurance will change to [employer] on June 27. Ensure coverage for Ozempic and coordinate with the primary care physician for any necessary prior authorizations. 10. Upcoming appointment with Dr. Martinez on July 04- Ensure all relevant records, including CT scan, recent notes, labs, and dexamethasone suppression test, are sent to Dr. Martinez at [facility] prior to the appointment. 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 Anxiety and [...] procedures, referring and communicating with other health manager of care, documenting clinical information in the electronic or [...] procedures, referring and communicating with other health manager of care, documenting clinical information in the electronic or [...] Appt Details Provider Name:Mamta Harper, 11:00:00 AM, [address] [facility], [place], [address], Insurance Providers Payer Name Payer Address Payer Phone Subscriber Number Group Number Insured Name Patient Relationship to Insured Coverage Start Date Coverage End Date [employer] Medicare part B [address] [address] [place] [address] [id number] Lorraine Boateng Self - patient is the insured Medical (General) History Medical History History ICD Code hypothyroidism prediabetes cushings syndrome adrenal adenoma
--- OUTSIDE RECORDS SUMMARY | 2025-05-02 19:14 | XMS_ITS | Clinical Summary ---
Author Organization [facility] Address [address] [place] [address] Care Team Providers Care Pinion And Wheel Truer Name Role Phone Doreen Marte MD Primary Care Provider [phone] Efe Bhat MD Unavailable [phone] Source Comments [facility],non-owned Affiliates and Associated Physician Practices is amultiple site organization consisting of ambulatory clinics and hospital sitesin [place], [place], [place] and [place]. This disclosure is being madepursuant to the Care Everywhere program and may not contain all information available regarding this patient. Last updated 18.[facility] Allergies Active Allergy Reactions Criticality Noted Date Comments Adhesive Sensitivity 10/12/2013 Augmentin 10/12/2013 Codeine 10/12/2013 Latex 10/12/2013 Levofloxacin 06/11/2017 Morphine 10/12/2013 Oxycodone-Acetaminophen 10/12/2013 Medications * Be aware that medications may not be up to date on this document. Alwaysverify current medications with the patient. vitamin D, ergocalciferol , (DRISDOL) 56016 UNITS capsule Take 1 (one) capsule by [...] Comments Blood Pressure 126/87 07/04/2024 3:46 PM SURFACER OPERATOR Pulse 98 07/04/2024 3:46 PM SURFACER OPERATOR Temperature 36.1 C (97 F) 07/04/2024 3:46 PM SURFACER OPERATOR Respiratory Rate 16 06/11/2017 10:54 AM SURFACER OPERATOR Oxygen Saturation 94% 07/04/2024 3:46 PM SURFACER OPERATOR Inhaled Oxygen Concentration - - Weight 93.4 kg (206 lb) 07/04/2024 3:46 PM SURFACER OPERATOR Height 175.3 cm (5' 9) 07/04/2024 3:46 PM SURFACER OPERATOR Body Mass Index 30.42 07/04/2024 3:46 PM SURFACER OPERATOR Plan of Treatment Health Maintenance Due Date [...] age to complete this topic Insurance MEDICARE [facility] SELF PAY NO INSURANCE Member Subscriber Plan / Payer (Ef fective for All Dates) Name:Lorraine Saucedo Member ID:Not on file Relation to Subscriber:Not on file Name:LORRAINE SAUCEDO Subscriber ID:Not on file (Home) Address: [address] [place] [id number] Payer ID:Not on file Group ID:Not on file Type:Self Pay Address: [place], [place] Care Teams Pinion And Wheel Truer Relationship Specialty Start Date End Date Doreen Marte MD [address] [place] [address] PCP - General Family Medicine 10/12/13 [place] [id number] [address] Orthopedic Surgery 10/12/13
--- OUTSIDE RECORDS SUMMARY | 2025-05-02 19:14 | XMS_ITS | Data Portability ---
Author Organization [place] [facility] [employer], Main Office Address [address] [place] [address] Assessment No assessment recorded. Plan of Treatment Reminders Order Date Submit Date Provider Last Modified By Organization Details Last Modified Time Details Appointments None recorded. Lab cortisol, am, serum 2022 023 [facility], [address] [facility], [facility], [place], [address], 3 11:16:46 dexamethaso ne, serum 2022 023 [facility], [address] [facility], [facility], [place], [address], 3 11:16:46 rf (rheumatoid factor), serum 2022 023 [facility], [address] [facility], [facility], [place], [address], 3 11:31:13 C reactive protein, QN, serum or plasma 2022 023 [facility], [address] [facility], [address], [place], [address], 3 11:31:14 ESR (erythrocyt e sedimentati on rate), blood 2022 023 [facility], [address] [facility], [address], [place], [address], 3 11:31:13 BROOK (antinuclea r antibodies) screen, serum 2022 023 [facility], [address] [place], [address], [place], [address], 11:31:13 lipid panel, serum 2022 023 [facility], [address], [address], [place], [address], 12:45:30 HbA1c (hemoglobin A1c), blood 2022 023 [facility], [address], [address], [place], [address], 11:16:46 CMP, serum or plasma 2022 023 [facility], [address] [facility], [address], [place], [address], 08:38:56 TSH + free T4, serum 2022 023 [facility], [address] [facility], [address], [place], [address], 08:38:55 T3, free, serum or plasma 2022 023 [facility], [address] [facility], [address], [place], [address], 11:20:03 Referral None recorded. Procedures None recorded. Surgeries None recorded. Imaging None recorded. Medication Orders cyanocobala min (vit B-12) 1,000 mcg/mL injection solution 2022 023 [facility]/Pharmacy #[id number], [address] [place], [address], 11:23:01 Victoza 3-Glenroy 0.6 mg/0.1 mL (18 mg/3 mL) subcutaneou s pen injector 2022 023 [email or web address] [facility]/Pharmacy #[id number], [address], [place], [address], 3 11:27:46 metformin ER 500 mg tablet,exte nded release 24 hr 2022 023 [id number], [address], [place], [address], 3 11:21:14 Unithroid 112 mcg tablet 2022 023 [id number], [address] [place], [address], 3 11:20:21 liothyronin e 5 mcg tablet 2022 023 [id number] [address] [place], [address], 3 08:13:22 dexamethaso ne 1 mg tablet 2022 023 [id number], [address] [place], [address], 3 11:16:38 Victoza 3-Glenroy 0.6 mg/0.1 mL (18 mg/3 mL) subcutaneou s pen injector 2022 023 [id number], [address] [place], [address], 3 11:19:53 Unithroid 112 mcg tablet 2022 023 [id number], [address] [place], [address], 3 11:19:53 liothyronin e 5 mcg tablet 2022 023 [id number], [address] [place], [address], 3 11:20:18 Patient TargetsNo targets recorded. Patient InstructionsNo instructions recorded. Reason for Referral None Reported. Results Created Date Observation Date Name Description Value Unit Range Abnormal Flag Note LastModifiedBy Organization Detail LastModifiedTime 04/16/2004/16/2021 US, head + neck, soft tissu e [facility] [address], [place] [address] Pati t Name: LORRAINE CARTER Access ion #: [id number] Sex: F : 1955 7 Locati [...] 2 x 1.6 Page 1 of 2 [facility] Name[facility] LORRAINE CARTER Access ion #: [id number] Sex: F : 1955 7 Exam [...] 1:07 PM (CT) Page 2 of 2 [id number] [facility] (Imaging) [address] [place], [address], 08/25/2022 06:09:49 04/16/20 21 04/16/2021 US, thyro id No observ ation record ed. [id number] [facility] [address] [place], [address], 08/25/2022 06:09:49 12/09/19 24 12/09/2023 CT, abdom en, w/wo contr ast No observ ation record ed. [email or web address], [place], [address], 12/26/2023 09:52:11 Result Notes None recorded. Problems Name Problem SNOMED Code Status Onset Date Resolution Date Notes Provider Name and Address Organization Details Recorded Time Fatigue 20159133 Active 2018 Not Available [facility] 06:02:54 Prediabetes 266874963 Active 2021 Not Available [facility] 3 06:02:54 Weight gain 0615161 Active 2022 Toña Dinh MD [address], [address], [place], [address] , [employer] 3 11:15:29 Dyslipidemia 460815060 Active 2022 Toña Dinh MD [address], [address], [place], [address] , [employer] 3 11:15:52 Obesity 693534923 Active 2022 Toña Dinh MD [address], [address], [place], [address] , [employer] 3 11:16:49 Hypothyroidis m 86864783 Active 2022 Toña Dinh MD [address], [place] [address], [place], [address] , [employer] 3 11:19:05 Arthritis 4527263 Active 2022 Toña Dinh MD [address], [address], [place], [address] , [employer] 3 11:25:36 Vitamin B12 deficiency (non anemic) 40180090 Active 2022 Toña Dinh MD [address], [place] [address], [place], [address] , [employer] 3 11:22:21 Problem Notes None recorded. Procedures Surgical History Date Name Laterality Status Provider Name and Address Organization Details Recorded Time 02/10/19 91 delivery completed Not Available [facility] 08/25/2022 05:56:33 10/21/18 85 delivery completed Not Available [facility] 08/25/2022 05:56:33 Neck completed Not Available [facility] 08/25/2022 05:56:33 fallopian tube excision completed Not Available [facility] 08/25/2022 05:56:33 Lumbar Spine Surgery completed Not Available [facility] 08/25/2022 05:56:33 laparoscopy completed Not Available [facility] 08/25/2022 05:56:33 Removal of ovary(s) completed Not Available [facility] 08/25/2022 05:56:33 cholecystectomy completed Not Available [facility] 08/25/2022 05:56:33 Imaging Results None recorded. Procedure Notes None recorded. Medical Equipment None Reported. Allergies Allergen ID Allergen Name Allergen Category Reaction Reaction Severity Criticality Documentation Date Start Date Code Code System Note Provider Name and Address Organization Details Recorded Time 01124 acetamino phen / oxycodone medicatio n decreased blood pressure severe Not available 08/25/2022 22427 3 RxNorm Not Available [facility] 3 06:09:32 92467 morphine medicatio n itching moderate Not available 08/25/2022 7052 RxNorm Not Available [facility] 3 06:09:32 11831 Levaquin medicatio n headache severe Not available 08/25/2022 30467 2 RxNorm Not Available [facility] 3 06:09:32 21074 latex environme nt,medica tion other severe Not available 08/25/2022 94267 91 RxNorm cause s blist ers Not Available [facility] 3 06:09:32 66564 Demerol medicatio n nausea severe Not available 08/25/2022 29936 1 RxNorm Not Available [facility] 3 06:09:32 27627 codeine medicatio n nausea moderate Not available 08/25/2022 2670 RxNorm Not Available [facility] 3 06:09:32 49156 Augmentin medicatio n rash mild Not available 08/25/2022 42989 2 RxNorm Not Available [facility] 3 06:09:32 Medications Name Sig Start [...] Not Available Not Available Not Available Unithroid 88 mcg tablet TAKE 1 TABLET BY MOUTH EVERY DAY FOR 90 DAYS active Not Available Not Available No t Available nitrofurant oin macrocrysta l 50 mg capsule TAKE 1 CAPSULE BY MOUTH EVERYDAY AT BEDTIME active Not Available Not Available No t Available doxycycline hyclate 100 mg capsule TAKE 1 CAPSULE BY MOUTH TWICE A DAY FOR 10 DAYS active Not Available Not Available No t Available cefuroxime axetil 250 mg tablet TAKE [...] completed Not Available Not Available Not Available ondansetron HCl 4 mg tablet 1 TAB(S) ORALLY TWICE DAILY NEEDED FOR NAUSEA 30 DAYS active Not Available Not Available No t Available spironolact one 100 mg tablet TAKE 1 TABLET BY MOUTH TWICE A DAY active Not Available Not Available No t Available Klor-Con 20 mEq oral packet DISSOLVE CONTENTS OF 2 PACKETS IN 4 OUNCES WATER FOR EACH PACKET AND TAKE TWICE A DAY active Not Available Not Available No t Available ciprofloxac in 250 mg tablet TAKE 1 TABLET BY MOUTH TWICE A DAY active Not Available Not Available No t Available amlodipine 5 mg tablet TAKE 1 TABLET (5 MG) BY MOUTH DAILY active Not Available Not Available No t Available sulfamethox azole 800 mg-trimetho prim 160 mg tablet TAKE 1 TABLET BY MOUTH TWICE A DAY active Not Available Not Available No t Available liothyronin e 5 mcg tablet TAKE 1 TABLET BY MOUTH TWICE A DAY active Not Available Not Available No t Available meloxicam 7.5 mg tablet TAKE 1 TABLET BY MOUTH DAILY active Not Available Not Available No t Available levothyroxi ne 100 mcg tablet 09/05 completed Not Available Not Available Not Available alprazolam 0.5 mg tablet TAKE 1 TABLET BY MOUTH TWICE A DAY NEEDED FOR ANXIETY active Not Available Not Available No t Available propranolol 10 mg tablet TAKE 1 TABLET BY MOUTH TWICE A DAY FOR 90 DAYS active Not Available Not Available No t Available dexamethaso ne 1 mg tablet TAKE 1 TABLET BY MOUTH AT 10PM THE NIGHT BEFORE 8:00AM CORTISOL active Not Available Not Available No [...] mg capsule TAKE 1 CAPSULE BY MOUTH THREE TIMES A DAY active Not Available Not Available No t Available omeprazole 20 mg capsule,del ayed release 1 CAPSULE 1/2 TO 1 HOUR BEFORE MORNING MEAL ORALLY ONCE A DAY 90 DAYS active Not Available Not Available [...] completed Not Available Not Available Not Available furosemide 20 mg tablet TAKE 1 TABLET BY MOUTH EVERY DAY FOR 30 DAYS active Not Available Not Available No [...] completed Not Available Not Available Not Available cefdinir 300 mg capsule TAKE 1 CAPSULE BY MOUTH EVERY 12 HOURS FOR 7 DAYS active Not Available Not Available No t Available metformin ER 500 mg tablet,exte nded release 24 hr TAKE 1 TABLET BY MOUTH TWICE A DAY WITH MEALS active Not Available Not Available No t Available spironolact one 50 mg tablet TAKE UP TO 2 TABLETS BY MOUTH ONCE DAILY active Not Available Not Available No t Available levothyroxi ne 112 mcg tablet TAKE 1 TABLET BY MOUTH EVERY DAY FOR 90 DAYS active Not Available Not Available No t Available escitalopra m 10 mg tablet 12/06 completed Not Available Not Available Not Available escitalopra m 20 mg tablet TAKE 1 TABLET BY MOUTH EVERY DAY active Not Available Not Available No t Available Klor-Con M20 mEq tablet,exte nded release TAKE 2 TABLETS (40 MEQ) BY MOUTH ONCE DAILY active Not Available Not Available No t Available nitrofurant oin monohydrate /macrocryst als 100 mg capsule TAKE 1 CAPSULE BY MOUTH EVERY 12 HOURS WITH FOOD FOR 7 DAYS active Not Available Not Available No t Available solifenacin 5 mg tablet TAKE 1 TABLET BY MOUTH EVERY DAY active Not Available Not Available No t Available eszopiclone 1 mg tablet TAKE 1 TABLET BY MOUTH EVERY DAY IMMEDIATE LY BEFORE BEDTIME active Not Available Not Available No [...] completed Not Available Not Available Not Available Linzess 72 mcg capsule TAKE 1 TABLET BY MOUTH DAILY active Not Available Not Available No t Available TechLITE Pen Needle 31 gauge x 3/16 active Not Available Not Available Not Available cyanocobala min (vit B-12) 1,000 mcg sublingual lozenge TAKE 1 TABLET/LO ZENGE BY MOUTH ONCE DAILY active Not Available Not Available No t Available Bydureon BCise 2 mg/0.85 mL subcutaneou [...] Not Available Not Available Not Available Ozempic 1 mg/dose (4 mg/3 mL) subcutaneou s pen injector INJECT 1 MG (0.75 ML) SUBCUTANE OUSLY WEEKLY active Not Available Not Available No t Available BinaxNOW COVID-19 Ag Self Test kit USE DIRECTED active Not Available Not Available No t Available Paxlovid 300 mg (150 mg x 2)-100 mg tablets in a dose pack active Not Available Not Available Not Available Ozempic 2 mg/dose (8 mg/3 mL) subcutaneou s pen injector INJECT 2 MG (0.75 ML) SUBCUTANE OUSLY WEEKLY active Not Available Not Available No t Available Ozempic 0.25 mg or 0.5 mg (2 mg/3 mL) subcutaneou s pen injector INJECT 0.5 MG SUBCUTANE OUSLY ONCE A WEEK active Not Available Not Available No t Available Vitals Date Recorded Body height Body mass index (BMI) Body weight Body temperature Heart rate Systolic And Diastolic Provider Name and Address Organization Details Last Updated DateTime 3 175.26 cm 37.4 kg/m2 268150. 87 g 97.3 [degF] 74 /min 142/85 mm[Hg] RONNA Gregorio [facility] [employer] [facility] 3 10:55:11 Date Recorded Body mass index (BMI) Body height Oxygen saturation Oxygen saturation in Arterial blood by Pulse oximetry Heart rate Body temperature Body weight Systolic And Diastolic Provider Name and Address Organization Details Last Updated DateTime 2 31.7 kg/m2 175.26 cm 95 % 95 % 81 /min 98 [degF] 91705.9 2 g 105/75 mm[Hg] Not Available [facility] 3 05:59:28 Date Recorded Body height Body mass index (BMI) Body weight Heart rate Body temperature Systolic And Diastolic Provider Name and Address Organization Details Last Updated DateTime 3 175.26 cm 37.2 kg/m2 728847. 28 g 86 /min 96.5 [degF] 159/93 mm[Hg] Tamica Moore MA [facility] [employer] [facility] 3 10:51:20 Date Recorded Body mass index (BMI) Body height Oxygen saturation Oxygen saturation in Arterial blood by Pulse oximetry Heart rate Body temperature Body weight Systolic And Diastolic Provider Name and Address Organization Details Last Updated DateTime 1 31.3 kg/m2 175.26 cm 96 % 96 % 75 /min 98 [degF] 17482.5 8 g 118/74 mm[Hg] Not Available [facility] 3 05:59:28 Social History Question Answer Notes LastModified by Organizat ion Details LastModified Time Tobacco Smoking Status Never [facility] [employer] [facility] 02/21/2023 10:43:52 What Is Your Level Of Caffeine Consumption? Heavy [id number] Information not available 08/25/2022 What Is Your Relationship Status? [id number] Information not available 08/25/2022 Do You [...] is your level of alcohol consumption? Occasional [id number] Information not available 08/25/2022 Mental Status Question Answer Note LastModified by Organizat ion Details LastModified Time Do you feel stressed (tense, restless, nervous, or anxious, or unable to sleep at night)? [id number] stress with family member Information not available 02/21/2023 Family History Relationship Description Onset Age of this Age Resolved Age Notes LastModified by Organization Details LastModified Time Mother Diabetes mellitus [id number] Not available 08/25/2022 05:56:37 Mother Thalassemia akovach Not availab le 02/21/2023 10:43:52 Maternal Aunt Diabetes mellitus [id number] Not available 08/25/2022 05:56:37 Maternal Aunt Malignant neoplasm of breast akovach Not available 2022 10:43:52 [...] ICD10 Code Diagnosis IMO Codes Diagnosis Note [id number] Toña Dinh MD [facility] Endo [facility]au [address] [place] [address] 03/23/2021 00:00:00 03/23/2021 18:42:31 [id number] Toña Dinh MD [facility] End[facility] [address] [place] [address] 01/11/2022 00:00:00 01/11/2022 14:05:28 [id number] Toña Dinh MD [facility] Mariam Sanchez [address] [place] [address] 09/30/2022 10:44:20 09/30/2022 11:35:39 Weight gain 0844653 R63.5 Will send for low dose dexa suppressio n testing to screen for hypercorti solic state. Prediabetes 228671920 R7 3.03 A1C 5.9%- continue metformin for insulin sensitizat ion. Discussed carb counting and how to read food labels. Recommende d patient to utilize the diabetesfo [employer] from the ADA website to help with food preparatio n as this presents ideal carb content per meal so this will make carb counting much easier for patient. Recommende d she incorporat e natural insulin bricklayer s such as pears, apples, cinnamon, darnell and sweet potatoes to help mobilize her endogenous insulin. Recommende d up to 150 minutes of moderate level activity/e xercise weekly. Dyslipidemia 902755874 E 78.5 Continue atorvastat in as LDL in range. Obesity 975319999 E66.9 Recommende d GLP1 agonist therapy as she is having trouble at times with cravings of sweets and portion control. 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 She has no hx of [...] meal of that day as tolerated. Hypothyroidism 23992896 E03.9 She has fatigue on generic LT4 [...] and minerals and reduce inflammati on. Arthritis 8113422 M19.90 Will send for repeat BROOK with [...] informatio n in the electronic health record, anushkaen mahi interpreti ng results and communicat ing results to the patient. RTC in 5-6 months. Patient was provided a handwritte n lab order which contains our fax number. If she chooses to go outside of the CURRENT Medical system to obtain labwork she was [...] in her case. She voiced understand ing. [id number] Toña Dinh MD [facility] Sanchez [address] [place] [address] 02/21/2023 10:42:56 02/21/2023 11:40:44 Hypothyroidism 87542008 E03.9 FT4 in ideal range - continue [...] and minerals and reduce inflammati on. Prediabetes 434115584 R7 3.03 A1C 5.6% down from 5.9%- continue metformin for insulin sensitizat ion. Recommende d she incorporat e natural insulin bricklayer s such as pears, apples, cinnamon, darnell and sweet potatoes to help mobilize her endogenous insulin. Recommende d up to 150 minutes of moderate level activity/e xercise weekly. Obesity 156143819 E66.9 She just started victoza one month [...] therapy. Vitamin B1 2 deficiency (non anemic) 43456864 E53.8 Continue on B12 injections weekly for [...] Member ID Cavanaugh Member ID Guarantor Name 02/05/2025 1 [employer] (MEDICARE[place] Lorraine Quintana [id number] Lorraine Quintana 08/01/2024 2 [employer] (MEDICARE SUPPLEMENT) Lorraine Quintana [id number] Lorraine Quintana 08/01/2024 2 [facility] (MEDICARE SUPPLEMENT) Lorraine Quintana [id number] Lorraine Quintana Notes Date Note Type Note Provider Name and Address Organization Details Recorded Time 09/30/2022 text/html ROS as noted in the HPI 66 yo female comes in for follow up [...] ng/mlLFT normalCr normal Toña Dinh MD [address] [facility], [facility] [address], [place], [address], [place] [facility] [employer] 09/30/2022 11:39:48 02/21/2023 text/html ROS as noted in the HPI 67 yo female comes in for follow up [...] uIU/mlFT4 of 1.22 ng/dLglucose 88 mg/dLCr normalLFT atsest991/84/67/10 1a1c 5.6%FT3 of 2.5 pg/mL DST normal from October- cortisol of 1.0 ug/mL Toña Dinh MD [address] [facility], [facility] [address], [place], [address], [place] [facility] 02/21/2023 13:55:39 OBGyn Episode No OBEpisode recorded.
--- OUTSIDE RECORDS SUMMARY | 2025-05-02 19:14 | XMS_ITS | Data Portability ---
Author Organization [facility] Address [address] [place] [address] Care Team Providers Care General Claims Agent Name Role Phone BRITT FUENTES Primary Care Provider Assessment Encounter Date Assessment Date Assessment LastModified by Organization Details LastModified Time 03/18/2023 03/18/2023 45 minutes spent on patient care, >50% face to face [email or web address] Not available 03/18/2023 14:56:49 Plan of Treatment Reminders Order Date Submit Date Provider Last Modified By Organization Details Last Modified Time Details Appointments None recorded. Lab None recorded. Referral None recorded. Procedures None recorded. Surgeries None recorded. Imaging None recorded. Medication Orders estradiol 0.0375 mg/24 hr weekly transdermal patch 2022 023 [email or web address] [facility] #[id number], [address] , [place], [address], 14:42:55 Patient TargetsNo targets recorded. Patient InstructionsNo instructions recorded. Reason for Referral None Reported. Procedures Surgical History Date Name Laterality Status Provider Name and Address Organization Details Recorded Time 08/23/19 23 Date of Last Mammogram completed Gabriella Moscoso [facility] 03/18/2023 12:53:21 08/13/19 23 completed Gabriella Moscoso [facility] 03/18/2023 12:53:21 02/10/19 91 [facility] 12:53:33 10/21/18 85 Caesarean Section completed [facility] 03/18/2023 12:53:33 Orthopedic Surgery completed [facility] 03/18/2023 12:53:33 Endometrial Ablation completed [facility] 03/18/2023 12:53:33 Oophorectomy completed [facility] 03/18/2023 12:53:33 Endometrial Biopsy completed [facility] 03/18/2023 12:53:33 Total Hysterectomy completed [facility] 03/18/2023 12:53:33 Colonoscopy completed [facility] 03/18/2023 12:53:33 Imaging Results None recorded. Procedure Notes None recorded. Medical Equipment None Reported. Allergies Allergen ID Allergen Name Allergen Category Reaction Reaction Severity Criticality Documentation Date Start Date Code Code System Note Provider Name and Address Organization Details Recorded Time morphine medicatio n itching Not available Not available 03/18/2023 7052 RxNorm Gabriella Schroedte r null, [facility] 3 12:53:14 92031 Augmentin medicatio n hives Not available Not available 03/18/2023 98505 2 RxNorm Gabriella Schroedte r null, [facility] 3 12:53:14 58340 latex environme nt,medica tion hives Not available Not available 03/18/2023 98222 91 RxNorm Gabriella Schroedte r null, [facility] 3 12:53:14 42414 Levaquin medicatio n nausea Not available Not available 03/18/2023 51571 2 RxNorm Gabriella Schroedte r null, [facility] 3 12:53:14 Medications Name Sig Start [...] Updated DateTime 03/18/2023 175.26 cm 37.2 kg/m2 919330.28 g 143/82 mm[Hg] Gabriella Moscoso [place] - [facility] 03/18/2023 12:53:10 Social History Question Answer Notes LastModified by Organizat ion Details LastModified Time Tobacco Smoking Status Never Smoker Gabriella Moscoso [facility] 03/18/2023 12:56:57 Do You Have An [...] anxious, or unable to sleep at night)? [id number] Information not available 03/18/2023 Family History Relationship [...] Maternal Aunt Malignant neoplasm of breast 40 [email or web address] Not available 03/18 14:51:06 Maternal Aunt Malignant neoplasm of pancreas [id number] Not available 03/18 14:51:39 Maternal Uncle Malignant neoplasm of colon [email or web address] Not available 03/18 14:51:21 Maternal Uncle Malignant neoplasm of prostate Not available 03/18 14:51:54 Medical History Condition Response Allergies (Food, seasonal, environmental ) Y Other N Drug/Latex Allergies/Reactions N Blood Transfusion N Breast Cancer N Dermatologic Disorders N Lung Disease N Defects or Inherited Disease N Breast Problem N Gestational Diabetes N Hematologic disorders N Anesthesia Complications N History of STI N Deep Vein Thrombosis N Polycystic ovary syndrome N Anxiety Disorder Y Autoimmune disease N Arthritis N Polyps N Infertility N Acid Reflux (GERD) N History of abnormal pap N Cancer N Varicosities N Stroke N Neurologic/Epilepsy N Endometriosis N High Cholesterol Y Fibromyalgia N Headaches N Kidney Disease N Heart Problems N Thyroid Problems Y Kidney or Bladder Problems N GI Problems N Eating Disorder N Anemia [...] ICD10 Code Diagnosis IMO Codes Diagnosis Note [id number] BABAK DAWKINS MD [place] [address] [address] 03/18/2023 12:28:21 03/18/2023 15:03:04 Menopausal syndrome [id number] N95.9 - hot flashes, night sweats, brain [...] Cavanaugh Member ID Guarantor Name 07/15/2023 1 [employer] (MEDICARE) Lorraine Quintana [id number] Lorraine Quintana 07/15/2023 2 [facility] (MEDICARE SUPPLEMENT) Lorraine Quintana [id number] Lorraine Quintana Notes Date Note Type Note [...] years. BABAK DAWKINS MD [address], [place], [address], [facility] 03/18/2023 14:59:43 OBGyn Episode Ob Episode Information Episode Created Date Number of Fetuses Patient Bloodtype Patient rh Status Prepregnancy Weight lbs Domestic Partner Domestic Partner Phone Father Name Behavioral Health Associate Status 03/18/20 23 1 CLOSED Fetus Data First Name Last Name Admitted to NICU Weight (g) Sex Living Outcome Pediatric Complications Fetus ID Race Codes Race Delivery Type 3175.14 4 F Full Term 86878 Repeat Emmanuel Calculation Initial Emmanuel Date Initial [...] Domestic Partner Domestic Partner Phone Father Name Behavioral Health Associate Status 03/18/20 23 1 CLOSED Fetus Data First Name Last Name Admitted to NICU Weight (g) Sex Living Outcome Pediatric Complications Fetus ID Race Codes Race Delivery Type 3259.96 5704 M Full Term [id number] Primary Emmanuel Calculation Initial Emmanuel Date Initial [...]
[2025-05-03 15:09] LABS: Albumin 3.7 g/dL (2.9-4.4); Alpha-1-Globulin 0.3 g/dL (0.0-0.4); Alpha-2-Globulin 0.9 g/dL (0.4-1.0); Gamma Globulin 1.1 g/dL (0.4-1.8)
[2025-05-03 16:08] LABS: Free Lambda Lt Chains, Serum 18.1 mg/L (5.7-26.3); Kappa/Lambda Ratio, Serum 1.23 (0.26-1.65)
== END 2025-05-02 11:33 | disposition home or self-care (01) ==
LOC: ANHLAB 11:33
PROVIDERS: PCP Student in an Organized Health Care Education/Training Program; Visit Provider Internal Medicine Hematology & Oncology
DX: D72.9 Disorder of white blood cells, unspecified (principal)
CPT/HCPCS: 36415; 80053; 82784; 83521; 84155; 84165; 85025